=== PATIENT | male | born 1935 | race Caucasian/White ===

== ENCOUNTER 2016-11-07 06:57 | Day surgery (SDC) | payer MEDICARE, OTHER ==
--- NOTE | 2016-11-05 14:06 | HP ---
CC: Joon Lombardo MD; Dr. Villafuerte * ADMITTING HISTORY AND PHYSICAL: DATE OF ADMISSION: 11/07/16 ADMITTING DIAGNOSES: 1. Hematuria. 2. Urinary retention. 3. Bladder calculi. 4. Bladder lesions. PLANNED PROCEDURE: Cystoscopy, fragmentation and removal of bladder calculi and possible bladder biopsies. SURGEON: Dandre Mak MD. 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 For the last 15 years, he has been managing this with intermittent self-catheterization and lately started having increasing difficulty doing catheterization and subsequent hematuria. Cystoscopy done in my office revealed a markedly enlarged prostate. There was a diverticulum noted in the posterior bladder wall with multiple bladder calculi and multiple areas of irregular raised mucosa, which may be secondary to the calculi or to the catheterization. Initially, he had an 18-Arabic Amezcua catheter placed after the cystoscopy, but this subsequently got occluded secondary to hematuria and I eventually replaced it with a 24- Arabic Amezcua catheter. PAST MEDICAL HISTORY: Significant for: 1. Chronic dermatitis. 2. Asthma. 3. History of first degree AV block. 4. High cholesterol. 5. Rheumatoid arthritis. PAST SURGICAL HISTORY: Significant for removal of a nodule from the right knee. MEDICATIONS ON ADMISSION: 1. Salsalate 500 mg daily. 2. Montelukast 10 mg daily. 3. Vitamin C 500 mg daily. 4. Vitamin D3 1000 International Unit daily. 5. Prednisone 10 mg daily. 6. Atorvastatin 20 mg daily. 7. Avodart 0.5 mg daily. ALLERGIES AND INTOLERANCES: 1. NONSTEROIDAL ANTI-INFLAMMATORY MEDICATIONS. 2. NEOMYCIN. 3. TOPICAL GENTAMICIN EYE DROPS. 4. TOBRAMYCIN EYE DROPS. 5. SULFA. 6. LATEX. SMOKING HISTORY: He is a nonsmoker. PHYSICAL EXAMINATION GENERAL: A pleasant elderly gentleman. VITAL SIGNS: Blood pressure is 140/88, pulse 95 per minute, oxygen saturation 98% on room air. LUNGS: Clear bilaterally. CARDIOVASCULAR: Regular rate and rhythm. S1, S2. ABDOMEN: Soft without masses. A Amezcua catheter is in place. IMPRESSION: An 81-year-old gentleman with urinary retention secondary to prostate enlargement and multiple bladder calculi and bladder lesion. PLAN/RECOMMENDATIONS: Planned procedure is cystoscopy, fragmentation and removal of bladder calculi and possible bladder biopsy depending on intraoperative assessment. [id number]/[facility] #: [id number] [facility]
[~2016-11-07 06:57] MED LIST: Buffered Lidocaine 0.9% SYRIN* 5 ML/SYR SYRINGE INTRADERM ONE; Buffered Lidocaine 0.9% SYRIN* 5 ML/SYR SYRINGE ONE; Famotidine IV* 10 MG/ML 2 ML (20 mg) IV ONE; Famotidine IV* 10 MG/ML 2 ML (20 mg) ONE; cefTRIAXone(*) 2 GM ADDV.VIAL IVPB ONE
[2016-11-07] MEDS ORDERED: Midazolam* 1 MG/ML 5 ML VIAL (5 MG) ONE (08:55)
[2016-11-07] MEDS ORDERED: fentaNYL* 50 MCG/ML 2 ML VIAL (100 MCG VIAL) ONE (08:55)
[2016-11-07] MEDS ORDERED: Chloroprocaine 2%* 20 ML VIAL ONE (09:01)
[2016-11-07] MEDS ORDERED: Ondansetron INJ* 2 MG/ML VIAL ONE (09:33)
[2016-11-07] MEDS ORDERED: Furosemide IV* 10 MG/ML 2 ML VIAL (20 MG) ONE (09:46)
[2016-11-07] MEDS ORDERED: Acetaminophen TAB* 325 MG PO PRN (10:01)
[2016-11-07] MEDS ORDERED: HYDROcodone/ACETAMIN 5-325 MG* 1 TAB PO PRN (10:01)
[2016-11-07] MEDS ORDERED: PROCHLORPERAZINE INJ 5 MG/ML 2 ML VIAL IV PRN (10:01)
[2016-11-07] MEDS ORDERED: fentaNYL* 50 MCG/ML 2 ML VIAL (100 MCG VIAL) IV PRN (10:01)
[2016-11-07] MEDS ORDERED: Lidocaine 2% JELLY* 6 ML JELLY TOPICAL ONE (10:37)
[2016-11-07 11:48] VITALS: BP 131/69
--- NOTE | 2016-11-07 23:18 | OP ---
CC: Joon Lombardo MD; Dr. Villafuerte * DATE OF OPERATION: 11/07/16 - [facility] DATE OF : 35 - AGE/SEX: 81 years/male. SURGEON: Dandre Mak MD ANESTHESIOLOGIST: Aniyah Carlson MD ANESTHESIA: Spinal. PRE-OP DIAGNOSES: 1. Prostate enlargement. 2. Urinary retention. 3. Multiple bladder calculi. POST-OP DIAGNOSES: 1. Prostate enlargement. 2. Urinary retention. 3. Multiple bladder calculi. OPERATIVE PROCEDURE: Cystoscopy, fragmentation and removal of multiple bladder calculi. COMPLICATIONS: None. BLOOD LOSS: Minimal. POSTOPERATIVE CONDITION: Stable. OPERATIVE FINDINGS: 1. Markedly enlarged prostate. 2. Trabeculated bladder with multiple small diverticula and multiple bladder calculi. 3. Multiple areas of thickened hyperemic mucosa, probably reactive changes secondary to multiple bladder calculi and catheter. 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 He has been managed with intermittent self catheterization and recently had difficulty catheterizing resulting in cystoscopy, which revealed multiple bladder calculi. DESCRIPTION OF PROCEDURE: After induction of spinal anesthesia, the patient was placed in dorsal lithotomy position, sequential compression devices were in place and functioning. Initial cystoscopy revealed a normal-appearing urethra and markedly enlarged vascular prostate with multiple calcifications noted at the area of the bladder neck posteriorly. The bladder was extremely difficult to visualize because of multiple bladder calculi and because of oozing from the veins and the posterior bladder neck. After some irrigation, visualization was somewhat better. Attention was directed to the bladder calculi. Some of these were fairly large and using a stone crushing forceps, these were fragmented into multiple smaller fragments, which were irrigated out. After the bulk of the calculi had been fragmented and removed, I could then visualize the bladder much more easily and most of the changes in the bladder lining appeared consistent with inflammatory response. Once all the stones and fragments had been successfully removed, a 24-Upper Sorbian silicone Amezcua catheter was introduced without difficulty and connected to a drainage bag. The patient tolerated the procedure satisfactorily and was transferred back to the recovery area in stable condition. [id number]/[facility] #: [id number] [facility]
== END 2016-11-07 12:03 | disposition home or self-care (01) ==
LOC: OR 06:57
PROVIDERS: ATTEND Urology
DX: N20.1 Calculus of ureter (principal); N32.9 Bladder disorder, unspecified; N40.1 Benign prostatic hyperplasia with lower urinary tract symptoms; R33.8 Other retention of urine
CPT/HCPCS: 82365; 88300; J0696; J1940; J2250; J2400; J2405; J3010

== ENCOUNTER 2016-12-31 09:34 | Observation (INO) | payer MEDICARE, OTHER ==
--- NOTE | 2016-12-24 08:55 | HP ---
CC: Dr. Lombardo; Dr. Villafuerte * ADMITTING HISTORY AND PHYSICAL: DATE OF ADMISSION: 12/31/16 ADMITTING DIAGNOSES: 1. Urinary retention. 2. Prostate enlargement. 3. Bladder calculi. PLANNED PROCEDURE: Transurethral resection of prostate and fragmentation and removal of bladder calculi. SURGEON: Dr. 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 He had managed this for about 15 years with intermittent self-catheterization and recently had problems doing catheterization and had undergone surgery in October 2016 for multiple bladder calculi. His plan was to come back in the fall for a transurethral resection of the prostate, but he's had problems keeping a Amezcua catheter in due to rupture of the balloon, and a follow-up cystoscopy in my office recently revealed multiple new bladder calculi, and he's now being brought in for transurethral resection of prostate and removal of the new bladder calculi. PAST MEDICAL HISTORY: Significant for 1. Long-standing urinary retention. 2. Asthma. 3. History of first-degree AV block. 4. Chronic dermatitis. 5. Rheumatoid arthritis. 6. High cholesterol. MEDICATIONS: 1. Montelukast 10 mg daily. 2. Salicylate 500 mg daily. 3. Vitamin C 500 mg daily. 4. Prednisone 10 mg daily. 5. Atorvastatin 20 mg daily. 6. Avodart 0.5 mg daily. 7. Vitamin D3 1000 international units daily. ALLERGIES/INTOLERANCES: 1. NEOMYCIN. 2. TOPICAL GENTAMYCIN. EYE DROPS. 3. TOBRAMYCIN EYE DROPS. 4. SULFA. 5. LATEX. 6. NON-STEROIDAL ANTI-INFLAMMATORY MEDICATIONS. SOCIAL HISTORY: Smoking history - he is a nonsmoker. REVIEW OF SYSTEMS: He denies any chest pain or shortness of breath. He's fairly active, and still works as an emergency room physician. PHYSICAL EXAMINATION GENERAL: Reveals a pleasant, elderly gentleman. VITAL SIGNS: Blood pressure is 154/90, pulse 100 per minute, oxygen saturation 98% on room air. LUNGS: Clear bilaterally. CARDIOVASCULAR: Regular rate and rhythm. S1, S2. ABDOMEN: Soft. Amezcua catheter is in place. IMPRESSION: An 81-year-old gentleman with prostate enlargement, long-standing urinary retention, and recurrent bladder calculi. PLAN: Planned procedure is transurethral resection of prostate, and fragmentation and removal of bladder calculi. [id number]/[facility] #: [id number] [facility]
[~2016-12-31 09:34] MED LIST changes: -Buffered Lidocaine 0.9% SYRIN* 5 ML/SYR SYRINGE ONE; -Famotidine IV* 10 MG/ML 2 ML (20 mg) ONE; -cefTRIAXone(*) 2 GM ADDV.VIAL IVPB ONE
[2016-12-31] MEDS ORDERED: Levalbuterol 1.25MG/0.5ML NEB ONE (09:41)
[2016-12-31] MEDS ORDERED: Buffered Lidocaine 0.9% SYRIN* 5 ML/SYR SYRINGE ONE (09:42)
[2016-12-31] MEDS ORDERED: fentaNYL* 50 MCG/ML 2 ML VIAL (100 MCG VIAL) ONE (10:08)
[2016-12-31] MEDS ORDERED: Midazolam* 1 MG/ML 5 ML VIAL (5 MG) ONE (10:09)
[2016-12-31] MEDS ORDERED: cefTRIAXone(*) 2 GM ADDV.VIAL IVPB ONE (10:20)
[2016-12-31 10:26] LABS: Hematocrit 38 % (42-52); Hemoglobin 12.6 g/dl (14.0-18.0); Mean Corpuscular HGB Conc 34 g/dl (31-36); Mean Corpuscular Hemoglobin 28 pg (27-31); Mean Corpuscular Volume 84 fL (80-94); Mean Platelet Volume 6 um3 (7.4-10.4); Red Blood Count 4.46 10^6/ul (4.0-5.4); Red Cell Distribution Width 15 % (10.5-15)
[2016-12-31] MEDS ORDERED: Famotidine IV* 10 MG/ML 2 ML (20 mg) ONE (10:28)
[2016-12-31 10:39] LABS: BUN/Creatinine Ratio 35.9 (8-20); Calcium 9.1 mg/dL (8.6-10.3); EGFR African American 154.4 (>60); Potassium 3.9 mmol/L (3.5-5.0)
[2016-12-31] MEDS ORDERED: Levalbuterol 0.63MG/3ML NEB INH ONE (11:00)
[2016-12-31] MEDS ORDERED: Propofol* 10 MG/ML 20 ML BTL IV PUSH ONE (11:58)
[2016-12-31] MEDS ORDERED: Ondansetron INJ* 2 MG/ML VIAL ONE (11:58)
[2016-12-31] MEDS ORDERED: Dexamethasone IV* 4 MG/ML 1 ML (4 MG) ONE (11:58)
[2016-12-31] MEDS ORDERED: Levalbuterol 0.63MG/3ML NEB INH PRN (11:59)
[2016-12-31] MEDS ORDERED: HYDROmorphone* 1 MG/ML 1 ML SYR IV PRN (11:59)
[2016-12-31] MEDS ORDERED: Acetaminophen TAB* 325 MG PO PRN ×2 (11:59→14:54)
[2016-12-31] MEDS ORDERED: oxyCODONE TAB* 5 MG TAB PO PRN (11:59)
[2016-12-31] MEDS ORDERED: Phenylephrine IV* 40 MCG/ML 10 ML SYRINGE ONE (11:59)
[2016-12-31] MEDS ORDERED: DiMENhydriNATE IV* 50 MG/ML VIAL IV PUSH PRN (11:59)
[2016-12-31] MEDS ORDERED: EPHEDrine (Pressors)* 50 MG/ML VIAL ONE (12:18)
[2016-12-31] MEDS ORDERED: Furosemide IV* 10 MG/ML 2 ML VIAL (20 MG) ONE (12:37)
[2016-12-31] MEDS ORDERED: Levalbuterol HFA INHALER* 1 PUFF MDI INH PRN (14:53)
[2016-12-31] MEDS: DISALCID PO SCH ×2 (16:27→23:09)
[2016-12-31] MEDS ORDERED: Furosemide IV* 10 MG/ML 2 ML VIAL (20 MG) IV ONE (18:00)
[2016-12-31] MEDS: Lidocaine 2% JELLY* 6 ML JELLY TOPICAL SCH (20:53)
[2016-12-31] MEDS: Docusate CAP* 100 MG PO SCH (20:55)
[2016-12-31] MEDS ORDERED: Cholecalciferol TAB* 1000 UNITS PO SCH (21:00)
[2016-12-31] MEDS ORDERED: Ascorbic Acid TAB* 500 MG PO SCH (21:00)
[2016-12-31] MEDS ORDERED: Atorvastatin* 20 MG TAB PO SCH (21:00)
[2016-12-31] MEDS ORDERED: Montelukast Sodium TAB* 10 MG PO SCH (21:00)
[2016-12-31] MEDS ORDERED: Cyanocobalamin TAB* 500 MCG PO SCH (21:00)
--- NOTE | 2016-12-31 22:22 | OP ---
CC: Dr. Lombardo; Dr. Villafuerte * DATE OF OPERATION: 12/31/16 - ROOM #340 DATE OF : 35 SURGEON: Dandre Mak MD ANESTHESIOLOGIST: Mar Tyson MD ANESTHESIA: Spinal. PRE-OP DIAGNOSES: 1. Benign prostatic hypertrophy. 2. Urinary retention. 3. Recurrent bladder calculi. POST-OP DIAGNOSES: 1. Benign prostatic hypertrophy. 2. Urinary retention. 3. Recurrent bladder calculi. OPERATIVE PROCEDURE: 1. Transurethral resection of prostate. 2. Fragmentation and removal of bladder calculi. INDICATIONS: Jose Guillen is an 81-year-old gentleman, who has had long-standing urinary retention for about 15 years. This has been managed variously over the years with intermittent catheterization and also an indwelling catheter. He also has a history of stones and had undergone a procedure to remove bladder stones about a month ago. He was recently seen in the office and noted to have what appeared to be new stones at the bladder neck and some in the bladder and is now being brought in for management of those as well as transurethral resection of prostate. Because of the very large size of the prostate, I have explained to him that he may require a second-stage procedure. COMPLICATIONS: None. ESTIMATED BLOOD LOSS: Approximately 100 to 150 cc. SPECIMEN: Prostate chips and bladder calculi. CATHETER: A 24-Stateless 30 cc balloon Amezcua. OPERATIVE FINDINGS: 1. Normal-appearing urethra. 2. Markedly enlarged vascular prostate. 3. Multiple calculi, some in the bladder and some adherent to the bladder neck posteriorly. POSTOPERATIVE CONDITION: Stable. DESCRIPTION OF PROCEDURE: After induction of spinal anesthesia, the patient was placed in dorsal lithotomy position. Sequential compression devices were in place and functioning. Initial cystoscopy revealed a normal-appearing urethra, a markedly enlarged prostate in the posterior bladder neck. There were several calcifications that were dug into the bladder neck and could not be easily removed. There were some bladder calculi floating within the bladder lumen also. Using a stone crushing forceps, the calculi that were floating within the bladder lumen were fragmented and removed. Next, a resectoscope was introduced. The calculi that were dug into the posterior bladder neck had to be loosened by using the resectoscope at the posterior bladder neck. Once this was done, most of the calculi were dislodged and were then fragmented and removed. Transurethral resection of the prostate was carried out. The prostate as expected was very large and vascular and transurethral resection was carried out from the bladder neck down towards the veru. Because of the large size and vascularity, I did not attempt to completely resect the prostate, but resected enough of the floor of the prostate and the lateral lobes, hopefully to be able to facilitate voiding. It is possible that he may require a second-stage procedure after a few months and once adequate hemostasis had been secured and the resected tissue had been removed from the bladder, a 24-Stateless Amezcua catheter was introduced without difficulty. 45 cc of water was placed in balloon and was placed on gentle traction. The patient tolerated the procedure satisfactorily and was transferred back to the recovery area in stable condition. [id number]/[facility] #: [id number] [facility]
[2017-01-01] MEDS: DISALCID PO SCH ×2 (03:37→10:15)
[2017-01-01 06:03] LABS: BUN/Creatinine Ratio 30.5 (8-20); Calcium 8.5 mg/dL (8.6-10.3); EGFR African American 169.6 (>60); EGFR Non-African American 131.8 (>60); Potassium 4.1 mmol/L (3.5-5.0)
[2017-01-01] MEDS: Docusate CAP* 100 MG PO SCH (08:56)
[2017-01-01] MEDS: Lidocaine 2% JELLY* 6 ML JELLY TOPICAL SCH (08:59)
[2017-01-01] MEDS ORDERED: Cetirizine* 10 MG TAB PO SCH (09:00)
[2017-01-01] MEDS ORDERED: Furosemide IV* 10 MG/ML 2 ML VIAL (20 MG) IV ONE (09:00)
[2017-01-01] MEDS ORDERED: predniSONE TAB* 5 MG PO SCH (09:00)
[2017-01-01] MEDS ORDERED: Finasteride TAB* 5 MG PO SCH (09:00)
[2017-01-01 11:23] VITALS: BP 148/70
--- NOTE | 2017-01-03 04:59 | DS ---
DISCHARGE SUMMARY: DATE OF ADMISSION: 12/31/16 DATE OF DISCHARGE: 01/01/17 ADMITTING DIAGNOSES: 1. Urinary retention. 2. Prostate enlargement. 3. Bladder calculi. SURGICAL PROCEDURES: On this admission on 12/31/16, transurethral resection of prostate and fragmentation and removal of bladder calculi. 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 For details, please see history and physical dictated prior to admission. 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 Surgery was smooth and uneventful. He was monitored overnight and the Amezcua catheter continued to drain well with reasonably clear urine. He was evaluated on the morning on 01/01/17 and was discharged home with a Amezcua catheter for followup as per outpatient protocol. [id number]/[facility] #: [id number] [facility]
== END 2017-01-01 12:00 | disposition home or self-care (01) ==
LOC: OR 09:34 → SSU 14:40
PROVIDERS: ADMIT Urology; ATTEND Urology
DX: N40.1 Benign prostatic hyperplasia with lower urinary tract symptoms (principal); R33.8 Other retention of urine; N21.0 Calculus in bladder; J45.909 Unspecified asthma, uncomplicated; I44.0 Atrioventricular block, first degree; M06.9 Rheumatoid arthritis, unspecified; E78.00 Pure hypercholesterolemia, unspecified; L30.9 Dermatitis, unspecified; Z79.899 Other long term (current) drug therapy; I10 Essential (primary) hypertension
CPT/HCPCS: 36415; 80048; 85027; 85610; 88305; 96365; 96375; A9270-GY; G0378; J0696; J1100; J1580; J1940; J2250; J2405; J2704; J3010; J7512

== ENCOUNTER 2017-04-20 06:02 | Observation (INO) | payer MEDICARE, OTHER ==
--- NOTE | 2017-04-15 18:23 | HP ---
CC: Dr. Villafuerte; Dr. Lombardo * ADMITTING HISTORY AND PHYSICAL: DATE OF ADMISSION: 04/20/17 ADMITTING DIAGNOSES: 1. Prostate enlargement. 2. Urinary retention. 3. Bladder calculi. PLANNED PROCEDURE: Cystoscopy, fragmentation, and removal of bladder calculi, and transurethral resection of prostate (second stage procedure). SURGEON: Dr. Mak. 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 He had undergone transurethral resection in December 2016, and at that time was noted to have a very large, very vascular prostate with multiple large bladder calculi. He still is requiring intermittent self-catheterization and is now being brought in for a second stage transurethral resection and removal of any remaining calculi. PAST MEDICAL HISTORY: Significant for: 1. Urinary retention and bladder calculi (this has been a problem for 15 to 20 years and he did not seek attention for it up until recently). 2. History of first-degree AV block. 3. Asthma. 4. Rheumatoid arthritis. 5. High cholesterol. MEDICATIONS: On admission: 1. Salicylate 500 mg daily. 2. Montelukast 10 mg daily. 3. Prednisone 10 mg daily. 4. Atorvastatin 20 mg daily. 5. Avodart 0.5 mg daily. ALLERGIES AND INTOLERANCES: NEOMYCIN, TOPICAL GENTAMICIN EYE DROPS and TOBRAMYCIN EYE DROPS, LATEX, SULFA, and NON-STEROIDAL ANTI-INFLAMMATORY MEDICATIONS. REVIEW OF SYSTEMS: He denies any chest pain or shortness of breath. PHYSICAL EXAMINATION GENERAL: Reveals a pleasant, elderly gentleman. VITAL SIGNS: Blood pressure is 160/90, pulse 100 per minute, oxygen saturation 97% on room air. LUNGS: Clear bilaterally. CARDIOVASCULAR EXAM: Regular rate and rhythm. S1, S2. ABDOMEN: Soft with a Amezcua catheter in place. 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 PLAN: Planned procedure is cystoscopy, fragmentation, and removal of bladder calculi and transurethral resection of prostate (second stage procedure). [id number]/[facility] #: [id number] [facility]
[~2017-04-20 06:02] MED LIST changes: -Famotidine IV* 10 MG/ML 2 ML (20 mg) IV ONE
[2017-04-20] MEDS ORDERED: Buffered Lidocaine 0.9% SYRIN* 5 ML/SYR SYRINGE ONE (06:14)
[2017-04-20] MEDS ORDERED: cefTRIAXone(*) 2 GM ADDV.VIAL IVPB ONE (06:14)
[2017-04-20] MEDS ORDERED: Gentamicin ADULT (*) 160 MG in NS 0.9% 100 ML* 100 ML IVPB ONE ×2 (07:00→21:00)
[2017-04-20] MEDS ORDERED: fentaNYL* 50 MCG/ML 2 ML VIAL (100 MCG VIAL) ONE ×2 (08:01→09:55)
[2017-04-20] MEDS ORDERED: Midazolam* 1 MG/ML 2 ML VIAL (2 MG) ONE (08:06)
[2017-04-20] MEDS ORDERED: Fluorescein 10% INJ* 100 MG/ML AMP ONE (08:28)
[2017-04-20] MEDS ORDERED: Furosemide IV* 10 MG/ML 2 ML VIAL (20 MG) ONE (09:03)
[2017-04-20] MEDS ORDERED: fentaNYL* 50 MCG/ML 2 ML VIAL (100 MCG VIAL) IV PRN (10:19)
[2017-04-20] MEDS ORDERED: oxyCODONE/Acetamin 5/325 MG* TAB PO PRN ×2 (10:19→12:09)
[2017-04-20] MEDS ORDERED: DiMENhydriNATE IV* 50 MG/ML VIAL IV PUSH PRN (10:19)
[2017-04-20] MEDS ORDERED: Acetaminophen TAB* 325 MG PO PRN ×2 (12:10→12:31)
[2017-04-20] MEDS ORDERED: Levalbuterol HFA INHALER* 1 PUFF MDI INH PRN (12:30)
[2017-04-20] MEDS: Docusate CAP* 100 MG PO SCH ×2 (14:31→21:16)
[2017-04-20] MEDS: Salsalate TAB* 500 MG PO SCH (17:29)
[2017-04-20] MEDS ORDERED: Atorvastatin* 20 MG TAB PO SCH (18:00)
[2017-04-20] MEDS ORDERED: Montelukast Sodium TAB* 10 MG PO SCH (18:00)
[2017-04-20] MEDS ORDERED: Cholecalciferol TAB* 1000 UNITS PO SCH (18:00)
[2017-04-20] MEDS ORDERED: Cyanocobalamin TAB* 500 MCG PO SCH (18:00)
[2017-04-20] MEDS ORDERED: Ascorbic Acid TAB* 500 MG PO SCH (18:00)
[2017-04-21] MEDS: Salsalate TAB* 500 MG PO SCH ×3 (00:05→12:15)
[2017-04-21] MEDS ORDERED: Magnesium Hydroxide LIQ* 30 ML UDC PO PRN (03:20)
[2017-04-21] MEDS ORDERED: Ondansetron INJ* 2 MG/ML VIAL IV PRN (03:20)
--- NOTE | 2017-04-21 04:09 | OP ---
CC: Joon Lombardo MD * DATE OF OPERATION: 04/20/17 - ROOM #348 DATE OF : 35 SURGEON: Dr. Mak. ANESTHESIA: Spinal. ANESTHESIOLOGIST: Dr. Hardin. PRE-OP DIAGNOSES: 1. Benign prostatic hypertrophy. 2. Urinary retention. 3. Bladder calculi. POST-OP DIAGNOSES: 1. Benign prostatic hypertrophy. 2. Urinary retention. 3. Bladder calculi. OPERATIVE PROCEDURE: 1. Transurethral resection of prostate. 2. Cystoscopy and fragmentation and removal of bladder calculi. COMPLICATIONS: None. BLOOD LOSS: Approximately 100 to 150 cc. FLUID REPLACEMENT: Crystalloid. CATHETER: 24-Hungarian 30 cc Amezcua. POSTOPERATIVE CONDITION: Stable. 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 DESCRIPTION OF PROCEDURE: After induction of spinal anesthesia, the patient was placed in dorsal lithotomy position. Sequential compression devices were in place and functioning. Initial cystoscopy revealed mild strictures in the penile urethra, which were carefully dilated. The prostate was enlarged, vascular, and distorted from prior resection. The bladder was examined. There were multiple bladder calculi including several calculi in a diverticulum, which was just inside and below the posterior bladder neck. Using a stone crushing forceps, all of the calculi were fragmented into smaller pieces, which were then irrigated out. Next, a resectoscope was introduced. Transurethral resection of the prostate was carried out. The prostate was very large and vascular as expected and the lateral lobe tissue was resected followed by the anterior tissue and the floor of the prostate. I did not make any attempt to completely resect the prostate as that would involve several hours of resection and would increase the risk of TUR syndrome. Once enough tissue had been resected to hopefully facilitate voiding, attention was directed to hemostasis, which was secured using the coagulating current. The resected tissue was removed from the bladder using the Danette evacuator. A 24-Hungarian Amezcua catheter was placed without difficulty and the balloon was inflated with 45 cc of sterile water and placed on gentle traction. The patient tolerated the procedure satisfactorily and was transferred back to the recovery area in stable condition. [id number]/[facility] #: [id number] [facility]
[2017-04-21 06:08] LABS: BUN/Creatinine Ratio 18.9 (8-20); Calcium 7.9 mg/dL (8.6-10.3); EGFR African American 191.9 (>60); EGFR Non-African American 149.2 (>60); Potassium 3.3 mmol/L (3.5-5.0)
[2017-04-21] MEDS ORDERED: Finasteride TAB* 5 MG PO SCH (09:00)
[2017-04-21] MEDS ORDERED: Cetirizine* 10 MG TAB PO PRN (09:00)
[2017-04-21] MEDS ORDERED: Gentamicin ADULT (*) 160 MG in NS 0.9% 100 ML* 100 ML IVPB ONE (09:00)
[2017-04-21] MEDS ORDERED: cefTRIAXone(*) 2 GM in NS 0.9% 100 ML* 100 ML IVPB ONE (09:00)
[2017-04-21] MEDS ORDERED: predniSONE TAB* 5 MG PO SCH (09:00)
[2017-04-21] MEDS: Docusate CAP* 100 MG PO SCH (09:11)
[2017-04-21 11:04] VITALS: BP 130/46
--- NOTE | 2017-04-22 12:42 | DS ---
CC: Dr. Joon Lombardo; Dandre Mak MD * DISCHARGE SUMMARY: DATE OF ADMISSION: 04/20/17 DATE OF DISCHARGE: 04/21/17 ADMITTING DIAGNOSES: 1. Urinary retention. 2. Prostate enlargement. 3. Bladder calculi. SURGICAL PROCEDURES ON THIS ADMISSION: On 04/20/17, transurethral resection of prostate and fragmentation and removal of bladder calculi. 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 For details, please see admitting history and physical. 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 Under spinal anesthesia, surgery was smooth and uneventful. He was monitored overnight and was evaluated on 04/21/17. The Amezcua catheter was draining clear urine and he was discharged home with a leg bag for a followup as per outpatient protocol. [id number]/[facility] #: [id number] [facility]
== END 2017-04-21 12:50 | disposition home or self-care (01) ==
LOC: OR 06:02 → SSU 12:20
PROVIDERS: ADMIT Urology; ATTEND Urology
PROC: 0VB08ZZ Excision of Prostate, Via Natural or Artificial Opening Endoscopic (ICD-10-PCS; principal; 2017-04-20 07:45)
DX: N40.1 Benign prostatic hyperplasia with lower urinary tract symptoms (principal); R33.8 Other retention of urine; N21.0 Calculus in bladder; Z88.2 Allergy status to sulfonamides; Z88.1 Allergy status to other antibiotic agents; Z88.6 Allergy status to analgesic agent; I44.0 Atrioventricular block, first degree; M06.9 Rheumatoid arthritis, unspecified; J45.909 Unspecified asthma, uncomplicated; E78.00 Pure hypercholesterolemia, unspecified; Z79.899 Other long term (current) drug therapy
CPT/HCPCS: 36415; 80048; 82365; 88300; 88305; 96365; 96366; 96367; 96375; A9270-GY; G0378; J0696; J1580; J1940; J2250; J2405; J3010; J7512

== ENCOUNTER 2017-10-10 13:12 | Emergency (ER) | payer MEDICARE, OTHER ==
[2017-10-10 13:25] VITALS: BP 168/83
--- NOTE | 2017-10-10 13:35 | UC ---
Laceration HPI - HPI Summary HPI Summary: PT IS C/O A "SKIN TEAR" TO HIS R LOWER LEG. 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 LAST TETANUS WAS GREATER THAN 10 YEARS AGO. NO CONCERN FOR FB. - History Of Current Complaint Hx Obtained From: Patient Pain Intensity: 2 Aggravating Factors: Nothing <Alma Marr - Last Filed: 10/10/17 14:46> <Zohra Juarez - Last Filed: 10/12/17 09:33> - History Of Current Complaint Chief Complaint: UCLaceration Stated Complaint: RT LEG LAC Time Seen by Provider: 10/10/17 13:24 - Allergies/Home Medications Allergies/Adverse Reactions: Allergies Allergy/AdvReac Type Severity Reaction Status Date / Time chloroquine Allergy Tinnitus Verified 10/10/17 13:59 gentamicin Allergy Eyes Verified 10/10/17 13:59 Itchy/Swollen/Red/Watery latex Allergy Rash And Verified 10/10/17 13:59 Itching leflunomide Allergy See Comment Verified 10/10/17 13:59 neomycin Allergy Eyes Verified 10/10/17 13:59 Itchy/Swollen/Red/Watery NSAIDS (Non-Steroidal Allergy Swelling Verified 10/10/17 13:59 Anti-Inflamma Of Face,Lips,& Throat Sulfa (Sulfonamide Allergy Rash And Verified 10/10/17 13:59 Antibiotics) Itching tobramycin Allergy Eyes Verified 10/10/17 13:59 Itchy/Swollen/Red/Watery Ragweed/Environmental Allergy Congestion Uncoded 10/10/17 13:59 PMH/Surg Hx/FS Hx/Imm Hx - Additional Past Medical History Additional PMH: ALLERGIES, RA Respiratory History: COPD - Surgical History Surgical History: Yes Surgery Procedure, Year, and Place: BILATERAL HAND JOINT REPLACEMENT,. RT KNEE EXPLORATORY SURGERY RHEUMATOID NODULE REMOVED. CATARACT SURGERY 2015 - Family History Known Family History: Positive: Other - non contributing - Social History Occupation: Employed Part-time Lives: With Family Alcohol Use: None Substance Use Type: None Smoking Status (MU): Never Smoked Tobacco - Immunization History Most Recent Influenza Vaccination: 2016 Most Recent Pneumonia Vaccination: pt stated within the last two years <Alma Marr - Last Filed: 10/10/17 14:46> Review of Systems Constitutional: Negative Skin: Rash - laceration RLE Eyes: Negative ENT: Negative Respiratory: Negative Cardiovascular: Negative Gastrointestinal: Negative Genitourinary: Negative Motor: Negative Neurovascular: Negative Musculoskeletal: Arthralgia - hx RA Neurological: Negative Psychological: Negative All Other Systems Reviewed And Are Negative: Yes <Alma Marr - Last Filed: 10/10/17 14:46> Physical Exam Triage Information Reviewed: Yes Appearance: Well-Appearing Vital Signs: Initial Vital Signs Temp 98.0 F 10/10/17 13:22 Pulse 94 10/10/17 13:22 Resp 16 10/10/17 13:22 BP 168/83 10/10/17 13:22 Pulse Ox 97 10/10/17 13:22 Vital Signs Reviewed: Yes Eyes: Positive: Conjunctiva Clear ENT: Positive: Pharynx normal. Negative: Nasal congestion Neck: Positive: Supple, Nontender, No Lymphadenopathy Respiratory: Positive: Lungs clear, Normal breath sounds Cardiovascular: Positive: RRR, No Murmur Abdomen Description: Positive: Nontender, No Organomegaly, Soft Bowel Sounds: Positive: Present Musculoskeletal: Positive: Other: - Deformity c/w RA. Neurological: Positive: Alert Psychological: Positive: Age Appropriate Behavior Skin Exam: Normal Skin: Positive: Other - 4cm laceration R lateral lower leg. no bony tenderness. skin is dry scaley and some pigment changes to lower leg, both chronic and unchanges. gross s/v/m is intact. <Alma Marr - Last Filed: 10/10/17 14:46> Vital Signs: Initial Vital Signs Temp 98.0 F 10/10/17 13:22 Pulse 94 10/10/17 13:22 Resp 16 10/10/17 13:22 BP 168/83 10/10/17 13:22 Pulse Ox 97 10/10/17 13:22 <Zohra Juarez - Last Filed: 10/12/17 09:33> Laceration Course/Dx - Course/Dx Course Of Treatment: Procedure: 4cm flap irrigated with sterile NaCl by nursing. local anesthesia declined by pt. using sterile technique: wound explored and no FB. irrigated sterile water. pt refused betadine so skin clensed with Hibiclens and rinsed. flap is thin but site was closed with 5-0 nylon and 9 simple stitches. edges reinforced with Mastosol 3 steri strips. pt tolerated well. wound check/close f/u advised. pt also advised that flap is thin is may scab. - Differential Dx - Laceration/Wound Provider Diagnoses: 4cm laceration RLE <Alma Marr - Last Filed: 10/10/17 14:46> Discharge - Sign-Out/Discharge Documenting (check all that apply): Discharge/Admit/Transfer - Billing Disposition and Condition Condition: STABLE Disposition: HOME <Alma Marr - Last Filed: 10/10/17 14:46> - Billing Disposition and Condition Condition: STABLE Disposition: HOME <Zohra Juarez - Last Filed: 10/12/17 09:33> - Discharge Plan Condition: Stable Disposition: HOME Patient Education Materials: Care For Your Stitches (DC), Steristrips (ED) Referrals: Huang Rowe [Medical Doctor] - If Needed Joon Lombardo MD [Primary Care Provider] - 5 Days Additional Instructions: WOUND CHECK WITH YOUR DOCTOR. FOLLOW UP SURGERY NEEDED FOR ANY COMPLICATIONS Attestation Statement User Type: Provider - I was available for consult. This patient was seen by the LEON. The patient was not presented to, seen by, or examined by me. -Temitope <Zohra Juarez - Last Filed: 10/12/17 09:33>
[2017-10-10] MEDS ORDERED: Lidocaine 1% MPF* 2 ML VIAL ONE (13:42)
[2017-10-10] MEDS ORDERED: Tetan/Diph/Pertus SYR(Tdap)* 0.5 ML SYR(BOOSTRIX) use SYR IM ONE (13:42)
[2017-10-10] MEDS ORDERED: Lidocaine 1% MPF* 2 ML VIAL INJ ONE (13:43)
== END 2017-10-10 14:46 | disposition home or self-care (01) ==
LOC: UCCORT 13:12
DX: S81.811A Laceration without foreign body, right lower leg, initial encounter (principal); W45.8XXA Other foreign body or object entering through skin, initial encounter; W22.8XXA Striking against or struck by other objects, initial encounter; Y93.89 Activity, other specified; Y92.9 Unspecified place or not applicable; Z88.8 Allergy status to other drugs, medicaments and biological substances; Z88.1 Allergy status to other antibiotic agents; Z91.040 Latex allergy status; Z88.6 Allergy status to analgesic agent; Z88.2 Allergy status to sulfonamides
CPT/HCPCS: 12002; 90471; 90715; 99201; G0463

== ENCOUNTER 2017-12-14 06:04 | Observation (INO) | payer MEDICARE, OTHER ==
--- NOTE | 2017-12-11 12:25 | HP ---
ADMITTING HISTORY AND PHYSICAL: DATE OF ADMISSION: 12/14/17 ADMITTING DIAGNOSES: 1. Bladder calculi. 2. Prostate enlargement. PLANNED PROCEDURE: Transurethral resection of prostate and fragmentation and removal of bladder calculi. SURGEON: Dr. Mak. 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 He had undergone transurethral resection in the past, but still has urinary retention requiring intermittent self catheterization. PAST MEDICAL HISTORY: Significant for: 1. Asthma. 2. Rheumatoid arthritis. 3. High cholesterol. MEDICATIONS ON ADMISSION: 1. Montelukast 10 mg daily. 2. Salicylates 500 mg daily. 3. Atorvastatin 20 mg daily. 4. Avodart 0.5 mg. 5. Prednisone. ALLERGIES: TOPICAL GENTAMICIN EYE DROPS, TOBRAMYCIN EYE DROPS, LATEX, NONSTEROIDAL ANTI-INFLAMMATORY MEDICATIONS, SULFA, and NEOMYCIN. REVIEW OF SYSTEMS: He is otherwise in excellent health. He denies any chest pain or shortness of breath. There is no history of diabetes mellitus or any other major systemic illness. PHYSICAL EXAMINATION GENERAL: Reveals a pleasant elderly gentleman, who is alert and oriented. Blood pressure is 160/80, pulse 90 per minute, oxygen saturation 96% on room air. LUNGS: Clear bilaterally. CARDIOVASCULAR: Regular rate and rhythm. S1, S2. ABDOMEN: Soft without masses. IMPRESSION: An 81-year-old gentleman with very large multiple bladder calculi and enlarged prostate. Planned procedure is transurethral resection of prostate and removal and fragmentation of bladder calculi. [id number] #: [id number] MTDD
[2017-12-14] MEDS ORDERED: Levofloxacin 500 MG IVPREMIX(* 500 MG/100 ML BAG IVPB ONE (06:26)
[2017-12-14] MEDS ORDERED: Propofol* 10 MG/ML 20 ML BTL IV PUSH ONE (06:45)
[2017-12-14] MEDS ORDERED: Lidocaine 2% PF * 5 ML VIAL ONE ×2 (06:45→06:52)
[2017-12-14] MEDS ORDERED: EPINEPHrine SYR 0.1 MG/ML* (1:10,000) SYRINGE ONE (06:46)
[2017-12-14] MEDS ORDERED: Sterile Water for Inj* 10 ML ONE (06:47)
[2017-12-14] MEDS ORDERED: Bupivacaine-MPF SPINAL* 7.5 MG/ML - 2ML AMP ONE (06:52)
[2017-12-14] MEDS ORDERED: Gentamicin ADULT (*) 160 MG in NS 0.9% 100 ML* 100 ML IVPB ONE ×4 (07:00)
[2017-12-14] MEDS ORDERED: Midazolam* 1 MG/ML 2 ML VIAL (2 MG) ONE (07:07)
[2017-12-14] MEDS ORDERED: Furosemide IV* 10 MG/ML 2 ML VIAL (20 MG) ONE (08:14)
[2017-12-14] MEDS ORDERED: Naloxone* 0.4 MG/ML 1 ML VIAL IV PRN (08:18)
[2017-12-14] MEDS ORDERED: fentaNYL* 50 MCG/ML 2 ML VIAL (100 MCG VIAL) IV PRN (08:18)
[2017-12-14] MEDS ORDERED: Acetaminophen TAB* 325 MG PO PRN ×2 (08:18→11:37)
[2017-12-14] MEDS ORDERED: Ondansetron INJ* 2 MG/ML VIAL IV PRN (08:18)
[2017-12-14] MEDS ORDERED: Levalbuterol HFA INHALER* 1 PUFF MDI INH PRN (11:22)
[2017-12-14] MEDS: Salsalate TAB* 500 MG PO SCH ×2 (12:23→17:16)
[2017-12-14] MEDS: Lidocaine 2% JELLY* 6 ML JELLY TOPICAL SCH ×2 (14:40→20:21)
[2017-12-14] MEDS: Docusate CAP* 100 MG PO SCH ×2 (14:40→20:21)
[2017-12-14 19:55] LABS: ABS Basophils 0 10^3/ul (0-0.2); ABS Eosinophils 0.1 10^3/ul (0-0.6); ABS Lymphocytes 1.2 10^3/ul (1.0-4.8); ABS Monocytes 0.8 10^3/ul (0-0.8); ABS Neutrophils 3.1 10^3/ul (1.5-7.7); ABS Nucleated RBC 0 10^3/ul; Hematocrit 35 % (42-52); Hemoglobin 11.8 g/dl (14.0-18.0); Mean Corpuscular HGB Conc 34 g/dl (31-36); Mean Corpuscular Hemoglobin 28 pg (27-31); Mean Corpuscular Volume 83 fL (80-94); Nucleated Red Blood Cells % 0; Platelet Count 221 10^3/ul (150-450); Red Blood Count 4.23 10^6/ul (4.00-5.40); Red Cell Distribution Width 15 % (10.5-15); White Blood Count 5.2 10^3/ul (3.5-10.8)
[2017-12-14 20:17] LABS: EGFR Non-African American 92.5 (>60)
[2017-12-14] MEDS ORDERED: Magnesium Sulfate IV* 2 GM in NS 0.9% 100 ML* 100 ML IVPB ONE (20:18)
--- NOTE | 2017-12-14 22:37 | CONS ---
CC: RUI Mckinley; Dr. Joshi from [place] * CONSULTATION REPORT: DATE OF CONSULT: 12/14/17 PRIMARY CARE PROVIDER: RUI Mckinley MY ATTENDING PHYSICIAN WHILE IN THE HOSPITAL: Dr. Pete Bennett (report dictated by Jericho Molina NP) PRIMARY REFRIGERATION TECHNICIAN: Dr. Joshi from [place]. REASON FOR MEDICAL CONSULTATION: 1. Evaluation and medical management of comorbid medical problems. 2. Evaluation of first-degree AV block. HISTORY OF PRESENTING ILLNESS: Mr. Guillen is an 82-year-old male patient who carries a history of BPH, bladder calculi, rheumatoid arthritis, hyperlipidemia , asthma, he does have a known history of first-degree AV block and recent humerus fracture. Mr. Guillen was presenting to Dr. Mak's service today for TURP and fragmentation and removal of bladder calculi. It was noted in the PACU that he was having issues with his AZ becoming more prolonged. The patient actually was awake during the procedure and watching this and he had noticed this. He did note that he may have had a pause of this as I could not see this on the recordings that I have available to me. The patient was concerned and because of this, evaluation of this AZ block, we were asked to evaluate. The patient denied having any chest pain. He says he typically walks half a mile a day. He does well with this. He denies getting any chest pain and denies getting any shortness of breath. He denied having any again recent chest pain. He denies having any syncopal episodes. He denied having any recent vomiting and diarrhea. He does admit that recently stopping Plaquenil and then going back on it 3 days ago, this is the only med change. He states that otherwise he has been feeling well. He says normally his AZ is about 0.24 and it has gone here as high as 0.3 according to the patient. Because of these new findings, we were asked to evaluate in consult. PAST MEDICAL HISTORY: Significant for: 1. BPH. 2. Bladder calculi. 3. Rheumatoid arthritis. 4. Hyperlipidemia. 5. Asthma. 6. History of first-degree AV block. 7. Humerus fracture. PAST SURGICAL HISTORY: The patient has had knee surgery, he has had bladder calculi resection x4, and he has had TURP 4 times. He has also had joint replacement to his fingers. HOME MEDICATIONS: Include, 1. Prednisone 5 mg daily. 2. Tylenol 1000 mg p.o. every 6 hours. 3. Disalcid 500 mg every 6 hours. 4. Singulair 10 mg daily. 5. Xopenex 1 puff inhaled daily as needed. 6. Plaquenil 200 mg daily. 7. Avodart 0.5 mg daily. 8. Vitamin D 5000 units daily. 9. Ascorbic acid 500 mg p.o. daily. ALLERGIES TO MEDICATIONS: NEOMYCIN, NSAIDS, SULFA, CHLOROQUINE, LEFLUNOMIDE, LATEX, GENTAMICIN EYE DROPS, TOBRAMYCIN EYE DROPS. FAMILY HISTORY: Both his parents were healthy. There is no report of rheumatoid arthritis, asthma, COPD, or heart disease. Essentially this is noncontributory. SOCIAL HISTORY: He does not smoke. He does not drink. He is a practicing emergency room physician. Surrogate decision maker is his . REVIEW OF SYSTEMS: There is no documented fever. He denies having any significant weight change. There is no double vision. He denies having any ear discharge. There is no rhinorrhea, no sore throat, no thyroid enlargement. Denies having any chest pain. There is no orthopnea. There is no nocturnal dyspnea. Denies having any abdominal pain. There is no nausea, no vomiting. No dysuria, no frequency. Denies having any seizure, no loss of consciousness. No pruritus and no skin ulcerations. Review of 14 systems completed, all others negative. PHYSICAL EXAM: Vital Signs: Blood pressure 153/55, pulse 83, respirations 18, O2 sat 98%, temperature 98.1. General: At this time, Mr. Guillen is an 82-year- old male patient, he is sitting in the hospital bed. He appears to be well nourished, well developed. He does not appear to be in any acute distress. HEENT: Head is atraumatic and normocephalic. Eyes: EOMs are intact. Sclerae are anicteric. Neck: Supple. Throat: Oral mucosa appears to be moist. No oropharyngeal erythema. Heart: Sounds S1, S2. He had regular rate and rhythm. He had no murmurs, rubs, or gallops. His lungs were clear to auscultation bilaterally. There were no wheezes, rales, or rhonchi. His abdomen was soft, flat, nontender. Bowel sounds were present. Extremities: Pulses were 2+ throughout. He does have deformity noted to the bilateral ankles and he has deformity noted to his hands. He has limited range of motion due to his left shoulder since this is the fractured shoulder. Pulses were 2+ throughout. Neurologically, the patient is awake, alert, and oriented x3. He had no gross focal deficits. Skin: Intact with an exception he has significant amount of dry skin to the lower extremities and to his upper extremities. DIAGNOSTIC STUDIES/LAB DATA: He had a preoperative WBC of 4.2, RBC of 2.65, hemoglobin 13.0, hematocrit 39, and his platelet count was 227. Sodium was 139 , potassium of 4.2, chloride of 107, bicarb 23, BUN 14, creatinine of 0.57, and his glucose was 109. He had an EKG obtained today, I do not have a previous one for comparison, but this EKG today is showing a normal sinus rhythm with a first-degree AV block. He had no ST elevation or T-wave inversions noted at this point. Old medical records were reviewed. ASSESSMENT AND PLAN: Mr. Guillen is an 82-year-old male patient coming into Dr. Mak's service for an elective transurethral resection of the prostate and bladder calculi with fragmentation and resection. We were asked to evaluate in consult for first-degree atrioventricular block. Our recommendations at this point are: 1. History of first-degree atrioventricular block. At this point, his AZ is longer and the patient says he normally is about 0.24, he is now 0.26 to upwards of 0.3. I am going to go ahead and check his CBC now and a BMP along with a troponin. He is not having any active cardiac symptoms and although it is ischemic in nature. Generally, this is benign. The patient will also get a magnesium and TSH checked. He has a followup appointment scheduled with his stiff leg operator in 6 days, which he can keep. He will be placed on telemetry to make sure he is not going to a higher degree block and we will continue to follow. 2. Benign prostatic hypertrophy and bladder calculi. I defer the management to Dr. Mak. 3. History of rheumatoid arthritis. Continue medications as prescribed. 4. History of hyperlipidemia. Continue with his current medical regimen. 5. History of asthma. Continue Xopenex p.r.n. 6. History of humerus fracture. Continue with his PT/OT effort. 7. DVT prophylaxis. We will defer to the primary team. 8. Code status. He is a full code. 9. Fluids, electrolytes, and nutrition. He can have a regular diet. TIME SPENT: On the consult was 60 minutes; greater than half the time spent face- to-face with the patient obtaining my history and physical, the other half time was spent going over the plan of care with the patient and implementing plan of care. I did discuss the plan of care with my attending, Dr. Bennett; he is in agreement. JERICHO MOLINA NP [id number]/CPS #: [id number] AMANDA
[2017-12-15] MEDS: Salsalate TAB* 500 MG PO SCH ×2 (00:02→05:53)
--- NOTE | 2017-12-15 03:52 | OP ---
CC: Dr. Joon Lombardo; Dr. Mercy Joshi in [place] * DATE OF OPERATION: 12/14/17 - ROOM #334 DATE OF : 35 SURGEON: Dandre Mak MD ANESTHESIOLOGIST: Dr. Sanchez. ANESTHESIA: Spinal. PRE-OP DIAGNOSES: 1. Bladder calculi. 2. BPH. 3. Urinary retention. POST-OP DIAGNOSES: 1. Bladder calculi. 2. BPH. 3. Urinary retention. OPERATIVE PROCEDURE: 1. Transurethral resection of prostate. 2. Fragmentation and removal of bladder calculi. COMPLICATIONS: None. BLOOD LOSS: Approximately 100 cc. CATHETER: 24-Chinese Amezcua. 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 POSTOPERATIVE CONDITION: Stable. DESCRIPTION OF PROCEDURE: fter induction of spinal anesthesia, the patient was placed in dorsal lithotomy position. Sequential compression devices were in place and functioning. Initial cystoscopy revealed a normal-appearing urethra. There was asymmetric residual prostatic tissue with a large median lobe component protruding into the bladder on the left side. There were multiple bladder calculi noted. Using the stone crushing forceps, all of the sizable calculi were fragmented and irrigated out. Next a resectoscope was introduced, transurethral resection of the prostate was carried out with the floor of the prostate being resected first followed by the lateral tissue and then the anterior lobe tissue. Hemostasis was secured using the coagulating current. The resected tissue was removed from the bladder using the Ellik evacuator. At the end of the procedure, hemostasis appeared satisfactory, and a 24-Chinese 30 cc Amezcua was introduced without difficulty and connected to a drainage bag. The patient tolerated the procedure satisfactorily and was transferred back to the recovery area in stable condition. [id number]/CPS #: [id number] [facility]
[2017-12-15] MEDS ORDERED: Ascorbic Acid TAB* 500 MG PO SCH (09:00)
[2017-12-15] MEDS ORDERED: predniSONE TAB* 5 MG PO SCH (09:00)
[2017-12-15] MEDS ORDERED: Hydroxychloroquine TAB* 200 MG PO SCH (09:00)
[2017-12-15] MEDS ORDERED: Levofloxacin TAB* 500 MG PO ONE (09:00)
[2017-12-15] MEDS ORDERED: Cholecalciferol TAB* 1000 UNITS PO SCH (09:00)
[2017-12-15] MEDS ORDERED: Montelukast Sodium TAB* 10 MG PO SCH (09:00)
[2017-12-15] MEDS: Docusate CAP* 100 MG PO SCH ×2 (09:29→09:32)
--- NOTE | 2017-12-15 09:46 | PN ---
Subjective Date of Service: 12/15/17 Interval History: Pt is being discharged by Dr. Mak. Has Amezcua in place. No new complaints. Denies CP/SOB. Telem shows 1 degree AV block with occasional PVC's Objective Active Medications: Acetaminophen (Tylenol Tab*) 650 mg PO Q6H PRN PRN Reason: PAIN Ascorbic Acid (Vitamin C Tab*) 500 mg PO QAM [facility] Cholecalciferol (Vitamin D Tab*) 5,000 units PO QAM [facility] Docusate Sodium (Colace Cap*) 100 mg PO TID [facility] Last Admin: 12/14/17 20:21 Dose: Not Given Hydroxychloroquine Sulfate (Plaquenil Tab*) 200 mg PO DAILY [facility] Levalbuterol HCl (Xopenex Hfa Inhaler*) 1 puff INH DAILY PRN PRN Reason: SOB/WHEEZING Lidocaine HCl (Lidocaine 2% Jelly*) 1 applic TOPICAL TID [facility] Last Admin: 12/14/17 20:21 Dose: Not Given Montelukast Sodium (Singulair Tab*) 10 mg PO DAILY [facility] Prednisone (Deltasone Tab*) 5 mg PO QAM [facility] Salsalate (Disalcid*) 500 mg PO Q6H [facility] Last Admin: 12/15/17 05:53 Dose: Not Given Vital Signs - 8 hr 12/15/17 12/15/17 12/15/17 03:41 07:17 07:25 Temperature 98.7 F 98.0 F Pulse Rate 95 88 Respiratory 16 17 16 Rate Blood Pressure 167/74 143/68 (mmHg) O2 Sat by Pulse 99 98 Oximetry Oxygen Devices in Use Now: None Appearance: 82 yo M in in NAD, aAOx3 Eyes: No Scleral Icterus, PERRLA Ears/Nose/Mouth/Throat: NL Teeth, Lips, Gums, Mucous Membranes Moist Neck: NL Appearance and Movements; NL JVP, Trachea Midline Respiratory: Symmetrical Chest Expansion and Respiratory Effort, Clear to Auscultation Cardiovascular: NL Sounds; No Murmurs; No JVD, RRR Abdominal: NL Sounds; No Tenderness; No Distention Lymphatic: No Cervical Adenopathy Extremities: No Edema, No Clubbing, Cyanosis Skin: No Nodules or Sclerosis, - - venous stasis changes in b/l distal LE's Neurological: Alert and Oriented x 3, NL Muscle Strength and Tone Result Diagrams: 12/14/17 19:47 12/15/17 05:56 Assess/Plan/Problems-Billing Assessment: 82 yo M with h/o RA s/p TURP when 1 st degree AV block was noted - Patient Problems (1) Prolonged MO interval Comment: pt is asymptomatic. Mg repleted. MO today at 259 milisec. OK to d/c home and f/u with pt's unix architect as outpatient Status and Disposition: thank you for consult
[2017-12-15] MEDS: Lidocaine 2% JELLY* 6 ML JELLY TOPICAL SCH (10:00)
[2017-12-15 11:54] VITALS: BP 148/69
--- NOTE | 2017-12-16 09:43 | DS ---
CC: Dr. Lombardo; RUI Mckinley; Dr. Mercy Joshi in [facility]; Dr. Mak. * DISCHARGE SUMMARY: DATE OF ADMISSION: 12/14/17 DATE OF DISCHARGE: 12/15/17 ADMITTING DIAGNOSES: 1. Benign prostatic hypertrophy. 2. Urinary retention. 3. Bladder calculi. DISCHARGE DIAGNOSES: 1. Benign prostatic hypertrophy. 2. Urinary retention. 3. Bladder calculi. SURGICAL PROCEDURES ON THIS ADMISSION: On 12/14/17, transurethral resection of prostate and fragmentation and removal of bladder calculi. SURGEON: Dr. Mak. 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 For details, please see admitting history and physical dictated prior to this admission. 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 Surgery was smooth and uneventful. He was noted intra and postoperatively to have some prolonged DC intervals and had an EKG done and was then subsequently placed on telemetry. He was seen by the hospitalists in consult both on 12/14/17 and also in the morning on 12/15/17 and was felt to be stable for discharge and was recommended that he follow up with his flatbed driver, Dr. Joshi to further discuss the abnormalities noted on the EKG. [id number] #: [id number] MTDD
== END 2017-12-15 11:40 | disposition home or self-care (01) ==
LOC: OR 06:04 → SSU 11:08
PROVIDERS: ADMIT Urology; ATTEND Urology
DX: N40.0 Benign prostatic hyperplasia without lower urinary tract symptoms (principal); N21.0 Calculus in bladder; R33.9 Retention of urine, unspecified; J45.909 Unspecified asthma, uncomplicated; M06.9 Rheumatoid arthritis, unspecified; E78.00 Pure hypercholesterolemia, unspecified; E78.5 Hyperlipidemia, unspecified
CPT/HCPCS: 36415; 80048; 83735; 84443; 84484; 85025; 88305; 93005; 96372; A9270-GY; G0378; J0171; J1580; J1940; J1956; J2250; J2704; J3475; J7512

== ENCOUNTER 2018-01-05 10:38 | Inpatient (IN) | payer MEDICARE, OTHER ==
--- NOTE | 2018-01-05 10:46 | ED ---
Sepsis HPI - HPI Summary HPI Summary: This is scribe Ed Kassandra documenting for attending Joon Lynn MD. 82 y/o male presents to ED c/o fever onset one week ago, s/p TURP on 12/14/[address] Mak. Last night pt's temp was 102. Pt states he had trouble sleeping last night. Associated sx: weakness, dry cough, burning with urination and cloudy urine. Pt has trouble getting out of bed due to weakness. Spoke with Dr. Mak who recommended pt come to ED. Pt on Cefdinir and Cipro (3 doses taken so far). Denies ABD pain, CP. I, Dr. Lynn, personally performed the services described in this documentation as scribed in my presence and it is both accurate and complete. - History of Current Complaint Time Seen by Provider: 01/05/18 10:45 Stated Complaint: FEVER,WEAKNESS Hx Obtained From: Patient Onset/Duration: Started Days Ago Timing: Constant Alleviating Factor(s): Nothing Associated Signs & Symptoms: Cough, Other - burning with urine, cloudy urine, weakness - Additional Pertinent History Primary Care Physician: JOLLY - Allergy/Home Medications Allergies/Adverse Reactions: Allergies Allergy/AdvReac Type Severity Reaction Status Date / Time neomycin Allergy Severe Eyes Verified 01/05/18 11:44 Itchy/Swollen/Red/Watery NSAIDS (Non-Steroidal Allergy Severe Swelling Verified 01/05/18 11:44 Anti-Inflamma Of Face,Lips,& Throat Sulfa (Sulfonamide Allergy Severe Rash And Verified 01/05/18 11:44 Antibiotics) Itching chloroquine Allergy Intermediate Tinnitus Verified 01/05/18 11:44 leflunomide Allergy Intermediate See Comment Verified 01/05/18 11:44 latex Allergy Mild Rash And Verified 01/05/18 11:44 Itching Ragweed/Environmental Allergy Intermediate Congestion Uncoded 01/05/18 11:44 gentamicin eye drops Allergy Eyes Uncoded 01/05/18 11:44 Itchy/Swollen/Red/Watery tobramycin eye drops Allergy Eyes Uncoded 01/05/18 11:44 Itchy/Swollen/Red/Watery Home Medications: Home Medications Acetaminophen [Tylenol Extra Strength] 1,000 mg PO Q6HR 01/05/18 [History Confirmed 01/05/18] Calcium Carbonate [Calcium] 1,000 mg PO DAILY 01/05/18 [History Confirmed ] Ciprofloxacin TAB* [Cipro 500 MG TAB*] 500 mg PO BID 01/05/18 [History Confirmed 01/05/18] Hydroxychloroquine TAB* [Plaquenil TAB*] 300 mg PO QAM 01/05/18 [History Confirmed 01/05/18] Levalbuterol HFA INHALER* [Xopenex Hfa Inhaler*] 1 puff INH DAILY PRN 01/05/18 [ History Confirmed 01/05/18] Magnesium Oxide TAB* [MagOx 400 TAB*] 400 mg PO DAILY 01/05/18 [History Confirmed 01/05/18] Montelukast Sodium TAB* [Singulair TAB*] 10 mg PO QAM 01/05/18 [History Confirmed 01/05/18] Salsalate TAB* [Disalcid*] 500 mg PO Q6HR 01/05/18 [History Confirmed 01/05/18] ceFUROXime TAB(*) [Ceftin TAB 250 MG(*)] 500 mg PO BID 01/05/18 [History Confirmed 01/05/18] predniSONE TAB* [Deltasone TAB*] 5 mg PO DAILY 01/05/18 [History Confirmed 01/05] PMH/Surg Hx/FS Hx/Imm Hx Previously Healthy: No Endocrine/Hematology History: Denies: Hx Diabetes Cardiovascular History: Reports: Hx Hypertension - borderline, pt used to take medication, stopped 2-3 yrs ago,, Other Cardiovascular Problems/Disorders - first degree AV block, stable Respiratory History: Reports: Hx Asthma GI History: Reports: Other GI Disorders - C-DIFF- 1.5 YRS AGO History: Reports: Other Problems/Disorders - BPH, bladder stones Musculoskeletal History: Reports: Hx Arthritis - RA - bilat joint replacement in hands, Hx Rheumatoid Arthritis Sensory History: Reports: Hx Cataracts - cataract surgery 2014, Hx Contacts or Glasses - glasses Denies: Hx Hearing Aid Opthamlomology History: Reports: Hx Cataracts - cataract surgery 2014, Hx Contacts or Glasses - glasses Neurological History: Reports: Hx Migraine - 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 RT KNEE EXPLORATORY SURGERY RHEUMATOID NODULE REMOVED. CATARACT SURGERY 2015 Hx Anesthesia Reactions: No - Immunization History Date of Tetanus Vaccine: utd Date of Influenza Vaccine: utd Infectious Disease History: Reports: Hx Clostridium Difficile - Pt stated a year and a half ago - Family History Known Family History: Positive: Other - non contributing - Social History Alcohol Use: None Substance Use Type: Reports: None Smoking Status (MU): Never Smoked Tobacco Review of Systems Positive: Fever Eyes: Negative ENT: Negative Cardiovascular: Negative Positive: Cough Gastrointestinal: Negative Positive: burning, other - cloudy urine Musculoskeletal: Negative Skin: Negative Positive: Weakness Psychological: Normal All Other Systems Reviewed And Are Negative: Yes Physical Exam - Summary Physical Exam Summary: VITAL SIGNS: Reviewed. GENERAL: Patient is an elderly, fragile male who is lying comfortable in the stretcher. Patient is not in any acute respiratory distress. HEAD AND FACE: No signs of trauma. No ecchymosis, hematomas or skull depressions. No sinus tenderness. EYES: PERRLA, EOMI x 2, No injected conjunctiva, no nystagmus. EARS: Hearing grossly intact. Ear canals and tympanic membranes are within normal limits. MOUTH: Dry oral mucosa. NECK: Supple, trachea is midline, no adenopathy, no JVD, no carotid bruit, no c- spine tenderness, neck with full ROM. CHEST: Symmetric, no tenderness at palpation LUNGS: Clear to auscultation bilaterally. No wheezing or crackles. CVS: Regular rate and rhythm, S1 and S2 present. There is an ejection systolic murmur. ABDOMEN: Soft, non-tender. No signs of distention. No rebound no guarding, and no masses palpated. Bowel sounds are normal. EXTREMITIES: FROM in all major joints, no edema, no cyanosis or clubbing. Spencer discoloration in lower extremities secondary to chronic peripheral vascular disease. NEURO: Alert and oriented x 3. No acute neurological deficits. Speech is normal and follows commands. SKIN: Dry skin. Triage Information Reviewed: Yes Vital Signs Reviewed: Yes Diagnostics - Laboratory Result Diagrams: 01/05/18 10:57 01/05/18 10:56 Lab Statement: Any lab studies that have been ordered have been reviewed, and results considered in the medical decision making process. - Radiology CXR Radiology Interpretation Completed By: Radiologist - Hyperinflation. No active cardiopulmonary disease. - Additional Comments Diagnostic Additional Comments: EKG - 10:49 - SR @ 98 BPM. Prolonged DE interval. No ST elevations. Course/Dx - Course Course Of Treatment: Accepted by Dr. Beebe for admission at 12:59. Assessment/Plan: Slight anemia, monocytes 1.2, fibrinogen 584, sodium 133, glucose 168, lactic acid 2.8. crp 101, UA UTI. CXR shows hyperinflation, NAD. Urine shows no UTI, however the pt already started abx before coming to ED, therefore we are unable to determine if he has a UTI. But b/c of sx of urinary retention and dark urine, these might be the source of the fever. Dr. Mak recommends the pt receive Cipro and Gentimicin, for now until we get urine culture. He also recommends admission to hospital. I discussed my PE and findings with Dr. Beebe who accepted the pt for admission. The patient is hemodynamically stable, A&Ox3. - Differential Dx/Clinical Impression Provider Diagnosis: Fever, UTI (urinary tract infection) - Provider Notifications Discussed Care Of Patient With: Dandre Mak Time Discussed With Above Provider: 12:18 Instructed by Provider To: MD Will See In ED Discharge - Sign-Out/Discharge Documenting (check all that apply): Patient Departure - Discharge Plan Condition: Stable Disposition: ADMITTED TO [facility] Referrals: Joon Lombardo MD [Primary Care Provider] -
[2018-01-05] MEDS ORDERED: Ciprofloxacin 400MG IVPREMIX(* 400 MG/200 ML BAG IVPB ONE (10:47)
[2018-01-05] MEDS: NS 0.9% 1000 ML*IV.FLUID IV ONE ×2 (11:08→13:23)
[2018-01-05 11:13] LABS: ABS Basophils 0 10^3/ul (0-0.2); ABS Eosinophils 0 10^3/ul (0-0.6); ABS Lymphocytes 0.4 10^3/ul (1.0-4.8); ABS Monocytes 1.2 10^3/ul (0-0.8); ABS Neutrophils 8.5 10^3/ul (1.5-7.7); ABS Nucleated RBC 0 10^3/ul; Eosinophil % 0 % (0-6); Hematocrit 36 % (42-52); Lymphocyte % 3.9 % (25-47); Mean Corpuscular HGB Conc 34 g/dl (31-36); Mean Corpuscular Hemoglobin 28 pg (27-31); Mean Corpuscular Volume 83 fL (80-94); Nucleated Red Blood Cells % 0; Platelet Count 305 10^3/ul (150-450); Red Blood Count 4.33 10^6/ul (4.00-5.40); Red Cell Distribution Width 14 % (10.5-15); White Blood Count 10.1 10^3/ul (3.5-10.8)
[2018-01-05 11:29] LABS: INR 1.08 (0.77-1.02)
[2018-01-05 11:32] LABS: EGFR Non-African American 82.9 (>60)
--- OUTSIDE RECORDS SUMMARY | 2018-01-05 11:38 | XMS REPORT ---
:1935 External Reference #:[id number] Author Organization [facility] Address [address] [place] [address] Phone [phone] Care Team Providers Name Role Phone Joon Lombardo III, MD Care Team Information Case Mgr Unavailable Joon Lombardo III, MD Primary Care Physician Unavailable Payers Type Date Identification Numbers Payment Provider Subscriber Medicare Primary Policy Number: [id number] Medicare Jose Guillen PayID: [id number] [address] [place] [address] [facility] Policy Number: [id number] A Ins Agency Jose Guillen PayID: [id number] [address] [place] [address] Problems Date Description Provider Status Onset: 05/21/2013 Dyspnea Sharita A Grella, ANP Active Onset: 05/21/2013 Syncope and collapse Sharita A Johnnylla, ANP Active Onset: 05/21/2013 Benign essential hypertension Sharita A Grella, ANP Active Onset: 03/10/2014 Mixed hyperlipidemia Sharita A Grella, ANP Active Onset: 03/10/2014 Heart block Sharita A Grella, ANP Active Onset: 06/17/2016 Palpitations Holly Nayak, KANDICE, Active [employer] Onset: 12/18/2016 Essential hypertension Patricio Villafuerte M.D., [facility] Active Family History Date Family Member(s) Problem(s) Comments Mother Hypertension Social History Type Date Description Comments Lives With Diet Patient is on a low sodium diet Occupation Physician ADL's/IADL's Independent with all ADL's Cigarette Use Never Smoked Cigarettes ETOH Use Denies alcohol use Allergies, Adverse Reactions, Alerts Date Description Reaction Status Severity Comments 04/01/2013 NSAIDs active 04/01/2013 Neomycin active 04/01/2013 Gentamicin active 04/01/2013 Tobramycin active 04/01/2013 Sulfa Drugs active Medications Medication Date Status Form Strength Qnty SIG Indications Ordering Provider Vitamin D / Active Capsules 5000Unit 2 time Unknown 0000 a week Singulair 00/ Active Tablets 10mg 90tab 1 by Unknown 0000 s mouth every day Tylenol 00/ Active Tablets 1000mg as Unknown 0000 needed Salsalate / Active Tablets 500mg 1 every Unknown 0000 6 hours as needed Vitamin B-12 / Active Tablets 1000mcg 1 by Unknown 0000 Sub mouth every day Vitamin C / Active Capsules 500mg 30cap 1 by Unknown 0000 s mouth every day Allergy Shots / Active every 2 Unknown 0000 weeks Ventolin HFA / Active Aerosol 108(90Bas 1-2 Unknown 0000 e) puffs mcg/Act every 4-6 hours as needed Dulera 00/ Active Aerosol 200-5mcg/ take 1 Unknown 0000 Act puff twice daily. rinse mouth after use. Prednisone / Active Tablets 5mg 1 by Unknown 0000 mouth every day Hydroxychloroquine / Active Tablets 300mg Once Unknown Sulfate 0000 Daily Calcium / Active Chewtabs 500mg 2 tab Unknown 0000 by mouth every day Clonidine HCL / Hx Tablets 0.1mg 30tab 1 po Unknown 0000 s bid Amlodipine Besylate / Hx Tablets 5mg 30tab 1 po qd Unknown 0000 s Lisinopril / Hx Tablets 10mg 90tab 1 po qd Unknown 0000 s Lipitor / Hx Tablets 20mg 90tab tab po Unknown 0000 - s qd 2017 Vitamin B Complex /00/ Hx Tablets 1 po qd Unknown 0000 Leflunomide / Hx Tablets 10mg po qd Unknown 0000 Alsip / Hx Capsules 150mg 2 caps Unknown 0000 po qd Qvar / Hx Aerosol 80mcg/Act 2 puff Unknown 0000 twice a day prn Krill Oil / Hx Capsules 1000mg 4 tabs Unknown 0000 daily Breo Ellipta / Hx Aerosol 100-25mcg take 1 Unknown 0000 /Inh puff once daily. rinse mouth with water after use. Cefdinir / Hx Capsules 300mg 1 tab Unknown 0000 by mouth twice a day Flagyl / Hx Tablets 500mg one by Unknown 0000 - mouth 11/04/ twice a 2018 day x 7 days Vital Signs Date Vital Result Comment 12/17/2017 BP Systolic Sitting Right Arm 114 mmHg BP Diastolic Sitting Right Arm 73 mmHg Body Temperature 97.6 F Heart Rate 100 /min Height 70.5 inches 5'10.50" Weight 176.00 lb BMI (Body Mass Index) 24.9 kg/m2 BSA (Body Surface Area) 1.99 m2 [place] body weight in kilograms 77 O2 % BldC Oximetry 96 % 11/19/2017 BP Systolic 124 mmHg BP Diastolic 78 mmHg Body Temperature 96.9 F Heart Rate 103 /min Height 70.5 inches 5'10.50" Weight 172.00 lb BMI (Body Mass Index) 24.3 kg/m2 BSA (Body Surface Area) 1.97 m2 [place] body weight in kilograms 77 O2 % BldC Oximetry 96 % room air Pain Level 0 11/06/2017 BP Systolic Sitting Left Arm 136 mmHg BP Diastolic Sitting Left Arm 79 mmHg Body Temperature 97.6 F Heart Rate 86 /min Height 71 inches 5'11" verbal Weight 174.00 lb BMI (Body Mass Index) 24.3 kg/m2 BSA (Body Surface Area) 1.99 m2 [place] body weight in kilograms 78 O2 % BldC Oximetry 98 % 11/04/2017 BP Systolic 139 mmHg BP Diastolic 77 mmHg Heart Rate 95 /min Respiratory Rate 16 /min Height 71 inches 5'11" verbal Weight 174.00 lb BMI (Body Mass Index) 24.3 kg/m2 BSA (Body Surface Area) 1.99 m2 [place] body weight in kilograms 78 O2 % BldC Oximetry 97 % 10/30/2017 BP Systolic Sitting Right Arm 134 mmHg BP Diastolic Sitting Right Arm 72 mmHg Body Temperature 96.1 F Heart Rate 98 /min Respiratory Rate 19 /min Height 71 inches 5'11" verbal Weight 167.00 lb BMI (Body Mass Index) 23.3 kg/m2 BSA (Body Surface Area) 1.95 m2 [place] body weight in kilograms 78 O2 % BldC Oximetry 96 % 10/23/2017 BP Systolic 128 mmHg BP Diastolic 74 mmHg Body Temperature 97.3 F Heart Rate 102 /min Respiratory Rate 15 /min Height 71 inches 5'11" Weight 177.00 lb BMI (Body Mass Index) 24.7 kg/m2 BSA (Body Surface Area) 2.00 m2 [place] body weight in kilograms 78 O2 % BldC Oximetry 100 % room air Pain Level 2 10/22/2017 BP Systolic 127 mmHg BP Diastolic 70 mmHg Body Temperature 96.5 F Heart Rate 101 /min Respiratory Rate 17 /min Height 71 inches 5'11" Weight 177.00 lb BMI (Body Mass Index) 24.7 kg/m2 BSA (Body Surface Area) 2.00 m2 [place] body weight in kilograms 78 O2 % BldC Oximetry 97 % 10/15/2017 BP Systolic 148 mmHg BP Diastolic 84 mmHg Height 71 inches 5'11" Weight 176.00 lb BMI (Body Mass Index) 24.5 kg/m2 BSA (Body Surface Area) 2.00 m2 [place] body weight in kilograms 78 12/18/2016 BP Systolic Sitting Right Arm 142 mmHg BP Diastolic Sitting Right Arm 76 mmHg Heart Rate 89 /min Respiratory Rate 16 /min Height 71 inches 5'11" Weight 203.00 lb BMI (Body Mass Index) 28.3 kg/m2 BSA (Body Surface Area) 2.12 m2 [place] body weight in kilograms 78 06/17/2016 BP Systolic Sitting Left Arm 136 mmHg BP Diastolic Sitting Left Arm 74 mmHg Heart Rate 76 /min Respiratory Rate 16 /min Height 71 inches 5'11" Weight 197.00 lb BMI (Body Mass Index) 27.5 kg/m2 BSA (Body Surface Area) 2.10 m2 07/31/2015 BP Systolic Sitting Left Arm 122 mmHg BP Diastolic Sitting Left Arm 72 mmHg Heart Rate 88 /min Respiratory Rate 16 /min Height 71 inches 5'11" Weight 195.00 lb BMI (Body Mass Index) 27.2 kg/m2 BSA (Body Surface Area) 2.09 m2 07/28/2014 Heart Rate 84 /min Respiratory Rate 16 /min Height 71 inches 5'11" Weight 203.00 lb BMI (Body Mass Index) 28.3 kg/m2 BSA (Body Surface Area) 2.12 m2 03/10/2014 BP Systolic Sitting Left Arm 142 mmHg BP Diastolic Sitting Left Arm 78 mmHg Heart Rate 80 /min Respiratory Rate 16 /min Height 71 inches 5'11" Weight 203.00 lb BMI (Body Mass Index) 28.3 kg/m2 BSA (Body Surface Area) 2.12 m2 08/15/2013 BP Systolic Sitting Right Arm 142 mmHg BP Diastolic Sitting Right Arm 82 mmHg Heart Rate 58 /min Height 71 inches 5'11" Weight 198.00 lb BMI (Body Mass Index) 27.6 kg/m2 BSA (Body Surface Area) 2.10 m2 05/13/2013 BP Systolic Sitting Right Arm 142 mmHg BP Diastolic Sitting Right Arm 78 mmHg Heart Rate 72 /min Respiratory Rate 20 /min Height 71 inches 5'11" Weight 195.00 lb BMI (Body Mass Index) 27.2 kg/m2 BSA (Body Surface Area) 2.09 m2 04/01/2013 BP Systolic Sitting Right Arm 148 mmHg BP Diastolic Sitting Right Arm 82 mmHg Heart Rate 89 /min Respiratory Rate 18 /min Height 71 inches 5'11" Weight 194.00 lb BMI (Body Mass Index) 27.1 kg/m2 BSA (Body Surface Area) 2.08 m2 Results Test Date Test Result H/L Range Note Laboratory test 06/05/2015 Clostridium difficile Organism: C. Diff finding Toxin A&B (M) Toxin A/B Detected Cryptosporidium Antigen Negative For Cryptosporidium Specific Antigen Giardia Antigen (Blade) Negative For Giardia Specific Antigen. Laboratory test finding 06/05/2015 Basophils # (Auto) 0.02 Low 0.1-0.2 Basophils (%) (Auto) 0.2 0.1-1.0 Eosinophils # (Auto) 0.03 0.0-0.5 Eosinophils (%) (Auto) 0.4 0.0-5.0 Lymphocytes # (Auto) 2.81 1.8-7.0 Lymphocytes (%) (Auto) 34.5 17.0-56.0 Mean Corpuscular Hemoglobin Concent 35.2 31.7-36.0 Monocytes # (Auto) 1.42 High 0.0-0.8 Monocytes (%) (Auto) 17.4 High 0.0-10.0 Neutrophils # (Auto) 3.86 1.8-7.0 Neutrophils (%) (Auto) 47.5 33.0-73.0 RDW Coefficient of Variation 14.9 11.6-15.8 Sodium Level 138 136-145 Laboratory test finding 05/22/2015 Basophils # (Auto) 0.02 Low 0.1-0.2 Basophils (%) (Auto) 0.4 0.1-1.0 Eosinophils # (Auto) 0.12 0.0-0.5 Eosinophils (%) (Auto) 2.2 0.0-5.0 Lymphocytes # (Auto) 2.40 1.8-7.0 Lymphocytes (%) (Auto) 44.3 17.0-56.0 Mean Corpuscular Hemoglobin Concent 34.4 31.7-36.0 Monocytes # (Auto) 0.64 0.0-0.8 Monocytes (%) (Auto) 11.8 High 0.0-10.0 Neutrophils # (Auto) 2.24 1.8-7.0 Neutrophils (%) (Auto) 41.3 33.0-73.0 RDW Coefficient of Variation 14.8 11.6-15.8 Sodium Level 141 136-145 Lipid Profile (Trig/Chol/HDL) 09/21/2014 Triglycerides 336 mg/dL 1 Cholesterol 152 mg/dL 2 HDL Cholesterol 24.5 mg/dL 3 LDL Cholesterol 60 mg/dL 4 CBC Auto Diff 06/27/2014 White Blood Count 4.5 10^3/uL Low 4.8-10.8 Red Blood Count 5.08 10^6/uL 4.0-5.4 Hemoglobin 14.8 g/dL 14.0-18.0 Hematocrit 43 % 42-52 Mean Corpuscular Volume 85 fL 80-94 Mean Corpuscular Hemoglobin 29 pg 27-31 Mean Corpuscular HGB Conc 34 g/dL 31-36 Red Cell Distribution Width 14 % 10.5-15 Platelet Count 175 10^3/uL 150-450 Mean Platelet Volume 7 um3 Low 7.4-10.4 Abs Neutrophils 1.4 10^3/uL Low 1.5-7.7 Abs Lymphocytes 2.2 10^3/uL 1.0-4.8 Abs Monocytes 0.8 10^3/uL 0-0.8 Abs Eosinophils 0.1 10^3/uL 0-0.6 Abs Basophils 0 10^3/uL 0-0.2 Abs Nucleated RBC 0 10^3/uL Granulocyte % 30.8 % Low 38-83 Lymphocyte % 48.7 % High 25-47 Monocyte % 17.0 % High 1-9 Eosinophil % 2.8 % 0-6 Basophil % 0.7 % 0-2 Nucleated Red Blood Cells % 0.1 Laboratory test finding 06/27/2014 LDH 166 U/L 140-271 Vitamin B12 573 pg/mL 180-914 5 Immunoglobulin G 1260 mg/dL 767 - 1590 6 Immunoglobulin M 100 mg/dL 37 - 286 7 Immunoglobulin A 355 mg/dL 61 - 356 8 Protein Electrophoresis 06/27/2014 Total Protein(Pep) 7.7 g/dL 6.3 - 7.9 Albumin 3.8 g/dL 3.4-4.7 Alpha-1 Globulin 0.3 g/dL 0.1-0.3 Alpha-2 Globulin 1.0 g/dL 0.6-1.0 Beta Globulin 1.0 g/dL 0.7-1.2 Gamma Globulin 1.5 g/dL 0.6-1.6 Albumin/Globulin Ratio 0.97 Impression See Comment 9 Glycohemoglobin A1c 03/10/2014 Glycohemoglobin (A1c) 6.3 % 4.2-6.3 10 eAG 134 mg/dL Laboratory test finding 03/10/2014 Magnesium 1.9 mg/dL 1.8-2.4 Thyroid Stim Hormone 1.43 uIU/mL 0.36-3.74 Liver Function Tests 03/10/2014 Total Protein 7.6 g/dL 6.4-8.2 Albumin 3.8 g/dL 3.4-5.0 Globulin 3.8 g/dL 1.9-4.3 Alb/Glob 1.0 ratio Bilirubin,Total 0.4 mg/dL 0.2-1.0 Bilirubin,Direct 0.1 mg/dL 0.0-0.2 Bilirubin,Indirect 0.3 mg/dL 0.0-0.9 Sgot/Ast 28 U/L 15-37 SGPT/Alt 44 U/L 12-78 Alkaline Phosphatase 103 U/L 45-117 LDL Cholesterol Profile 03/10/2014 Cholesterol 180 mg/dL 11 Triglycerides 124 mg/dL 12 HDL Cholesterol 39 mg/dL 13 LDL-Cholesterol 116 mg/dL 14 Comprehensive Metabolic Panel 03/10/2014 Glucose 113 mg/dL High 74-106 BUN 18 mg/dL 7-18 Creatinine 0.9 mg/dL 0.6-1.3 Glom Filtration Rate, Estimate >60 mL/min >60 If >60 mL/min >60 15 BUN/Creat 20.0 ratio Sodium 141 mmol/L 136-145 Potassium 4.2 mmol/L 3.5-5.1 Chloride 111 mmol/L High 98-107 Carbon Dioxide 24 mmol/L 21-32 Anion Gap 10 mEq/L 8-16 Calcium 8.6 mg/dL 8.5-10.1 Total Protein 7.6 g/dL 6.4-8.2 Albumin 3.8 g/dL 3.4-5.0 Globulin 3.8 g/dL 1.9-4.3 Alb/Glob 1.0 ratio Bilirubin,Total 0.4 mg/dL 0.2-1.0 Sgot/Ast 28 U/L 15-37 SGPT/Alt 44 U/L 12-78 Alkaline Phosphatase 103 U/L 45-117 1 Desirable <150 Borderline high 150-199 High 200-499 Very High >500 2 Desirable <200 Borderline high 200-239 High >239 3 Low <40 Desirable: 40-60 High: >60 4 Desirable: <100 mg/dL Near Optimal: 100-129 mg/dL Borderline High: 130-159 mg/dL High: 160-189 mg/dL Very High: >189 mg/dL 5 Normal Range 180 to 914 Indeterminate Range 145 to 180 Deficient Range <145 6 Test Performed by: [place] [address] Heavy Duty Diesel Mechanic: Nam Mayen M.D. 7 Test Performed by: [place] [address] Heavy Duty Diesel Mechanic: Nam Mayen M.D. 8 Test Performed by: [place] [address] Heavy Duty Diesel Mechanic: Nam Mayen M.D. 9 RESULT: No apparent monoclonal protein on serum electrophoresis. Test Performed by: [place] [address] Heavy Duty Diesel Mechanic: Nam Mayen M.D. 10 Elevated levels of HbA1c suggest the need for more aggressive treatment of glycemia. The [place] Diabetes Association recommends that a primary goal of therapy should be a HbA1c of <7% and that physicians should re-evaluate the treatment regimen in patients with HbA1c values consistently >8%. 11 Reference Guidelines*: Desirable: ........... < 200 mg/dL Borderline High: ..... 200-239 mg/dL High: ................ >=240 mg/dL * The National Cholesterol Education Program (NCEP) 12 Reference Guidelines*: Normal: ............. < 150 mg/dL Borderline High: .... 150-199 mg/dL High: ............... 200-499 mg/dL Very High: .......... > 500 mg/dL * Source: National Cholesterol Education Program (NCEP) 13 Reference Guidelines*: Low HDL: ..... < 40 mg/dL Normal: ..... 40-60 mg/dL Desirable: ... > 60 mg/dL *The National Cholesterol Education Program(NCEP) 14 Reference Guidelines*: Optimal:........... <100 mg/dL Near Optimal....... 100-129 mg/dL Borderline High.... 130-159 mg/dL High............... 160-189 mg/dL Very High.......... >=190 mg/dL * Source: National Cholesterol Education Program (NCEP) 15 Note: Persistent reduction for 3 months or more in an eGFR <60 mL/min/1.73 m2 defines CKD. Patients with eGFR values >/=60 mL/min/1.73 m2 may also have CKD if evidence of persistent proteinuria is present. The original MDRD equation for estimated GFR is not valid for patients less than 18 years of age. Additional information may be found at www.kdoqi.org. Procedures Date CPT Code Description Status 12/17/2017 91555 Radiology,Humerus, Min. Two Views Completed 11/19/2017 76810 Radiology,Humerus, Min. Two Views Completed 11/06/2017 10674 Radiology,Humerus, Min. Two Views Completed 10/30/2017 43728 Radiology,Humerus, Min. Two Views Completed 10/23/2017 83747 Humerus Fracture closed w/o manipulation Completed 12/18/2016 69251 EKG-Tracing And Report Completed 07/31/2015 84725 EKG-Tracing And Report Completed 07/28/2014 87103 EKG-Tracing And Report Completed 03/10/2014 80277 EKG-Tracing And Report Completed 04/13/2013 04906 Echocardiogram Complete Completed 04/13/2013 25850 Holter Monitor 24HR Inter/Report Completed 04/13/2013 07923 Stress Test Interpre And Report Only Completed 04/13/2013 89431 Stress Test Physician Super Only Completed 04/13/2013 80550 Stress Test Physician Super Only Completed 04/01/2013 29036 EKG-Tracing And Report Completed Encounters Type Date Location Provider CPT E/M Dx Office Visit 11/04/2017 Surgical Office Julio Cesar YoungbloodJesus 79648 S81.811S 9:15a Candi Rowe Office Visit 12/18/2016 Cardiology Office Patricio Villafuerte, 31465 I10 8:40a Candi, [facility] I45.5 E78.2 R06.02 R00.2 Office Visit 06/17/2016 9:20a Cardiology Office Patricio Villafuerte, 59699 R00.2 Candi, [facility] R55 Office Visit 07/31/2015 9:00a [place] [address] R55 R00.2 Office Visit 07/28/2014 1:00p [place] [address] 780.2 401.1 426.6 272.2 Office Visit 03/10/2014 10:30a Cardiology Office FAWN Alcocer 26699 780.2 786.05 401.1 272.2 426.6 Office Visit 08/15/2013 2:10p [place] [address] 780.2 786.05 401.1 Office Visit 05/13/2013 3:10p Cardiology Office FAWN Alcocer 78465 786.05 780.2 401.1 Office Visit 04/01/2013 1:30p [place]iology [place] [address] 780.2 401.1 786.05 Plan of Care Future Appointment(s):01/20/2018 2:20 pm - MICHELLE Pierce at Cardiology [id number]/18/2018 10:00 am - [facility] [id number] - Odessa FraustoJesus Jensen, [id number] Unsp fracture of upper end of left humerus, init for clos fxAllComments:His range of motion is still quite limited. I think he can still make improvements and he is going to continue with physical therapy. As far as driving, I think he and his should go to a parkinglot and practice turning and if he is capable of making all the movements he needs to drive safely he may proceed. I am going to see him back in two months, sooner with any problems or concerns.
--- OUTSIDE RECORDS SUMMARY | 2018-01-05 11:38 | XMS REPORT ---
:1935 External Reference #:[id number] Author Organization [facility] Address [address], [address] [place] [address] Phone [phone] Care Team Providers Name Role Phone Joon Lombardo III, MD Care Team Information Safety And Skill Based Pay Manager Unavailable Joon Lombardo III, MD Primary Care Physician Unavailable Payers Type Date Identification Numbers Payment Provider Subscriber Medicare Primary Policy Number: [id number] Medicare Jose Guillen PayID: [id number] [address] [place] [address] [facility] Policy Number: [id number] A Ins Agency Jose Guillen PayID: [id number] [address] [place] [address] Problems Date Description Provider Status Onset: 05/21/2013 Dyspnea Sharita A Grella, ANP Active Onset: 05/21/2013 Syncope and collapse Sharita A Johnnylla, ANP Active Onset: 05/21/2013 Benign essential hypertension Sharita A Grella, ANP Active Onset: 03/10/2014 Mixed hyperlipidemia Sharita A Grella, ANP Active Onset: 03/10/2014 Heart block Sharita A Grella, ANP Active Onset: 06/17/2016 Palpitations Holly Nayak, KANDICE, Active [employer] Onset: 12/18/2016 Essential hypertension Patricio Villafuerte M.D., [facility] Active Family History Date Family [...] Hx Tablets 10mg po qd Unknown 0000 [place] / Hx Capsules 150mg 2 caps Unknown [...] kg/m2 BSA (Body Surface Area) 1.99 m2 [place] body weight in kilograms 77 O2 % BldC Oximetry 96 % 11/19/2017 BP Systolic 124 mmHg BP Diastolic 78 mmHg Body Temperature 96.9 F Heart Rate 103 /min Height 70.5 inches 5'10.50" Weight 172.00 lb BMI (Body Mass Index) 24.3 kg/m2 BSA (Body Surface Area) 1.97 m2 [place] body weight in kilograms 77 O2 % BldC Oximetry 96 % room air Pain Level 0 11/06/2017 BP Systolic Sitting Left Arm 136 mmHg BP Diastolic Sitting Left Arm 79 mmHg Body Temperature 97.6 F Heart Rate 86 /min Height 71 inches 5'11" verbal Weight 174.00 lb BMI (Body Mass Index) 24.3 kg/m2 BSA (Body Surface Area) 1.99 m2 [place] body weight in kilograms 78 O2 % BldC Oximetry 98 % 11/04/2017 BP Systolic 139 mmHg BP Diastolic 77 mmHg Heart Rate 95 /min Respiratory Rate 16 /min Height 71 inches 5'11" verbal Weight 174.00 lb BMI (Body Mass Index) 24.3 kg/m2 BSA (Body Surface Area) 1.99 m2 [place] body weight in kilograms 78 O2 % BldC Oximetry 97 % 10/30/2017 BP Systolic Sitting Right Arm 134 mmHg BP Diastolic Sitting Right Arm 72 mmHg Body Temperature 96.1 F Heart Rate 98 /min Respiratory Rate 19 /min Height 71 inches 5'11" verbal Weight 167.00 lb BMI (Body Mass Index) 23.3 kg/m2 BSA (Body Surface Area) 1.95 m2 [place] body weight in kilograms 78 O2 % BldC Oximetry 96 % 10/23/2017 BP Systolic 128 mmHg BP Diastolic 74 mmHg Body Temperature 97.3 F Heart Rate 102 /min Respiratory Rate 15 /min Height 71 inches 5'11" Weight 177.00 lb BMI (Body Mass Index) 24.7 kg/m2 BSA (Body Surface Area) 2.00 m2 [place] body weight in kilograms 78 O2 % BldC Oximetry 100 % room air Pain Level 2 10/22/2017 BP Systolic 127 mmHg BP Diastolic 70 mmHg Body Temperature 96.5 F Heart Rate 101 /min Respiratory Rate 17 /min Height 71 inches 5'11" Weight 177.00 lb BMI (Body Mass Index) 24.7 kg/m2 BSA (Body Surface Area) 2.00 m2 [place] body weight in kilograms 78 O2 % BldC Oximetry 97 % 10/15/2017 BP Systolic 148 mmHg BP Diastolic 84 mmHg Height 71 inches 5'11" Weight 176.00 lb BMI (Body Mass Index) 24.5 kg/m2 BSA (Body Surface Area) 2.00 m2 [place] body weight in kilograms 78 12/18/2016 BP Systolic Sitting Right Arm 142 mmHg BP Diastolic Sitting Right Arm 76 mmHg Heart Rate 89 /min Respiratory Rate 16 /min Height 71 inches 5'11" Weight 203.00 lb BMI (Body Mass Index) 28.3 kg/m2 BSA (Body Surface Area) 2.12 m2 [place] body weight in kilograms 78 06/17/2016 BP [...] Deficient Range <145 6 Test Performed by: [place] [address] Supervisor Border Department: Nam Mayen M.D. 7 Test Performed by: [place] [address] Supervisor Border Department: Nam Mayen M.D. 8 Test Performed by: [place] [address] Supervisor Border Department: Nam Mayen M.D. 9 RESULT: No apparent monoclonal protein on serum electrophoresis. Test Performed by: [place] [address] Supervisor Border Department: Nam Mayen M.D. 10 Elevated levels of HbA1c suggest the need for more aggressive treatment of glycemia. The [place] Diabetes [employer] recommends that a primary goal [...] Procedures Date CPT Code Description Status 12/17/2017 98225 Radiology,Humerus, Min. Two Views Completed 11/19/2017 17128 Radiology,Humerus, Min. Two Views Completed 11/06/2017 53053 Radiology,Humerus, Min. Two Views Completed 10/30/2017 28878 Radiology,Humerus, Min. Two Views Completed 10/23/2017 00343 Humerus Fracture closed w/o manipulation Completed 12/18/2016 59445 EKG-Tracing And Report Completed 07/31/2015 88357 EKG-Tracing And Report Completed 07/28/2014 19966 EKG-Tracing And Report Completed 03/10/2014 10278 EKG-Tracing And Report Completed 04/13/2013 58772 Echocardiogram Complete Completed 04/13/2013 98294 Holter Monitor 24HR Inter/Report Completed 04/13/2013 10339 Stress Test Interpre And Report Only Completed 04/13/2013 72678 Stress Test Physician Super Only Completed 04/13/2013 82320 Stress Test Physician Super Only Completed 04/01/2013 49836 EKG-Tracing And Report Completed Encounters Type Date Location Provider CPT E/M Dx Office Visit 11/04/2017 Surgical Office Julio Cesar YoungbloodJesus 01315 S81.811S 9:15a Candi Rowe Office Visit 12/18/2016 Cardiology Office Patricio Villafuerte, 05728 I10 8:40a Candi, [facility] I45.5 E78.2 R06.02 R00.2 Office Visit 06/17/2016 9:20a Cardiology Office Patricio Villafuerte, 01763 R00.2 Candi, [facility] R55 Office Visit 07/31/2015 9:00a [place] [address] R55 R00.2 Office Visit 07/28/2014 1:00p [place] [address] 780.2 401.1 426.6 272.2 Office Visit 03/10/2014 10:30a Cardiology Office FAWN Alcocer 58840 780.2 786.05 401.1 272.2 426.6 Office Visit 08/15/2013 2:10p [place] [address] 780.2 786.05 401.1 Office Visit 05/13/2013 3:10p Cardiology Office FAWN Alcocer 47217 786.05 780.2 401.1 Office Visit 04/01/2013 1:30p [place] [address] 780.2 401.1 786.05 Plan of Care Future Appointment(s):01/20/2018 2:20 pm - MICHELLE Pierce at Cardiology [id number]/18/2018 10:00 am [facility] [id number] - Odessa FraustoJesus Jensen, [id number].A Unsp fracture [...]
--- OUTSIDE RECORDS SUMMARY | 2018-01-05 11:38 | XMS REPORT ---
:1935 External Reference #:[id number] Author Organization [facility] Address [address] [place] [address] Phone [phone] Care Team Providers Name Role Phone Melecio Kinney M.D. Care Team Information Screening Tech Unavailable Joon Lombardo M.D. Primary Care Physician Unavailable Payers Type Date Identification Numbers Payment Provider Subscriber Medicare Primary Effective: Policy Number: Medicare-National Jose Guillen 2000 [id number] [employer] PayID: [id number] [address] [place] [address] Medigap Part B Effective: Policy Number: AMA Insurance Jose Guillen 2000 [id number] [email or web address]. Group Number: [id number] [address] Group Name: [facility] [place] [address] Problems Date Description Provider Status Onset: 05/21/2017 Allergic rhinitis Garth Carroll M.D. Active Onset: 08/07/2016 Uncomplicated moderate persistent Donell Middleton M.D. Active asthma Onset: 08/07/2016 Body mass index 25-29 - overweight Donell Middleton M.D. Active Onset: 04/12/2015 Uncomplicated moderate persistent Donell Middleton M.D. Active asthma Onset: 04/12/2015 Body mass index 25-29 - overweight Donell Middleton M.D. Active Onset: 01/04/2015 Body Mass Index 27.0-27.9 Adult Donell Middleton M.D. Active Onset: 11/17/2013 Acute atopic conjunctivitis Donell Middleton M.D. Active Onset: 11/17/2013 Allergic rhinitis due to pollen Donell Middleton M.D. Active Onset: 11/17/2013 Extrinsic asthma without status Donell Middleton M.D. 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 Environment Uses a dehumidifier Home Environment Has central air Home Environment Stairs are present Home Environment The basement is dry Home Environment Finished Basement Home Environment Cotton Comforter Home Environment Mattress is 1 year old Home Environment Mattress is not encased in an allergy proof case Home Environment Regular Mattress Home Environment Pillows are polyester Home Environment Pillows are encased in an allergy proof case Home Environment There are draperies in the home Home Environment The home is rebecca Home Environment The floors are wood Home Environment The floors are carpeted Home Environment Uses natural gas heating Home Environment Uses forced air heating Home [place] Home Environment Water Source: [facility] Smoke-Free Home is smoke-free Smoke-Free Work is smoke-free 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 Use Denies alcohol use Smoking Patient has never smoked Recreational Drug Use Denies Drug Use Allergies, Adverse Reactions, Alerts Date Description Reaction Status Severity Comments 06/01/2014 Hydroxychloroquine active tinitus 06/01/2014 Sulfa active rash 06/01/2014 Gentamicin active rash 06/01/2014 Neomycin active rash 06/01/2014 NSAIDs active swelling 06/01/2014 Tobramycin active rash 04/24/2016 Leflunomide active Medications Medication Date Status Form Strength Qnty SIG Indications Ordering Provider Qvar 12/24/ Active Aerosol 80mcg/Act 10.600 2 puff every J45.40 Donell Redihaler 2018 gm 12 hour Candi Middleton Spiriva 08/07/ Active Aerosol 1.25mcg/Ac 4gm 2 inhalation J45.40 Donell Respimat 2016 t once a day Candi Middleton Xopenex HFA 10/10/ Active Aerosol 45mcg/Act 1units 2 inhalations J45.40 Donell 2016 every 4 hours Kane, as needed Candi Montelukast 11/19/ Active Tablets 10mg 90tabs Take One J45.40 Audrey Sodium 2015 Tablet By Dussing, Mouth Every TAVERN OPERATOR-C Day Salsalate / Active Tablets 500mg 2 tablets Unknown 0000 daily Vitamin D / Active Tablets 1000Unit 60tabs 2 tablets by Unknown 0000 mouth once daily x8 weeks for vitamin d deficiency Tylenol / Active Tablets 325mg 3 tablets as Unknown 0000 needed Vitamin C / Active Capsules 500mg 1 by mouth Unknown 0000 twice a day Jess / Active Tablets 180mg 1 by mouth Unknown Allergy 0000 every day Medications Administered in Office Medication Date Status Form Strength Qnty SIG Indications Ordering Provider Injection 12/25/19 Administered Injection Allergy 18 Injection Injection 12/11/19 Administered Injection Allergy 18 Injection Injection 11/20/19 Administered Injection Allergy 18 Injection Injection 10/30/19 Administered Injection Allergy 18 Injection Immunizations CPT Code Status Date Vaccine Lot # [id number] Given Unknown Pneumococcal Vaccine 26112 Given Unknown Influenza Vaccine 34740 Given Unknown Influenza Vaccine Vital Signs Date Vital Result Comment 12/24/2017 Height 71.5 inches 5'11.50" Weight 178.00 lb Weight in kg's 80.741 Respiratory Rate 18 /min Heart Rate 95 /min O2 % BldC Oximetry 98 % BP Systolic 135 mmHg BP Diastolic 80 mmHg [facility] Test 22 BMI (Body Mass Index) 24.5 kg/m2 05/21/2017 Height 71.5 inches 5'11.50" Weight 178.00 lb Weight in kg's 80.741 Respiratory Rate 24 /min Heart Rate 103 /min O2 % BldC Oximetry 97 % BP Systolic 153 mmHg Patient stated he will retake bp at home BP Diastolic 87 mmHg Patient stated he will retake bp at home Asthma Control Test 21 BMI (Body Mass Index) 24.5 kg/m2 11/20/2016 Height 71.5 inches 5'11.50" Weight 195.00 lb patient stated Weight in kg's 88.452 Respiratory Rate 24 /min Heart Rate 80 /min O2 % BldC Oximetry 97 % BP Systolic 149 mmHg BP Diastolic 70 mmHg [facility] Control Test 23 BMI (Body Mass Index) 26.8 kg/m2 08/07/2016 Height 71.5 inches 5'11.50" Weight 192.00 lb Weight in kg's 87.091 Respiratory Rate 20 /min Heart Rate 87 /min O2 % BldC Oximetry 97 % BP Systolic 156 mmHg BP Diastolic 87 mmHg [facility] Control Test 14 BMI (Body Mass Index) 26.4 kg/m2 04/24/2016 Height 71.5 inches 5'11.50" Weight 198.00 lb Weight in kg's 89.813 Respiratory Rate 22 /min Heart Rate 55 /min O2 % BldC Oximetry 97 % BP Systolic 156 mmHg BP Diastolic 70 mmHg [facility] Control Test 22 BMI (Body Mass Index) 27.2 kg/m2 10/11/2015 Height 71.5 inches 5'11.50" Weight 200.00 lb Weight in kg's 90.720 Respiratory Rate 17 /min Heart Rate 90 /min O2 % BldC Oximetry 96 % BP Systolic 145 mmHg BP Diastolic 91 mmHg [facility] Control Test 24 BMI (Body Mass Index) 27.5 kg/m2 04/12/2015 Height 71.5 inches 5'11.50" Weight 203.00 lb Weight in kg's 92.081 Respiratory Rate 22 /min Heart Rate 91 /min O2 % BldC Oximetry 96 % BP Systolic 139 mmHg BP Diastolic 75 mmHg [facility] Control Test 24 BMI (Body Mass Index) 27.9 kg/m2 01/04/2015 Height 71.5 inches 5'11.50" Weight 201.00 lb Weight in kg's 91.174 Respiratory Rate 24 /min Heart Rate 64 /min O2 % BldC Oximetry 98 % BP Systolic 143 mmHg BP Diastolic 69 mmHg [facility] Control Test 24 BMI (Body Mass Index) 27.6 kg/m2 06/01/2014 Height 69 inches 5'9" Weight 204.00 lb Weight in kg's 92.534 Respiratory Rate 16 /min Heart Rate 74 /min O2 % BldC Oximetry 97 % BP Systolic 140 mmHg BP Diastolic 84 mmHg [facility] Test 23 BMI (Body Mass Index) 30.1 kg/m2 11/17/2013 Height 71 inches 5'11" Weight 185.00 lb Weight in kg's 83.916 Respiratory Rate 20 /min Heart Rate 73 /min O2 % BldC Oximetry 98 % BP Systolic 140 mmHg BP Diastolic 88 mmHg BMI (Body Mass Index) 25.8 kg/m2 Results Description No Information Procedures Date CPT Code Description Status 12/24/2017 41337 Injection Completed 12/24/2017 86949 Pre PFT Completed 12/10/2017 60018 Injection Completed 11/19/2017 96105 Injection Completed 10/29/2017 36669 Injection Completed 06/12/2017 30541 Extract 1-10 Completed 05/21/2017 69668 Pre PFT Completed 11/20/2016 68707 Pre PFT Completed 11/05/2016 75301 Extract 1-10 Completed 08/07/2016 79620 Pre PFT Completed 04/24/2016 56144 Pre PFT Completed 03/03/2016 00258 Extract 1-10 Completed 10/11/2015 40300 Pulmonary Function Test Completed 09/18/2015 65053 Extract 1-10 Completed 04/12/2015 97890 Pulmonary Function Test Completed 01/24/2015 61164 Extract 1-10 Completed 01/04/2015 89212 Pre PFT Completed 06/22/2014 58029 Extract 1-10 Completed 06/01/2014 75278 Pre PFT Completed 11/16/2013 01965 Extract 1-10 Completed 03/08/2013 90722 Extract 1-10 Completed 06/11/2012 57410 Extract 1-10 Completed 12/18/2011 58212 Oxygen Level - Pulse Oximiter Completed 12/18/2011 36386 Pre PFT Completed 12/09/2011 78569 Extract 1-10 Completed 06/10/2011 76493 Extract 1-10 Completed 01/16/2011 79725 Extract 1-10 Completed 07/04/2010 38584 Extract 1-10 Completed 12/11/2009 17573 Extract 1-10 Completed 05/24/2009 52615 Extract 1-10 Completed 05/08/2009 85946 Skin Test Scratch # Of Units ____ Completed 05/08/2009 66487 Pulmonary Function Test Completed 11/23/2008 15368 Extract 1-10 Completed 12/09/2007 81158 Extract 1-10 Completed 01/21/2007 17761 Extract 1-10 Completed 04/28/2006 96612 Extract 1-10 Completed 11/27/2005 58977 Extract 1-10 Completed 07/01/2005 72359 Extract 1-10 Completed 01/02/2005 93875 Extract 1-10 Completed 08/13/2004 28673 Extract 1-10 Completed 02/27/2004 38048 Extract 1-10 Completed 11/09/2003 86228 Extract 1-10 Completed 09/19/2003 47341 Extract 1-10 Completed Encounters Type Date Location Provider CPT E/M Dx Office Visit 12/24/2017 11:20a [facility] Donell Middleton M.D. 30641 J30.1 J45.40 Office Visit 05/21/2017 8:40a [facility] Garth Carroll M.D. 79346 J30.89 J45.40 Office Visit 11/20/2016 8:40a [facility] Donell Middleton M.D. 01086 J30.1 J45.40 Z68.26 Office Visit 08/07/2016 8:40a [facility] Donell Middleton M.D. 10909 J45.40 J30.1 Z68.27 Office Visit 04/24/2016 8:40a [facility] Donell Middleton M.D. 11618 Z68.27 J30.1 J45.40 Office Visit 10/11/2015 11:20a [facility] Donell Middleton M.D. 91688 J30.1 J45.40 Z68.27 Office Visit 04/12/2015 11:20a [facility] Donell Middleton M.D. 97680 Z68.27 J30.1 J45.40 Office Visit 01/04/2015 11:20a [facility] Donell Middleton M.D. 52079 V85.23 477.0 493.00 Office Visit 06/01/2014 11:40a [facility] Donell Middleton M.D. 99723 493.00 493.00 Office Visit 11/17/2013 3:20p [facility] Donell Middleotn M.D. 88567 493.00 477.0 372.05 Office Visit 12/18/2011 3:20p [facility] Alma Martinez M.D. 21870 477.8 477.0 493.90 Office Visit 05/24/2009 10:15a [facility] Julio Cesar Joshi M.D. 62410 477.8 477.0 493.90 Office Visit 05/08/2009 10:15a [facility] Khadar Miller M.D. 56115 477.8 477.0 493.90 Plan of Care Future Appointment(s):07/01/2018 8:40 am - Donell Middleton M.D. at [facility]012/24/2017 - Donell Middleton M.D.J30.1 Allergic rhinitis due to pollenRecommendations:continue with the Jess 1 tab po once a day continue with the Immunotherapy (he feels that it has been helpful)J45.40 Moderate persistent asthma, uncomplicatedNew Medication:Qvar Redihaler 80 mcg/ActFollow up:6 months for the follow up pre PFTRecommendations:PFT looks worse than the last time talked to him about the need to use the inhaled steroid on a regular basis he struggles with the Hoarseness and thrush He is willing to try the inhaled steroid but not the combination therapy will try to Qvar 80 2 puff every 12 hour (ideally he needs to be on the combination therapy but since he is reluctant to use it at least use of the inhaled steroid can be a good compromise) continue with Montelukast 10 mg 1 tab po once a day Xopenex as needed we also talked about the option of Immunomodulator but does not want to consider that at this point
--- OUTSIDE RECORDS SUMMARY | 2018-01-05 11:40 | XMS REPORT ---
:1935 External Reference #:[id number] Author Organization [employer] Address [address] [place] [address] Phone [phone] Care Team Providers Name Role Phone Joon Lombardo III, MD Primary Care Physician Unavailable Payers Type Date Identification Numbers Payment Provider Subscriber Medicare Primary Effective: Policy Number: Medicare Queenie Guillen 2000 [id number] PayID: [id number] [address] [place] [address] Medigap Part B Effective: Policy Number: AMA Insurance Queenie Guillen 2000 [id number] Agency PayID: [id number] [address] [place] [address] Problems Date Description Provider Status Onset: 08/05/2012 Benign essential hypertension Joon Lombardo M.D. Active Onset: 08/05/2012 Pure hypercholesterolemia Joon Lombardo M.D. Active Onset: 08/05/2012 Benign localized hyperplasia of Joon Lombardo M.D. Active prostate Onset: 08/05/2012 Rheumatoid arthritis Joon Lombardo M.D. Active Onset: 08/05/2012 Allergic rhinitis Joon Lombardo M.D. Active Onset: 11/23/2013 Blood chemistry abnormal Walter Ham M.D. Active Onset: 11/23/2013 Taking medication Walter Ham M.D. Active Onset: 11/23/2013 Anemia Walter Ham M.D. Active Onset: 07/10/2014 Leukopenia Walter Ham M.D. Active Onset: 10/04/2015 Benign prostatic hypertrophy without Joon Lombardo M.D. Active outflow obstruction Onset: 10/07/2016 Mixed hyperlipidemia Joon Lombardo M.D. Active Onset: 10/07/2016 Impaired fasting glycaemia Joon Lombardo M.D. Active Social History Type Date Description Comments Occupation Physician ETOH Use Denies alcohol use Smoking Patient has never smoked Exercise Type/Frequency Exercises sporadically Allergies, Adverse Reactions, Alerts Date Description Reaction Status Severity Comments 08/05/2012 NSAIDs angiodema active 08/05/2012 Neomycin rash active 08/05/2012 Gentamicin rash active 08/05/2012 Tobramycin rash active 08/05/2012 Sulfur rash active 03/08/2015 Leflunomide elevated liver enzymes active Medications Medication Date Status Form Strength Qnty SIG Indications Ordering Provider Alexander 10/08/ Active Tablets 500mg 3tabs 1 tab by Joon Conner mouth at [place], 1:00 at M.D. night & 7:00 at night the day before surgery and at 7:00 in the morning the day of surgery Hydroxychloroquine 09/07/ Active Tablets 200mg 180ta take one M05.79 Zsofia Sulfate 2018 bs tablet by Frank, mouth ETL PROGRAMMER daily for 1 week then increase to 2 tabs/day Vitamin D 09/07/ Active Tablets 1000Unit 90tab by mouth E55.9 Zsofia 2018 s everyday Frank, ETL PROGRAMMER Montelukast Sodium / Active Tablets 10mg 30tab 1 by Unknown 0000 s mouth every day Salsalate / Active Tablets 500mg 540ta take 1 Z79.899 Zsofia 0000 bs every 6 - Frank, 8 hour ETL PROGRAMMER M05.79 Probiotic Active Capsules 14caps 1 by mouth Unknown every day Vitamin C Active Tablets 500m 1 by mouth Unknown g every day Allergy Active every other Unknown Injections week Vitamin D3 Active Caps 4000 1 tab by Unknown Iu mouth daily Tylenol Active Tablets 500m 1000 mg q 6 Unknown g - 8 hr Levalbuterol HCL Active Nebulizer 0.63 every 4h as Unknown mg/3 needed ML Vit B 12 Active 1000 po qd Unknown mcg Prednisone Active Tablets 5mg 1tabxday or Unknown as directed Multi For Him Active Tablets Unknown Avodart Active Capsules 0.5m 1 by mouth Unknown g every day Vitamin D3 Ultra 04/30/2017 - Hx Capsules 5000 90caps 1 by mouth E55. Zsofia Strength 09/07/2017 Unit every day 9 LORI MarieP M81.0 Xeljanz XR 04/23/2017 - Hx Tablets ER 11mg 30tabs 1 by mouth M05.79 Zsofia 06/01/2017 24HR every day RUI Marie Augmentin 02/20/2017 - Hx Tablets 875-125 20tabs take 1 tab Zsofia 04/23/2017 mg by mouth Frank, twice a ETL PROGRAMMER day for 10 days Ciprofloxacin 02/19/2017 - Hx Tablets 500mg 14tabs take 1 tab Zsofia HCL 02/20/2017 by mouth Frank, twice a ETL PROGRAMMER day for 7 days Vancomycin HCL 06/06/2015 - Hx Capsules 125mg 56caps 1 tab by Zsofia 08/30/2015 mouth Frank, 4x/day for ETL PROGRAMMER 14 days Vitamin C 08/05/2012 - Hx Capsules 1000mg 1 po qd Joon Payne 02/02/2014 Courtney Lombardo/Vitamin E M.DJesus Collbran Oil 08/05/2012 - Hx Capsules 4 daily Joon Payne 01/11/2017 unsure of bharati Lombardo M.D. Clonidine HCL - Hx Tablets 0.1mg 180tabs 1 poqd Unknown 09/01/2013 Amlodipine - Hx Tablets 5mg 30tabs 1 po qd Unknown Besylate 09/01/2013 Lisinopril - Hx Tablets 10mg 90tabs 1 po qd Unknown 09/01/2013 Lipitor - Hx Tablets 40mg 90tabs one tab by Joon Payne 11/23/2013 mouth [place], every M.D. night at bedtime Vitamin B - Hx Tablets 1000mcg 1 po qd Unknown Complex 10/08/2017 Ferrous Sulfate - Hx Tablets 325(65F 30tabs 1 by mouth Unknown 11/23/2013 e) mg every day Leflunomide - Hx Tablets 10mg 30tabs 1 by mouth Unknown 02/02/2014 every day [place] - Hx Capsules 150mg No longer Unknown 03/09/2014 taking as of 12/02/13. 2 by mouth every day Qvar - Hx Aerosol 2 puffs Unknown 03/08/2015 twice a day Augmentin - Hx Tablets 875-125 20tabs one by L03.116 Zsofia 08/30/2015 mg mouth Frank, every 12 ETL PROGRAMMER hours for ten days Norvasc - Hx Tablets 5mg 1 by mouth Unknown 03/12/2016 twice every day Lisinopril - Hx Tablets 5mg 1 by mouth Unknown 10/02/2016 twice daily Atorvastatin - Hx Tablets 20mg 90tabs Take One Joon E. Calcium 10/08/2017 Tablet By Carina Lombardo AT M.D. Bedtime Medications Administered in Office Medication Date Status Form Strength Qnty SIG Indications Ordering Provider Influenza Administered Injection Unknown Virus Vaccine 015 Influenza Administered Injection Unknown Virus Vaccine 014 Immunizations CPT Code Status Date Vaccine Lot # [id number] Given 03/08/2017 Influenza Virus Vaccine, Quadrivalent, Split, Preservative Free 32520 Given 03/08/2017 Pneumococcal Conjugate Vaccine 13 Valent For Intramuscular Use 82440 Given 02/23/2016 Influenza Virus Vaccine, Quadrivalent, Split Virus, [place] Use 26236 Given 02/02/2014 Pneumococcal Conjugate Vaccine 13 Valent For [id number] Intramuscular Use 08738 Given 2012 Pneumonia Vaccine 60138 Given 05/25/2009 Tdap - Tetanus/Diptheria/Acellular Pertussis Vital Signs Date Vital Result Comment 12/10/2017 Height 71.5 inches 5'11.50" Weight 178.00 lb Heart Rate 84 /min BP Systolic Sitting 154 mmHg BP Diastolic Sitting 80 mmHg Pain Level 2 O2 % BldC Oximetry 98 % BMI (Body Mass Index) 24.5 kg/m2 10/08/2017 Height 71.5 inches 5'11.50" Weight 176.00 lb Heart Rate 84 /min BP Systolic Sitting 151 mmHg BP Diastolic Sitting 78 mmHg O2 % BldC Oximetry 96 % BMI (Body Mass Index) 24.2 kg/m2 09/07/2017 Weight 178.25 lb Heart Rate 92 /min BP Systolic Sitting 142 mmHg BP Diastolic Sitting 78 mmHg Pain Level 2 O2 % BldC Oximetry 96 % 06/01/2017 Weight 185.38 lb Heart Rate 88 /min BP Systolic Sitting 144 mmHg BP Diastolic Sitting 72 mmHg Respiratory Rate 14 /min Pain Level 2 04/23/2017 Height 71.50 inches 5'11.50" Weight 181.25 lb Heart Rate 88 /min BP Systolic Sitting 150 mmHg BP Diastolic Sitting 82 mmHg Respiratory Rate 15 /min BMI (Body Mass Index) 24.9 kg/m2 02/17/2017 Height 71.50 inches 5'11.50" Weight 192.00 lb w/ shoes Heart Rate 86 /min reg BP Systolic 160 mmHg Rue, reg cuff BP Diastolic 84 mmHg Rue, reg cuff BP Systolic Sitting 156 mmHg Lue, reg cuff BP Diastolic Sitting 82 mmHg Lue, reg cuff Respiratory Rate 16 /min Body Temperature 98.4 F tympanic Pain Level 3 hips, knees, hands, shoulders BMI (Body Mass Index) 26.4 kg/m2 01/12/2017 Height 71.50 inches 5'11.50" Weight 196.00 lb Heart Rate 90 /min BP Systolic Sitting 138 mmHg BP Diastolic Sitting 80 mmHg O2 % BldC Oximetry 95 % BMI (Body Mass Index) 27.0 kg/m2 10/07/2016 Height 71.50 inches 5'11.50" Weight 200.12 lb with shoes Heart Rate 86 /min BP Systolic 136 mmHg BP Diastolic 70 mmHg Body Temperature 97.4 F O2 % BldC Oximetry 98 % BMI (Body Mass Index) 27.5 kg/m2 10/02/2016 Weight 196.00 lb Heart Rate 94 /min BP Systolic Sitting 138 mmHg BP Diastolic Sitting 84 mmHg Respiratory Rate 14 /min O2 % BldC Oximetry 98 % 06/19/2016 Weight 196.00 lb Heart Rate 76 /min BP Systolic Sitting 140 mmHg BP Diastolic Sitting 84 mmHg Respiratory Rate 15 /min Pain Level 2 O2 % BldC Oximetry 98 % 03/13/2016 Weight 199.00 lb Heart Rate 83 /min BP Systolic Sitting 140 mmHg BP Diastolic Sitting 80 mmHg Pain Level 2 O2 % BldC Oximetry 98 % 12/06/2015 Weight 200.00 lb Heart Rate 59 /min BP Systolic Sitting 116 mmHg BP Diastolic Sitting 64 mmHg Body Temperature 96.4 F Pain Level 2 10/04/2015 Height 71 inches 5'11" Weight 196.00 lb Heart Rate 92 /min BP Systolic Sitting 134 mmHg BP Diastolic Sitting 88 mmHg Body Temperature 97.6 F O2 % BldC Oximetry 97 % BMI (Body Mass Index) 27.3 kg/m2 08/30/2015 Height 71 inches 5'11" Weight 199.00 lb Heart Rate 66 /min BP Systolic 124 mmHg BP Diastolic 70 mmHg O2 % BldC Oximetry 97 % BMI (Body Mass Index) 27.8 kg/m2 05/30/2015 Height 71 inches 5'11" Weight 211.00 lb Heart Rate 70 /min BP Systolic Sitting 130 mmHg BP Diastolic Sitting 70 mmHg Body Temperature 97.2 F Pain Level 2 BMI (Body Mass Index) 29.4 kg/m2 03/08/2015 Height 71 inches 5'11" Weight 206.00 lb Heart Rate 68 /min BP Systolic Sitting 130 mmHg BP Diastolic Sitting 60 mmHg Pain Level 2 BMI (Body Mass Index) 28.7 kg/m2 12/04/2014 Height 71 inches 5'11" Weight 202.00 lb Heart Rate 70 /min BP Systolic Sitting 128 mmHg BP Diastolic Sitting 70 mmHg Pain Level 3 BMI (Body Mass Index) 28.2 kg/m2 09/27/2014 Height 71 inches 5'11" Weight 200.75 lb Heart Rate 76 /min BP Systolic Sitting 140 mmHg BP Diastolic Sitting 78 mmHg Body Temperature 97.0 F O2 % BldC Oximetry 96 % BMI (Body Mass Index) 28.0 kg/m2 07/10/2014 Height 71 inches 5'11" Weight 206.25 lb Heart Rate 82 /min BP Systolic Sitting 150 mmHg BP Diastolic Sitting 62 mmHg O2 % BldC Oximetry 3 % BMI (Body Mass Index) 28.8 kg/m2 05/09/2014 Height 71 inches 5'11" Weight 204.50 lb Heart Rate 66 /min BP Systolic Sitting 130 mmHg BP Diastolic Sitting 68 mmHg Pain Level 4 BMI (Body Mass Index) 28.5 kg/m2 02/03/2014 Height 71 inches 5'11" Weight 198.75 lb Heart Rate 66 /min BP Systolic Sitting 110 mmHg BP Diastolic Sitting 60 mmHg Pain Level 2 BMI (Body Mass Index) 27.7 kg/m2 02/02/2014 Height 71 inches 5'11" Weight 198.50 lb Heart Rate 88 /min BP Systolic Sitting 144 mmHg BP Diastolic Sitting 78 mmHg Body Temperature 98.6 F BMI (Body Mass Index) 27.7 kg/m2 11/23/2013 Height 71 inches 5'11" Weight 197.00 lb Heart Rate 83 /min BP Systolic Sitting 130 mmHg BP Diastolic Sitting 78 mmHg Pain Level 3 BMI (Body Mass Index) 27.5 kg/m2 09/01/2013 Height 71 inches 5'11" Weight 193.00 lb Heart Rate 98 /min BP Systolic Sitting 128 mmHg BP Diastolic Sitting 80 mmHg BMI (Body Mass Index) 26.9 kg/m2 08/05/2012 Height 71 inches 5'11" Weight 185.25 lb Heart Rate 84 /min BP Systolic Sitting 132 mmHg BP Diastolic Sitting 74 mmHg BMI (Body Mass Index) 25.8 kg/m2 Results Test Date Test Result H/L Range Note Comp Metabolic Panel 12/09/2017 Sodium 139 mmol/L 135-145 Potassium 4.2 mmol/L 3.5-5.0 Chloride 107 mmol/L 101-111 Co2 Carbon Dioxide 23 mmol/L 22-32 Anion Gap 9 mmol/L 2-11 Glucose 109 mg/dL High 70-100 Blood Urea Nitrogen 14 mg/dL 6-24 Creatinine 0.57 mg/dL Low 0.67-1.17 BUN/Creatinine Ratio 24.6 High 8-20 Calcium 9.1 mg/dL 8.6-10.3 Total Protein 6.6 g/dL 6.4-8.9 Albumin 3.7 g/dL 3.2-5.2 Globulin 2.9 g/dL 2-4 Albumin/Globulin Ratio 1.3 1-3 Total Bilirubin 0.30 mg/dL 0.2-1.0 Alkaline Phosphatase 83 U/L 34-104 Alt 14 U/L 7-52 Ast 20 U/L 13-39 Egfr Non- 136.9 >60 Egfr 165.6 >60 1 Laboratory test finding 12/09/2017 C Reactive Protein 1.25 mg/L <8.01 Erythrocyte Sed Rate 14 mm/Hr 0-40 CBC Auto Diff 12/09/2017 White Blood Count 4.2 10^3/uL 3.5-10.8 Red Blood Count 4.65 10^6/uL 4.00-5.40 Hemoglobin 13.0 g/dL Low 14.0-18.0 Hematocrit 39 % Low 42-52 Mean Corpuscular Volume 84 fL 80-94 Mean Corpuscular Hemoglobin 28 pg 27-31 Mean Corpuscular HGB Conc 33 g/dL 31-36 Red Cell Distribution Width 16 % High 10.5-15 Platelet Count 227 10^3/uL 150-450 Mean Platelet Volume 6.8 um3 Low 7.4-10.4 Abs Neutrophils 2.6 10^3/uL 1.5-7.7 Abs Lymphocytes 0.9 10^3/uL Low 1.0-4.8 Abs Monocytes 0.6 10^3/uL 0-0.8 Abs Eosinophils 0 10^3/uL 0-0.6 Abs Basophils 0 10^3/uL 0-0.2 Abs Nucleated RBC 0 10^3/uL Granulocyte % 62.2 % 38-83 Lymphocyte % 20.7 % Low 25-47 Monocyte % 15.1 % High 0-7 Eosinophil % 1.1 % 0-6 Basophil % 0.9 % 0-2 Nucleated Red Blood Cells % 0.1 CBC W/Auto Diff 09/04/2017 White Blood Count 6.5 10^3/uL 3.5-10.8 Red Blood Count 4.97 10^6/uL 4.0-5.4 Hemoglobin 13.6 g/dL Low 14.0-18.0 Hematocrit 40 % Low 42-52 Mean Corpuscular Volume 81 fL 80-94 Mean Corpuscular Hemoglobin 27 pg 27-31 Mean Corpuscular HGB Conc 34 g/dL 31-36 Red Cell Distribution Width 15 % 10.5-15 Platelet Count 280 10^3/uL 150-450 Mean Platelet Volume 6.5 um3 Low 7.4-10.4 Abs Neutrophils 4.1 10^3/uL 1.5-7.7 Abs Lymphocytes 1.5 10^3/uL 1.0-4.8 Abs Monocytes 0.9 10^3/uL High 0-0.8 Abs Eosinophils 0 10^3/uL 0-0.6 Abs Basophils 0 10^3/uL 0-0.2 Abs Nucleated RBC 0 10^3/uL Granulocyte % 62.7 % 38-83 Lymphocyte % 23.0 % Low 25-47 Monocyte % 13.4 % High 0-7 Eosinophil % 0.5 % 0-6 Basophil % 0.4 % 0-2 Nucleated Red Blood Cells % 0 CMP Panel 09/04/2017 Sodium 138 mmol/L Low 139-145 Potassium 4.2 mmol/L 3.5-5.0 Chloride 107 mmol/L 101-111 Co2 Carbon Dioxide 21 mmol/L Low 22-32 Anion Gap 10 mmol/L 2-11 Glucose 112 mg/dL High 70-100 Blood Urea Nitrogen 24 mg/dL 6-24 Creatinine 0.65 mg/dL Low 0.67-1.17 BUN/Creatinine Ratio 36.9 High 8-20 Calcium 8.6 mg/dL 8.6-10.3 Total Protein 6.3 g/dL Low 6.4-8.9 Albumin 3.6 g/dL 3.2-5.2 Globulin 2.7 g/dL 2-4 Albumin/Globulin Ratio 1.3 1-3 Total Bilirubin 0.40 mg/dL 0.2-1.0 Alkaline Phosphatase 54 U/L 34-104 Alt 22 U/L 7-52 Ast 26 U/L 13-39 Egfr Non- 117.6 >60 Egfr 151.3 >60 2 Laboratory test finding 09/04/2017 C Reactive Protein 4.28 mg/L < 5.00 3 Erythrocyte Sed Rate 22 mm/Hr 0-40 Laboratory test finding 07/23/2017 Vitamin D Total 25(Oh) 38.0 ng/mL 20- 50 Comp Metabolic Panel 07/23/2017 Sodium 138 mmol/L 133-145 Potassium 4.0 mmol/L 3.5-5.0 Chloride 106 mmol/L 101-111 Co2 Carbon Dioxide 23 mmol/L 22-32 Anion Gap 9 mmol/L 2-11 Glucose 141 mg/dL High 70-100 Blood Urea Nitrogen 18 mg/dL 6-24 Creatinine 0.52 mg/dL Low 0.67-1.17 BUN/Creatinine Ratio 34.6 High 8-20 Calcium 9.1 mg/dL 8.6-10.3 Total Protein 6.4 g/dL 6.4-8.9 Albumin 3.7 g/dL 3.2-5.2 Globulin 2.7 g/dL 2-4 Albumin/Globulin Ratio 1.4 1-3 Total Bilirubin 0.40 mg/dL 0.2-1.0 Alkaline Phosphatase 56 U/L 34-104 Alt 20 U/L 7-52 Ast 20 U/L 13-39 Egfr Non- 152.5 >60 Egfr 196.2 >60 4 Laboratory test finding 07/23/2017 C Reactive Protein 4.33 mg/L < 5.00 5 CBC Auto Diff 07/23/2017 White Blood Count 6.7 10^3/uL 3.5-10.8 Red Blood Count 4.90 10^6/uL 4.0-5.4 Hemoglobin 13.2 g/dL Low 14.0-18.0 Hematocrit 40 % Low 42-52 Mean Corpuscular Volume 81 fL 80-94 Mean Corpuscular Hemoglobin 27 pg 27-31 Mean Corpuscular HGB Conc 33 g/dL 31-36 Red Cell Distribution Width 16 % High 10.5-15 Platelet Count 256 10^3/uL 150-450 Mean Platelet Volume 7 um3 Low 7.4-10.4 Abs Neutrophils 5.0 10^3/uL 1.5-7.7 Abs Lymphocytes 0.8 10^3/uL Low 1.0-4.8 Abs Monocytes 0.7 10^3/uL 0-0.8 Abs Eosinophils 0.1 10^3/uL 0-0.6 Abs Basophils 0 10^3/uL 0-0.2 Abs Nucleated RBC 0 10^3/uL Granulocyte % 75.6 % 38-83 Lymphocyte % 11.9 % Low 25-47 Monocyte % 10.3 % High 0-7 Eosinophil % 1.8 % 0-6 Basophil % 0.4 % 0-2 Nucleated Red Blood Cells % 0 Laboratory test 07/23/2017 Erythrocyte Sed Rate 18 mm/Hr 0-40 finding Laboratory test 07/23/2017 TSH (Thyroid Stim 0.78 mcIU/mL 0.34-5.60 6, 7 finding Horm) Free T4 (Free Thyroxine) 0.74 ng/dL 0.61-1.12 6, 8 Laboratory test finding 05/28/2017 Vitamin D Total 25(Oh) 25.0 ng/mL 20- 50 Lipid Profile (Trig/Chol/HDL) 05/28/2017 Triglycerides 243 mg/dL 9 Cholesterol 216 mg/dL 10 HDL Cholesterol 36.4 mg/dL 11 LDL Cholesterol 131 mg/dL 12 Laboratory test finding 05/28/2017 Erythrocyte Sed Rate 16 mm/Hr 0-40 C Reactive Protein 1.05 mg/L < 5.00 13 CBC Auto Diff 05/28/2017 White Blood Count 5.6 10^3/uL 3.5-10.8 Red Blood Count 4.95 10^6/uL 4.0-5.4 Hemoglobin 13.2 g/dL Low 14.0-18.0 Hematocrit 41 % Low 42-52 Mean Corpuscular Volume 82 fL 80-94 Mean Corpuscular Hemoglobin 27 pg 27-31 Mean Corpuscular HGB Conc 33 g/dL 31-36 Red Cell Distribution Width 18 % High 10.5-15 Platelet Count 259 10^3/uL 150-450 Mean Platelet Volume 6 um3 Low 7.4-10.4 Abs Neutrophils 3.4 10^3/uL 1.5-7.7 Abs Lymphocytes 1.3 10^3/uL 1.0-4.8 Abs Monocytes 0.9 10^3/uL High 0-0.8 Abs Eosinophils 0.1 10^3/uL 0-0.6 Abs Basophils 0 10^3/uL 0-0.2 Abs Nucleated RBC 0 10^3/uL Granulocyte % 60.6 % 38-83 Lymphocyte % 22.4 % Low 25-47 Monocyte % 15.3 % High 1-9 Eosinophil % 1.1 % 0-6 Basophil % 0.6 % 0-2 Nucleated Red Blood Cells % 0.2 Comp Metabolic Panel 05/28/2017 Sodium 137 mmol/L 133-145 Potassium 4.0 mmol/L 3.5-5.0 Chloride 107 mmol/L 101-111 Co2 Carbon Dioxide 22 mmol/L 22-32 Anion Gap 8 mmol/L 2-11 Glucose 125 mg/dL High 70-100 Blood Urea Nitrogen 27 mg/dL High 6-24 Creatinine 0.65 mg/dL Low 0.67-1.17 BUN/Creatinine Ratio 41.5 High 8-20 Calcium 9.2 mg/dL 8.6-10.3 Total Protein 6.1 g/dL Low 6.4-8.9 Albumin 3.6 g/dL 3.2-5.2 Globulin 2.5 g/dL 2-4 Albumin/Globulin Ratio 1.4 1-3 Total Bilirubin 0.40 mg/dL 0.2-1.0 Alkaline Phosphatase 52 U/L 34-104 Alt 19 U/L 7-52 Ast 22 U/L 13-39 Egfr Non- 117.9 >60 Egfr 151.6 >60 14 Laboratory test finding 04/28/2017 Vitamin D Total 25(Oh) 16.3 ng/mL Low 20-50 Hepatitis B Surface Ag Nonreactive Nonreactive Hepatitis B Core AB Igm Nonreactive Nonreactive Hepatitis A AB Igm Nonreactive Nonreactive Hepatitis C Antibody Nonreactive Nonreactive Quantiferon Gold TB 04/28/2017 M tuberculosis by Quantiferon Negative Negative 15 TB Ag minus Nil Result 0 IU/mL TB Mitogen minus Nil Result 1.01 IU/mL TB Nil Result 0.03 IU/mL 16 CBC Auto Diff 04/09/2017 White Blood Count 5.1 10^3/uL 3.5-10.8 Red Blood Count 4.61 10^6/uL 4.0-5.4 Hemoglobin 12.4 g/dL Low 14.0-18.0 Hematocrit 37 % Low 42-52 Mean Corpuscular Volume 80 fL 80-94 Mean Corpuscular Hemoglobin 27 pg 27-31 Mean Corpuscular HGB Conc 34 g/dL 31-36 Red Cell Distribution Width 16 % High 10.5-15 Platelet Count 255 10^3/uL 150-450 Mean Platelet Volume 7 um3 Low 7.4-10.4 Abs Neutrophils 2.6 10^3/uL 1.5-7.7 Abs Lymphocytes 1.6 10^3/uL 1.0-4.8 Abs Monocytes 0.8 10^3/uL 0-0.8 Abs Eosinophils 0 10^3/uL 0-0.6 Abs Basophils 0 10^3/uL 0-0.2 Abs Nucleated RBC 0 10^3/uL Granulocyte % 51.3 % 38-83 Lymphocyte % 30.7 % 25-47 Monocyte % 16.5 % High 1-9 Eosinophil % 0.7 % 0-6 Basophil % 0.8 % 0-2 Nucleated Red Blood Cells % 0.1 Comp Metabolic Panel 04/09/2017 Sodium 137 mmol/L 133-145 Potassium 3.8 mmol/L 3.5-5.0 Chloride 107 mmol/L 101-111 Co2 Carbon Dioxide 23 mmol/L 22-32 Anion Gap 7 mmol/L 2-11 Glucose 141 mg/dL High 70-100 Blood Urea Nitrogen 19 mg/dL 6-24 Creatinine 0.54 mg/dL Low 0.67-1.17 BUN/Creatinine Ratio 35.2 High 8-20 Calcium 8.9 mg/dL 8.6-10.3 Total Protein 6.2 g/dL Low 6.4-8.9 Albumin 3.6 g/dL 3.2-5.2 Globulin 2.6 g/dL 2-4 Albumin/Globulin Ratio 1.4 1-3 Total Bilirubin 0.40 mg/dL 0.2-1.0 Alkaline Phosphatase 54 U/L 34-104 Alt 13 U/L 7-52 Ast 17 U/L 13-39 Egfr Non- 146.0 >60 Egfr 187.8 >60 17 Laboratory test finding 04/09/2017 Erythrocyte Sed Rate 25 mm/Hr 0-40 C Reactive Protein 8.09 mg/L High < 5.00 18 CBC No Diff 04/09/2017 White Blood Count 5.0 10^3/uL 3.5-10.8 Red Blood Count 4.63 10^6/uL 4.0-5.4 Hemoglobin 12.6 g/dL Low 14.0-18.0 Hematocrit 37 % Low 42-52 Mean Corpuscular Volume 81 fL 80-94 Mean Corpuscular Hemoglobin 27 pg 27-31 Mean Corpuscular HGB Conc 34 g/dL 31-36 Red Cell Distribution Width 16 % High 10.5-15 Platelet Count 256 10^3/uL 150-450 Mean Platelet Volume 7 um3 Low 7.4-10.4 Urine Culture And Sensitivities 02/27/2017 Urine Culture SEE RESULT BELOW 19 Urinalysis Profile 02/27/2017 Urine Color Yellow Urine Appearance Cloudy Urine Specific [place] 1.017 1.010-1.030 Urine pH 6.0 5-9 Urine Urobilinogen Negative Negative Urine Ketones Negative Negative Urine Protein 1+(30 mg/dL) Negative Urine Leukocytes 3+ Negative Urine Blood 1+ Negative Urine Nitrite Positive Negative Urine Bilirubin Negative Negative Urine Glucose Negative Negative Urine White Blood Cell 3+(>20/hpf) Absent Urine Red Blood Cell 3+(>10/hpf) Absent Urine Bacteria 1+ Absent Urine Calcium Oxalate Cryst Present Absent Urine Amorphous Crystals Present Absent Urinalysis Profile 02/18/2017 Urine Color Yellow Urine Appearance Turbid Urine Specific [place] 1.018 1.010-1.030 Urine pH 6.0 5-9 Urine Urobilinogen Negative Negative Urine Ketones Negative Negative Urine Protein 2+(100 mg/dL) Negative Urine Leukocytes 3+ Negative Urine Blood 2+ Negative Urine Nitrite Positive Negative Urine Bilirubin Negative Negative Urine Glucose Negative Negative Urine White Blood Cell 3+(>20/hpf) Absent Urine Red Blood Cell 2+(6-10/hpf) Absent Urine Bacteria Absent Absent Laboratory test finding 02/18/2017 Blood Culture SEE RESULT BELOW 20 Urine Culture And 02/18/2017 Urine Culture SEE RESULT BELOW 21 Sensitivities Laboratory test finding 02/16/2017 Lyme Disease Negative Negative 22 Serology Manual Differential 02/16/2017 Neutrophil % 49 % 38-83 Lymphocytes % 21 % Low 25-47 Monocytes % 16 % High 0-13 Reactive Lymph % 14 % High 0-6 RBC Morphology Normal Normal Comp Metabolic Panel 02/16/2017 Sodium 134 mmol/L 133-145 Potassium 4.8 mmol/L 3.5-5.0 Chloride 101 mmol/L 101-111 Co2 Carbon Dioxide 23 mmol/L 22-32 Anion Gap 10 mmol/L 2-11 Glucose 103 mg/dL High 70-100 Blood Urea Nitrogen 24 mg/dL 6-24 Creatinine 0.68 mg/dL 0.67-1.17 BUN/Creatinine Ratio 35.3 High 8-20 Calcium 8.7 mg/dL 8.6-10.3 Total Protein 6.6 g/dL 6.4-8.9 Albumin 3.3 g/dL 3.2-5.2 Globulin 3.3 g/dL 2-4 Albumin/Globulin Ratio 1.0 1-3 Total Bilirubin 0.40 mg/dL 0.2-1.0 Alkaline Phosphatase 55 U/L 34-104 Alt 16 U/L 7-52 Ast 18 U/L 13-39 Egfr Non- 111.9 >60 Egfr 143.9 >60 23 Laboratory test finding 02/16/2017 C Reactive Protein 65.83 mg/L High < 5.00 24 CBC Auto Diff 02/16/2017 White Blood Count 8.8 10^3/uL 3.5-10.8 Red Blood Count 4.59 10^6/uL 4.0-5.4 Hemoglobin 12.3 g/dL Low 14.0-18.0 Hematocrit 37 % Low 42-52 Mean Corpuscular Volume 80 fL 80-94 Mean Corpuscular Hemoglobin 27 pg 27-31 Mean Corpuscular HGB Conc 33 g/dL 31-36 Red Cell Distribution Width 14 % 10.5-15 Platelet Count 311 10^3/uL 150-450 Mean Platelet Volume 6 um3 Low 7.4-10.4 Abs Neutrophils 5.0 10^3/uL 1.5-7.7 Abs Lymphocytes 2.1 10^3/uL 1.0-4.8 Abs Monocytes 1.6 10^3/uL High 0-0.8 Abs Eosinophils 0 10^3/uL 0-0.6 Abs Basophils 0.1 10^3/uL 0-0.2 Abs Nucleated RBC 0.01 10^3/uL Granulocyte % 57.4 % 38-83 Lymphocyte % 23.4 % Low 25-47 Monocyte % 18.4 % High 1-9 Eosinophil % 0 % 0-6 Basophil % 0.8 % 0-2 Nucleated Red Blood Cells % 0.1 PSA Free And Total 01/05/2017 PSA Total 0.15 ng/mL <=7.2 PSA Free <0.1 ng/mL PSA Free/Total See Comment ratio 25 CBC W/Auto Diff 01/05/2017 White Blood Count 5.6 10^3/uL 3.5-10.8 Red Blood Count 4.89 10^6/uL 4.0-5.4 Hemoglobin 13.5 g/dL Low 14.0-18.0 Hematocrit 41 % Low 42-52 Mean Corpuscular Volume 84 fL 80-94 Mean Corpuscular Hemoglobin 28 pg 27-31 Mean Corpuscular HGB Conc 33 g/dL 31-36 Red Cell Distribution Width 15 % 10.5-15 Platelet Count 267 10^3/uL 150-450 Mean Platelet Volume 7 um3 Low 7.4-10.4 Abs Neutrophils 3.3 10^3/uL 1.5-7.7 Abs Lymphocytes 1.3 10^3/uL 1.0-4.8 Abs Monocytes 0.9 10^3/uL High 0-0.8 Abs Eosinophils 0 10^3/uL 0-0.6 Abs Basophils 0 10^3/uL 0-0.2 Abs Nucleated RBC 0 10^3/uL Granulocyte % 59.3 % 38-83 Lymphocyte % 23.4 % Low 25-47 Monocyte % 15.8 % High 1-9 Eosinophil % 0.8 % 0-6 Basophil % 0.7 % 0-2 Nucleated Red Blood Cells % 0.1 CMP Panel 01/05/2017 Sodium 138 mmol/L 133-145 Potassium 4.2 mmol/L 3.5-5.0 Chloride 107 mmol/L 101-111 Co2 Carbon Dioxide 23 mmol/L 22-32 Anion Gap 8 mmol/L 2-11 Glucose 146 mg/dL High 70-100 Blood Urea Nitrogen 20 mg/dL 6-24 Creatinine 0.67 mg/dL 0.67-1.17 BUN/Creatinine Ratio 29.9 High 8-20 Calcium 8.9 mg/dL 8.6-10.3 Total Protein 6.6 g/dL 6.4-8.9 Albumin 3.8 g/dL 3.2-5.2 Globulin 2.8 g/dL 2-4 Albumin/Globulin Ratio 1.4 1-3 Total Bilirubin 0.40 mg/dL 0.2-1.0 Alkaline Phosphatase 59 U/L 34-104 Alt 31 U/L 7-52 Ast 27 U/L 13-39 Egfr Non- 113.8 >60 Egfr 146.4 >60 26 Laboratory test finding 01/05/2017 Erythrocyte Sed Rate 21 mm/Hr 0-40 C Reactive Protein 3.06 mg/L < 5.00 27 CBC No Diff 12/31/2016 White Blood Count 5.0 10^3/uL 3.5-10.8 Red Blood Count 4.46 10^6/uL 4.0-5.4 Hemoglobin 12.6 g/dL Low 14.0-18.0 Hematocrit 38 % Low 42-52 Mean Corpuscular Volume 84 fL 80-94 Mean Corpuscular Hemoglobin 28 pg 27-31 Mean Corpuscular HGB Conc 34 g/dL 31-36 Red Cell Distribution Width 15 % 10.5-15 Platelet Count 209 10^3/uL 150-450 Mean Platelet Volume 6 um3 Low 7.4-10.4 Inr/Protime 12/31/2016 Inr 0.90 0.89-1.11 Basic Metabolic Panel 12/31/2016 Sodium 138 mmol/L 133-145 Potassium 3.9 mmol/L 3.5-5.0 Chloride 108 mmol/L 101-111 Co2 Carbon Dioxide 22 mmol/L 22-32 Anion Gap 8 mmol/L 2-11 Glucose 145 mg/dL High 70-100 Blood Urea Nitrogen 23 mg/dL 6-24 Creatinine 0.64 mg/dL Low 0.67-1.17 BUN/Creatinine Ratio 35.9 High 8-20 Calcium 9.1 mg/dL 8.6-10.3 Egfr Non- 120.0 >60 Egfr 154.4 >60 28 Lipid Profile (Trig/Chol/HDL) 11/06/2016 Triglycerides 219 mg/dL 29 Cholesterol 167 mg/dL 30 HDL Cholesterol 32.2 mg/dL 31 LDL Cholesterol 91 mg/dL 32 Laboratory test finding 10/07/2016 Hemoglobin A1c 6.3 5-7 Laboratory test finding 09/30/2016 C Reactive Protein 1.13 mg/L < 5.00 33 Erythrocyte Sed Rate 17 mm/Hr 0-40 34 TSH (Thyroid Stim Horm) 0.66 mcIU/mL 0.34-5.60 35 Vitamin D Total 25(Oh) 24.4 ng/mL Low 30-50 36 Comp Metabolic Panel 09/30/2016 Sodium 135 mmol/L 133-145 Potassium 4.5 mmol/L 3.5-5.0 Chloride 105 mmol/L 101-111 Co2 Carbon Dioxide 22 mmol/L 22-32 Anion Gap 8 mmol/L 2-11 Glucose 161 mg/dL High 70-100 Blood Urea Nitrogen 32 mg/dL High 6-24 Creatinine 0.90 mg/dL 0.67-1.17 BUN/Creatinine Ratio 35.6 High 8-20 Calcium 9.1 mg/dL 8.6-10.3 Total Protein 6.8 g/dL 6.4-8.9 Albumin 4.1 g/dL 3.2-5.2 Globulin 2.7 g/dL 2-4 Albumin/Globulin Ratio 1.5 1-3 Total Bilirubin 0.50 mg/dL 0.2-1.0 Alkaline Phosphatase 56 U/L 34-104 Alt 20 U/L 7-52 Ast 20 U/L 13-39 Egfr Non- 81.0 >60 Egfr 104.2 >60 37 CBC Auto Diff 09/30/2016 White Blood Count 6.8 10^3/uL 3.5-10.8 Red Blood Count 5.07 10^6/uL 4.0-5.4 Hemoglobin 14.5 g/dL 14.0-18.0 Hematocrit 43 % 42-52 Mean Corpuscular Volume 84 fL 80-94 Mean Corpuscular Hemoglobin 29 pg 27-31 Mean Corpuscular HGB Conc 34 g/dL 31-36 Red Cell Distribution Width 15 % 10.5-15 Platelet Count 218 10^3/uL 150-450 Mean Platelet Volume 7 um3 Low 7.4-10.4 Abs Neutrophils 4.3 10^3/uL 1.5-7.7 Abs Lymphocytes 1.6 10^3/uL 1.0-4.8 Abs Monocytes 0.8 10^3/uL 0-0.8 Abs Eosinophils 0.1 10^3/uL 0-0.6 Abs Basophils 0 10^3/uL 0-0.2 Abs Nucleated RBC 0.01 10^3/uL Granulocyte % 63.4 % 38-83 Lymphocyte % 23.6 % Low 25-47 Monocyte % 11.7 % High 1-9 Eosinophil % 0.7 % 0-6 Basophil % 0.6 % 0-2 Nucleated Red Blood Cells % 0.1 Laboratory test finding 06/16/2016 Ferritin 237.3 ng/mL 24-336 Vitamin B12 503 pg/mL 180-914 38 Iron & Iron Binding Capacity 06/16/2016 Iron 70 g/dL 50-212 Unsaturated Iron Binding 273 g/dL Total Iron Binding Capacity 343 g/dL 250-450 % Iron Saturation 20 % 15-55 Laboratory test finding 06/16/2016 C Reactive Protein < 1.00 mg/L < 5.00 39, 40 Erythrocyte Sed Rate 20 mm/Hr 0-40 39, 41 Comp Metabolic Panel 06/16/2016 Sodium 137 mmol/L 133-145 39 Potassium 4.3 mmol/L 3.5-5.0 39 Chloride 107 mmol/L 101-111 39 Co2 Carbon Dioxide 21 mmol/L Low 22-32 39 Anion Gap 9 mmol/L 2-11 39 Glucose 153 mg/dL High 70-100 39 Blood Urea Nitrogen 25 mg/dL High 6-24 39 Creatinine 0.76 mg/dL 0.67-1.17 39 BUN/Creatinine Ratio 32.9 High 8-20 39 Calcium 9.3 mg/dL 8.6-10.3 39 Total Protein 6.7 g/dL 6.4-8.9 39 Albumin 4.0 g/dL 3.2-5.2 39 Globulin 2.7 g/dL 2-4 39 Albumin/Globulin Ratio 1.5 1-3 39 Total Bilirubin 0.50 mg/dL 0.2-1.0 39 Alkaline Phosphatase 67 U/L 34-104 39 Alt 24 U/L 7-52 39 Ast 19 U/L 13-39 39 Egfr Non- 98.7 >60 39 Egfr 126.9 >60 39, 42 CBC Auto Diff 06/16/2016 White Blood Count 7.0 10^3/uL 3.5-10.8 39 Red Blood Count 4.83 10^6/uL 4.0-5.4 39 Hemoglobin 13.5 g/dL Low 14.0-18.0 39 Hematocrit 40 % Low 42-52 39 Mean Corpuscular Volume 82 fL 80-94 39 Mean Corpuscular Hemoglobin 28 pg 27-31 39 Mean Corpuscular HGB Conc 34 g/dL 31-36 39 Red Cell Distribution Width 15 % 10.5-15 39 Platelet Count 205 10^3/uL 150-450 39 Mean Platelet Volume 7 um3 Low 7.4-10.4 39 Abs Neutrophils 4.4 10^3/uL 1.5-7.7 39 Abs Lymphocytes 1.7 10^3/uL 1.0-4.8 39 Abs Monocytes 0.7 10^3/uL 0-0.8 39 Abs Eosinophils 0 10^3/uL 0-0.6 39 Abs Basophils 0.2 10^3/uL 0-0.2 39 Abs Nucleated RBC 0 10^3/uL 39 Granulocyte % 63.1 % 38-83 39 Lymphocyte % 24.3 % Low 25-47 39 Monocyte % 9.4 % High 1-9 39 Eosinophil % 0.6 % 0-6 39 Basophil % 2.6 % High 0-2 39 Nucleated Red Blood Cells % 0 39 Laboratory test finding 01/07/2016 C Reactive Protein 2.26 mg/L < 5.00 43 Erythrocyte Sed Rate 18 mm/Hr 0-40 CBC W/Auto Diff 01/07/2016 White Blood Count 4.9 10^3/uL 3.5-10.8 Red Blood Count 4.61 10^6/uL 4.0-5.4 Hemoglobin 12.8 g/dL Low 14.0-18.0 Hematocrit 38 % Low 42-52 Mean Corpuscular Volume 83 fL 80-94 Mean Corpuscular Hemoglobin 28 pg 27-31 Mean Corpuscular HGB Conc 34 g/dL 31-36 Red Cell Distribution Width 15 % 10.5-15 Platelet Count 209 10^3/uL 150-450 Mean Platelet Volume 7 um3 Low 7.4-10.4 Abs Neutrophils 1.6 10^3/uL 1.5-7.7 Abs Lymphocytes 2.5 10^3/uL 1.0-4.8 Abs Monocytes 0.8 10^3/uL 0-0.8 Abs Eosinophils 0 10^3/uL 0-0.6 Abs Basophils 0 10^3/uL 0-0.2 Abs Nucleated RBC 0.04 10^3/uL Granulocyte % 32.5 % Low 38-83 Lymphocyte % 50.4 % High 25-47 Monocyte % 15.5 % High 1-9 Eosinophil % 0.9 % 0-6 Basophil % 0.7 % 0-2 Nucleated Red Blood Cells % 0.9 Comp Metabolic Panel 01/07/2016 Sodium 140 mmol/L 133-145 Potassium 4.3 mmol/L 3.5-5.0 Chloride 108 mmol/L 101-111 Co2 Carbon Dioxide 24 mmol/L 22-32 Anion Gap 8 mmol/L 2-11 Glucose 115 mg/dL High 70-100 Blood Urea Nitrogen 20 mg/dL 6-24 Creatinine 0.82 mg/dL 0.67-1.17 BUN/Creatinine Ratio 24.4 High 8-20 Calcium 9.0 mg/dL 8.6-10.3 Total Protein 6.6 g/dL 6.4-8.9 Albumin 3.8 g/dL 3.2-5.2 Globulin 2.8 g/dL 2-4 Albumin/Globulin Ratio 1.4 1-3 Total Bilirubin 0.40 mg/dL 0.2-1.0 Alkaline Phosphatase 69 U/L 34-104 Alt 21 U/L 7-52 Ast 23 U/L 13-39 Egfr Non- 90.4 >60 Egfr 116.3 >60 44 Laboratory test finding 12/04/2015 Erythrocyte Sed Rate 15 mm/Hr 0-40 45 , 46 CBC Auto Diff 12/04/2015 White Blood Count 3.9 10^3/uL 3.5-10.8 45 Red Blood Count 4.76 10^6/uL 4.0-5.4 45 Hemoglobin 13.2 g/dL Low 14.0-18.0 45 Hematocrit 39 % Low 42-52 45 Mean Corpuscular Volume 81 fL 80-94 45 Mean Corpuscular Hemoglobin 28 pg 27-31 45 Mean Corpuscular HGB Conc 34 g/dL 31-36 45 Red Cell Distribution Width 15 % 10.5-15 45 Platelet Count 176 10^3/uL 150-450 45 Mean Platelet Volume 7 um3 Low 7.4-10.4 45 Abs Neutrophils 1.0 10^3/uL Low 1.5-7.7 45 Abs Lymphocytes 2.1 10^3/uL 1.0-4.8 45 Abs Monocytes 0.7 10^3/uL 0-0.8 45 Abs Eosinophils 0.1 10^3/uL 0-0.6 45 Abs Basophils 0 10^3/uL 0-0.2 45 Abs Nucleated RBC 0 10^3/uL 45 Granulocyte % 25.5 % Low 38-83 45 Lymphocyte % 55.0 % High 25-47 45 Monocyte % 17.3 % High 1-9 45 Eosinophil % 1.6 % 0-6 45 Basophil % 0.6 % 0-2 45 Nucleated Red Blood Cells % 0.1 45 Laboratory test finding 12/04/2015 C Reactive Protein < 1.00 mg/L < 5.00 45, 47 Comp Metabolic Panel 12/04/2015 Sodium 138 mmol/L 133-145 45 Potassium 4.1 mmol/L 3.5-5.0 45 Chloride 107 mmol/L 101-111 45 Co2 Carbon Dioxide 24 mmol/L 22-32 45 Anion Gap 7 mmol/L 2-11 45 Glucose 114 mg/dL High 70-100 45 Blood Urea Nitrogen 21 mg/dL 6-24 45 Creatinine 0.75 mg/dL 0.67-1.17 45 BUN/Creatinine Ratio 28.0 High 8-20 45 Calcium 9.1 mg/dL 8.6-10.3 45 Total Protein 6.9 g/dL 6.4-8.9 45 Albumin 3.9 g/dL 3.2-5.2 45 Globulin 3.0 g/dL 2-4 45 Albumin/Globulin Ratio 1.3 1-3 45 Total Bilirubin 0.40 mg/dL 0.2-1.0 45 Alkaline Phosphatase 68 U/L 34-104 45 Alt 23 U/L 7-52 45 Ast 22 U/L 13-39 45 Egfr Non- 100.2 >60 45 Egfr 128.9 >60 45, 48 Laboratory test finding 10/08/2015 Hemoglobin A1c (Glyco 6.3 % High Less than 6.0 49 HGB) PSA Diagnostic 2.685 ng/mL 0-4.000 50 Lipid Profile (Trig/Chol/HDL) 10/08/2015 Triglycerides 230 mg/dL 51 Cholesterol 239 mg/dL 52 HDL Cholesterol 30.7 mg/dL 53 LDL Cholesterol 162 mg/dL 54 Comp Metabolic Panel 08/23/2015 Sodium 139 mmol/L 133-145 Potassium 3.7 mmol/L 3.5-5.0 Chloride 107 mmol/L 101-111 Co2 Carbon Dioxide 24 mmol/L 22-32 Anion Gap 8 mmol/L 2-11 Glucose 113 mg/dL High 70-100 Blood Urea Nitrogen 21 mg/dL 6-24 Creatinine 0.76 mg/dL 0.67-1.17 BUN/Creatinine Ratio 27.6 High 8-20 Calcium 8.9 mg/dL 8.6-10.3 Total Protein 6.3 g/dL Low 6.4-8.9 Albumin 3.8 g/dL 3.2-5.2 Globulin 2.5 g/dL 2-4 Albumin/Globulin Ratio 1.5 1-3 Total Bilirubin 0.50 mg/dL 0.2-1.0 Alkaline Phosphatase 67 U/L 34-104 Alt 26 U/L 7-52 Ast 23 U/L 13-39 Egfr Non- 98.7 >60 Egfr 126.9 >60 55 CBC Auto Diff 08/23/2015 White Blood Count 5.0 10^3/uL 3.5-10.8 Red Blood Count 5.08 10^6/uL 4.0-5.4 Hemoglobin 14.1 g/dL 14.0-18.0 Hematocrit 43 % 42-52 Mean Corpuscular Volume 84 fL 80-94 Mean Corpuscular Hemoglobin 28 pg 27-31 Mean Corpuscular HGB Conc 33 g/dL 31-36 Red Cell Distribution Width 15 % 10.5-15 Platelet Count 204 10^3/uL 150-450 Mean Platelet Volume 7 um3 Low 7.4-10.4 Abs Neutrophils 1.6 10^3/uL 1.5-7.7 Abs Lymphocytes 2.4 10^3/uL 1.0-4.8 Abs Monocytes 0.8 10^3/uL 0-0.8 Abs Eosinophils 0.2 10^3/uL 0-0.6 Abs Basophils 0 10^3/uL 0-0.2 Abs Nucleated RBC 0 10^3/uL Granulocyte % 32.0 % Low 38-83 Lymphocyte % 48.6 % High 25-47 Monocyte % 15.3 % High 1-9 Eosinophil % 3.5 % 0-6 Basophil % 0.6 % 0-2 Nucleated Red Blood Cells % 0.1 Laboratory test finding 08/23/2015 C Reactive Protein 3.15 mg/L < 5.00 56 Erythrocyte Sed Rate 17 mm/Hr 0-40 Laboratory test finding 03/09/2015 C Reactive Protein 1.01 mg/L < 5.00 57 Erythrocyte Sed Rate 14 mm/Hr 0-40 Cyclic Citrullinated Pep Igg >250.0 U 58 Rheumatoid Factor 36 IU/mL <15 59 Comp Metabolic Panel 03/09/2015 Sodium 139 mmol/L 133-145 Potassium 4.1 mmol/L 3.5-5.0 Chloride 107 mmol/L 101-111 Co2 Carbon Dioxide 24 mmol/L 22-32 Anion Gap 8 mmol/L 2-11 Glucose 120 mg/dL High 70-100 Blood Urea Nitrogen 20 mg/dL 6-24 Creatinine 0.76 mg/dL 0.67-1.17 BUN/Creatinine Ratio 26.3 High 8-20 Calcium 9.3 mg/dL 8.6-10.3 Total Protein 7.2 g/dL 6.4-8.9 Albumin 4.1 g/dL 3.2-5.2 Globulin 3.1 g/dL 2-4 Albumin/Globulin Ratio 1.3 1-3 Total Bilirubin 0.50 mg/dL 0.2-1.0 Alkaline Phosphatase 72 U/L 34-104 Alt 25 U/L 7-52 Ast 25 U/L 13-39 Egfr Non- 98.9 >60 Egfr 127.2 >60 60 CBC Auto Diff 03/09/2015 White Blood Count 5.2 10^3/uL 4.8-10.8 Red Blood Count 5.00 10^6/uL 4.0-5.4 Hemoglobin 14.2 g/dL 14.0-18.0 Hematocrit 43 % 42-52 Mean Corpuscular Volume 85 fL 80-94 Mean Corpuscular Hemoglobin 28 pg 27-31 Mean Corpuscular HGB Conc 33 g/dL 31-36 Red Cell Distribution Width 14 % 10.5-15 Platelet Count 169 10^3/uL 150-450 Mean Platelet Volume 8 um3 7.4-10.4 Abs Neutrophils 1.3 10^3/uL Low 1.5-7.7 Abs Lymphocytes 3.0 10^3/uL 1.0-4.8 Abs Monocytes 0.8 10^3/uL 0-0.8 Abs Eosinophils 0.1 10^3/uL 0-0.6 Abs Basophils 0 10^3/uL 0-0.2 Abs Nucleated RBC 0.01 10^3/uL Granulocyte % 24.5 % Low 38-83 Lymphocyte % 58.2 % High 25-47 Monocyte % 14.9 % High 1-9 Eosinophil % 1.8 % 0-6 Basophil % 0.6 % 0-2 Nucleated Red Blood Cells % 0.3 Laboratory test finding 10/02/2014 C Reactive Protein < 1.00 mg/L < 5.00 61 Erythrocyte Sed Rate 16 mm/Hr 0-40 CMP Panel 10/02/2014 Sodium 138 mmol/L 133-145 Potassium 4.0 mmol/L 3.5-5.0 Chloride 107 mmol/L 101-111 Co2 Carbon Dioxide 25 mmol/L 22-32 Anion Gap 6 mmol/L 2-11 Glucose 107 mg/dL High 70-100 Blood Urea Nitrogen 15 mg/dL 6-24 Creatinine 0.67 mg/dL 0.67-1.17 BUN/Creatinine Ratio 22.4 High 8-20 Calcium 9.2 mg/dL 8.6-10.3 Total Protein 6.7 g/dL 6.4-8.9 Albumin 4.1 g/dL 3.2-5.2 Globulin 2.6 g/dL 2-4 Albumin/Globulin Ratio 1.6 1-3 Total Bilirubin 0.50 mg/dL 0.2-1.0 Alkaline Phosphatase 70 U/L 34-104 Alt 23 U/L 7-52 Ast 22 U/L 13-39 Egfr Non- 114.4 >60 Egfr 147.2 >60 62 CBC W/Auto Diff 10/02/2014 White Blood Count 4.4 10^3/uL Low 4.8-10.8 Red Blood Count 4.60 10^6/uL 4.0-5.4 Hemoglobin 13.5 g/dL Low 14.0-18.0 Hematocrit 39 % Low 42-52 Mean Corpuscular Volume 85 fL 80-94 Mean Corpuscular Hemoglobin 29 pg 27-31 Mean Corpuscular HGB Conc 35 g/dL 31-36 Red Cell Distribution Width 15 % 10.5-15 Platelet Count 156 10^3/uL 150-450 Mean Platelet Volume 8 um3 7.4-10.4 Abs Neutrophils 1.2 10^3/uL Low 1.5-7.7 Abs Lymphocytes 2.3 10^3/uL 1.0-4.8 Abs Monocytes 0.7 10^3/uL 0-0.8 Abs Eosinophils 0.1 10^3/uL 0-0.6 Abs Basophils 0 10^3/uL 0-0.2 Abs Nucleated RBC 0 10^3/uL Granulocyte % 28.3 % Low 38-83 Lymphocyte % 53.4 % High 25-47 Monocyte % 15.5 % High 1-9 Eosinophil % 2.2 % 0-6 Basophil % 0.6 % 0-2 Nucleated Red Blood Cells % 0.1 Lipid Profile (Trig/Chol/HDL) 09/21/2014 Triglycerides 336 mg/dL 63 Cholesterol 152 mg/dL 64 HDL Cholesterol 24.5 mg/dL 65 LDL Cholesterol 60 mg/dL 66 Leukemia/Lymphoma Phenot 07/03/2014 Path Interpretation 2-8 Marker TNP Path Interpret 9-15 Marker (SEE NOTE) 67 Path Interpret > 16 Marker TNP Laboratory test finding 07/03/2014 Chromosome Hold See Comment 68 CBC Auto Diff 06/27/2014 White Blood Count [...] U/L 140-271 Vitamin B12 573 pg/mL 180-914 69 Immunoglobulin G 1260 mg/dL 767 - 1590 70 Immunoglobulin M 100 mg/dL 37 - 286 71 Immunoglobulin A 355 mg/dL 61 - 356 72 Protein Electrophoresis 06/27/2014 Total Protein(Pep) 7.7 g/dL 6.3 - 7.9 Albumin 3.8 g/dL 3.4-4.7 Alpha-1 Globulin 0.3 g/dL 0.1-0.3 Alpha-2 Globulin 1.0 g/dL 0.6-1.0 Beta Globulin 1.0 g/dL 0.7-1.2 Gamma Globulin 1.5 g/dL 0.6-1.6 Albumin/Globulin Ratio 0.97 Impression See Comment 73 CBC Auto Diff 05/09/2014 White Blood Count 5.3 10^3/uL 4.8-10.8 Red Blood Count 4.74 10^6/uL 4.0-5.4 Hemoglobin 13.6 g/dL Low 14.0-18.0 Hematocrit 40 % Low 42-52 Mean Corpuscular Volume 84 fL 80-94 Mean Corpuscular Hemoglobin 29 pg 27-31 Mean Corpuscular HGB Conc 34 g/dL 31-36 Red Cell Distribution Width 15 % 10.5-15 Platelet Count 161 10^3/uL 150-450 Mean Platelet Volume 7 um3 Low 7.4-10.4 Abs Neutrophils 1.2 10^3/uL Low 1.5-7.7 Abs Lymphocytes 3.2 10^3/uL 1.0-4.8 Abs Monocytes 0.8 10^3/uL 0-0.8 Abs Eosinophils 0.1 10^3/uL 0-0.6 Abs Basophils 0 10^3/uL 0-0.2 Abs Nucleated RBC 0.01 10^3/uL Granulocyte % 22.4 % Low 38-83 Lymphocyte % 60.3 % High 25-47 Monocyte % 15.4 % High 1-9 Eosinophil % 1.3 % 0-6 Basophil % 0.6 % 0-2 Nucleated Red Blood Cells % 0.2 Comp Metabolic Panel 05/09/2014 Sodium 138 mmol/L 133-145 Potassium 4.1 mmol/L 3.5-5.0 Chloride 108 mmol/L 101-111 Co2 Carbon Dioxide 24 mmol/L 22-32 Anion Gap 6 mmol/L 2-11 Glucose 110 mg/dL High 70-100 Blood Urea Nitrogen 24 mg/dL 6-24 Creatinine 0.68 mg/dL 0.67-1.17 BUN/Creatinine Ratio 35.3 High 8-20 Calcium 8.9 mg/dL 8.6-10.3 Total Protein 6.7 g/dL 6.4-8.9 Albumin 3.8 g/dL 3.2-5.2 Globulin 2.9 g/dL 2-4 Albumin/Globulin Ratio 1.3 1-3 Total Bilirubin 0.40 mg/dL 0.2-1.0 Alkaline Phosphatase 73 U/L 34-104 Alt 27 U/L 7-52 Ast 28 U/L 13-39 Egfr Non- 112.8 >60 Egfr 145.0 >60 74 Laboratory test finding 05/09/2014 Hepatitis B Surface Nonreactive Nonreactive Antigen Hepatitis C Antibody Nonreactive Nonreactive Laboratory test finding 12/07/2013 CRP C-Reactive Protein <pending> Manual Differential 09/01/2013 Neutrophil % 44 % 38-83 75 Lymphocytes % 43 % 25-47 75 Monocytes % 12 % 0-13 75 Eosinophils % 1 % 0-6 75 RBC Morphology Normal Normal 75 Iron & Iron Binding Capacity 09/01/2013 Iron 124 g/dL 50-212 75 Unsaturated Iron Binding 222 g/dL 75 Total Iron Binding Capacity 346 g/dL 250-450 75 % Iron Saturation 36 % 15-55 75 Laboratory test finding 09/01/2013 Ferritin 396.3 ng/mL High 24-336 75, 76 CBC Auto Diff 09/01/2013 White Blood Count 5.2 10^3/uL 4.8-10.8 75 Red Blood Count 5.03 10^6/uL 4.0-5.4 75 Hemoglobin 14.5 g/dL 14.0-18.0 75 Hematocrit 42 % 42-52 75 Mean Corpuscular Volume 84 fL 80-94 75 Mean Corpuscular Hemoglobin 29 pg 27-31 75 Mean Corpuscular HGB Conc 34 g/dL 31-36 75 Red Cell Distribution Width 15 % 10.5-15 75 Platelet Count 182 10^3/uL 150-450 75 Mean Platelet Volume 7 um3 Low 7.4-10.4 75 Abs Neutrophils 1.6 10^3/uL 1.5-7.7 75 Abs Lymphocytes 2.6 10^3/uL 1.0-4.8 75 Abs Monocytes 0.8 10^3/uL 0-0.8 75 Abs Eosinophils 0.1 10^3/uL 0-0.6 75 Abs Basophils 0 10^3/uL 0-0.2 75 Abs Nucleated RBC 0 10^3/uL 75 Lipid Profile (Trig/Chol/HDL) 09/01/2013 Triglycerides 237 mg/dL 75, 77 Cholesterol 164 mg/dL 75, 78 HDL Cholesterol 31.4 mg/dL 75, 79 LDL Cholesterol 85 mg/dL 75, 80 Comp Metabolic Panel 09/01/2013 Sodium 139 mmol/L 133-145 75 Potassium 3.9 mmol/L 3.7-5.6 75 Chloride 106 mmol/L 101-111 75 Co2 Carbon Dioxide 27 mmol/L 22-32 75 Anion Gap 6 mmol/L 2-11 75 Glucose 110 mg/dL High 70-100 75 Blood Urea Nitrogen 13 mg/dL 6-24 75 Creatinine 0.76 mg/dL 0.67-1.17 75 BUN/Creatinine Ratio 17.1 8-20 75 Calcium 9.1 mg/dL 8.6-10.3 75 Total Protein 7.1 g/dL 6.4-8.9 75 Albumin 4.3 g/dL 3.2-5.2 75 Globulin 2.8 g/dL 2-4 75 Albumin/Globulin Ratio 1.5 1-3 75 Total Bilirubin 0.50 mg/dL 0.2-1.0 75 Alkaline Phosphatase 88 U/L 34-104 75 Alt 34 U/L 7-52 75 Ast 31 U/L 13-39 75 Egfr Non- 99.2 >60 75 Egfr 127.6 >60 75, 81 Laboratory test finding 09/01/2013 PSA Diagnostic 5.624 ng/mL High 0- 4.000 75, 82 Lipid Profile 08/09/2012 Triglycerides 108 mg/dL 40-200 (Trig/Chol/HDL) Cholesterol 175 mg/dL Less than 200 HDL Cholesterol 34 mg/dL Low 40-60 83 Cholesterol/HDL Ratio 5.2 Average High 1-4.44 LDL Cholesterol 119.4 mg/dL High Less Than 100 84 Laboratory test finding 08/09/2012 TSH (Thyroid Stimulating 1.40 miu/mL 0.34-5.60 85 Horm) Erythrocyte Sed Rate 29 mm/Hr 0-40 86 C Reactive Protein 0.5 mg/dL Less than 0.5 87 PSA Diagnostic 15.1 ng/mL High 0-4.0 88 Manual Differential 08/09/2012 Neutrophil % 49 % 38-83 Band % 1 % 0-8 Lymphocytes % 37 % 25-47 Monocytes % 9 % 0-13 Eosinophils % 3 % 0-6 Reactive Lymph % 1 % 0-6 RBC Morphology Normal Normal Laboratory test finding 08/09/2012 Hemoglobin A1c 6.4 % High Less than 6.0 89 Comp Metabolic Panel 08/09/2012 Sodium 137 mmol/L 133-145 Potassium 4.4 mmol/L 3.5-5.0 Chloride 108 mmol/L 101-111 Co2 Carbon Dioxide 24.0 mmol/L 22-32 Anion Gap 5.0 mmol/L 2-11 Glucose 115 mg/dL High 70-100 Blood Urea Nitrogen 18 mg/dL 6-24 Creatinine 0.80 mg/dL 0.50-1.40 BUN/Creatinine Ratio 22.5 High 8-20 Calcium 9.2 mg/dL 8.1-9.9 Total Protein 6.4 g/dL 6.2-8.1 Albumin 3.4 g/dL 3.2-5.2 Globulin 3.0 g/dL 2-4 Albumin/Globulin Ratio 1.1 1-3 Total Bilirubin 0.6 mg/dL 0.4-1.5 Alkaline Phosphatase 83 U/L 30-110 Alt 23 U/L 14-54 Ast 20 U/L 12-42 Egfr Non- 93.7 >60 Egfr 120.6 >60 90 CBC Auto Diff 08/09/2012 White Blood Count 6.1 10^3/uL 4.8-10.8 Red Blood Count 4.79 10^6/uL 4.0-5.4 Hemoglobin 13.4 g/dL Low 14.0-18.0 Hematocrit 41 % Low 42-52 Mean Corpuscular Volume 86 fL 80-94 Mean Corpuscular Hemoglobin 28 pg 27-31 Mean Corpuscular HGB Conc 33 g/dL 31-36 Red Cell Distribution Width 14 % 10.5-15 Platelet Count 222 10^3/uL 150-450 Mean Platelet Volume 7 um3 Low 7.4-10.4 Abs Neutrophils 3.4 10^3/uL 1.5-7.7 Abs Lymphocytes 1.7 10^3/uL 1.0-4.8 Abs Monocytes 0.7 10^3/uL 0-0.8 Abs Eosinophils 0.1 10^3/uL 0-0.6 Abs Basophils 0.2 10^3/uL 0-0.2 Abs Nucleated RBC 0.01 10^3/uL 1 Because ethnic data is not always readily available, this report includes an eGFR for both -Americans and non- Americans. The National Kidney Disease Education Program (NKDEP) does not endorse the use of the MDRD equation for patients that are not between the ages of 18 and 70, are , have extremes of body size, muscle mass, or nutritional status, or are non- or non-. According to the National Kid[employer] Foundation, irrespective of diagnosis, the stage of the disease is based on the level of kidney function: Stage Description GFR(mL/min/1.73 m(2)) 1 Kidney damage with normal or decreased GFR 90 2 Kidney damage with mild decrease in GFR 60-89 3 Moderate decrease in GFR 30-59 4 Severe decrease in GFR 15-29 5 Kidney failure <15 (or dialysis) 2 Because ethnic data is not always readily available, this report includes an eGFR for both -Americans and non- Americans. The National Kidney Disease Education Program (NKDEP) does not endorse the use of the MDRD equation for patients that are not between the ages of 18 and 70, are , have extremes of body size, muscle mass, or nutritional status, or are non- or non-. According to the National Kidney Foundation, irrespective of diagnosis, the stage of the disease is based on the level of kidney function: Stage Description GFR(mL/min/1.73 m(2)) 1 Kidney damage with normal or decreased GFR 90 2 Kidney damage with mild decrease in GFR 60-89 3 Moderate decrease in GFR 30-59 4 Severe decrease in GFR 15-29 5 Kidney failure <15 (or dialysis) 3 Acute inflammation: >10.00 4 Because ethnic data is not always readily available, this report includes an eGFR for both -Americans and non- Americans. The National Kidney Disease Education Program (NKDEP) does not endorse the use of the MDRD equation for patients that are not between the ages of 18 and 70, are , have extremes of body size, muscle mass, or nutritional status, or are non- or non-. According to the National Kidney Foundation, irrespective of diagnosis, the stage of the disease is based on the level of kidney function: Stage Description GFR(mL/min/1.73 m(2)) 1 Kidney damage with normal or decreased GFR 90 2 Kidney damage with mild decrease in GFR 60-89 3 Moderate decrease in GFR 30-59 4 Severe decrease in GFR 15-29 5 Kidney failure <15 (or dialysis) 5 Acute inflammation: >10.00 6 [facility] conv care 7 [facility] conv care 8 [facility] conv [facility] 9 Desirable: <150 Borderline High: 150-199 High: 200-499 Very High: >500 10 Desirable: <200 Borderline High: 200-239 High: >239 11 Low: <40 Desirable: 40-60 High: >60 12 Desirable: <100 Near Optimal: 100-129 Borderline High: 130-159 High: 160-189 Very High: >189 13 Acute inflammation: >10.00 14 Because ethnic data is not always readily available, this report includes an eGFR for both -Americans and non- Americans. The National Kidney Disease Education Program (NKDEP) does not endorse the use of the MDRD equation for patients that are not between the ages of 18 and 70, are , have extremes of body size, muscle mass, or nutritional status, or are non- or non-. According to the National Kidney Foundation, irrespective of diagnosis, the stage of the disease is based on the level of kidney function: Stage Description GFR(mL/min/1.73 m(2)) 1 Kidney damage with normal or decreased GFR 90 2 Kidney damage with mild decrease in GFR 60-89 3 Moderate decrease in GFR 30-59 4 Severe decrease in GFR 15-29 5 Kidney failure <15 (or dialysis) 15 No interferon-gamma response to M. tuberculosis antigens was detected. Infection with M. tuberculosis is unlikely. A negative result alone does not exclude infection with M. tuberculosis. For detailed information regarding test interpretation see: [email or web address].BearTail/test-catalog/ Clinical+and+Interpretive/59748 16 Test Performed by: [facility] [address] [place] [id number] 17 Because ethnic data is not always readily available, this report includes an eGFR for both -Americans and non- Americans. The National Kidney Disease Education Program (NKDEP) does not endorse the use of the MDRD equation for patients that are not between the ages of 18 and 70, are , have extremes of body size, muscle mass, or nutritional status, or are non- or non-. According to the National Kidney Foundation, irrespective of diagnosis, the stage of the disease is based on the level of kidney function: Stage Description GFR(mL/min/1.73 m(2)) 1 Kidney damage with normal or decreased GFR 90 2 Kidney damage with mild decrease in GFR 60-89 3 Moderate decrease in GFR 30-59 4 Severe decrease in GFR 15-29 5 Kidney failure <15 (or dialysis) 18 Acute inflammation: >10.00 19 SEE RESULT BELOW Name: QUEENIE GUILLEN : [address]: Peewee Marie NP Acct: [id number] Unit: [id number] AGE: 81 Location: [facility] Re02/27/17 SEX: M Status: REG REF SPEC: [id number] CARLOS: 02/27/[address]: Peewee Marie NP REQ: [id number] RECD: 02/27/17 STATUS: COMP _ SOURCE: URINE SPDESC: ORDERED: Urine Culture Procedure Result Reported Site Urine Culture Final 03/02/17- 45 ML Organism [address] Count >100,000 (Many) CFU/ML 1. PSEUDOMONAS AERUGINOSA [facility] RX --------- ------ Ampicillin >=32 R Cefazolin >=64 R Cefepime 8 S Ceftriaxone >=64 R Ciprofloxacin >=4 R Gentamicin <=1 S Levofloxacin >=8 R Meropenem 1 S Nitrofurantoin >=512 R Tetracycline >=16 R Pipercillin/Tazobactam 32 S Trimethoprim/Sulfamethoxazole >=320 R Amoxicillin/Clavulanic Acid >=32 R Contact the Microbiology Department for any additional antibiotic reporting. * ML - MAIN LAB ([facility]) . END OF REPORT * ML=Testing performed at Main Lab DEPARTMENT OF PATHOLOGY, [address] [place] [address] Ferny Guzman M.D. Director [facility] # [id number] 20 SEE RESULT BELOW Name: QUEENIE GUILLEN : [address]: Peewee Marie NP Acct: [id number] Unit: [id number] AGE: 81 Location: [facility] Re02/18/17 SEX: M Status: REG REF SPEC: [id number] CARLOS: 02/18/[address]: Peewee Marie NP REQ: [id number] RECD: 02/18/17 STATUS: COMP _ SOURCE: BLOOD,VENO SPDESC: ORDERED: Blood Cult Procedure Result Reported Site Aerobic Culture Bottle Final 02/23/17- 1208 ML No Growth Day 5 Anaerobic Culture Bottle Final 02/23/17- 1208 ML No Growth Day 5 * ML - [facility] ([facility]) . END OF REPORT * ML=Testing performed at Main Lab DEPARTMENT OF PATHOLOGY, [address] [place] [address] Ferny Guzman M.D. Director [facility] # [id number] 21 SEE RESULT BELOW Name: QUEENIE GUILLEN : [address]: Peewee Marie NP Acct: [id number] Unit: [id number] AGE: 81 Location: [facility] Re02/18/17 SEX: M Status: REG REF SPEC: [id number] CARLOS: 02/18/[address]: Peewee Marie NP REQ: [id number] RECD: 02/18/17 STATUS: COMP _ SOURCE: URINE [facility]: ORDERED: Urine Culture Procedure Result Reported Site Urine Culture Final 02/20/17- 0816 ML Organism [address] Count >100,000 (Many) CFU/ML 1. ESCHERICHIA COLI M.I.C. RX --------- ------ Ampicillin 8 S Cefazolin <=4 S Cefepime <=1 S Ceftriaxone <=1 S Ciprofloxacin >=4 R Gentamicin <=1 S Levofloxacin >=8 R Meropenem <=0.25 S Nitrofurantoin <=16 S Tetracycline >=16 R Pipercillin/Tazobactam <=4 S Trimethoprim/Sulfamethoxazole >=320 R Amoxicillin/Clavulanic Acid <=2 S Aztreonam <=1 S Contact the Microbiology Department for any additional antibiotic reporting. * ML - MAIN LAB ([facility]) . END OF REPORT * ML=Testing performed at Main Lab DEPARTMENT OF PATHOLOGY, [address] [place] [id number] Ferny Guzman M.D. Director [facility] # [id number] 22 Serologic response to B. burgdorferi infection is not detected, but cannot rule out early infection during which low or undetectable antibody levels to B. burgdorferi may be present. If clinically indicated, a new serum specimen should be submitted in 7-14 days. Test Performed by: [address] [address] 23 Because ethnic data is not always readily available, this report includes an eGFR for both -Americans and non- Americans. The National Kidney Disease Education Program (NKDEP) does not endorse the use of the MDRD equation for patients that are not between the ages of 18 and 70, are , have extremes of body size, muscle mass, or nutritional status, or are non- or non-. According to the National Kidney Foundation, irrespective of diagnosis, the stage of the disease is based on the level of kidney function: Stage Description GFR(mL/min/1.73 m(2)) 1 Kidney damage with normal or decreased GFR 90 2 Kidney damage with mild decrease in GFR 60-89 3 Moderate decrease in GFR 30-59 4 Severe decrease in GFR 15-29 5 Kidney failure <15 (or dialysis) 24 Acute inflammation: >10.00 25 Ratio was not calculated because free PSA is less than 0.1 ng/mL Ratio not calculated because clinical usefulness is not defined except in range of total PSA 4.0-10.0 ng/mL. ADDITIONAL INFORMATION The testing method is an electrochemiluminescence assay manufactured by [employer] and performed on the Modular or Erlinda system. Values obtained with different assay methods or kits may be different and cannot be used interchangeably. Test results cannot be interpreted as absolute evidence for the presence or absence of malignant disease. Test Performed by: [address] [address] 26 Because ethnic data is not always readily available, this report includes an eGFR for both -Americans and non- Americans. The National Kidney Disease Education Program (NKDEP) does not endorse the use of the MDRD equation for patients that are not between the ages of 18 and 70, are , have extremes of body size, muscle mass, or nutritional status, or are non- or non-. According to the National Kidney Foundation, irrespective of diagnosis, the stage of the disease is based on the level of kidney function: Stage Description GFR(mL/min/1.73 m(2)) 1 Kidney damage with normal or decreased GFR 90 2 Kidney damage with mild decrease in GFR 60-89 3 Moderate decrease in GFR 30-59 4 Severe decrease in GFR 15-29 5 Kidney failure <15 (or dialysis) 27 Acute inflammation: >10.00 28 Because ethnic data is not always readily available, this report includes an eGFR for both -Americans and non- Americans. The National Kidney Disease Education Program (NKDEP) does not endorse the use of the MDRD equation for patients that are not between the ages of 18 and 70, are , have extremes of body size, muscle mass, or nutritional status, or are non- or non-. According to the National Kidney Foundation, irrespective of diagnosis, the stage of the disease is based on the level of kidney function: Stage Description GFR(mL/min/1.73 m(2)) 1 Kidney damage with normal or decreased GFR 90 2 Kidney damage with mild decrease in GFR 60-89 3 Moderate decrease in GFR 30-59 4 Severe decrease in GFR 15-29 5 Kidney failure <15 (or dialysis) 29 Desirable <150 Borderline high 150-199 High 200-499 Very High >500 30 Desirable <200 Borderline high 200-239 High >239 31 Low <40 Desirable: 40-60 High: >60 32 Desirable: <100 mg/dL Near Optimal: 100-129 mg/dL Borderline High: 130-159 mg/dL High: 160-189 mg/dL Very High: >189 mg/dL 33 Acute inflammation: >10.00 34 standing order 35 standing order 36 standing order 37 Because ethnic data is not always readily available, this report includes an eGFR for both -Americans and non- Americans. The National Kidney Disease Education Program (NKDEP) does not endorse the use of the MDRD equation for patients that are not between the ages of 18 and 70, are , have extremes of body size, muscle mass, or nutritional status, or are non- or non-. According to the National Kidney Foundation, irrespective of diagnosis, the stage of the disease is based on the level of kidney function: Stage Description GFR(mL/min/1.73 m(2)) 1 Kidney damage with normal or decreased GFR 90 2 Kidney damage with mild decrease in GFR 60-89 3 Moderate decrease in GFR 30-59 4 Severe decrease in GFR 15-29 5 Kidney failure <15 (or dialysis) 38 Normal Range 180 to 914 Indeterminate Range 145 to 180 Deficient Range <145 39 PRN EXP 07/09/2016 40 Acute inflammation: >10.00 41 PRN EXP 07/09/2016 42 Because ethnic data is not always readily available, this report includes an eGFR for both -Americans and non- Americans. The National Kidney Disease Education Program (NKDEP) does not endorse the use of the MDRD equation for patients that are not between the ages of 18 and 70, are , have extremes of body size, muscle mass, or nutritional status, or are non- or non-. According to the National Kidney Foundation, irrespective of diagnosis, the stage of the disease is based on the level of kidney function: Stage Description GFR(mL/min/1.73 m(2)) 1 Kidney damage with normal or decreased GFR 90 2 Kidney damage with mild decrease in GFR 60-89 3 Moderate decrease in GFR 30-59 4 Severe decrease in GFR 15-29 5 Kidney failure <15 (or dialysis) 43 Acute inflammation: >10.00 44 Because ethnic data is not always readily available, this report includes an eGFR for both -Americans and non- Americans. The National Kidney Disease Education Program (NKDEP) does not endorse the use of the MDRD equation for patients that are not between the ages of 18 and 70, are , have extremes of body size, muscle mass, or nutritional status, or are non- or non-. According to the National Kidney Foundation, irrespective of diagnosis, the stage of the disease is based on the level of kidney function: Stage Description GFR(mL/min/1.73 m(2)) 1 Kidney damage with normal or decreased GFR 90 2 Kidney damage with mild decrease in GFR 60-89 3 Moderate decrease in GFR 30-59 4 Severe decrease in GFR 15-29 5 Kidney failure <15 (or dialysis) 45 chronic neutropenia. Repeat in 4 week for monitoring 46 REC 05/30/2015 EXP 11/28/2015 47 Acute inflammation: >10.00 48 Because ethnic data is not always readily available, this report includes an eGFR for both -Americans and non- Americans. The National Kidney Disease Education Program (NKDEP) does not endorse the use of the MDRD equation for patients that are not between the ages of 18 and 70, are , have extremes of body size, muscle mass, or nutritional status, or are non- or non-. According to the National Kidney Foundation, irrespective of diagnosis, the stage of the disease is based on the level of kidney function: Stage Description GFR(mL/min/1.73 m(2)) 1 Kidney damage with normal or decreased GFR 90 2 Kidney damage with mild decrease in GFR 60-89 3 Moderate decrease in GFR 30-59 4 Severe decrease in GFR 15-29 5 Kidney failure <15 (or dialysis) 49 Therapeutic target for the treatment of diabetes Mellitus patients is <7% HBA1C, and in selective patients <6.0%.Please refer to [place] [employer] Diabetic care guidelines for further information. 50 Serum levels of PSA measured using the [employer] DXI Hybritech immunoassay should not be interpreted as absolute evidence of the presence or absence of disease. The PSA value should be used in conjunction with other pertinent clinical diagnostic procedures. The values obtained with different assay methods or kits cannot be used interchangeably. 51 Desirable <150 Borderline high 150-199 High 200-499 Very High >500 52 Desirable <200 Borderline high 200-239 High >239 53 Low <40 Desirable: 40-60 High: >60 54 Desirable: <100 mg/dL Near Optimal: 100-129 mg/dL Borderline High: 130-159 mg/dL High: 160-189 mg/dL Very High: >189 mg/dL 55 Because ethnic data is not always readily available, this report includes an eGFR for both -Americans and non- Americans. The National Kidney Disease Education Program (NKDEP) does not endorse the use of the MDRD equation for patients that are not between the ages of 18 and 70, are , have extremes of body size, muscle mass, or nutritional status, or are non- or non-. According to the National Kidney Foundation, irrespective of diagnosis, the stage of the disease is based on the level of kidney function: Stage Description GFR(mL/min/1.73 m(2)) 1 Kidney damage with normal or decreased GFR 90 2 Kidney damage with mild decrease in GFR 60-89 3 Moderate decrease in GFR 30-59 4 Severe decrease in GFR 15-29 5 Kidney failure <15 (or dialysis) 56 Acute inflammation: >10.00 57 Acute inflammation: >10.00 58 Interpretation: Strong Positive (>=60.0) REFERENCE VALUE <20.0 (Negative) Test Performed by: [place] [address] Forest Management Professor: Jayson Cormier II, M.D., Ph.D. 59 Test Performed by: [place] [address] Forest [employer] Professor: Jayson Cormier II, M.D., Ph.D. 60 Because ethnic data is not always readily available, this report includes an eGFR for both -Americans and non- Americans. The National Kidney Disease Education Program (NKDEP) does not endorse the use of the MDRD equation for patients that are not between the ages of 18 and 70, are , have extremes of body size, muscle mass, or nutritional status, or are non- or non-. According to the National Kidney Foundation, irrespective of diagnosis, the stage of the disease is based on the level of kidney function: Stage Description GFR(mL/min/1.73 m(2)) 1 Kidney damage with normal or decreased GFR 90 2 Kidney damage with mild decrease in GFR 60-89 3 Moderate decrease in GFR 30-59 4 Severe decrease in GFR 15-29 5 Kidney failure <15 (or dialysis) 61 Acute inflammation: >10.00 62 Because ethnic data is not always readily available, this report includes an eGFR for both -Americans and non- Americans. The National Kidney Disease Education Program (NKDEP) does not endorse the use of the MDRD equation for patients that are not between the ages of 18 and 70, are , have extremes of body size, muscle mass, or nutritional status, or are non- or non-. According to the National Kidney Foundation, irrespective of diagnosis, the stage of the disease is based on the level of kidney function: Stage Description GFR(mL/min/1.73 m(2)) 1 Kidney damage with normal or decreased GFR 90 2 Kidney damage with mild decrease in GFR 60-89 3 Moderate decrease in GFR 30-59 4 Severe decrease in GFR 15-29 5 Kidney failure <15 (or dialysis) 63 Desirable <150 Borderline high 150-199 High 200-499 Very High >500 64 Desirable <200 Borderline high 200-239 High >239 65 Low <40 Desirable: 40-60 High: >60 66 Desirable: <100 mg/dL Near Optimal: 100-129 mg/dL Borderline High: 130-159 mg/dL High: 160-189 mg/dL Very High: >189 mg/dL 67 FINAL DIAGNOSIS: Specimen Source: Bone marrow Flow cytometry immunophenotypic analysis: No evidence of an immunophenotypically abnormal cell population. Interpretative data: Blasts: 1% of gated events Lymphocytes: 25% of gated events B-cells: 10% of lymphocytes; no aberrant population T-cells/NK cells: No aberrant population Markers tested: Triage panel: CD3, CD10, CD16, CD19, CD34, CD45 and kappa and lambda surface light chains. Viability panel: 7-AAD Quality Assessment: Acceptable Viability: Acceptable Viable lymphocytes (7-AAD): 99% Specimen received within validated guidelines. A Martinez-Giemsa stained slide prepared from the flow cytometry specimen was examined for quality purposes. Electronically signed by: Becca Cavanaugh MD Technical component performed by: [address] [address] Forest Management Professor: Chucho Davalos III, M.D. 68 This test was canceled by the client laboratory. Cell culture was performed so a processing fee will be charged. 69 Normal Range 180 to 914 Indeterminate Range 145 to 180 Deficient Range <145 70 Test Performed by: [facility] [address] [place] [address] Forest Management Professor: Nam Mayen M.D. 71 Test Performed by: [facility] [address] [place] [address] Forest Management Professor: Nam Mayen M.D. 72 Test Performed by: [place] [address] Forest Management Professor: Nam Mayen M.D. 73 RESULT: No apparent monoclonal protein on serum electrophoresis. Test Performed by: [place] [address] Forest [employer] Professor: Nam Mayen M.D. 74 Because ethnic data is not always readily available, this report includes an eGFR for both -Americans and non- Americans. The National Kidney Disease Education Program (NKDEP) does not endorse the use of the MDRD equation for patients that are not between the ages of 18 and 70, are , have extremes of body size, muscle mass, or nutritional status, or are non- or non-. According to the National Kidney Foundation, irrespective of diagnosis, the stage of the disease is based on the level of kidney function: Stage Description GFR(mL/min/1.73 m(2)) 1 Kidney damage with normal or decreased GFR 90 2 Kidney damage with mild decrease in GFR 60-89 3 Moderate decrease in GFR 30-59 4 Severe decrease in GFR 15-29 5 Kidney failure <15 (or dialysis) 75 FASTING 76 FASTING 77 Desirable <150 Borderline high 150-199 High 200-499 Very High >500 78 Desirable <200 Borderline high 200-239 High >239 79 Low <40 Desirable: 40-60 High: >60 80 Desirable <100 Near Optimal 100-129 Borderline high 130-159 High 160-189 Very High >189 81 Because ethnic data is not always readily available, this report includes an eGFR for both -Americans and non- Americans. The National Kidney Disease Education Program (NKDEP) does not endorse the use of the MDRD equation for patients that are not between the ages of 18 and 70, are , have extremes of body size, muscle mass, or nutritional status, or are non- or non-. According to the National Kidney Foundation, irrespective of diagnosis, the stage of the disease is based on the level of kidney function: Stage Description GFR(mL/min/1.73 m(2)) 1 Kidney damage with normal or decreased GFR 90 2 Kidney damage with mild decrease in GFR 60-89 3 Moderate decrease in GFR 30-59 4 Severe decrease in GFR 15-29 5 Kidney failure <15 (or dialysis) 82 Serum levels of PSA measured using the [employer] DXI Hybritech immunoassay should not be interpreted as absolute evidence of the presence or absence of disease. The PSA value should be used in conjunction with other pertinent clinical diagnostic procedures. The values obtained with different assay methods or kits cannot be used interchangeably. 83 HDL Interpretation: Undesirable: High Risk: Less than 40 MG/DL Desirable: Low Risk: Greater than 60 MG/DL 84 LDL Interpretation: Low Risk Optimal Level: LDL Less than 100 MG/DL Near or Above Optimal: LDL 100-129 MG/DL Borderline High Risk: LDL 130-159 MG/DL High Risk: LDL 160-189 MG/DL Very High Risk: LDL Greater than 189 MG/DL 85 FASTING AOT-HA1C FASTING 86 FASTING 87 FASTING AOT-HA1C FASTING 88 Serum levels of PSA measured using the [employer] DXI Hybritech immunoassay should not be interpreted as absolute evidence of the presence or absence of disease. The PSA value should be used in conjunction with other pertinent clinical diagnostic procedures. The values obtained with different assay methods or kits cannot be used interchangeably. 89 Therapeutic target for the treatment of diabetes Mellitus patients is <7% HBA1C, and in selective patients <6.0%.Please refer to [place] [employer] Diabetic care guidelines for further information. 90 Because ethnic data is not always readily available, this report includes an eGFR for both -Americans and non- Americans. The National Kidney Disease Education Program (NKDEP) does not endorse the use of the MDRD equation for patients that are not between the ages of 18 and 70, are , have extremes of body size, muscle mass, or nutritional status, or are non- or non-. According to the National Kidney Foundation, irrespective of diagnosis, the stage of the disease is based on the level of kidney function: Stage Description GFR(mL/min/1.73 m(2)) 1 Kidney damage with normal or decreased GFR 90 2 Kidney damage with mild decrease in GFR 60-89 3 Moderate decrease in GFR 30-59 4 Severe decrease in GFR 15-29 5 Kidney failure <15 (or dialysis) Procedures Date CPT Code Description Status 07/21/2016 Bone Mineral Density Test Completed Encounters Type Date Location Provider CPT E/M Dx Office Visit 09/07/2017 [facility] Peewee Marie ETL PROGRAMMER [address] M05.79 10:30a Of [facility] [employer] [facility] M25.559 N40.1 E55.9 M81.0 Z79.52 Z79.899 Office Visit 06/01/2017 11:30a [facility] [place] Marie, [address]161 M05.79 [employer] [employer] N40.1 N21.9 E55.9 M81.0 Office Visit 04/23/2017 10:00a [facility] [place] Marie [address] M05.79 [employer] E[employer] PRO[employer] R79.82 N40.1 Z79.52 M81.0 Z79.899 Office Visit 02/17/2017 3:00p [facility] Peewee Marie [address] M01.x59 Of [facility] ETL PROGRAMMER N40.1 R31.9 R79.82 M05.79 M25.551 Office Visit 01/12/2017 9:30a [facility], [address]392 M05.79 [employer] [employer] N40.1 N21.0 M25.569 Z79.52 Office Visit 10/02/2016 11:00a [facility], [address]2205 M05.79 [employer] [employer] PRO[employer] M81.0 Z79.52 Z79.899 R31.9 N42.30 Office Visit 06/19/2016 11:00a [facility] [address] M05.79 [employer] [employer] PRO[employer] L23.81 Z79.899 Z79.52 R53.83 Office Visit 03/13/2016 9:00a [facility] [address] M05.79 [employer] [employer] D64.9 Z79.899 R60.9 L23.81 Office Visit 12/06/2015 9:30a [facility], [address] M05.79 [facility] D72.819 L03.116 Z79.899 Office Visit 08/30/2015 10:00a [facility] [facility], [address] M05.89 [facility] L03.116 R21 D72.819 Z79.899 Office Visit 05/30/2015 2:00p [facility] Peewee MarieRUI [address] M05.89 Of [facility] D72.819 L03.116 Z79.899 Office Visit 03/08/2015 3:00p [facility] Walter Ham [address] M05.89 Of [facility] Candi D72.819 Z79.899 Office Visit 12/04/2014 1:40p [facility] [place] Ham M.D. 90583 714.0 Of [facility] 288.50 V58.69 Office Visit 07/10/2014 11:20a [facility] [place] M.D. 98430 714.0 Of [facility] V58.69 288.50 Office Visit 05/09/2014 11:20a [facility] Services Josiah Palomares M.D. 21128 714.0 Of [facility] Office Visit 02/03/2014 1:20p [facility] [place] M.D. 98970 714.0 Of [facility] V58.69 790.6 Office Visit 02/02/2014 2:20p [facility] Internal Medicine Joon Lombardo, [address] V72.81 - Alexis Christopher 366.10 714.0 272.0 V03.82 V03.1 Office Visit 11/23/2013 11:00a [facility] [place] M.D. 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 w/o org/sys involvNew Therapy:Physical TherapyComments:We discussed that you may increase he dose slowly back on Hydroxychloroquine doseWill monitor for tinnitus/vertigo Try tapering the prednisoneFollow up:3 month labs yygblR74.9 Vitamin D deficiency, unspecifiedComments:You may go back on 1000 IU after a few weeks as you may develop hypervitaminosis.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
--- NOTE | 2018-01-05 11:42 | RAD ---
HISTORY: fever COMPARISONS: April 26, 2016 VIEWS: 2: frontal portable view of the chest at 11:25 AM FINDINGS: LINES AND TUBES: None. CARDIOMEDIASTINAL SILHOUETTE: The cardiomediastinal silhouette is normal for portable technique. PLEURA: The costophrenic angles are sharp. No pleural abnormalities are noted. LUNG PARENCHYMA: There is hyperinflation. ABDOMEN: The upper abdomen is clear. There is no subphrenic gas. BONES AND SOFT TISSUES: No bone or soft tissue abnormalities are noted. IMPRESSION: HYPERINFLATION. NO ACTIVE CARDIOPULMONARY DISEASE.
[2018-01-05] MEDS ORDERED: Gentamicin ADULT (*) 160 MG in NS 0.9% 100 ML* 100 ML IVPB ONE (12:32)
[2018-01-05] MEDS ORDERED: NS 0.9% 100 ML* 100 ML ONE (13:05)
[2018-01-05 13:38] LABS: Urine Appearance Cloudy; Urine Blood Negative (Negative); Urine Color Yellow; Urine Ketones Negative (Negative); Urine Protein Negative (Negative); Urine Specific Gravity 1.017 (1.010-1.030); Urine Urobilinogen Negative (Negative)
[2018-01-05] MEDS ORDERED: Gentamicin ADULT per pharmacy 1 NOTE MISC FOLLOW UP PRN (15:25)
--- NOTE | 2018-01-05 16:53 | HP ---
CC: Dr. Beebe; Dr. Mak; Dr. Lombardo* ADMISSION HISTORY AND PHYSICAL: DATE OF ADMISSION: 01/05/18 PRIMARY CARE PROVIDER: Dr. Joon Lombardo. PRIMARY UROLOGIST: Dr. Mak. ATTENDING FOR THIS ADMISSION: Dr. Rai Beebe* (dictated by Aisha Mckinley NP). CHIEF COMPLAINT: Fever, weakness, and malaise. HISTORY OF PRESENT ILLNESS: This is a very pleasant 82-year-old male patient, who had had longstanding history of BPH, who presented to Dr. Mak last week for a TURP. The patient was recovering from his surgery and then began having fevers about 48 hours ago. The patient called and spoke with Dr. Cabezas, who placed the patient on Ceftin and Cipro. The patient, however, continued to feel worse. His T- max at home was 101.7. At that time, he started also feeling more weak and concerned. He called back to the urologist's office, who referred him to the emergency department for evaluation. Also of note, the patient was also taking cefdinir as well as the Cipro. He has taken 3 doses thus far prior to coming to the emergency department. Upon examination in the ED, the patient was acutely retaining urine. He had greater than 500 mL in his bladder. A Amezcua catheter was placed by Dr. Mak, who requested the patient be admitted for rule out sepsis. Of significant note, the patient did have an elevated lactic acid; however, he has no hypotension. He had some mild tachycardia overnight with the fever, but here he is not showing any signs of toxicity. He does appear dry, but currently afebrile with no further tachycardia. Per the request of Urology, we will admit the patient for postprocedural fever for IV antibiotics and prevention of sepsis. The patient in the emergency department received 1 dose of Cipro, 1 dose of gentamicin and 2400 mL of normal saline and his Amezcua catheter insertion. PAST MEDICAL HISTORY: Significant for hypertension for which he does not take medication at this time, mild intermittent asthma, and rheumatoid arthritis. PAST SURGICAL HISTORY: Significant for cataract removal in 2014, right knee arthroscopy, and bilateral hand surgeries. MEDICATIONS AT HOME: Include: 1. Tylenol 1000 q.6 hours as needed. 2. Calcium 1000 mg daily. 3. Cipro 500 daily. 4. Plaquenil 300 mg daily. 5. Xopenex inhaler 1 puff daily as needed. 6. Mag-Ox 400 mg daily. 7. Singulair 10 mg daily. 8. Salsalate 500 mg q.6 hours. 9. Ceftin 500 mg 2 times a day. 10. Prednisone 5 mg daily. ALLERGIES: He has allergies to NSAIDS, SULFA, CHLOROQUINE, LATEX, TOBRAMYCIN EYE DROPS. FAMILY HISTORY: Noncontributory. SOCIAL HISTORY: The patient does not smoke, does not drink alcohol, and denies any illicit drug use. REVIEW OF SYSTEMS: The patient stating some fatigue and weakness currently. No fever or chills. No shortness of breath. Mild cough, unproductive. No chest pain, no wheezing. No abdominal pain, no nausea, no vomiting. He does have bilateral joint pain of the knees, this is his baseline, and no further constitutional complaints. PHYSICAL EXAMINATION GENERAL: The patient is alert, well appearing, in no acute distress. VITAL SIGNS: Currently, blood pressure 134/52, heart rate 81, respiratory rate 18, temperature upon arrival was 100.1, O2 saturation 97% on room air. HEENT: The patient is atraumatic, normocephalic. PERRLA. Nonicteric sclerae. He does wear glasses. Oral mucosa is extremely dry. Tongue is midline. NECK: Supple, nontender. No JVD noted. LUNGS: Clear bilaterally to auscultation at the apices. He does have some fine crackles at the left lower base. No rhonchi appreciated. CARDIOVASCULAR: S1, S2 present. Rate and rhythm are regular. He has a very slight grade 1 murmur noted. No gallops or rubs noted. ABDOMEN: Soft, nontender, and nondistended. Positive bowel sounds in all 4 quadrants. No organomegaly noted. : He has a Amezcua catheter draining clear yellow urine. MUSCULOSKELETAL: There is no clubbing and no cyanosis. He does have bilateral lower extremity discoloration and some tenderness over the anteromedial portion of the left knee. He does have +2 distal pulses palpable. His mottling and discoloration of his lower extremities is at baseline with no acute changes, does not appear cellulitic or infected. He does have arthritic changes bilaterally of the hands and upper extremities. NEUROLOGIC: He is grossly intact with no focal deficits noted. PSYCHIATRIC: He is cooperative and appropriate. DIAGNOSTIC STUDIES/LAB DATA: WBCs 10.1, RBCs 4.33, hemoglobin 12.0, hematocrit 36, platelets 305. Sodium 133, potassium 4.1, chloride 102, CO2 20, BUN 21, creatinine 0.88, GFR is 82.9, glucose 168. Lactic acid 2.8 at admission , 0.9 presently. Calcium 8.7. Bilirubin 0.40, AST 16, ALT 14, alk phos 63. Creatine kinase 161. CRP is 101.34. BNP is 179. Troponin is negative at 0.03. Protein 6.9, albumin 3.3, globulin 3.6. Procalcitonin is 0.1 and albumin/ globulin ratio was 0.9. Urinalysis shows yellow cloudy urine. No nitrites, proteins, or ketones noted. Chest x-ray shows mild hyperinflation with no active cardiopulmonary disease. EKG with no acute ST segment changes. IMPRESSION: This is an 82-year-old male with history of benign prostatic hyperplasia that is status post TURP and is having a postprocedural fever, more likely related to his urinary retention rather than active infection. PLAN: 1. BPH, status post TURP with postprocedural fever. Dr. Mak is requesting Cipro and gentamicin. The patient has received 2400 mL of IV fluids thus far. His lactic acid is within normal limits. He does not appear toxic or septic. He is not currently tachycardic or hypotensive. He does not meet SIRS or sepsis criteria. However, he does have some crackles in the left lower base. I would off on the fluids and just push p.o. fluids for now. For his BPH and acute urinary retention, Dr. Mak has inserted Amezcua catheter that will remain in place until Urology says we can do a trial to void. 2. For his rheumatoid arthritis, we will keep him on his Plaquenil and prednisone. I suspect some of his postprocedural fever may be due to his immunocompromised status. He can have Tylenol for his fever every 6 hours as needed. He is not in any acute pain, so I do not feel he needs any pain medication and again, we will continue antibiotics per recommendations of Urology. 3. For DVT prophylaxis, we will place him on heparin 5000 q.8. He is at moderate risk. 4. He is a full code. His is his healthcare proxy. She is not currently at the bedside. TIME SPENT: I have spent approximately 1 hour admitting the patient, evaluating the patient, interfacing with the ER staff and examination of the patient and the chart, deciding the plan of care. I have discussed this with Dr. Beebe, who is my attending for today. He is in agreement. The rest of the patient's course will be determined by further diagnostics, laboratories, and any other input from other providers as warranted during this admission. We will continue to monitor the patient closely. AISHA MCKINLEY NP [id number]/[facility] #: [id number] AMANDA
[2018-01-05] MEDS: Acetaminophen TAB* 325 MG PO PRN (18:01)
[2018-01-05] MEDS: Heparin VIAL(*) 5000 UNITS/ML VIAL (FIVE THOUSAND) SUBCUT SCH (21:09)
[2018-01-06] MEDS: Acetaminophen TAB* 325 MG PO PRN ×4 (03:42→19:41)
[2018-01-06] MEDS: Gentamicin ADULT (*) 140 MG in NS 0.9% 100 ML* 100 ML IVPB SCH ×2 (06:05→17:25)
[2018-01-06] MEDS: Heparin VIAL(*) 5000 UNITS/ML VIAL (FIVE THOUSAND) SUBCUT SCH ×3 (06:06→22:02)
[2018-01-06] MEDS: Ciprofloxacin 400MG IVPREMIX(* 400 MG/200 ML BAG IVPB SCH (09:14)
[2018-01-06] MEDS: Hydroxychloroquine TAB* 200 MG PO SCH (09:15)
[2018-01-06] MEDS: Montelukast Sodium TAB* 10 MG PO SCH (09:15)
[2018-01-06] MEDS: Magnesium Oxide TAB* 400 MG PO SCH (09:15)
[2018-01-06] MEDS: predniSONE TAB* 5 MG PO SCH (09:15)
[2018-01-06] MEDS ORDERED: Fluconazole 100 MG TAB* TAB PO ONE (10:42)
[2018-01-06] MEDS: Nystatin SUSPENSION* 100000 UNITS/ML 5 ML UDC PO SCH ×3 (12:20→19:49)
[2018-01-06] MEDS ORDERED: NS 0.9% 1000 ML* 1,000 ML IV ONE (14:15)
--- NOTE | 2018-01-06 17:19 | PN ---
Subjective Date of Service: 01/06/18 Interval History: Mr. Guillen reports feeling a little better today. He still spiked fever overnight , relived with Tylenol. He feels weak, but denies chest pain, palpitations. abdominal pain or SOB. Spoke with Dr. Mak who will see patient later today. No imaging was indicated at this time. Family History: Unchanged from Admission Social History: Unchanged from Admission Past Medical History: Unchanged from Admission Objective Active Medications: Acetaminophen (Tylenol Tab*) 975 mg PO Q6H PRN PRN Reason: FEVER Last Admin: 01/06/18 12:34 Dose: 975 mg Heparin Sodium (Porcine) (Heparin Vial(*)) 5,000 units SUBCUT Q8HR [facility] Last Admin: 01/06/18 14:27 Dose: 5,000 units Hydroxychloroquine Sulfate (Plaquenil Tab*) 300 mg PO QAM [facility] Last Admin: 01/06/18 09:15 Dose: 300 mg Ciprofloxacin/Dextrose (Cipro 400 Mg Ivpremix(*)) 400 mg in 200 mls @ 200 mls/ hr IVPB Q24H [facility] Last Admin: 01/06/18 09:14 Dose: 200 mls/hr Gentamicin Sulfate 140 mg/ (Sodium Chloride) 103.5 mls @ 207 mls/hr IVPB Q12H [facility] Last Admin: 01/06/18 06:05 Dose: 207 mls/hr Sodium Chloride (Ns 0.9% 1000 Ml*) 1,000 mls @ 100 mls/hr IV ONCE ONE Stop: 01/07/18 00:14 Last Admin: 01/06/18 14:27 Dose: 100 mls/hr Levalbuterol HCl (Xopenex Hfa Inhaler*) 1 puff INH DAILY PRN PRN Reason: SHORTNESS OF BREATH Magnesium Oxide (Magox 400 Tab*) 400 mg PO DAILY [facility] Last Admin: 01/06/18 09:15 Dose: 400 mg Montelukast Sodium (Singulair Tab*) 10 mg PO QAM [facility] Last Admin: 01/06/18 09:15 Dose: 10 mg Nystatin (Nystatin Suspension*) 500,000 units PO QID [facility] Stop: 01/13/18 10:44 Last Admin: 01/06/18 12:20 Dose: Not Given Pharmacy Consult (Gentamicin Adult Per Pharmacy) 1 note FOLLOW UP .GENT PER PHARMACY PRN PRN Reason: PER PROTOCOL Stop: 01/19/18 15:25 Pharmacy Profile Note (Gentamicin Trough Level) 1 note FOLLOW UP 0600 ONE Stop: 01/07/18 06:01 Pharmacy Profile Note (Gentamicin Peak Level*) 1 note FOLLOW UP 0700 ONE Stop: 01/07/18 07:01 Prednisone (Deltasone Tab*) 5 mg PO DAILY [facility] Last Admin: 01/06/18 09:15 Dose: 5 mg Vital Signs - 8 hr 01/06/18 01/06/18 01/06/18 11:01 11:47 12:15 Temperature 98.4 F 101.0 F Pulse Rate 101 Respiratory 18 17 26 Rate Blood Pressure 177/77 (mmHg) O2 Sat by Pulse 97 99 Oximetry 01/06/18 01/06/18 01/06/18 12:21 14:41 15:26 Temperature 102.9 F 99.5 F 99.9 F Pulse Rate 93 Respiratory 17 Rate Blood Pressure 158/73 (mmHg) O2 Sat by Pulse 97 Oximetry Oxygen Devices in Use Now: None Appearance: Appears tired, but in NAD. Eyes: No Scleral Icterus, PERRLA Ears/Nose/Mouth/Throat: Clear Oropharnyx, Mucous Membranes Moist Neck: NL Appearance and Movements; NL JVP, Trachea Midline Respiratory: Symmetrical Chest Expansion and Respiratory Effort, Clear to Auscultation Cardiovascular: NL Sounds; No Murmurs; No JVD, RRR Abdominal: NL Sounds; No Tenderness; No Distention Extremities: No Edema Skin: No Rash or Ulcers Neurological: Alert and Oriented x 3 Nutrition: Taking PO's Result Diagrams: 01/05/18 10:57 01/05/18 10:56 Additional Lab and Data: . Microbiology and Other Data: Microbiology 01/05/18 11:22 Aerobic Blood Culture - Preliminary Blood Venous No Growth Day 1 Anaerobic Blood Culture - Preliminary No Growth Day 1 01/05/18 10:56 Aerobic Blood Culture - Preliminary Blood Venous No Growth Day 1 Anaerobic Blood Culture - Preliminary No Growth Day 1 Diagnostic Imaging: . EKG Data: . Assess/Plan/Problems-Billing Assessment: An 82 y/o male with hx BPH, s/p TURB 3 weeks ago, who presented with fever, weakness and malaise likely secondary to urinary retention. - Patient Problems (1) BPH (benign prostatic hyperplasia) Current Visit: Yes Status: Acute Comment: - s/p TRUB 3 weeks ago with fever, tachycardia today, but no leukocytosis. - Discussed in depth with Dr. Mak, no evidence of active infection, likely symptoms secondary to retension. - Amezcua placed, will continue to monitor I/Os - Broad coverage with Cipro/Gentamycin per urology recommendations. - No indication for imaging studies yet (2) Urinary retention Current Visit: Yes Status: Acute Comment: - Continue Amezcua cath (3) Rheumatoid arthritis Current Visit: Yes Status: Acute Comment: - Continue Prednisone at 5mg home dose - Continue Plaquinel (4) DVT prophylaxis Current Visit: Yes Status: Acute Comment: - SQ heparin (5) Full code status Current Visit: Yes Status: Acute SNOMED Code(s): 406560383 Status and Disposition: Inpatient for IV antibiotics. Anticipate discharge once medically stable.
[2018-01-07] MEDS ORDERED: Furosemide IV* 10 MG/ML 2 ML VIAL (20 MG) IV ONE ×2 (00:52→09:03)
[2018-01-07] MEDS: Levalbuterol HFA INHALER* 1 PUFF MDI INH PRN (01:34)
[2018-01-07] MEDS: Levalbuterol 1.25MG/0.5ML NEB INH PRN ×2 (03:18→09:03)
[2018-01-07] MEDS ORDERED: Gentamicin Trough Level 1 NOTE MISC FOLLOW UP ONE (06:00)
[2018-01-07 06:43] LABS: ABS Basophils 0 10^3/ul (0-0.2); ABS Eosinophils 0 10^3/ul (0-0.6); ABS Lymphocytes 1.1 10^3/ul (1.0-4.8); ABS Monocytes 1.2 10^3/ul (0-0.8); ABS Neutrophils 5.6 10^3/ul (1.5-7.7); ABS Nucleated RBC 0 10^3/ul; Eosinophil % 0.2 % (0-6); Hematocrit 30 % (42-52); Hemoglobin 10.1 g/dl (14.0-18.0); Lymphocyte % 13.8 % (25-47); Mean Corpuscular HGB Conc 34 g/dl (31-36); Mean Corpuscular Hemoglobin 28 pg (27-31); Mean Corpuscular Volume 81 fL (80-94); Mean Platelet Volume 6.2 um3 (7.4-10.4); Nucleated Red Blood Cells % 0; Platelet Count 255 10^3/ul (150-450); Red Blood Count 3.67 10^6/ul (4.00-5.40); Red Cell Distribution Width 14 % (10.5-15); White Blood Count 7.9 10^3/ul (3.5-10.8)
[2018-01-07] MEDS: Heparin VIAL(*) 5000 UNITS/ML VIAL (FIVE THOUSAND) SUBCUT SCH ×3 (07:00→20:34)
[2018-01-07 07:02] LABS: EGFR Non-African American 145.7 (>60)
--- NOTE | 2018-01-07 08:33 | RAD ---
Indication: Follow-up CHF. Single frontal view of the chest performed at 0114 hours was reviewed. Comparison is made with previous exam dated January 05, 2018. Cardiomegaly is noted. Interstitial edema is noted which may be slightly increased since previous exam. IMPRESSION: WORSENING INTERSTITIAL EDEMA. R1
[2018-01-07] MEDS: Gentamicin PEAK LEVEL* 1 NOTE MISC FOLLOW UP ONE ×2 (08:35→09:34)
[2018-01-07] MEDS: Gentamicin ADULT (*) 140 MG in NS 0.9% 100 ML* 100 ML IVPB SCH (08:51)
[2018-01-07] MEDS: Hydroxychloroquine TAB* 200 MG PO SCH (08:52)
[2018-01-07] MEDS: Nystatin SUSPENSION* 100000 UNITS/ML 5 ML UDC PO SCH ×4 (08:52→20:34)
[2018-01-07] MEDS: Magnesium Oxide TAB* 400 MG PO SCH (08:53)
[2018-01-07] MEDS: predniSONE TAB* 5 MG PO SCH (08:53)
[2018-01-07] MEDS: Montelukast Sodium TAB* 10 MG PO SCH (08:53)
[2018-01-07] MEDS: Ciprofloxacin 400MG IVPREMIX(* 400 MG/200 ML BAG IVPB SCH (09:34)
[2018-01-07] MEDS: Acetaminophen TAB* 325 MG PO PRN ×2 (09:51→20:33)
--- NOTE | 2018-01-07 13:42 | PN ---
Subjective Date of Service: 01/07/18 Interval History: Patient was seen and examined earlier today. Reports felling a little better overall. Still weak, but trying to ambulate. Low grade fever last night, relieved with Tylenol. Seen by Dr. Mak who recommended to continue Cipro and Gentamicin as prescribed. Appetite is better. Events noted from last night, SOB secondary to pumonary edema, better after a dose of lasix. IVF has been d/c'ed. Patient notes intermittent RUQ dull ache, but no nausea or vomiting. No hx gallstones of cholecystitis in the past. Family History: Unchanged from Admission Social History: Unchanged from Admission Past Medical History: Unchanged from Admission Objective Active Medications: Acetaminophen (Tylenol Tab*) 975 mg PO Q6H PRN PRN Reason: FEVER Last Admin: 01/07/18 09:51 Dose: 975 mg Heparin Sodium (Porcine) (Heparin Vial(*)) 5,000 units SUBCUT Q8HR [facility] Last Admin: 01/07/18 13:15 Dose: 5,000 units Hydroxychloroquine Sulfate (Plaquenil Tab*) 300 mg PO QAM [facility] Last Admin: 01/07/18 08:52 Dose: 300 mg Ciprofloxacin/Dextrose (Cipro 400 Mg Ivpremix(*)) 400 mg in 200 mls @ 200 mls/ hr IVPB Q24H [facility] Last Admin: 01/07/18 09:34 Dose: 200 mls/hr Gentamicin Sulfate 120 mg/ (Sodium Chloride) 103 mls @ 206 mls/hr IVPB 0800, 2000 [facility] Levalbuterol HCl (Xopenex Hfa Inhaler*) 1 puff INH DAILY PRN PRN Reason: SHORTNESS OF BREATH Last Admin: 01/07/18 01:34 Dose: 1 puff Levalbuterol HCl (Xopenex 1.25 Mg/0.5 Ml Neb.Larissa*) 1.25 mg INH Q4H PRN PRN Reason: sob Last Admin: 01/07/18 09:03 Dose: 1.25 mg Magnesium Oxide (Magox 400 Tab*) 400 mg PO DAILY [facility] Last Admin: 01/07/18 08:53 Dose: 400 mg Montelukast Sodium (Singulair Tab*) 10 mg PO QAM [facility] Last Admin: 01/07/18 08:53 Dose: 10 mg Nystatin (Nystatin Suspension*) 500,000 units PO QID [facility] Stop: 01/13/18 10:44 Last Admin: 01/07/18 12:03 Dose: Not Given Pharmacy Consult (Gentamicin Adult Per Pharmacy) 1 note FOLLOW UP .GENT PER PHARMACY PRN PRN Reason: PER PROTOCOL Stop: 01/19/18 15:25 Pharmacy Profile Note (Gentamicin Trough Level) 1 note FOLLOW UP 0730 [facility] Pharmacy Profile Note (Gentamicin Peak Level*) 1 note FOLLOW UP 0900 [facility] Prednisone (Deltasone Tab*) 5 mg PO DAILY [facility] Last Admin: 01/07/18 08:53 Dose: 5 mg Vital Signs - 8 hr 01/07/18 01/07/18 01/07/18 07:51 08:00 09:07 Temperature 101.0 F Pulse Rate 97 88 Respiratory 28 26 16 Rate Blood Pressure 159/78 (mmHg) O2 Sat by Pulse 98 98 98 Oximetry 01/07/18 11:07 Temperature 101.6 F Pulse Rate 94 Respiratory 25 Rate Blood Pressure 125/54 (mmHg) O2 Sat by Pulse 98 Oximetry Oxygen Devices in Use Now: Nasal Cannula Appearance: Appears tired, but comfortable in bed and in NAD. Eyes: No Scleral Icterus, PERRLA Ears/Nose/Mouth/Throat: Clear Oropharnyx, Mucous Membranes Moist Neck: NL Appearance and Movements; NL JVP, Trachea Midline Respiratory: Symmetrical Chest Expansion and Respiratory Effort, Clear to Auscultation Cardiovascular: NL Sounds; No Murmurs; No JVD, RRR Abdominal: - - Abdomen soft and non-distended. Mild RUQ tenderness with deep palpation. No guarding or rigidity. No rebound tenderness. Negative Solares's sign. Extremities: No Edema Neurological: Alert and Oriented x 3 Nutrition: Taking PO's Result Diagrams: 01/07/18 06:09 01/07/18 06:09 Additional Lab and Data: . Microbiology and Other Data: Microbiology 01/05/18 11:22 Aerobic Blood Culture - Preliminary Blood Venous No Growth Day 1 Anaerobic Blood Culture - Preliminary No Growth Day 1 01/05/18 10:56 Aerobic Blood Culture - Preliminary Blood Venous No Growth Day 1 Anaerobic Blood Culture - Preliminary No Growth Day 1 Diagnostic Imaging: . EKG Data: . Assess/Plan/Problems-Billing Assessment: An 82 y/o male with hx BPH, s/p TURB 3 weeks ago, who presented with fever, weakness and malaise likely secondary to urinary retention. - Patient Problems (1) BPH (benign prostatic hyperplasia) Current Visit: Yes Status: Acute Comment: - s/p TRUB 3 weeks ago with fever, tachycardia today, but no leukocytosis. - Discussed in depth with Dr. Mak, no evidence of active infection, likely symptoms secondary to retension. - Amezcua placed, will continue to monitor I/Os - Broad coverage with Cipro/Gentamycin per urology recommendations. - No indication for imaging studies yet - Intermittent fever persists desoite clinical improvement, discussed with Dr. Mak today, will see patient for F/U this evening. (2) Urinary retention Current Visit: Yes Status: Acute Comment: - Continue Amezcua cath (3) Rheumatoid arthritis Current Visit: Yes Status: Acute Comment: - Continue Prednisone at 5mg home dose - Continue Plaquinel (4) DVT prophylaxis Current Visit: Yes Status: Acute Comment: - SQ heparin (5) Full code status Current Visit: Yes Status: Acute SNOMED Code(s): 919571629 Status and Disposition: Inpatient for IV antibiotics. Anticipate discharge once medically stable.
[2018-01-07] MEDS ORDERED: Fluconazole 100 MG TAB* TAB PO ONE (17:08)
--- NOTE | 2018-01-07 17:11 | RAD ---
INDICATION: Right upper quadrant pain COMPARISON: CT October 06, 2016 TECHNIQUE: Longitudinal and transverse scans of the right upper quadrant were obtained. Doppler interrogation of the hepatic and portal venous system was performed. FINDINGS: Liver: The liver is enlarged. There is hepatic steatosis. There are no focal masses. The liver measures 21 cm in cephalocaudal dimension. Vessels: There is normal hepatic and portal venous flow. Bile ducts: There is no evidence of intrahepatic or extrahepatic ductal dilatation. The common duct measures 0.3 cm. Gallbladder: The sonographic appearance of the gallbladder is normal. There is no evidence of cholelithiasis, thickening of the gallbladder wall, or pericholecystic fluid. Pancreas: The visualized pancreas appears normal Right kidney: The right kidney is normal in size and echogenicity. There are no renal calculi. There is a mildly complex upper pole right renal cyst measuring 1.8 x 1.3 x 1.7 cm. Suggest sonographic follow-up in 6 months. There is no evidence of hydronephrosis. The right kidney measures 11.4 x 4.4 x 5.9 cm. IVC and aorta: The aorta and superior vena cava appear normal. Fluid: There is no ascites. Other: None. IMPRESSION: NORMAL GALLBLADDER. HEPATOMEGALY WITH HEPATIC STEATOSIS. MILDLY COMPLEX 1.8 CM RIGHT RENAL CYST. SUGGEST FOLLOW-UP.
[2018-01-07] MEDS: Piperacillin/Tazobac ADVAN(*) 3.375 GM in NS 0.9% 100 ML* 100 ML IVPB SCH (18:18)
--- NOTE | 2018-01-07 18:56 | RAD ---
INDICATION: Left flank pain COMPARISON: Abdominal sonogram January 07, 2018 TECHNIQUE: Longitudinal and transverse scans of the kidneys were obtained. FINDINGS: Kidneys: The left kidney is normal in size and echogenicity. There is a 2.1 x 2.0 x 2.4 cm mid pole left renal cyst No other renal masses, calculi, or hydronephrosis is seen. The left kidney measures 12.1 x 6.1 x 5.1 cm. . Other: None IMPRESSION: MIDPOLE LEFT RENAL CYST, OTHERWISE UNREMARKABLE.
[2018-01-07] MEDS ORDERED: Gentamicin ADULT (*) 120 MG in NS 0.9% 100 ML* 100 ML IVPB SCH (20:00)
[2018-01-08] MEDS: Piperacillin/Tazobac ADVAN(*) 3.375 GM in NS 0.9% 100 ML* 100 ML IVPB SCH ×3 (02:09→21:15)
[2018-01-08] MEDS: Heparin VIAL(*) 5000 UNITS/ML VIAL (FIVE THOUSAND) SUBCUT SCH ×3 (05:53→21:15)
[2018-01-08 06:40] LABS: ABS Basophils 0 10^3/ul (0-0.2); ABS Eosinophils 0 10^3/ul (0-0.6); ABS Lymphocytes 0.9 10^3/ul (1.0-4.8); ABS Neutrophils 4.4 10^3/ul (1.5-7.7); ABS Nucleated RBC 0 10^3/ul; Eosinophil % 0.4 % (0-6); Hematocrit 30 % (42-52); Hemoglobin 10.5 g/dl (14.0-18.0); Lymphocyte % 13.7 % (25-47); Mean Corpuscular HGB Conc 35 g/dl (31-36); Mean Corpuscular Hemoglobin 28 pg (27-31); Mean Corpuscular Volume 81 fL (80-94); Mean Platelet Volume 6.2 um3 (7.4-10.4); Nucleated Red Blood Cells % 0; Platelet Count 278 10^3/ul (150-450); Red Blood Count 3.72 10^6/ul (4.00-5.40); Red Cell Distribution Width 14 % (10.5-15); White Blood Count 6.4 10^3/ul (3.5-10.8)
[2018-01-08 06:58] LABS: EGFR Non-African American 136.9 (>60)
[2018-01-08] MEDS ORDERED: Furosemide IV* 10 MG/ML 2 ML VIAL (20 MG) IV SLOW PU ONE (09:56)
[2018-01-08] MEDS: Acetaminophen TAB* 325 MG PO PRN ×2 (10:01→22:49)
[2018-01-08] MEDS: Magnesium Oxide TAB* 400 MG PO SCH (11:05)
[2018-01-08] MEDS: predniSONE TAB* 5 MG PO SCH (11:05)
[2018-01-08] MEDS: Hydroxychloroquine TAB* 200 MG PO SCH (11:05)
[2018-01-08] MEDS: Nystatin SUSPENSION* 100000 UNITS/ML 5 ML UDC PO SCH ×4 (11:06→21:15)
[2018-01-08] MEDS: Montelukast Sodium TAB* 10 MG PO SCH (14:17)
--- NOTE | 2018-01-08 14:22 | PN ---
Subjective Date of Service: 01/08/18 Interval History: Patient was seen and examined earlier today. Reports feeling about the same. Still weak in general, but trying to ambulate daily. Fever on and off last night , relieved with Tylenol. Blood cultures with no growth on 3 days. Denies abdominal pain, headaches, chest pain or palpitations. Occasional SOB, better after a dose of Lasix. Renal sonogram with no evidence of hydronephrosis or pyelonephritis. RUQ sono negative for cholecystitis. His appetite is better, has no other complaints. Family History: Unchanged from Admission Social History: Unchanged from Admission Past Medical History: Unchanged from Admission Objective Active Medications: Acetaminophen (Tylenol Tab*) 975 mg PO Q6H PRN PRN Reason: FEVER Last Admin: 01/08/18 10:01 Dose: 975 mg Heparin Sodium (Porcine) (Heparin Vial(*)) 5,000 units SUBCUT Q8HR [facility] Last Admin: 01/08/18 05:53 Dose: 5,000 units Hydroxychloroquine Sulfate (Plaquenil Tab*) 300 mg PO QAM [facility] Last Admin: 01/08/18 11:05 Dose: 300 mg Piperacillin Sod/Tazobactam (Sod 3.375 gm/ Sodium Chloride) 100 mls @ 25 mls/ hr IVPB Q8H [facility] Last Admin: 01/08/18 11:06 Dose: 25 mls/hr Levalbuterol HCl (Xopenex Hfa Inhaler*) 1 puff INH DAILY PRN PRN Reason: SHORTNESS OF BREATH Last Admin: 01/07/18 01:34 Dose: 1 puff Levalbuterol HCl (Xopenex 1.25 Mg/0.5 Ml Neb.Larissa*) 1.25 mg INH Q4H PRN PRN Reason: sob Last Admin: 01/07/18 09:03 Dose: 1.25 mg Magnesium Oxide (Magox 400 Tab*) 400 mg PO DAILY [facility] Last Admin: 01/08/18 11:05 Dose: 400 mg Montelukast Sodium (Singulair Tab*) 10 mg PO QAM [facility] Last Admin: 01/07/18 08:53 Dose: 10 mg Nystatin (Nystatin Suspension*) 500,000 units PO QID [facility] Stop: 01/13/18 10:44 Last Admin: 01/08/18 11:06 Dose: 500,000 units Prednisone (Deltasone Tab*) 5 mg PO DAILY [facility] Last Admin: 01/08/18 11:05 Dose: 5 mg Vital Signs - 8 hr 01/08/18 07:15 Temperature 100.3 F Pulse Rate 90 Respiratory 26 Rate Blood Pressure 165/81 (mmHg) O2 Sat by Pulse 98 Oximetry Oxygen Devices in Use Now: None Appearance: Appears comfortable and in NAD. Eyes: No Scleral Icterus, PERRLA Ears/Nose/Mouth/Throat: Clear Oropharnyx, Mucous Membranes Moist Neck: NL Appearance and Movements; NL JVP, Trachea Midline Respiratory: Symmetrical Chest Expansion and Respiratory Effort, Clear to Auscultation Cardiovascular: NL Sounds; No Murmurs; No JVD, RRR Abdominal: NL Sounds; No Tenderness; No Distention Extremities: No Edema Neurological: Alert and Oriented x 3 Nutrition: Taking PO's Result Diagrams: 01/08/18 06:28 01/08/18 06:28 Additional Lab and Data: . Microbiology and Other Data: Microbiology 01/05/18 11:22 Aerobic Blood Culture - Preliminary Blood Venous No Growth Day 1 Anaerobic Blood Culture - Preliminary No Growth Day 1 01/05/18 10:56 Aerobic Blood Culture - Preliminary Blood Venous No Growth Day 1 Anaerobic Blood Culture - Preliminary No Growth Day 1 Diagnostic Imaging: . EKG Data: . Assess/Plan/Problems-Billing Assessment: An 82 y/o male with hx BPH, s/p TURB 3 weeks ago, who presented with fever, weakness and malaise likely secondary to urinary retention. - Patient Problems (1) Fever Current Visit: Yes Status: Acute Comment: - Persumed secondary to urinary retention - Abx swithched from Cipro/Gent to Zosyn TID - Will obtain an ID consult once Dr. Flowers is back on Thursday - Lyme disease titer added - Will obtain TTE - So far, negative blood and urine cultures (2) BPH (benign prostatic hyperplasia) Current Visit: Yes Status: Acute Comment: - s/p TRUB 3 weeks ago with fever, tachycardia today, but no leukocytosis. - Discussed in depth with Dr. Mak, no evidence of active infection, likely symptoms secondary to retension. - Amezcua placed, will continue to monitor I/Os - Intermittent fever persists despite clinical improvement, discussed with attending, Dr. Garibay, echo ordered, lyme disease titer - ID consult once provider available (3) Urinary retention Current Visit: Yes Status: Acute Comment: - Continue Amezcua cath (4) Rheumatoid arthritis Current Visit: Yes Status: Acute Comment: - Continue Prednisone at 5mg home dose - Continue Plaquinel (5) DVT prophylaxis Current Visit: Yes Status: Acute Comment: - SQ heparin (6) DNR (do not resuscitate) Current Visit: Yes Status: Acute Comment: - Pt wishes to be DNR. MOLST form will be filled and updated Status and Disposition: Inpatient for IV antibiotics and further workup of fever. Anticipate discharge once medically stable.
--- NOTE | 2018-01-08 14:36 | ECHO ---
Patient: QUEENIE HERNANDEZ [facility] Rec#: [id number] : 1935 Date: 01/08/2018 Age: 82y Height: 180.34 cm / 71.0 in Weight: 78.02 kg / 172.0 lbs Sex: M BSA: 1.98 Room#: 407 Admit Date#: 01/05/2018 Type: Inpatient Referring: Maurice Alcaraz Reading: Papo Yan DO Mc Kay Stitcher: Marleen Page RDCS CC: Joon Lombardo MD Transthoracic Echocardiogram Indication: Shortness of breath BP: 165/81 HR: 88 Rhythm: NSR Findings History: HTN, RA, s/p TURP, murmur. Technical Comments: The study quality is fair. Completed at 1430. Left Ventricle: The left ventricular chamber size is normal. Mild concentric left ventricular hypertrophy is observed. Global left ventricular wall motion and contractility are within normal limits. There is normal left ventricular systolic function. The estimated ejection fraction is greater than 65%. There is no consistent Doppler evidence of clinically significant diastolic dysfunction. Left Atrium: The left atrium is mildly dilated. Right Ventricle: The right ventricular chamber size and systolic function are within normal limits. Right Atrium: The right atrial cavity size is normal. Aortic Valve: The aortic valve is trileaflet. The aortic valve leaflets are mildly thickened. There is aortic annular calcification.that is mild There is a trace of aortic regurgitation. There is no evidence of aortic stenosis. Mitral Valve: Mild mitral annular calcification present. The mitral valve leaflets are mildly thickened. There is mild mitral regurgitation. There is no evidence of mitral stenosis. Tricuspid Valve: The tricuspid valve leaflets are normal. There is mild tricuspid regurgitation. The right ventricular systolic pressure is estimated at 54 mmHg. There is evidence of moderate pulmonary hypertension. There is no tricuspid stenosis. Pulmonic Valve: The pulmonic valve appears normal. There is a trace pulmonic regurgitation. There is no pulmonic stenosis. Pericardium: There is no significant pericardial effusion. Aorta: There is mild dilatation of the ascending aorta. There is no dilatation of the aortic arch. There is mild dilatation of the aortic root. Pulmonary Artery: The main pulmonary artery is not well visualized. Venous: The inferior vena cava is dilated. There is a greater than 50% respiratory change in the inferior vena cava dimension. Conclusions The left ventricular chamber size is normal. Mild concentric left ventricular hypertrophy is observed. Global left ventricular wall motion and contractility are within normal limits. There is normal left ventricular systolic function. The estimated ejection fraction is 65-70% The left atrium is mildly dilated. The right ventricular chamber size and systolic function are within normal limits. No more than mild valvular regurgitation noted There is evidence of moderate pulmonary hypertension. There is mild dilatation of the aortic root and ascending aorta. None prior for comparison at time of interpretation Measurements Name Value Normal Range RVIDd (AP) 2D 4.3 cm (0.9 - 2.6) RVDdMajor (2D) 4.5 cm (2.2 - 4.4) IVSd (2D) 1.3 cm (0.6 - 1) LVPWd (2D) 1.2 cm (0.6 - 1) LVIDd (2D) 4.7 cm (3.6 - 5.4) LVIDs (2D) 3.3 cm - LV FS (2D) 28 % (25 - 45) Aortic Annulus 2.1 cm (1.4 - 2.6) Ao root diameter (2D) 4.1 cm (2.1 - 3.5) Ascending Ao 4.1 cm (2.1 - 3.4) Aortic arch 2.4 cm (1.8 - 3.4) LA dimension (AP) 2D 3.9 cm (2.3 - 3.8) LAd ISD 4CH 5.3 cm (2.9 - 5.3) LA ISD 4CH W 4 cm (2.5 - 4.5) Name Value Normal Range LA ESV SP 4CH (A/L) 61 ml - LA ESV SP 2CH (A/L) 112 ml - LA ESV BP (A/L) 89 ml - LA ESV BP (A/L) index 45 ml/m2 - LA ESV SP 4CH (MOD) 52 ml - LA ESV SP 2CH (MOD) 104 ml - Name Value Normal Range MV E-wave Vmax 0.97 m/sec - MV deceleration time 257.71 msec - MV A-wave Vmax 0.85 m/sec - MV E:A ratio 1.14 ratio - LV septal e' Vmax 0.09 m/sec - LV lateral e' Vmax 0.11 m/sec - LV E:e' septal ratio 10.78 ratio - LV E:e' lateral ratio 8.82 ratio - Name Value Normal Range AV Vmax 1.7 m/sec - AV VTI 31.4 cm - AV peak gradient 11.14 mmHg - AV mean gradient 6.24 mmHg - LVOT Vmax 1.24 m/sec - LVOT VTI 23.41 cm - LVOT peak gradient 6.23 mmHg - LVOT mean gradient 3.31 mmHg - JOSÉ Vmax 1 m/sec - Name Value Normal Range TR Vmax 3.4 m/sec - TR peak gradient 46 mmHg - RAP 8 mmHg - RVSP 54 mmHg - IVC diameter 2.4 cm - Name Value Normal Range PV Vmax 0.89 m/sec - PV peak gradient 3.21 mmHg -
[2018-01-08] MEDS ORDERED: Vancomycin(*) 1,250 MG in NS 0.9% 250 ML* 250 ML IVPB ONE (17:00)
[2018-01-08] MEDS ORDERED: Gentamicin ADULT (*) 140 MG in NS 0.9% 100 ML* 100 ML IVPB ONE (17:00)
[2018-01-08] MEDS ORDERED: Vancomycin(*) 1,250 MG in NS 0.9% 250 ML* 250 ML IVPB SCH (17:00)
[2018-01-08] MEDS ORDERED: Vancomycin per Pharmacy* NOTE FOLLOW UP SCH (17:00)
[2018-01-09] MEDS: Piperacillin/Tazobac ADVAN(*) 3.375 GM in NS 0.9% 100 ML* 100 ML IVPB SCH ×2 (01:50→11:00)
[2018-01-09] MEDS: Acetaminophen TAB* 325 MG PO PRN ×3 (05:27→22:23)
[2018-01-09] MEDS: Heparin VIAL(*) 5000 UNITS/ML VIAL (FIVE THOUSAND) SUBCUT SCH ×3 (05:28→22:22)
[2018-01-09] MEDS: Vancomycin(*) 1,250 MG IV IVPB SCH ×4 (06:15→18:05)
[2018-01-09] MEDS ORDERED: Gentamicin Trough Level 1 NOTE MISC FOLLOW UP SCH (07:30)
[2018-01-09 07:48] LABS: ABS Basophils 0 10^3/ul (0-0.2); ABS Eosinophils 0 10^3/ul (0-0.6); ABS Lymphocytes 0.8 10^3/ul (1.0-4.8); ABS Neutrophils 3.2 10^3/ul (1.5-7.7); ABS Nucleated RBC 0 10^3/ul; Eosinophil % 0.8 % (0-6); Hematocrit 29 % (42-52); Hemoglobin 9.8 g/dl (14.0-18.0); Lymphocyte % 16.3 % (25-47); Mean Corpuscular HGB Conc 34 g/dl (31-36); Mean Corpuscular Hemoglobin 28 pg (27-31); Mean Corpuscular Volume 81 fL (80-94); Mean Platelet Volume 6.2 um3 (7.4-10.4); Nucleated Red Blood Cells % 0; Platelet Count 260 10^3/ul (150-450); Red Blood Count 3.54 10^6/ul (4.00-5.40); Red Cell Distribution Width 14 % (10.5-15); White Blood Count 5.1 10^3/ul (3.5-10.8)
[2018-01-09 08:06] LABS: EGFR Non-African American 101.3 (>60)
[2018-01-09] MEDS ORDERED: Gentamicin PEAK LEVEL* 1 NOTE MISC FOLLOW UP SCH (09:00)
--- NOTE | 2018-01-09 09:51 | PN ---
Subjective Date of Service: 01/09/18 Interval History: Patient was seen and examined at bedside. Reports feeling better today. Had 2 consecutive afebrile readings this AM. Denies chest pain, abdominal or flank pain. Appetite is better, ambulatory. Dr. Mak resumed Gentamicin yesterday. Discussed TTE and ultrasound findings with patient. He has no new complaints today. Family History: Unchanged from Admission Social History: Unchanged from Admission Past Medical History: Unchanged from Admission Objective Active Medications: Acetaminophen (Tylenol Tab*) 975 mg PO Q6H PRN PRN Reason: FEVER Last Admin: 01/09/18 05:27 Dose: 975 mg Heparin Sodium (Porcine) (Heparin Vial(*)) 5,000 units SUBCUT Q8HR [facility] Last Admin: 01/09/18 05:28 Dose: 5,000 units Hydroxychloroquine Sulfate (Plaquenil Tab*) 300 mg PO QAM [facility] Last Admin: 01/08/18 11:05 Dose: 300 mg Piperacillin Sod/Tazobactam (Sod 3.375 gm/ Sodium Chloride) 100 mls @ 25 mls/ hr IVPB Q8H [facility] Last Admin: 01/09/18 01:50 Dose: 25 mls/hr Vancomycin HCl 1,250 mg/ (Sodium Chloride) 250 mls @ 166.667 mls/hr IVPB Q12H [facility] Last Admin: 01/09/18 06:15 Dose: 166.667 mls/hr Gentamicin Sulfate 120 mg/ (Sodium Chloride) 103 mls @ 206 mls/hr IVPB Q12H [facility] Levalbuterol HCl (Xopenex Hfa Inhaler*) 1 puff INH DAILY PRN PRN Reason: SHORTNESS OF BREATH Last Admin: 01/07/18 01:34 Dose: 1 puff Levalbuterol HCl (Xopenex 1.25 Mg/0.5 Ml Neb.Larissa*) 1.25 mg INH Q4H PRN PRN Reason: sob Last Admin: 01/07/18 09:03 Dose: 1.25 mg Magnesium Oxide (Magox 400 Tab*) 400 mg PO DAILY [facility] Last Admin: 01/08/18 11:05 Dose: 400 mg Montelukast Sodium (Singulair Tab*) 10 mg PO QAM [facility] Last Admin: 01/08/18 14:17 Dose: 10 mg Nystatin (Nystatin Suspension*) 500,000 units PO QID [facility] Stop: 01/13/18 10:44 Last Admin: 01/08/18 21:15 Dose: 500,000 units Pharmacy Consult (Vancomycin Per Pharmacy*) 1 note FOLLOW UP .VANC PER PHARMACY [facility] Pharmacy Profile Note (Vancomycin Trough Check) 1 note FOLLOW UP ONCE ONE Stop: 01/10/18 05:01 Pharmacy Profile Note (Gentamicin Trough Level) 1 note FOLLOW UP ONCE ONE Stop: 01/10/18 07:31 Pharmacy Profile Note (Gentamicin Peak Level*) 1 note FOLLOW UP ONCE ONE Stop: 01/10/18 09:01 Prednisone (Deltasone Tab*) 5 mg PO DAILY [facility] Last Admin: 01/08/18 11:05 Dose: 5 mg Vital Signs - 8 hr 01/09/18 01/09/18 03:17 07:39 Temperature 98.2 F 98.8 F Pulse Rate 70 73 Respiratory 20 16 Rate Blood Pressure 138/54 131/56 (mmHg) O2 Sat by Pulse 99 99 Oximetry Oxygen Devices in Use Now: None Appearance: Appears comfortable and in NAD Eyes: No Scleral Icterus, PERRLA Ears/Nose/Mouth/Throat: Clear Oropharnyx, Mucous Membranes Moist Neck: NL Appearance and Movements; NL JVP, Trachea Midline Respiratory: Symmetrical Chest Expansion and Respiratory Effort, Clear to Auscultation Cardiovascular: NL Sounds; No Murmurs; No JVD, RRR Abdominal: NL Sounds; No Tenderness; No Distention Extremities: No Edema Skin: No Rash or Ulcers Neurological: Alert and Oriented x 3 Nutrition: Taking PO's Result Diagrams: 01/09/18 07:36 01/09/18 07:36 Additional Lab and Data: . Microbiology and Other Data: Diagnostic Imaging: TTE with the following conclusions: The left ventricular chamber size is normal. Mild concentric left ventricular hypertrophy is observed. Global left ventricular wall motion and contractility are within normal limits. There is normal left ventricular systolic function. The estimated ejection fraction is 65-70% The left atrium is mildly dilated. The right ventricular chamber size and systolic function are within normal limits. EKG Data: . Assess/Plan/Problems-Billing Assessment: An 82 y/o male with hx BPH, s/p TURB 3 weeks ago, who presented with fever, weakness and malaise likely secondary to urinary retention. - Patient Problems (1) Fever Current Visit: Yes Status: Acute Comment: - Persumed secondary to urinary retention - Abx swithched from Cipro/Gent to Zosyn TID, then Gentamicin added by Dr. Mak yesterday. - Will obtain an ID consult once Dr. Flowers is back on Thursday - Lyme disease titer added - TTE with no significant abnormal findings - So far, negative blood and urine cultures - Fever improving this AM, hopefully continue to be afebrile (2) BPH (benign prostatic hyperplasia) Current Visit: Yes Status: Acute Comment: - s/p TRUB 3 weeks ago with fever, tachycardia today, but no leukocytosis. - Discussed in depth with Dr. Mak, no evidence of active infection, likely symptoms secondary to retension. - Amezcua placed, will continue to monitor I/Os - Intermittent fever improving - ID consult once provider available (3) Urinary retention Current Visit: Yes Status: Acute Comment: - Continue Amezcua cath (4) Rheumatoid arthritis Current Visit: Yes Status: Acute Comment: - Continue Prednisone at 5mg home dose - Continue Plaquinel (5) DVT prophylaxis Current Visit: Yes Status: Acute Comment: - SQ heparin (6) DNR (do not resuscitate) Current Visit: Yes Status: Acute Comment: - Pt wishes to be DNR. MOLST form will be filled and updated Status and Disposition: Inpatient for IV antibiotics and further workup of fever. Anticipate discharge once medically stable.
[2018-01-09] MEDS: Gentamicin ADULT (*) 120 MG in NS 0.9% 100 ML* 100 ML IVPB SCH ×2 (09:52→20:10)
[2018-01-09] MEDS: Magnesium Oxide TAB* 400 MG PO SCH (09:53)
[2018-01-09] MEDS: Montelukast Sodium TAB* 10 MG PO SCH (09:53)
[2018-01-09] MEDS: Nystatin SUSPENSION* 100000 UNITS/ML 5 ML UDC PO SCH ×4 (09:53→20:10)
[2018-01-09] MEDS: predniSONE TAB* 5 MG PO SCH (09:53)
[2018-01-09] MEDS: Hydroxychloroquine TAB* 200 MG PO SCH (11:00)
[2018-01-09] MEDS ORDERED: Furosemide IV* 10 MG/ML 2 ML VIAL (20 MG) IV ONE (14:12)
--- NOTE | 2018-01-09 15:31 | RAD ---
HISTORY: Bilateral hip pain, hx arthritis COMPARISONS: February 16, 2017 VIEWS: 2, frontal view of the pelvis FINDINGS: BONE DENSITY: Normal. BONES: There is no displaced fracture. 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 ALIGNMENT: There is no dislocation. SOFT TISSUES: Unremarkable. OTHER FINDINGS: There is a nonspecific bowel gas pattern. There is large amount of stool within the colon. IMPRESSION: NO ACUTE OSSEOUS INJURY. IF SYMPTOMS PERSIST, RECOMMEND REPEAT IMAGING.
[2018-01-09] MEDS: Salsalate TAB* 500 MG PO SCH ×2 (18:05→22:22)
[2018-01-10] MEDS ORDERED: Vancomycin Trough Check NOTE FOLLOW UP ONE (05:00)
[2018-01-10] MEDS: Salsalate TAB* 500 MG PO SCH ×4 (06:19→22:54)
[2018-01-10] MEDS: Heparin VIAL(*) 5000 UNITS/ML VIAL (FIVE THOUSAND) SUBCUT SCH ×3 (06:19→22:54)
[2018-01-10 06:56] LABS: ABS Basophils 0 10^3/ul (0-0.2); ABS Eosinophils 0 10^3/ul (0-0.6); ABS Lymphocytes 0.9 10^3/ul (1.0-4.8); ABS Monocytes 1.3 10^3/ul (0-0.8); ABS Neutrophils 4.2 10^3/ul (1.5-7.7); ABS Nucleated RBC 0 10^3/ul; Eosinophil % 0.3 % (0-6); Hematocrit 30 % (42-52); Hemoglobin 10.3 g/dl (14.0-18.0); Lymphocyte % 13.4 % (25-47); Mean Corpuscular HGB Conc 34 g/dl (31-36); Mean Corpuscular Hemoglobin 28 pg (27-31); Mean Corpuscular Volume 81 fL (80-94); Mean Platelet Volume 6.1 um3 (7.4-10.4); Nucleated Red Blood Cells % 0; Platelet Count 305 10^3/ul (150-450); Red Blood Count 3.74 10^6/ul (4.00-5.40); Red Cell Distribution Width 14 % (10.5-15); White Blood Count 6.4 10^3/ul (3.5-10.8)
[2018-01-10 07:08] LABS: EGFR Non-African American 126.6 (>60)
[2018-01-10] MEDS ORDERED: Gentamicin Trough Level 1 NOTE MISC FOLLOW UP ONE (07:30)
--- NOTE | 2018-01-10 08:21 | RAD ---
HISTORY: L knee pain/swelling COMPARISONS: None VIEWS: 2, Frontal and lateral views of the left knee FINDINGS: BONE DENSITY: Normal. BONES: There is no displaced fracture. There is minimal fragmentation at the anterior tibial tubercle stable from the previous examination suggestive of the sequela of [place]Schlatter disease. JOINTS: There is mild tricompartmental osteoarthritis. There is a large suprapatellar joint effusion without lipohemarthrosis. ALIGNMENT: There is no dislocation. SOFT TISSUES: There is peripheral arterial calcification. OTHER FINDINGS: None. IMPRESSION: 1. MILD OSTEOARTHRITIS. 2. LARGE EFFUSION. 3. PERIPHERAL ARTERIAL DISEASE. 4. NO ACUTE OSSEOUS INJURY. IF SYMPTOMS PERSIST, RECOMMEND REPEAT IMAGING
[2018-01-10] MEDS: Magnesium Oxide TAB* 400 MG PO SCH (08:52)
[2018-01-10] MEDS: Vancomycin(*) 1,250 MG IV IVPB SCH ×2 (08:52)
[2018-01-10] MEDS: Nystatin SUSPENSION* 100000 UNITS/ML 5 ML UDC PO SCH ×4 (08:53→22:53)
[2018-01-10] MEDS: Montelukast Sodium TAB* 10 MG PO SCH (08:53)
[2018-01-10] MEDS: Hydroxychloroquine TAB* 200 MG PO SCH (08:54)
[2018-01-10] MEDS ORDERED: Gentamicin PEAK LEVEL* 1 NOTE MISC FOLLOW UP ONE (09:00)
[2018-01-10] MEDS: Gentamicin ADULT (*) 120 MG in NS 0.9% 100 ML* 100 ML IVPB SCH ×3 (10:37→19:59)
[2018-01-10] MEDS: Acetaminophen TAB* 325 MG PO PRN ×3 (11:13→22:54)
[2018-01-10] MEDS: predniSONE TAB* 5 MG PO SCH (11:20)
--- NOTE | 2018-01-10 13:01 | PN ---
Subjective Date of Service: 01/10/18 Interval History: Patient was seen and examined earlier today. Reports feeling better after Salsalate started yesterday. Hips and L knee pain have improved. Low grade fever last night, resolved this AM. Appetite better, denies nausea or vomiting. He informed me he has a chronic L knee effusion, not any worse that it has been. No new complaints today. Family History: Unchanged from Admission Social History: Unchanged from Admission Past Medical History: Unchanged from Admission Objective Active Medications: Acetaminophen (Tylenol Tab*) 650 mg PO Q6H PRN PRN Reason: FEVER Last Admin: 01/10/18 11:13 Dose: 650 mg Heparin Sodium (Porcine) (Heparin Vial(*)) 5,000 units SUBCUT Q8HR [facility] Last Admin: 01/10/18 06:19 Dose: 5,000 units Hydroxychloroquine Sulfate (Plaquenil Tab*) 300 mg PO QAM [facility] Last Admin: 01/10/18 08:54 Dose: 300 mg Vancomycin HCl 1,250 mg/ (Sodium Chloride) 250 mls @ 166.667 mls/hr IVPB Q12H [facility] Last Admin: 01/10/18 08:52 Dose: 166.667 mls/hr Gentamicin Sulfate 120 mg/ (Sodium Chloride) 103 mls @ 206 mls/hr IVPB Q12H [facility] Last Admin: 01/10/18 11:15 Dose: 206 mls/hr Levalbuterol HCl (Xopenex Hfa Inhaler*) 1 puff INH DAILY PRN PRN Reason: SHORTNESS OF BREATH Last Admin: 01/07/18 01:34 Dose: 1 puff Levalbuterol HCl (Xopenex 1.25 Mg/0.5 Ml Neb.Larissa*) 1.25 mg INH Q4H PRN PRN Reason: sob Last Admin: 01/07/18 09:03 Dose: 1.25 mg Magnesium Oxide (Magox 400 Tab*) 400 mg PO DAILY [facility] Last Admin: 01/10/18 08:52 Dose: 400 mg Montelukast Sodium (Singulair Tab*) 10 mg PO QAM [facility] Last Admin: 01/10/18 08:53 Dose: 10 mg Nystatin (Nystatin Suspension*) 500,000 units PO QID [facility] Stop: 01/13/18 10:44 Last Admin: 01/10/18 08:53 Dose: 500,000 units Pharmacy Consult (Vancomycin Per Pharmacy*) 1 note FOLLOW UP .VANC PER PHARMACY [facility] Prednisone (Deltasone Tab*) 5 mg PO DAILY [facility] Last Admin: 01/10/18 11:20 Dose: 5 mg Salsalate (Disalcid*) 500 mg PO Q6H [facility] Last Admin: 01/10/18 11:14 Dose: 500 mg Oxygen Devices in Use Now: None Appearance: Appears comfortable and in NAD Eyes: No Scleral Icterus, PERRLA Ears/Nose/Mouth/Throat: Clear Oropharnyx, Mucous Membranes Moist Neck: NL Appearance and Movements; NL JVP, Trachea Midline Respiratory: Symmetrical Chest Expansion and Respiratory Effort, Clear to Auscultation Cardiovascular: NL Sounds; No Murmurs; No JVD, RRR Abdominal: NL Sounds; No Tenderness; No Distention Extremities: No Edema, - - Left knee with no joint tenderness noted. Mild swelling, no erythema or warmth to touch. ROM decreased due to pain. Neurological: Alert and Oriented x 3 Nutrition: Taking PO's Result Diagrams: 01/10/18 06:43 01/10/18 06:43 Additional Lab and Data: . Microbiology and Other Data: Diagnostic Imaging: Patient Name: QUEENIE HERNANDEZ Medical Record#: [id number] Ordering Physician: Maurice MARTINEZ Acct.#: [id number] : 1935 Age: 82 Sex: M Location: [address] [place] [address] - MEDICAL Exam Date: 01/10/18 0800 ADM Status: ADM IN Order Information: KNEE LEFT 1-2 VWS Accession Number: [id number] CPT: 67522 HISTORY: L knee pain/swelling COMPARISONS: None VIEWS: 2, Frontal and lateral views of the left knee IMPRESSION: 1. MILD OSTEOARTHRITIS. 2. LARGE EFFUSION. 3. PERIPHERAL ARTERIAL DISEASE. 4. NO ACUTE OSSEOUS INJURY. IF SYMPTOMS PERSIST, RECOMMEND REPEAT IMAGING <Electronically signed by Gerry Spivey MD in [place]> 01/10/18 0818 EKG Data: . Assess/Plan/Problems-Billing Assessment: An 82 y/o male with hx BPH, s/p TURB 3 weeks ago, who presented with fever, weakness and malaise likely secondary to urinary retention. - Patient Problems (1) Fever Current Visit: Yes Status: Acute Comment: - Persumed secondary to urinary retention - Abx swithched from Cipro/Gent to Zosyn TID, then Gentamicin added by Dr. Mak yesterday. - Will obtain an ID consult once Dr. Flowers is back on Thursday - Lyme disease titer added - TTE with no significant abnormal findings - So far, negative blood and urine cultures - Salsalate added per patient request. He told me yesterday he feels his symptoms could be related to flare-up of his RA. No evidence of active infection to explain his isolated fever. - ESR elevated today, could be secondary to autoimmune process - Fever improving this AM, hopefully continue to be afebrile (2) BPH (benign prostatic hyperplasia) Current Visit: Yes Status: Acute Comment: - s/p TRUB 3 weeks ago with fever, tachycardia today, but no leukocytosis. - Discussed in depth with Dr. Mak, no evidence of active infection, likely symptoms secondary to retension. - Amezcua placed, will continue to monitor I/Os - Intermittent fever improving - ID consult once provider available (3) Urinary retention Current Visit: Yes Status: Acute Comment: - Continue Amezcua cath (4) Rheumatoid arthritis Current Visit: Yes Status: Acute Comment: - Continue Prednisone at 5mg home dose - Continue Plaquinel (5) DVT prophylaxis Current Visit: Yes Status: Acute Comment: - SQ heparin (6) DNR (do not resuscitate) Current Visit: Yes Status: Acute Comment: - Pt wishes to be DNR. MOLST form will be filled and updated Status and Disposition: Inpatient for IV antibiotics and further workup of fever. Anticipate discharge once medically stable. So far, no evidence of acute infection, may consider d/c Abx in next day or two. Await ID input.
[2018-01-10] MEDS ORDERED: Gentamicin ADULT per pharmacy 1 NOTE MISC FOLLOW UP PRN (13:26)
[2018-01-10] MEDS: Fluconazole 100 MG TAB* TAB PO SCH (17:01)
[2018-01-10] MEDS: Vancomycin(*) 1,000 MG in NS 0.9% 250 ML* 250 ML IVPB SCH ×2 (17:01→23:50)
[2018-01-11] MEDS: Acetaminophen TAB* 325 MG PO PRN ×2 (06:26→12:08)
[2018-01-11] MEDS: Salsalate TAB* 500 MG PO SCH ×4 (06:28→22:45)
[2018-01-11] MEDS: Heparin VIAL(*) 5000 UNITS/ML VIAL (FIVE THOUSAND) SUBCUT SCH ×3 (06:29→20:53)
[2018-01-11] MEDS: Gentamicin ADULT (*) 120 MG in NS 0.9% 100 ML* 100 ML IVPB SCH (07:28)
[2018-01-11] MEDS: Vancomycin(*) 1,000 MG in NS 0.9% 250 ML* 250 ML IVPB SCH ×2 (08:22→16:45)
[2018-01-11] MEDS: Montelukast Sodium TAB* 10 MG PO SCH (09:29)
[2018-01-11] MEDS: Hydroxychloroquine TAB* 200 MG PO SCH (09:29)
[2018-01-11] MEDS: Magnesium Oxide TAB* 400 MG PO SCH (09:29)
[2018-01-11] MEDS: Fluconazole 100 MG TAB* TAB PO SCH (09:29)
[2018-01-11] MEDS: predniSONE TAB* 5 MG PO SCH (09:29)
[2018-01-11] MEDS: Nystatin SUSPENSION* 100000 UNITS/ML 5 ML UDC PO SCH ×4 (09:30→20:53)
[2018-01-11] MEDS ORDERED: Vancomycin Trough Check NOTE FOLLOW UP ONE (15:30)
--- NOTE | 2018-01-11 16:20 | PN ---
Subjective Date of Service: 01/11/18 Interval History: Patient seen and examined at bedside. Denies chest discomfort, shortness of breath, N/V/D. Pt states that he continues to have intermittent fever and chills. He also reports bilateral knee pain (6/10), he has known joint effusions. He states that his pain is about what it has been for several months , but he feels like the right knee pain is increasing. He also feels like the swelling in the right knee is increasing. 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 We discussed getting an ortho consult for possible joint aspiration and holding the ABX until he is seen by ID and he agrees with this plan of care. Family History: Unchanged from Admission Social History: Unchanged from Admission Past Medical History: Unchanged from Admission Objective Active Medications: Acetaminophen (Tylenol Tab*) 650 mg PO Q6H PRN Reason: FEVER Fluconazole (Diflucan 100 Mg Tab*) 100 mg PO DAILY [facility] Heparin Sodium (Porcine) (Heparin Vial(*)) 5,000 units SUBCUT Q8HR [facility] Hydroxychloroquine Sulfate (Plaquenil Tab*) 300 mg PO QAM [facility] Gentamicin Sulfate 120 mg/ (Sodium Chloride) 103 mls @ 206 mls/hr IVPB Q12H [facility] Vancomycin HCl 1,000 mg/ (Sodium Chloride) 250 mls @ 166.667 mls/hr IVPB Q8H [facility] Levalbuterol HCl (Xopenex Hfa Inhaler*) 1 puff INH DAILY PRN Reason: SHORTNESS OF BREATH Levalbuterol HCl (Xopenex 1.25 Mg/0.5 Ml Neb.Larissa*) 1.25 mg INH Q4H PRN Reason: sob Magnesium Oxide (Magox 400 Tab*) 400 mg PO DAILY [facility] Montelukast Sodium (Singulair Tab*) 10 mg PO QAM [facility] Nystatin (Nystatin Suspension*) 500,000 units PO QID [facility] Stop: 01/13/18 10:44 Pharmacy Consult (Vancomycin Per Pharmacy*) 1 note FOLLOW UP .VANC PER PHARMACY [facility] Pharmacy Consult (Gentamicin Adult Per Pharmacy) 1 note FOLLOW UP . PRN Reason : PER PROTOCOL Prednisone (Deltasone Tab*) 5 mg PO DAILY [facility] Salsalate (Disalcid*) 500 mg PO Q6H [facility] Vital Signs - 8 hr 08/01/11/18 01/11/18 11:32 12:15 13:37 Temperature 101.0 F 101.9 F 103 F Pulse Rate 90 Respiratory 24 Rate Blood Pressure 171/70 (mmHg) O2 Sat by Pulse 100 Oximetry 01/11/18 15:18 Temperature 102.3 F Pulse Rate 85 Respiratory 22 Rate Blood Pressure 150/67 (mmHg) O2 Sat by Pulse 98 Oximetry Oxygen Devices in Use Now: None Appearance: NAD, laying in bed Ears/Nose/Mouth/Throat: Mucous Membranes Moist Respiratory: Symmetrical Chest Expansion and Respiratory Effort, Clear to Auscultation Cardiovascular: NL Sounds; No Murmurs; No JVD, RRR Abdominal: NL Sounds; No Tenderness; No Distention Extremities: - - Bilateral knees large, right greater than the left. Able to bend both knees Skin: No Rash or Ulcers Neurological: Alert and Oriented x 3, NL Muscle Strength and Tone Lines/Tubes/Other Access: Clean, Dry and Intact Peripheral IV - site benign Nutrition: Taking PO's Result Diagrams: 01/10/18 06:43 01/10/18 06:43 Additional Lab and Data: . Diagnostic Imagin01/10/18 0800 KNEE LEFT 1-2 VWS IMPRESSION: 1. MILD OSTEOARTHRITIS. 2. LARGE EFFUSION. 3. PERIPHERAL ARTERIAL DISEASE. 4. NO ACUTE OSSEOUS INJURY. IF SYMPTOMS PERSIST, RECOMMEND REPEAT IMAGING EKG Data: . 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 - Patient Problems (1) Fever Code(s): R50.9 - FEVER, UNSPECIFIED SNOMED Code(s): 529128637 Comment: - Up to 103 today, and continues to have intermittent fevers - Elevated CRP and ESR, procalcitonin 0.1 - UA negative, urine culture pending - Blood cultures negative, day 5. Repeat cultures pending - Lyme titer negative - TTE with no significant abnormal findings - Unclear etiology, initially suspected to be secondary to urinary retention, Dif dx includes: septic arthritis, GOUT, psudo gout, RA, medications, Lyme - Ortho consult, pending for possible joint tap - Discussed case with ID (he will see in the AM). Will discontinue ABX until he is seen by ID in the AM (2) Urinary retention Code(s): R33.9 - RETENTION OF URINE, UNSPECIFIED SNOMED Code(s): 196971581 Comment: - Continue urinary catheter (3) BPH (benign prostatic hyperplasia) Code(s): N40.0 - BENIGN PROSTATIC HYPERPLASIA WITHOUT LOWER URINRY TRACT SYMP SNOMED Code(s): 019847852 Comment: - s/p TURP 3 weeks ago, presented with fever and tachycardia, but no leukocytosis - Has been discussed w/ Dr. Mak, no evidence of active infection, ? symptoms secondary to retension vs other cause (see above) - Continue Amezcua (4) Hyponatremia Code(s): E87.1 - HYPO-OSMOLALITY AND HYPONATREMIA SNOMED Code(s): 95188846 Comment: - NA+ stable - Will check serum osm, urine osm and urine NA (5) Rheumatoid arthritis Code(s): M06.9 - RHEUMATOID ARTHRITIS, UNSPECIFIED SNOMED Code(s): 78239470 Comment: - Continue Prednisone at 5mg home dose - Will hold Plaquinel for now (6) DVT prophylaxis Code(s): IUU4305 - SNOMED Code(s): 410078201 Comment: - SQ heparin (7) Full code status Code(s): Z78.9 - OTHER SPECIFIED HEALTH STATUS SNOMED Code(s): 263587672 Status and Disposition: Inpatient for IV antibiotics and further workup of fever. Anticipate discharge once medically stable. So far, no evidence of acute infection, awaiting ID consult.
--- NOTE | 2018-01-11 18:26 | CONSULT ---
Consult Consult: Orthopedic Surgery Consultation Date: 01/11/18 Requesting Service: Medicine Chief Complaint: Bilateral knee pain. History: 82M ER physician, admitted with fevers and UTI. He has remained persistently afebrile despite treatment for the UTI. He reports bilateral knee pain and swelling. The left has been painful and swollen for months. The right has become painful and swollen more recently over the last couple of weeks. Pain is worse with weightbearing and range of motion. No bruising. Review of Systems: Negative for recent visual changes, difficulty swallowing, chest pain, shortness of breath, abdominal pain, hematuria, easy bruising, diffuse weakness or lack of coordination, and diffuse rash. Positive for fever. Positive for UTI. PMH: Hypertension, asthma, rheumatoid arthritis PSH:, cataracts, right knee surgery, bilateral hand surgery Medications:, Tylenol, calcium, ciprofloxacin, Plaquenil, inhaler, Ceftin, prednisone Allergies:, NSAIDs, sulfa, chloroquine, latex, tobramycin eyedrops SH: ER physician, no smoking, no alcohol FH: noncontributory Physical Examination: Constitutional: Temp Pulse Resp BP Pulse Ox 101.6 F 85 22 150/67 98 01/11/18 18:17 01/11/18 15:18 01/11/18 15:18 01/11/18 15:18 01/11/18 15:18 General appearance is healthy and non-septic in no acute distress. Cardiovascular: Pulse examination demonstrates positive pedal pulses with brisk capillary refill. There are varicosities. Abdomen: Soft and nontender Lymphatic: No lymphadenopathy appreciated. Skin: Bilateral upper and lower extremity examination demonstrates no ulcerative lesions. Psychiatric / Neurological: Appropriate affect. Alert and oriented to person, place and time. There is no significant abnormality in coordination appreciated. Normoreflexive deep tendon reflex of the affected extremity. Musculoskeletal: Bilateral upper extremities and contralateral lower extremity show full range of motion with no evidence of instability and no tenderness with palpation and 5 /5 strength. There is no gross deformity. Bilaterally he has small knee effusions. He is able to straight leg raise. The skin is intact. He has diffuse tenderness about the knees, nonfocal. No warmth. No erythema. Range of motion 0110 bilaterally. Flexes and extends ankle and toes without pain. Imaging: X-rays of the left knee were obtained, and independently interpreted and show mild arthritic changes Labs: WBC 6.4 ESR 104 CRP 101 on 01/05/18 Impression and Plan: right greater than left knee pain and swelling. I think this is most likely from underlying arthritis. I think septic arthritis is unlikely. However, given his persistent fevers I did discuss a knee aspiration with him. 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 He expressed his desire to have the right knee aspirated to check for infection. We discussed the risks. I then aspirated the right knee in the fluid was sent to the lab for cell count with differential, crystals, Gram stain, culture. Robby Portillo MD Injection Procedure Note Indication/Preprocedure Diagnosis: right knee pain and effusion Verbal consent for this procedure was obtained and included a discussion of the risks. The possibility of infection was discussed. A timeout was performed. Skin sterilization was performed using an alcohol- based solution. Under aseptic conditions an 18 gauge needle was attached to the syringe. The needle was inserted into the right knee joint. Once the capsule had been entered 25cc of straw colored fluid with some turbidity was aspirated. The needle was withdrawn and the aspiration site was bandaged with a small adhesive strip. The patient tolerated the procedure well. There were no complications. Fluid was sent for cell count with differential, crystals, Gram stain, culture. I attest that I personally performed the procedure. Robby Portillo MD
[2018-01-11] MEDS ORDERED: Furosemide IV* 10 MG/ML 2 ML VIAL (20 MG) IV ONE (21:29)
[2018-01-11] MEDS: Docusate CAP* 100 MG PO SCH (22:02)
[2018-01-12] MEDS: Heparin VIAL(*) 5000 UNITS/ML VIAL (FIVE THOUSAND) SUBCUT SCH ×3 (05:45→22:57)
[2018-01-12] MEDS: Salsalate TAB* 500 MG PO SCH ×4 (05:45→22:57)
[2018-01-12 06:39] LABS: ABS Basophils 0 10^3/ul (0-0.2); ABS Eosinophils 0 10^3/ul (0-0.6); ABS Lymphocytes 1.3 10^3/ul (1.0-4.8); ABS Monocytes 1.5 10^3/ul (0-0.8); ABS Neutrophils 4.6 10^3/ul (1.5-7.7); ABS Nucleated RBC 0 10^3/ul; Eosinophil % 0.3 % (0-6); Hematocrit 29 % (42-52); Hemoglobin 10.2 g/dl (14.0-18.0); Lymphocyte % 17.8 % (25-47); Mean Corpuscular HGB Conc 35 g/dl (31-36); Mean Corpuscular Hemoglobin 27 pg (27-31); Mean Corpuscular Volume 79 fL (80-94); Mean Platelet Volume 6.1 um3 (7.4-10.4); Nucleated Red Blood Cells % 0; Platelet Count 369 10^3/ul (150-450); Red Blood Count 3.71 10^6/ul (4.00-5.40); Red Cell Distribution Width 14 % (10.5-15); White Blood Count 7.6 10^3/ul (3.5-10.8)
[2018-01-12 06:56] LABS: EGFR Non-African American 104.5 (>60)
[2018-01-12] MEDS: predniSONE TAB* 5 MG PO SCH (10:00)
[2018-01-12] MEDS: Nystatin SUSPENSION* 100000 UNITS/ML 5 ML UDC PO SCH ×4 (10:26→21:02)
[2018-01-12] MEDS: Magnesium Oxide TAB* 400 MG PO SCH ×2 (10:26→11:54)
[2018-01-12] MEDS: Fluconazole 100 MG TAB* TAB PO SCH ×2 (10:26→11:57)
[2018-01-12] MEDS: Montelukast Sodium TAB* 10 MG PO SCH ×2 (10:26→11:56)
[2018-01-12] MEDS: Docusate CAP* 100 MG PO SCH ×3 (10:26→21:02)
[2018-01-12] MEDS: Acetaminophen TAB* 325 MG PO PRN ×2 (11:51→21:02)
--- NOTE | 2018-01-12 12:07 | PN ---
Subjective Date of Service: 01/12/18 Interval History: Patient seen and examined at bedside. Denies chest discomfort, shortness of breath, N/V. Pt states that he had an episode of loose BM this AM, he continues to have fevers and chills. He reports an episode of shortness of breath and tachypnea overnight, that he feels improved with IV lasix. He continues to have bilateral knee pain and swelling, he is able to move bilateral knees. He continues to have generalized weakness, but was able to work with PT today. Family History: Unchanged from Admission Social History: Unchanged from Admission Past Medical History: Unchanged from Admission Objective Active Medications: Acetaminophen (Tylenol Tab*) 975 mg PO Q6H PRN Reason: FEVER/PAIN Docusate Sodium (Colace Cap*) 100 mg PO BID [facility] Fluconazole (Diflucan 100 Mg Tab*) 100 mg PO DAILY [facility] Heparin Sodium (Porcine) (Heparin Vial(*)) 5,000 units SUBCUT Q8HR [facility] Levalbuterol HCl (Xopenex Hfa Inhaler*) 1 puff INH DAILY PRN Reason: SHORTNESS OF BREATH Levalbuterol HCl (Xopenex 1.25 Mg/0.5 Ml Neb.Larissa*) 1.25 mg INH Q4H PRN Reason: sob Magnesium Oxide (Magox 400 Tab*) 400 mg PO DAILY [facility] Montelukast Sodium (Singulair Tab*) 10 mg PO QAM [facility] Nystatin (Nystatin Suspension*) 500,000 units PO QID [facility] Stop: 01/13/18 10:44 Prednisone (Deltasone Tab*) 5 mg PO DAILY [facility] Salsalate (Disalcid*) 500 mg PO Q6H [facility] Vital Signs - 8 hr 01/12/18 01/12/18 07:24 08:00 Temperature 98.5 F Pulse Rate 82 Respiratory 20 24 Rate Blood Pressure 152/65 (mmHg) O2 Sat by Pulse 100 100 Oximetry Oxygen Devices in Use Now: None Appearance: NAD, laying in bed Ears/Nose/Mouth/Throat: Mucous Membranes Moist Respiratory: Symmetrical Chest Expansion and Respiratory Effort, Clear to Auscultation - , exp wheeze on left lower lung Cardiovascular: NL Sounds; No Murmurs; No JVD, RRR Abdominal: NL Sounds; No Tenderness; No Distention Skin: - - Bilateral knees with swelling, no erythema or warmth Neurological: Alert and Oriented x 3, NL Muscle Strength and Tone Lines/Tubes/Other Access: Clean, Dry and Intact Peripheral IV - site benign Nutrition: Taking PO's Result Diagrams: 01/12/18 06:17 01/12/18 06:17 Additional Lab and Data: . Diagnostic Imagin01/10/18 0800 KNEE LEFT 1-2 VWS IMPRESSION: 1. MILD OSTEOARTHRITIS. 2. LARGE EFFUSION. 3. PERIPHERAL ARTERIAL DISEASE. 4. NO ACUTE OSSEOUS INJURY. IF SYMPTOMS PERSIST, RECOMMEND REPEAT IMAGING EKG Data: . 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 - Patient Problems (1) Fever Code(s): R50.9 - FEVER, UNSPECIFIED SNOMED Code(s): 594219755 Comment: - Continues to have intermittent fevers - Elevated CRP and ESR, procalcitonin 0.1 - UA negative, urine culture no growth - Blood cultures negative, day 6. Repeat cultures negative, day 1 - Lyme titer negative - Right knee aspiration, culture pending - TTE with no significant abnormal findings - Unclear etiology, initially suspected to be secondary to urinary retention, Dif dx includes: septic arthritis, GOUT, psudo gout, RA, medications, Lyme - Ortho consult, input appreciated - Discussed case with ID (he will see today). Continue to hold ABX until he is seen by ID today (2) Urinary retention Code(s): R33.9 - RETENTION OF URINE, UNSPECIFIED SNOMED Code(s): 776464020 Comment: - Continue urinary catheter - Urology consult, input appreciated (3) Generalized weakness Code(s): R53.1 - WEAKNESS SNOMED Code(s): 74527584 Comment: - Suspect secondary to deconditioning - Continue PT (4) Hyponatremia Code(s): E87.1 - HYPO-OSMOLALITY AND HYPONATREMIA SNOMED Code(s): 35519942 Comment: - Asymptomatic, Pt appears to be euvolemic - NA+ stable - Sodium 128, Serum osm 271, urine osm 355 and urine NA 100 - Will start fluid restriction (5) BPH (benign prostatic hyperplasia) Code(s): N40.0 - BENIGN PROSTATIC HYPERPLASIA WITHOUT LOWER URINRY TRACT SYMP SNOMED Code(s): 612348784 Comment: - s/p TURP 3 weeks ago, presented with fever and tachycardia, but no leukocytosis - Has been discussed w/ Dr. Mak, no evidence of active infection, ? symptoms secondary to retension vs other cause (see above) - Continue Amezcua (6) Rheumatoid arthritis Code(s): M06.9 - RHEUMATOID ARTHRITIS, UNSPECIFIED SNOMED Code(s): 24085031 Comment: - Continue Prednisone at 5mg home dose - Hold Plaquinel for now (7) DVT prophylaxis Code(s): ONN6900 - SNOMED Code(s): 793206080 Comment: - SQ heparin (8) Full code status Code(s): Z78.9 - OTHER SPECIFIED HEALTH STATUS SNOMED Code(s): 097951220 Status and Disposition: Inpatient for IV antibiotics and further workup of fever. Anticipate discharge once medically stable. So far, no evidence of acute infection, awaiting ID consult.
--- NOTE | 2018-01-12 14:29 | PN ---
Progress Note - Progress Note Date of Service: 01/12/18 SOAP: Subjective: [] Patient seen and examined at bedside. He has had no change in knee pain overnight. Denies any new or worsening joint pain. Objective: [] General: Well appearing, NAD MSK: Intact skin without warmth or erythema about the knees. Bilateral mild knee effusions. He has no focal tenderness to palpation of his knees and he is no longer globally tender to palpation. PROM right 0-90 degrees endpoint limited by pain. PROM left 0-110 endpoint limited by pain. Assessment: [] Bilateral knee pain, mild effusions. Likely an arthritic rather than infectious process. Plan: []WBAT Cell counts are not suspicious for a septic joint. Will monitor culture results , no growth to date Please contact orthopedics with any further concerns
--- NOTE | 2018-01-12 15:12 | CONS ---
CONSULTATION REPORT: DATE OF CONSULT: 01/12/18 REQUESTING PROVIDER: Fauzia Mckinley NP CONSULTING SERVICE: Infectious Disease. REASON FOR CONSULT: Fever. IMPRESSION: 1. Ten days of fever and rigors, preceded by a transurethral resection of the prostate. When he developed those symptoms, an outpatient urine culture was obtained that grew greater than 100,000 colonies of Pseudomonas aeruginosa and Enterococcus faecalis; Pseudomonas resistant to Cipro, sensitive to cefepime and Zosyn. He has been on Zosyn and gentamicin here. Blood cultures here on and are negative. Urine cultures taken on are negative. His urinalysis on was unremarkable. His other focal symptoms include right knee decreased range of motion and effusion in the setting of chronic right knee pain and effusion in the setting of rheumatoid arthritis. He had that joint aspirated that showed 100 white cells, 80% neutrophils. There were no crystals detected. I think pseudogout is still a slight consideration, though the white cell count is also reassuring. Given recent prostate surgery and what seems to be eradication of the urine pathogen at least in the urine, could there be a deeper collection in the pelvis that would not be easily penetrated by antibiotics. 2. Rheumatoid arthritis, on Plaquenil. RECOMMENDATIONS: We will continue to hold his antibiotics in the event that he is experiencing drug fever. Should he spike again, we will plan to start cefepime 1 g twice a day. We will obtain a CT of the abdomen and pelvis without contrast to evaluate for fluid collection anywhere in the abdomen or pelvis. HISTORY OF PRESENT ILLNESS: An 82-year-old man who had a transurethral resection of the prostate end of November and then on 12/31/17 developed fever and rigors. He contacted Dr. Cabezas, who obtained a urine culture with results as above, started him on Cipro and oral cephalosporin, which he started, but because of persistence of symptoms, he came to the hospital on . The Pseudomonas being resistant to Cipro. Here, he had a chest x-ray that showed interstitial edema. He had a transthoracic echocardiogram, ejection fraction 65 % to 70%. A renal ultrasound showed mid pole left renal cyst. He has had a couple of weeks of worsening right knee pain in the setting of chronic right knee pain with more recent in decrease in range of motion. Dr. Portillo saw him yesterday and aspirated the knee joints with fluid findings as above. His fever scenario here has been initial temperature 38.3 on the night of admission, which has been recurrent each afternoon; couple of fevers in the morning, more prominently afternoon and evening; last night, his most recent fever was 39.3. He has shaking chills when it happens. He has been eating okay. Energy is alright. He has no back pain, no prosthetic material present. No recent travel or trips out of the country. PAST MEDICAL HISTORY: 1. Benign prostatic hypertrophy, status post transurethral resection of the prostate. This was I think his third such procedure. 2. Hypertension. 3. Asthma. 4. Rheumatoid arthritis. ALLERGIES: NSAIDS, NEOMYCIN, SULFA. MEDICATIONS: 1. Tylenol. 2. Docusate. 3. Albuterol. 4. Heparin subcutaneous injection. 5. Singulair. 6. Prednisone 5 mg a day. 7. Salsalate. SOCIAL HISTORY: He is an emergency room physician, currently working in nursing homes. No out of country travel in the last few months. No travel out of the area in the last few weeks. Lives in [place] with his . They have a pet dog. No sick contacts. No injection drugs. FAMILY HISTORY: No recurrent infections. No tuberculosis. REVIEW OF SYSTEMS: All negative except as noted above in the history of present illness. PHYSICAL EXAM: Vital Signs: Temperature of 37, heart rate 80, respiratory rate 20, blood pressure 150/60, oxygen saturation 100% on room air. In general , he is awake, not in distress. Neurologic: He is oriented x3. Follows all commands. HEENT: There is no conjunctival hemorrhage. Oropharynx without thrush. Neck is supple without mass. Heart is regular rate and rhythm without a 2/6 systolic murmur. Lungs are clear to auscultation bilaterally. Abdomen: Soft, nontender, nondistended. There are bowel sounds present. There is no flank tenderness or suprapubic tenderness to palpation. Lymph Nodes: There is no cervical, supraclavicular, inguinal, axillary, or epitrochlear lymphadenopathy. Musculoskeletal: There is no spine tenderness to palpation. There is right knee effusion with decreased flexion. There is no other active joint synovitis. There are ulnar deformities of the fingers on both hands as well as subcutaneous nodules on both hands. LABORATORY DATA: White blood cell count 7, hemoglobin 10, platelets 369. Creatinine is 0.7. C-reactive protein was 100 on admission. Lyme serology was negative. Please see impressions and recommendations as outlined above. Thanks for asking me to see Jesus Wilmer in consultation. [id number]/[facility] #: [id number] AMANDA
--- NOTE | 2018-01-12 15:21 | RAD ---
INDICATION: Fever, recent TURP. COMPARISON: Comparison is made with a prior CT of the abdomen and pelvis from October 06, 2016. TECHNIQUE: A CT scan of the abdomen and pelvis was performed without intravenous and without oral contrast. Contiguous axial sections were obtained from the lung bases through the symphysis pubis. Images were reconstructed in the coronal and sagittal planes. FINDINGS: LUNGS: There is mild dependent bilateral lower lobe subsegmental atelectasis. There are small bilateral pleural effusions. LIVER: The liver is normal in size. No focal abnormality is seen on this noncontrast study. GALLBLADDER: The gallbladder is contracted. No calcified gallstones are seen. BILE DUCTS: No intra or extrahepatic ductal distention is seen. PANCREAS: The pancreas is normal in size. No ductal distention or calcifications are seen. ADRENAL GLANDS: The adrenal glands are normal in size. KIDNEYS: The kidneys are normal in size. No renal calculi or hydronephrosis is seen. There appear to be small bilateral renal cysts present. AORTA: The aorta is normal in caliber with moderate calcific plaque present. LYMPH NODES: No significantly enlarged lymph nodes are seen. BOWEL: There is limited evaluation of the bowel on this noncontrast study. The stomach, small and large bowel appear nondistended. There is a large duodenal diverticulum located posterior to the head and uncinate process of the pancreas which appears unchanged. The appendix is not well visualized. There is no evidence for inflammatory change in the right lower quadrant. There is mild descending and sigmoid diverticulosis without evidence for diverticulitis. PELVIC ORGANS: There is a Amezcua catheter within the urinary bladder. The urinary bladder wall is thickened likely due to incomplete distention. The prostate gland is enlarged. There is increased density extending off the superior portion of the gland on the left side possibly representing postsurgical change less likely a hematoma or mass. PERITONEUM: No free intraperitoneal air or fluid is seen. BONES: No significant focal osseous abnormality is seen. IMPRESSION: 1. SMALL BILATERAL PLEURAL EFFUSIONS. 2. THE PATIENT IS STATUS POST TURP. THE PROSTATE GLAND IS ENLARGED. THERE IS INCREASED DENSITY EXTENDING OFF THE SUPERIOR PORTION OF THE PROSTATE GLAND ON THE LEFT SIDE LIKELY REPRESENTING POSTSURGICAL CHANGE LESS LIKELY A HEMATOMA OR MASS.
--- NOTE | 2018-01-12 15:57 | RAD ---
HISTORY: sob COMPARISONS: January 07, 2018 VIEWS: 1: frontal portable view of the chest at 9:42 PM. Images are submitted for review on January 12, 2018. FINDINGS: LINES AND TUBES: None. CARDIOMEDIASTINAL SILHOUETTE: The cardiomediastinal silhouette is normal for portable technique. PLEURA: The costophrenic angles are sharp. No pleural abnormalities are noted. LUNG PARENCHYMA: There is prominence of the central pulmonary vasculature. ABDOMEN: The upper abdomen is clear. There is no subphrenic gas. BONES AND SOFT TISSUES: No bone or soft tissue abnormalities are noted. IMPRESSION: PULMONARY VASCULAR CONGESTION.
[2018-01-12] MEDS ORDERED: Furosemide IV* 10 MG/ML 2 ML VIAL (20 MG) IV ONE (23:14)
[2018-01-13] MEDS: Salsalate TAB* 500 MG PO SCH ×4 (05:25→23:00)
[2018-01-13] MEDS: Heparin VIAL(*) 5000 UNITS/ML VIAL (FIVE THOUSAND) SUBCUT SCH ×3 (05:26→23:00)
[2018-01-13] MEDS: Acetaminophen TAB* 325 MG PO PRN ×3 (05:29→19:54)
[2018-01-13 06:57] LABS: EGFR Non-African American 93.9 (>60)
[2018-01-13] MEDS: Magnesium Oxide TAB* 400 MG PO SCH (10:02)
[2018-01-13] MEDS: Docusate CAP* 100 MG PO SCH ×2 (10:05→19:55)
[2018-01-13] MEDS: Nystatin SUSPENSION* 100000 UNITS/ML 5 ML UDC PO SCH (10:05)
[2018-01-13] MEDS: Montelukast Sodium TAB* 10 MG PO SCH (10:05)
[2018-01-13] MEDS: predniSONE TAB* 5 MG PO SCH (10:05)
--- NOTE | 2018-01-13 10:58 | PN ---
Subjective Date of Service: 01/13/18 Interval History: Pt c/o SOB every night x 3 nighs. feels very weak. PT evaluated pt today and pt is to walk with assist walker and gait belt R knee tapped by ortho yesterday Family History: Unchanged from Admission Social History: Unchanged from Admission Past Medical History: Unchanged from Admission Objective Active Medications: Acetaminophen (Tylenol Tab*) 975 mg PO Q6H PRN PRN Reason: FEVER/PAIN Last Admin: 01/13/18 10:23 Dose: 975 mg Docusate Sodium (Colace Cap*) 100 mg PO BID [facility] Last Admin: 01/13/18 10:05 Dose: 100 mg Heparin Sodium (Porcine) (Heparin Vial(*)) 5,000 units SUBCUT Q8HR [facility] Last Admin: 01/13/18 05:26 Dose: 5,000 units Levalbuterol HCl (Xopenex Hfa Inhaler*) 1 puff INH DAILY PRN PRN Reason: SHORTNESS OF BREATH Last Admin: 01/07/18 01:34 Dose: 1 puff Levalbuterol HCl (Xopenex 1.25 Mg/0.5 Ml Neb.Larissa*) 1.25 mg INH Q4H PRN PRN Reason: sob Last Admin: 01/07/18 09:03 Dose: 1.25 mg Magnesium Oxide (Magox 400 Tab*) 400 mg PO DAILY [facility] Last Admin: 01/13/18 10:02 Dose: 400 mg Montelukast Sodium (Singulair Tab*) 10 mg PO QAM [facility] Last Admin: 01/13/18 10:05 Dose: 10 mg Prednisone (Deltasone Tab*) 5 mg PO DAILY [facility] Last Admin: 01/13/18 10:05 Dose: 5 mg Salsalate (Disalcid*) 500 mg PO Q6H [facility] Last Admin: 01/13/18 05:25 Dose: 500 mg Vital Signs - 8 hr 01/13/18 01/13/18 01/13/18 03:21 03:22 07:29 Temperature 97.6 F 98.0 F Pulse Rate 81 77 Respiratory 30 20 18 Rate Blood Pressure 147/58 135/54 (mmHg) O2 Sat by Pulse 98 98 Oximetry 01/13/18 10:38 Temperature Pulse Rate Respiratory 22 Rate Blood Pressure (mmHg) O2 Sat by Pulse 98 Oximetry Oxygen Devices in Use Now: None Appearance: 82 yo M in nAD, aAOx3 Eyes: No Scleral Icterus, PERRLA Ears/Nose/Mouth/Throat: NL Teeth, Lips, Gums, Mucous Membranes Moist Neck: NL Appearance and Movements; NL JVP, Trachea Midline Respiratory: Symmetrical Chest Expansion and Respiratory Effort, - - decreased breath sound at bases with scant bibasiliar crackles Cardiovascular: NL Sounds; No Murmurs; No JVD, RRR Abdominal: NL Sounds; No Tenderness; No Distention Lymphatic: No Cervical Adenopathy Extremities: No Clubbing, Cyanosis, - - R knee edema and mild increased warmth, no erythema Skin: No Rash or Ulcers, No Nodules or Sclerosis Neurological: Alert and Oriented x 3, NL Muscle Strength and Tone Result Diagrams: 01/12/18 06:17 01/13/18 06:17 Additional Lab and Data: . Microbiology and Other Data: Diagnostic Imagin01/10/18 0800 KNEE LEFT 1-2 VWS IMPRESSION: 1. MILD OSTEOARTHRITIS. 2. LARGE EFFUSION. 3. PERIPHERAL ARTERIAL DISEASE. 4. NO ACUTE OSSEOUS INJURY. IF SYMPTOMS PERSIST, RECOMMEND REPEAT IMAGING EKG Data: . 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 - Patient Problems (1) Fever Comment: - Continues to have intermittent fevers-last nigth at >101, antibiotics stopped. cont to monitor off antibiotics - Elevated CRP and ESR, procalcitonin 0.1 - pelvis CT shows density adjacent to prostate-likely post op change - UA negative, urine culture no growth - Blood cultures negative, day 6. Repeat cultures negative - Lyme titer negative - Right knee aspiration on 01/12/18, culture pending, WBC-100-?pseudogout - TTE with no significant abnormal findings - Ortho consult, input appreciated - Discussed case with ID (2) BPH (benign prostatic hyperplasia) Comment: - s/p TURP 3 weeks ago, presented with fever and tachycardia, but no leukocytosis - Has been discussed w/ Dr. Mak, no evidence of active infection - Continue Amezcua (3) Generalized weakness Comment: - Suspect secondary to deconditioning - Continue PT, will ask PMRU for consult (4) Hyponatremia Comment: - Asymptomatic, Pt appears to be hypervolemic - improving, will tx with another does of Lasix tonight, since pt had been c/o SOB last night (5) Rheumatoid arthritis Comment: - Continue Prednisone at 5mg home dose ans Salsalate LUCI - Hold Plaquenil for now-d/w pt , due to possibility to cause immunosupression ( pt had been on it approx 6 months) (6) Urinary retention Comment: - Continue urinary catheter - Urology consult, input appreciated (7) DVT prophylaxis Comment: - SQ heparin Status and Disposition: Inpatient .
[2018-01-13] MEDS ORDERED: Furosemide IV* 10 MG/ML 2 ML VIAL (20 MG) IV ONE (17:00)
[2018-01-14] MEDS: Salsalate TAB* 500 MG PO SCH ×4 (05:00→18:07)
[2018-01-14] MEDS: Heparin VIAL(*) 5000 UNITS/ML VIAL (FIVE THOUSAND) SUBCUT SCH ×3 (06:55→21:26)
[2018-01-14 07:15] LABS: EGFR Non-African American 117.6 (>60)
[2018-01-14] MEDS: Docusate CAP* 100 MG PO SCH ×2 (09:39→21:16)
[2018-01-14] MEDS: Montelukast Sodium TAB* 10 MG PO SCH (09:39)
[2018-01-14] MEDS: Magnesium Oxide TAB* 400 MG PO SCH (09:39)
[2018-01-14] MEDS: predniSONE TAB* 5 MG PO SCH (09:39)
--- NOTE | 2018-01-14 09:42 | PN ---
Progress Note - Progress Note Date of Service: 01/14/18 SOAP: Subjective: CC: fever HPI: 82 yo man with fever and UTI after TURP; fevers continue, he had rigors yesterday AM. His appetite is good energy fair, no pelvic pain. No rash or diarrhea. Objective: Vital Signs Temp 37.0 C 01/14/18 08:00 Pulse 85 01/14/18 08:00 Resp 23 01/14/18 08:00 BP 155/64 01/14/18 08:00 Pulse Ox 97 01/14/18 08:00 Intake & Output 01/13/18 01/14/18 01/14/18 18:59 06:59 18:59 Intake Total 540 0 Output Total 400 1450 Balance 140 -1450 Intake: Oral 540 0 Output: Urine 0 Myers 400 1450 Other: # Bowel Movements 0 Gen:awake, no distress HEENT: no thrush Heart:RRR no murmur Lungs:CTA BL Abd:+BS NTND soft Skin: no rash MSK: no spine tenderness : myers catheter Laboratory Results - last 24 hr 01/11/18 01/14/18 17:00 06:25 Sodium 135 Potassium 4.1 Chloride 104 Carbon Dioxide 24 Anion Gap 7 BUN 26 H Creatinine 0.65 L Est GFR ( Amer) 142.3 Est GFR (Non-Af Amer) 117.6 BUN/Creatinine Ratio 40.0 H Glucose 126 H Calcium 8.5 L C-Reactive Protein 123.35 H Fluid Cell Count Rvw By Assessment: 1. Fever with rigors, drug fever less likely; periprostatic abnormality on CT could be small abscess which would cause fever despite a week of iv aappropriate abx 2. Pseudomonas cystitis/prostatitis 3. BPH s/p TURP Plan: 1. cefepime 1 gm IV Q12hrs, will plan on 4 week course and monitor his CRP and fever curve. He wonders about MRI to further define the imaging findings, I defer to Dr Aubree alan that would be helpful Discussed with Dr Garibay
[2018-01-14] MEDS: Cefepime 1 GM in Dextrose(*) 1 GM/50 ML BAG IV SCH ×2 (09:43→21:17)
[2018-01-14] MEDS ORDERED: Furosemide IV* 10 MG/ML 2 ML VIAL (20 MG) IV ONE (11:45)
--- NOTE | 2018-01-14 13:19 | PN ---
Subjective Date of Service: 01/14/18 Interval History: Pt had rigors last night and temp >101 again. Got a dose of Lasix 10 mg IV yesterday afternoon , today appears to be with mild tachypnea, but feels "fine" . concerned about being discharged home when he is too weak c/o b/l knee edema and b/l hip pain Family History: Unchanged from Admission Social History: Unchanged from Admission Past Medical History: Unchanged from Admission Objective Active Medications: Acetaminophen (Tylenol Tab*) 975 mg PO Q6H PRN PRN Reason: FEVER/PAIN Last Admin: 01/13/18 19:54 Dose: 975 mg Docusate Sodium (Colace Cap*) 100 mg PO BID [facility] Last Admin: 01/14/18 09:39 Dose: 100 mg Heparin Sodium (Porcine) (Heparin Vial(*)) 5,000 units SUBCUT Q8HR [facility] Last Admin: 01/14/18 06:55 Dose: 5,000 units Cefepime HCl (Maxipime 1 Gm In Dextrose Duplex (*)) 1 gm in 50 mls @ 100 mls/ hr IV Q12H [facility] Last Admin: 01/14/18 09:43 Dose: 100 mls/hr Levalbuterol HCl (Xopenex Hfa Inhaler*) 1 puff INH DAILY PRN PRN Reason: SHORTNESS OF BREATH Last Admin: 01/07/18 01:34 Dose: 1 puff Levalbuterol HCl (Xopenex 1.25 Mg/0.5 Ml Neb.Larissa*) 1.25 mg INH Q4H PRN PRN Reason: sob Last Admin: 01/07/18 09:03 Dose: 1.25 mg Magnesium Oxide (Magox 400 Tab*) 400 mg PO DAILY [facility] Last Admin: 01/14/18 09:39 Dose: 400 mg Montelukast Sodium (Singulair Tab*) 10 mg PO QAM [facility] Last Admin: 01/14/18 09:39 Dose: 10 mg Prednisone (Deltasone Tab*) 5 mg PO DAILY [facility] Last Admin: 01/14/18 09:39 Dose: 5 mg Salsalate (Disalcid*) 500 mg PO Q6H [facility] Last Admin: 01/14/18 05:00 Dose: 500 mg Vital Signs - 8 hr 01/14/18 08:00 Temperature 98.6 F Pulse Rate 85 Respiratory 23 Rate Blood Pressure 155/64 (mmHg) O2 Sat by Pulse 97 Oximetry Oxygen Devices in Use Now: None Appearance: 82 yo M in NAd, aAOx3 Eyes: No Scleral Icterus, PERRLA Ears/Nose/Mouth/Throat: NL Teeth, Lips, Gums, Mucous Membranes Moist Neck: NL Appearance and Movements; NL JVP, Trachea Midline Respiratory: Symmetrical Chest Expansion and Respiratory Effort, - - faint bibasiliar crackles Cardiovascular: NL Sounds; No Murmurs; No JVD, RRR Abdominal: NL Sounds; No Tenderness; No Distention, No Hepatosplenomegaly Lymphatic: No Cervical Adenopathy Extremities: No Clubbing, Cyanosis, - - b/l knee edema R>L. R knee increased warmth. Severe RA changes in fingers b/l Skin: No Rash or Ulcers Neurological: Alert and Oriented x 3, NL Muscle Strength and Tone Result Diagrams: 01/12/18 06:17 01/14/18 06:25 Additional Lab and Data: . Microbiology and Other Data: EKG Data: . 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 - Patient Problems (1) Fever Comment: - Continues to have intermittent fevers when antibiotics stopped for 2 days. Will start Cefepime as per ID recommendation. - Elevated CRP and ESR, procalcitonin 0.1 - pelvis CT shows density adjacent to prostate-likely post op change as d/w Dr. Mak, but per conversation between radiologist and ID it could be early organizing abscess. also asked Dr. Del Castillo to evaluate pt due to b/l knee edema and fever to r/o rhematologic etiology - UA negative, urine culture no growth - Blood cultures negative, day 6. Repeat cultures negative - Lyme titer negative - Right knee aspiration on 01/12/18, culture pending, WBC-100-?pseudogout - TTE with no significant abnormal findings - Ortho consult, input appreciated - Discussed case with ID (2) BPH (benign prostatic hyperplasia) Comment: - s/p TURP 12/14/17, presented with fever and tachycardia, but no leukocytosis - Continue Amezcua for U. retention after TURP (3) Generalized weakness Comment: - Suspect secondary to deconditioning - Continue PT, will ask PMRU for consult (4) Hyponatremia Comment: - resolved - Pt appears to be hypervolemic - improving, will tx with another dose of Lasix today (5) Rheumatoid arthritis Comment: - Continue Prednisone at 5mg home dose and Salsalate LUCI - Hold Plaquenil for now-d/w pt , due to possibility to cause immunosupression ( pt had been on it approx 6 months) -Asked Dr. Del Castillo to see pt in consult (6) Urinary retention Comment: - Continue urinary catheter - Urology consult, input appreciated (7) DVT prophylaxis Comment: - SQ heparin Status and Disposition: Inpatient .
[2018-01-14] MEDS: Acetaminophen TAB* 325 MG PO PRN ×2 (13:34→21:17)
--- NOTE | 2018-01-14 19:09 | CONSULT ---
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 I suspect that he is having an RA flare. Would increase Prednisone to 20mg daily. Will follow
[2018-01-14] MEDS ORDERED: predniSONE TAB* 20 MG PO ONE (19:13)
--- NOTE | 2018-01-15 01:10 | CONS ---
CONSULTATION REPORT: DATE OF CONSULT: 01/14/18 CONSULTING PHYSICIAN: Dr. Melani Garibay. REASON FOR CONSULT: Rheumatoid arthritis flare. CHIEF COMPLAINT: Fever, weakness, and malaise. 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 He has been treated now with immunosuppressive therapy, except for low-dose prednisone. He has also been on hydroxychloroquine. He has been treated for many years by Rheumatology and initially in [place], he was treated with doses of chloroquine as well as salmon oil. More recently, he has been on intermittent doses of hydroxychloroquine. He also has a long-standing history of benign prostatic hypertrophy with a very enlarged prostate and has been followed by Urology. He had been recovering from recent surgery, but then developed fevers about 48 hours prior to admission. Of note, he also has been on Plaquenil. It is questionable whether he may have had some side effects from Plaquenil as he also experienced an episode of vertigo several weeks ago and also had a fall and had a fracture in the upper extremity. There has also been some question of myopathy related to Plaquenil, which has been on hold. He has more recently had the fevers as noted above and he was placed on Ceftin and Cipro by Dr. Cabezas, however continued to feel worse. He continued to have a fever up to 101.7. He also began to feel more weak and began to have malaise. He called Urology who advised him to go to the emergency room. He was also taking cefdinir and as noted above, he also has extensive environmental allergies and was advised at one point to consider therapy to boost his neutrophil count. He has not been on Xolair, however. In any case, he did go to the emergency room and he was found to have acute urinary retention in the ER. He had greater than 500 cc in his bladder and a Amezcua catheter was placed and he was admitted to rule out sepsis. He also has an elevated lactic acid and mild tachycardia, but no other septic signs, no hypertension. Since he has been in the hospital, he has continued to have fevers and he was also found on imaging studies to have pleural effusions as well as markedly elevated inflammatory markers with a very high CRP. So far despite extensive antibiotic therapy, he has not had a significant improvement in terms of his fevers, which have persisted. He denies any rash or any quotidian nature of his fevers, but he does have further joint pain, malaise, and difficulty with mobilization. Of note, he does have, however, chronic thumb restriction and deformities from his underlying rheumatoid arthritis and he has significant eversion, deformities of his plantar region of his right foot, although he has been also able to walk without assistance. Right now, he is currently very weak, however. He has been treated with IV antibiotics and being followed by Infectious Disease as well too. He has continued gentamicin as well as normal saline for fluid resuscitation and diuretics as needed. In terms of his rheumatoid arthritis history, he most recently was seen by our nurse practitioner, Peewee Marie, on 12/10/17. In terms of his rheumatoid history, he had rheumatoid arthritis beginning around 1969, which presented with pain in his knees and elbows. By 1977, his symptoms were more persistent and he was diagnosed by Dr. Amaya in [place], treated with prednisone and then chloroquine. He did develop dyspnea on exertion with chloroquine, so I discontinued it and he started taking salmon oil as noted above. During later years, he also tried doxycycline, which was ineffective and hydroxychloroquine, which may have caused tinnitus and was rechallenged, but may have caused vertigo and myopathy. He did try leflunomide long time ago and had abnormal liver function test, which normalized off the medication. Given his remote history of asthma with lung disease, he has declined methotrexate. He has a history of chronic neutropenia and his bone marrow and cytometry had been negative. He has been seeing Dr. Sutherland from Hematology. He has never been treated with biologics. Of note, however, his has a rheumatoid arthritis like condition and was treated with Enbrel and she herself has had several infections. He has also had rheumatoid nodules removed. In terms of his bone health, he has had a DEXA in June 2016 with a score of -2.3 and -2.6 at the hips and possibly secondary to his rheumatoid arthritis and prednisone. He has been on vitamin D3. He has also been on multivitamin and going to have a bisphosphonate therapy per notes. In terms of his BPH, he has had urinary retention issues secondary to a catheter outflow obstruction. He has had a cystoscopy with fragmentation and removal of stones. He has had emergency admission on 12/09/[address] in a Amezcua and also a cardiology workup with Dr. Villafuerte with no acute problems, but he does have stated hypertension and hyperlipidemia, which has been well controlled. He also has had a TURP and removal of reoccupying bladder stones and consideration for further surgery. However, he has had a normal PSA. He has had recurrent urinary tract infections. He had seen urologist; recommended repeat fragmentation and removal of stones. PAST MEDICAL HISTORY: Also notable for hypertension, diet-controlled and lifestyle controlled; intermittent asthma; and rheumatoid arthritis. PAST SURGICAL HISTORY: Includes cataract removal in 2015, right knee arthroscopy, and bilateral hand surgeries. He has a history of chronic dermatitis with some occasional pruritic outbreaks in his legs, diagnosed with hypersensitivity reaction of cat dandruff and treated with prednisone. He has had a good effect on joint symptoms and he has been stable doses, but no cellulitis. He has been on chronic prednisone 10 mg daily. He has seen Allergy, Dr. Middleton, who recommended a workup to identify the cause of his lower extremity swelling and more recently, he had been on prednisone doses between 5 and 10 mg daily. He has also been on Plaquenil and the dose had been increased to 300 mg daily, but he noticed that this has been on hold recently. In terms of his orthopedic history, he has a history of a distal left humerus fracture after a fall on 10/20/17. He also developed vertigo at that time and losing balance and attributed to side effects of hydroxychloroquine. He had cut back to 200 mg at that time and had no recurrence. He has been doing PT to regain shoulder mobility with no pain at the left shoulder. He has had a disappearance of rheumatoid nodules after just starting on hydroxychloroquine and he has been on Tylenol 1000 mg daily and salsalate. He had adverse reactions to multiple other NSAIDs. He has considered PT to increase the range of motion of his fingers and wrists where he has had extensive deformities. He has also been treated with Xeljanz temporarily in the past, but he had multiple infections. MEDICATIONS: Include: 1. Tylenol 1000 mg daily as an outpatient. 2. Calcium 1000 mg daily, which has been on hold. 3. He has also been on prednisone 5 mg daily. 4. Salsalate. 5. Singulair 10 mg daily. 6. Mag oxide. His other medications have included: 1. Levalbuterol. 2. Vitamin B12. 3. Prednisone. 4. Avodart. ALLERGIES: Otherwise, he has had allergies to NSAIDS, NEOMYCIN, GENTAMICIN, TOBRAMYCIN, SULFA, and LEFLUNOMIDE. FAMILY HISTORY: Negative for acute rheumatic conditions, but his has rheumatoid arthritis, otherwise noncontributory. SOCIAL HISTORY: He does not smoke. He does not drink alcohol. He denies any other drug use. 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 REVIEW OF SYSTEMS: Constitutional: He has had fevers and no significant weight loss, but he has had some sweating as well. Eyes: Denies any acute change in his vision. ENT: Denies ulcerations in the mouth. Cardiovascular: Denies chest wall pain, pressure, or chest tightness or palpitations. Respiratory: Denies any difficulty breathing and shortness of breath, except that he does have chronic dyspnea. GI: Denies any heartburn, cramping, diarrhea, or tarry stool. Musculoskeletal: As noted above. Skin: He has had chronic dermatitis, but no ulcerations. Psychiatric: No recent depression. Other 14-point review of systems were reviewed and were otherwise negative. PHYSICAL EXAM: Vital Signs: He had a T-max of 101 last night, currently on exam he is afebrile; pulse rate of 85; respiratory rate of 23; blood pressure 155/64. He is a pleasant 82-year-old male, in no acute distress, appears chronically ill with subluxation of his left shoulder from a chronic injury as well as chronic RA deformities of his right foot and ankle as well as mild effusion of the right knee. Otherwise, no acute distress. Eyes: No scleral icterus. Pupils equal, round, and reactive to light and accommodate. Mild arcus senilis. He has normal teeth, lips, gums, mucous membranes. Neck: Normal appearance and movements. No JVP elevation. Trachea midline. Lymph: No lymphadenopathy. Respiratory revealed symmetric chest expansion and respiratory effort with faint bibasilar crackles at the bases. Cardiovascular exam revealed a normal rate and rhythm. No murmurs, rubs, or gallops. No JVP elevation. Abdomen: Normoactive bowel sounds. No tenderness. No distention. No hepatosplenomegaly. Extremities: No cyanosis or clubbing. On musculoskeletal exam, he had mild edema around both legs and mild osteoarthritis deformities of the knees with varus deformities and mild warmth of the right knee. He has chronic ulnar deviation of his MCP and PIP joints as well as subluxation of the left shoulder related to a prior fracture. Otherwise , on skin exam, he has mild dermatitis and mild venous stasis changes in the lower extremities. Neurological: Alert and oriented x3. Muscle strength and tone was intact and normal. DIAGNOSTIC STUDIES/LAB DATA: He had a white count of 7.6, hemoglobin of 10.2, hematocrit 29. BUN 26, creatinine 0.65. He did have a markedly elevated C- reactive protein of greater than 100 and a markedly elevated sedimentation rate. He had an imaging studies revealing pleural effusions in his lungs and he has had a joint aspiration revealing some blood and white cells, but culture was negative for infection. ASSESSMENT: 1. Jesus Luciolisa is an 82-year-old male with past medical history of prostatic hypertrophy as well as long-standing rheumatoid arthritis who was admitted with fever as well as malaise and weakness and was found to have markedly elevated inflammatory markers and a persistent fever. At this time, I do think that in part he may have a reactive process secondary to his infection, which may have caused him to have rheumatoid arthritis flare. This possibly has some manifestation of an adrenal insufficiency given that his body is under stress from the recent infection or reaction to one. In any case, he seems to primarily have a flare of his rheumatoid arthritis. I did suggest that we increase the prednisone, ideally I would consider going to 20 mg twice daily. He would prefer not to go that high, but would agree to 20 mg daily to see if this will help to reduce the inflammation. His pelvis CT shows density adjacent to the prostate, likely postoperative changes and has been followed by Urology as well. We would also check a cortisol level and ANCA as well as screen for vasculitis, but his urinalysis was negative and cultures showed no growth. Blood cultures have also been negative and he is being followed by our infectious Disease. His Lyme titer was negative and his aspiration of the knee revealed no infection and a TTE showed no significant abnormal findings. We will therefore continue to follow and increase the prednisone to 20 mg daily. Continue vitamin D as well as proton pump inhibitor for GI protection. 2. Generalized weakness, maybe secondary to deconditioning. We would hold Plaquenil. 3. Hyponatremia. It seems to be resolved. 4. Chronic anemia, may be secondary to rheumatoid arthritis and his inflammation as well as acute inflammatory process that is going on. Consider checking B12 as well as iron studies. 5. Urinary retention. Continue the urinary catheter and Urology consultation. [id number]/[facility] #: [id number] AMANDA
[2018-01-15] MEDS: Heparin VIAL(*) 5000 UNITS/ML VIAL (FIVE THOUSAND) SUBCUT SCH ×3 (05:34→23:26)
[2018-01-15] MEDS: Salsalate TAB* 500 MG PO SCH ×4 (05:34→22:00)
[2018-01-15] MEDS: predniSONE TAB* 20 MG PO SCH (08:04)
[2018-01-15] MEDS: Magnesium Oxide TAB* 400 MG PO SCH (08:04)
[2018-01-15] MEDS: Docusate CAP* 100 MG PO SCH ×2 (08:04→22:00)
[2018-01-15] MEDS: Montelukast Sodium TAB* 10 MG PO SCH (08:04)
[2018-01-15] MEDS: Cefepime 1 GM in Dextrose(*) 1 GM/50 ML BAG IV SCH ×2 (09:26→22:00)
--- NOTE | 2018-01-15 11:19 | PN ---
Subjective Date of Service: 01/15/18 Interval History: Pt feels a little better. D/w pt HTN and his SBP's ranging from 150's to 180's. Pt is not interested in tx of his HTN Family History: Unchanged from Admission Social History: Unchanged from Admission Past Medical History: Unchanged from Admission Objective Active Medications: Acetaminophen (Tylenol Tab*) 975 mg PO Q6H PRN PRN Reason: FEVER/PAIN Last Admin: 01/14/18 21:17 Dose: 975 mg Docusate Sodium (Colace Cap*) 100 mg PO BID [facility] Last Admin: 01/15/18 08:04 Dose: 100 mg Heparin Sodium (Porcine) (Heparin Vial(*)) 5,000 units SUBCUT Q8HR [facility] Last Admin: 01/15/18 05:34 Dose: 5,000 units Cefepime HCl (Maxipime 1 Gm In Dextrose Duplex (*)) 1 gm in 50 mls @ 100 mls/ hr IV Q12H [facility] Last Admin: 01/15/18 09:26 Dose: 100 mls/hr Levalbuterol HCl (Xopenex Hfa Inhaler*) 1 puff INH DAILY PRN PRN Reason: SHORTNESS OF BREATH Last Admin: 01/07/18 01:34 Dose: 1 puff Levalbuterol HCl (Xopenex 1.25 Mg/0.5 Ml Neb.Larissa*) 1.25 mg INH Q4H PRN PRN Reason: sob Last Admin: 01/07/18 09:03 Dose: 1.25 mg Magnesium Oxide (Magox 400 Tab*) 400 mg PO DAILY [facility] Last Admin: 01/15/18 08:04 Dose: 400 mg Montelukast Sodium (Singulair Tab*) 10 mg PO QAM [facility] Last Admin: 01/15/18 08:04 Dose: 10 mg Prednisone (Deltasone Tab*) 20 mg PO DAILY [facility] Last Admin: 01/15/18 08:04 Dose: 20 mg Salsalate (Disalcid*) 500 mg PO Q6H [facility] Last Admin: 01/15/18 10:57 Dose: 500 mg Vital Signs - 8 hr 01/15/18 01/15/18 03:55 07:54 Temperature 97.5 F 97.8 F Pulse Rate 73 79 Respiratory 17 18 Rate Blood Pressure 164/69 146/69 (mmHg) O2 Sat by Pulse 99 98 Oximetry Oxygen Devices in Use Now: None Appearance: 82 yo M in nAD, aAOx3 Eyes: No Scleral Icterus, PERRLA Ears/Nose/Mouth/Throat: NL Teeth, Lips, Gums, Mucous Membranes Moist Neck: NL Appearance and Movements; NL JVP, Trachea Midline Respiratory: Symmetrical Chest Expansion and Respiratory Effort, - - faint bibasiliar crackles Cardiovascular: NL Sounds; No Murmurs; No JVD, RRR Abdominal: NL Sounds; No Tenderness; No Distention, No Hepatosplenomegaly Lymphatic: No Cervical Adenopathy Extremities: No Clubbing, Cyanosis, - - b/l knee edema -improved. Severe RA changes in b/l hands Skin: No Rash or Ulcers, No Nodules or Sclerosis Neurological: Alert and Oriented x 3, NL Muscle Strength and Tone Result Diagrams: 01/12/18 06:17 01/14/18 06:25 Additional Lab and Data: . Microbiology and Other Data: Diagnostic Imagin01/10/18 0800 KNEE LEFT 1-2 VWS IMPRESSION: 1. MILD OSTEOARTHRITIS. 2. LARGE EFFUSION. 3. PERIPHERAL ARTERIAL DISEASE. 4. NO ACUTE OSSEOUS INJURY. IF SYMPTOMS PERSIST, RECOMMEND REPEAT IMAGING EKG Data: . 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 - Patient Problems (1) Fever Comment: - Continues to have intermittent fevers when antibiotics stopped for 2 days. Cefepime as per ID recommendation on 01/14/18 - Elevated CRP and ESR, procalcitonin 0.1 - pelvis CT shows density adjacent to prostate-likely post op change as d/w Dr. Mak, but per conversation between radiologist and ID it could be early organizing abscess. - UA negative, urine culture no growth - Blood cultures negative. Repeat cultures negative - Lyme titer negative - Right knee aspiration on 01/12/18, culture pending, WBC-100-?pseudogout - TTE with no significant abnormal findings - Ortho consult, input appreciated (2) BPH (benign prostatic hyperplasia) Comment: - s/p TURP 12/14/17, presented with fever and tachycardia, but no leukocytosis - Continue Amezcua for U. retention after TURP (3) Generalized weakness Comment: - Suspect secondary to deconditioning - Continue PT, will ask PMRU for consult (4) Hyponatremia Comment: - resolved (5) Rheumatoid arthritis Comment: - Prednisone at 5mg home dose and Salsalate LUCI. Appreciate Dr. Del Castillo's consult. PT is in RA flare. Prednisone was increased to 20 mg. - Hold Plaquenil for nox (6) Urinary retention Comment: - Continue urinary catheter - Urology consult, input appreciated (7) DVT prophylaxis Comment: - SQ heparin Status and Disposition: Inpatient .
--- NOTE | 2018-01-15 14:30 | PN ---
Progress Note - Progress Note Date of Service: 01/15/18 SOAP: Subjective: CC: fever HPI: 82 yo man with fever and UTI after TURP; fevers continue, he had rigors yesterday AM. Dr Del Castillo increased prednisone, his fever is resolved since then. Knees are feeling better. No diarrhea. Objective: Laboratory Results - last 24 hr 01/14/18 19:33 Ferritin 481.5 H Gen:awake, no distress HEENT: no thrush Heart:RRR no murmur Lungs:CTA BL Abd:+BS NTND soft Skin: no rash Laboratory Results - last 24 hr 01/14/18 19:33 Ferritin 481.5 H Assessment: 1. Fever ?UTI vs RA flair, improving 2. Pseudomonas cystitis/prostatitis 3. BPH s/p TURP Plan: 1. cefepime 1 gm IV Q12hrs, given significant improvement with treatment of RA flair I think a long course of IV antibiotics less likely, continue them throught he weekend. Discussed with Dr Garibay
--- NOTE | 2018-01-15 14:57 | PN ---
Subjective - Subjective Date of Service: 01/15/18 - chief complaint: fevers, elevated ESR History: Overall Mr Guillen is feeling somewhat better; he is ambulating to a limited extent. Joint discomfort is improved. He does have chronic dyspnea. No high fevers have occured Active Problems: Active Problems BPH (benign prostatic hyperplasia) (Acute) N40.0 - s/p TURP 12/14/17, presented with fever and tachycardia, but no leukocytosis - Continue Amezcua for U. retention after TURP DNR (do not resuscitate) (Acute) - Pt wishes to be DNR. MOLST form will be filled and updated DVT prophylaxis (Acute) [id number] - SQ heparin Fever (Acute) R50.9 - Continues to have intermittent fevers when antibiotics stopped for 2 days. Cefepime as per ID recommendation on 01/14/18 - Elevated CRP and ESR, procalcitonin 0.1 - pelvis CT shows density adjacent to prostate-likely post op change as d/w Dr. Mak, but per conversation between radiologist and ID it could be early organizing abscess. - UA negative, urine culture no growth - Blood cultures negative. Repeat cultures negative - Lyme titer negative - Right knee aspiration on 01/12/18, culture pending, WBC-100-?pseudogout - TTE with no significant abnormal findings - Ortho consult, input appreciated Full code status (Acute) Z78.9 Generalized weakness (Acute) R53.1 - Suspect secondary to deconditioning - Continue PT, will ask PMRU for consult Hyponatremia (Acute) E87.1 - resolved Rheumatoid arthritis (Acute) M06.9 - Prednisone at 5mg home dose and Salsalate LUCI. Appreciate Dr. Del Castillo's consult. PT is in RA flare. Prednisone was increased to 20 mg. - Hold Plaquenil for nox Urinary retention (Acute) R33.9 - Continue urinary catheter - Urology consult, input appreciated Current Medications: Current Medications Acetaminophen (Tylenol Tab*) 975 mg PO Q6H PRN PRN Reason: FEVER/PAIN Last Admin: 01/14/18 21:17 Dose: 975 mg Docusate Sodium (Colace Cap*) 100 mg PO BID LUCI Last Admin: 01/15/18 08:04 Dose: 100 mg Heparin Sodium (Porcine) (Heparin Vial(*)) 5,000 units SUBCUT Q8HR LUCI Last Admin: 01/15/18 14:17 Dose: 5,000 units Cefepime HCl (Maxipime 1 Gm In Dextrose Duplex (*)) 1 gm in 50 mls @ 100 mls/ hr IV Q12H [facility] Last Admin: 01/15/18 09:26 Dose: 100 mls/hr Levalbuterol HCl (Xopenex Hfa Inhaler*) 1 puff INH DAILY PRN PRN Reason: SHORTNESS OF BREATH Last Admin: 01/07/18 01:34 Dose: 1 puff Levalbuterol HCl (Xopenex 1.25 Mg/0.5 Ml Neb.Larissa*) 1.25 mg INH Q4H PRN PRN Reason: sob Last Admin: 01/07/18 09:03 Dose: 1.25 mg Magnesium Oxide (Magox 400 Tab*) 400 mg PO DAILY [facility] Last Admin: 01/15/18 08:04 Dose: 400 mg Montelukast Sodium (Singulair Tab*) 10 mg PO QAM [facility] Last Admin: 01/15/18 08:04 Dose: 10 mg Prednisone (Deltasone Tab*) 20 mg PO DAILY [facility] Last Admin: 01/15/18 08:04 Dose: 20 mg Salsalate (Disalcid*) 500 mg PO Q6H [facility] Last Admin: 01/15/18 10:57 Dose: 500 mg - Review of Systems Constitutional Symptoms: Yes: Weakness, Fatigue, No: Weight Gain, Fever, Unexplained Falls Dermatology: Normal: Yes, Skin Lumps: Yes - RA nodules unchanged HEENT: Yes Normal Eyes: Positive: Normal Thyroid: Positive: Normal Pulmonary: Positive: Shortness of Breath Cardiology: Positive: Normal Gastroenterology: Positive: Normal Genitourinary - Male: Abnormal: Prostatism Musculoskeletal: Positive: Joint Stiffness, Arthritis, Joint Deformities Endocrinology: Positive: Gonadal Problems Hematologic/Lymphatic: Positive: Anemia Neurology: Positive: Change in Walking Psychiatry: Positive: Normal Allergic/Immunologic: Positive: Immunocompromise Home Medications: Home Medications Medication Instructions Recorded Confirmed Type Ascorbic Acid TAB* [Vitamin C 500 mg PO QPM 04/26/16 01/05/18 History TAB*] Cholecalciferol TAB* [Vitamin D 5,000 unit PO .TWICE A WEEK 12/07/17 01/05/18 History TAB*] Acetaminophen [Tylenol Extra 1,000 mg PO Q6HR 08/14/18 08/14/18 History Strength] Calcium Carbonate [Calcium] 1,000 mg PO DAILY 01/05/18 01/05/18 History Ciprofloxacin TAB* [Cipro 500 MG 500 mg PO BID 01/05/18 01/05/18 History TAB*] Hydroxychloroquine TAB* [Plaquenil 300 mg PO QAM 01/05/18 01/05/18 History TAB*] Levalbuterol HFA INHALER* [Xopenex 1 puff INH DAILY PRN 01/05/18 01/05/18 History Hfa Inhaler*] Magnesium Oxide TAB* [MagOx 400 400 mg PO DAILY 01/05/18 01/05/18 History TAB*] Montelukast Sodium TAB* [Singulair 10 mg PO QAM 01/05/18 01/05/18 History TAB*] Salsalate TAB* [Disalcid*] 500 mg PO Q6HR 01/05/18 01/05/18 History ceFUROXime TAB(*) [Ceftin TAB 250 500 mg PO BID 01/05/18 01/05/18 History MG(*)] predniSONE TAB* [Deltasone TAB*] 5 mg PO DAILY 01/05/18 01/05/18 History Allergies: Allergies Allergy/AdvReac Type Severity Reaction Status Date / Time neomycin Allergy Severe Eyes Verified 01/05/18 11:44 Itchy/Swollen/Red/Watery NSAIDS (Non-Steroidal Allergy Severe Swelling Verified 01/05/18 11:44 Anti-Inflamma Of Face,Lips,& Throat Sulfa (Sulfonamide Allergy Severe Rash And Verified 01/05/18 11:44 Antibiotics) Itching chloroquine Allergy Intermediate Tinnitus Verified 01/05/18 11:44 leflunomide Allergy Intermediate See Comment Verified 01/05/18 11:44 latex Allergy Mild Rash And Verified 01/05/18 11:44 Itching Ragweed/Environmental Allergy Intermediate Congestion Uncoded 01/05/18 11:44 gentamicin eye drops Allergy Eyes Uncoded 01/05/18 11:44 Itchy/Swollen/Red/Watery tobramycin eye drops Allergy Eyes Uncoded 01/05/18 11:44 Itchy/Swollen/Red/Watery Objective - Vital Signs Vital Signs: Vital Signs 01/14/18 01/14/18 01/14/18 15:09 19:44 20:00 Temperature 98.5 F 98.1 F Pulse Rate 92 78 Respiratory 24 17 18 Rate Blood Pressure 158/57 169/69 (mmHg) O2 Sat by Pulse 97 99 98 Oximetry 01/14/18 01/15/18 01/15/18 22:15 03:55 07:54 Temperature 98.6 F 97.5 F 97.8 F Pulse Rate 81 73 79 Respiratory 17 17 18 Rate Blood Pressure 160/61 164/69 146/69 (mmHg) O2 Sat by Pulse 98 99 98 Oximetry 01/15/18 01/15/18 08:00 11:11 Temperature 98.6 F Pulse Rate 95 Respiratory 16 18 Rate Blood Pressure 175/76 (mmHg) O2 Sat by Pulse 97 98 Oximetry - Intake and Output Intake and Output: Intake & Output 01/13/18 01/14/18 01/15/18 01/16/18 06:59 06:59 06:59 06:59 Intake Total 197 313 5979 670 Output Total 2300 1850 2750 450 Balance -1320 -1310 150 220 Intake: Oral 114 629 6262 670 Output: Urine 0 1450 Amezcua 2300 1850 1300 450 Other: # Bowel Movements 0 0 0 Estimated Stool Amount Medium Small ADLs: Meal Record Start: 01/05/18 16: 33 Freq: DAILY@0900,1400,1800 Status: Active Protocol: Created 01/05/18 16:33 System (Rec: 01/05/18 16:33 System MED-C14) Document 01/05/18 18:00 [id number] (Rec: 01/05/18 20:27 [id number] MED-C07) Document 01/06/18 09:00 [id number] (Rec: 01/06/18 09:44 [id number] MED-C09) Document 01/06/18 14:00 NDJ3086 (Rec: 01/06/18 14:49 [id number] MED-C11) Document 01/07/18 09:00 [id number] (Rec: 01/07/18 14:36 [id number] MED-C11) Document 01/07/18 14:00 JTT9290 (Rec: 01/07/18 14:36 [id number] MED-C11) Document 01/07/18 18:00 JWT2738 (Rec: 01/07/18 18:11 [id number] MED-C11) Document 01/08/18 09:00 IUD7909 (Rec: 01/08/18 12:28 WVP8551 MED-C05) Document 01/08/18 14:00 NMY2539 (Rec: 01/08/18 14:36 [id number] MED-C11) Document 01/08/18 18:00 USO1858 (Rec: 01/08/18 18:17 [id number] MED-C05) Document 01/09/18 09:00 WCV2395 (Rec: 01/09/18 09:23 [id number] MED-C09) Document 01/09/18 13:25 GMT3305 (Rec: 01/09/18 13:26 [id number] MED-C09) Document 01/10/18 09:00 GVT7965 (Rec: 01/10/18 09:42 [id number] MED-C09) Document 01/10/18 14:00 TNU4664 (Rec: 01/10/18 14:36 [id number] MED-C13) Document 01/10/18 18:00 EMD4886 (Rec: 01/10/18 20:25 [id number] MED-C09) Document 01/11/18 09:00 KZX8820 (Rec: 01/11/18 10:06 NZK7570 MED-C09) Document 01/11/18 14:00 CRN3996 (Rec: 01/11/18 14:45 [id number] MED-C13) Document 01/11/18 18:30 KFJ3101 (Rec: 01/11/18 18:30 BYS2601 MED-C14) Document 01/12/18 12:00 SSI9518 (Rec: 01/12/18 12:52 ZJK8310 MED-M11) Document 01/12/18 14:00 MQE7583 (Rec: 01/12/18 14:43 SEN6813 MED-M02) Document 01/12/18 18:00 [id number] (Rec: 01/12/18 18:22 [id number] MED-C11) Document 01/13/18 09:00 HLK1230 (Rec: 01/13/18 10:47 MKY2207 MED-C14) Document 01/13/18 13:52 XCW0020 (Rec: 01/13/18 14:22 QMD6478 MED-C09) Document 01/13/18 18:00 UOG6038 (Rec: 01/13/18 18:15 QZL0052 MED-C12) Document 01/14/18 09:00 NHQ6484 (Rec: 01/14/18 09:57 UVX4171 MED-M01) Document 01/14/18 14:00 ZHO8095 (Rec: 01/14/18 17:13 [id number] MED-C11) Document 01/14/18 18:00 EUS4140 (Rec: 01/14/18 20:49 [id number] MEDL-C01) Document 01/15/18 09:00 PCG4739 (Rec: 01/15/18 10:05 NPX1442 MED-C09) Document 01/15/18 14:00 IVQ2492 (Rec: 01/15/18 14:29 HQO6961 MED-C11) Intake and Output Start: 01/05/18 10: 46 Freq: Status: Active Protocol: Created 01/05/18 10:46 System (Rec: 01/05/18 10:46 System ED-C24) Intake and Output Start: 01/05/18 16: 33 Freq: DAILY@0600,1400,2200 Status: Active Protocol: Created 01/05/18 16:33 System (Rec: 01/05/18 16:33 System MED-C14) Document 01/05/18 21:33 JQZ6131 (Rec: 01/05/18 21:34 [id number] MED-C09) Document 01/06/18 14:00 SPE2029 (Rec: 01/06/18 14:49 HRL7968 MED-C11) Document 01/06/18 18:44 BPP0318 (Rec: 01/06/18 18:44 [id number] MED-C09) Document 01/06/18 22:00 DHS5987 (Rec: 01/06/18 22:37 HPC4978 MED-C09) Document 01/07/18 03:15 WIS6428 (Rec: 01/07/18 04:31 JDM4289 MED-M02) Document 01/07/18 06:00 IDM7787 (Rec: 01/07/18 06:34 QHI0726 MED-C09) Document 01/07/18 14:00 WPS4379 (Rec: 01/07/18 14:36 GWU6324 MED-C11) Document 01/07/18 20:52 FNR3957 (Rec: 01/07/18 20:53 [id number] MED-C11) Document 01/08/18 05:05 VVN4880 (Rec: 01/08/18 05:06 WPO8406 MED-C11) Document 01/08/18 12:28 ZRZ6028 (Rec: 01/08/18 12:28 BHJ1390 MED-C05) Document 01/08/18 21:04 DBK7557 (Rec: 01/08/18 21:04 UNG1427 MED-C11) Document 01/09/18 04:58 VJW4358 (Rec: 01/09/18 05:00 KUE2497 MED-C11) Document 01/09/18 13:25 EBE0430 (Rec: 01/09/18 13:26 MPP7239 MED-C09) Document 01/09/18 22:00 HYQ4527 (Rec: 01/09/18 22:31 NQE4929 MED-C04) Document 01/10/18 06:00 YXD6175 (Rec: 01/10/18 06:22 YPT7653 MED-C42) Document 01/10/18 14:00 LBT7651 (Rec: 01/10/18 14:36 NSU9075 MED-C13) Document 01/10/18 22:00 IBU9938 (Rec: 01/10/18 23:06 ZRZ9626 MED-C09) Document 01/11/18 00:54 AIG3516 (Rec: 01/11/18 00:54 SQN8070 MED-C42) Document 01/11/18 04:58 CKC2489 (Rec: 01/11/18 04:58 JRR7026 MED-C42) Document 01/11/18 14:00 PAO1004 (Rec: 01/11/18 14:45 LFT8815 MED-C13) Document 01/11/18 22:00 FOZ4427 (Rec: 01/11/18 22:28 UBO6910 MED-C09) Document 01/12/18 05:57 JTT6311 (Rec: 01/12/18 05:58 LLV4824 MED-C42) Document 01/12/18 14:00 GCM0191 (Rec: 01/12/18 14:43 APX4538 MED-M02) Document 01/12/18 22:00 CCT0091 (Rec: 01/12/18 22:15 RCW8880 MED-C11) Document 01/13/18 05:56 KQS6260 (Rec: 01/13/18 05:57 SEY1352 MED-C42) Document 01/13/18 13:52 YBW6930 (Rec: 01/13/18 14:22 TVF9222 MED-C09) Document 01/13/18 21:19 XVH6492 (Rec: 01/13/18 21:19 [id number] MED-C11) Document 01/14/18 06:00 XBV0314 (Rec: 01/14/18 06:22 QZR4474 MED-C09) Document 01/14/18 14:00 HOJ4029 (Rec: 01/14/18 17:13 AGR1442 MED-C11) Document 01/14/18 21:18 KVS6353 (Rec: 01/14/18 21:18 DUW6086 MED-M03) Document 01/14/18 22:00 XMH1009 (Rec: 01/15/18 00:21 EVK0708 MEDL-C01) Document 01/15/18 06:00 POK1213 (Rec: 01/15/18 06:18 XYP5785 MEDL-C01) Document 01/15/18 14:00 VEK3083 (Rec: 01/15/18 14:29 [id number] MED-C11) - Physical Exam General Physical Exam Comment: NO acute distress. Able to turn and follow commands Eye Exam: bilateral: PERRLA Head: Yes Normocephalic Thyroid Function: Clinically Euthyroid Lungs and Chest: Yes: Chest Expansion Full, Chest Expansion Symetrica, Percussion Note Resonant Heart Rate and Rhythm: Regular JVP: Not Elevated [place] Beat: Non Displaced Additional Cardiovascular: Yes: [place] Beat not Displaced Abdominal Exam: Yes: Soft - Rheumotological System Joints: Joint Deformities, Joint Swelling - Improved synovitis in the lower and upper extremities Additional Musculoskeletal: Kyphosis - Neuro Psychiatric: Normal Speech: Normal Results - Results Lab Results: Laboratory Results - last 24 hr 01/14/18 19:33 Ferritin 481.5 H Assessment - Problem List Assessment: Patient Problems BPH (benign prostatic hyperplasia) (Acute) DNR (do not resuscitate) (Acute) DVT prophylaxis (Acute) Fever (Acute) Full code status (Acute) Generalized weakness (Acute) Hyponatremia (Acute) Rheumatoid arthritis (Acute) Urinary retention (Acute) Prolonged [place] interval (Acute) Plan: Mr. Guillen is an 82 year old admitted with recurrent fevers, weakness, joint inflammation in the setting of prostate enlargement and a UTI. He has chronic joint deformities from RA; his inflammatory markers were elevated. He was felt to have an RA flare and his prednisone was increased today to 20mg daily; he is tolerating this medication well and already noting some reduction in joint pain and discomfort; we will continue to monitor for fevers. Follow up IGG level to screen for an immunodeficiency given his recurrent infections. ANCA pending to screen for vasculitis given his pleural effusions Will follow; he will need a gradual steroid taper. Consider bedside PT to improve mobility and function Coordination of Care: Yes - Discussed with Dr. Guardado and his outpatient nurse Practitioner, P[place] - [facility] [employer] 14 Systems Reviewed as above all others Negative: Yes
[2018-01-15] MEDS: Levalbuterol HFA INHALER* 1 PUFF MDI INH PRN (21:00)
[2018-01-16] MEDS: Levalbuterol HFA INHALER* 1 PUFF MDI INH PRN ×3 (05:37→19:15)
[2018-01-16] MEDS: Heparin VIAL(*) 5000 UNITS/ML VIAL (FIVE THOUSAND) SUBCUT SCH ×3 (05:38→21:58)
[2018-01-16] MEDS: Salsalate TAB* 500 MG PO SCH ×4 (05:38→21:58)
[2018-01-16] MEDS: predniSONE TAB* 20 MG PO SCH (08:10)
[2018-01-16] MEDS: Cefepime 1 GM in Dextrose(*) 1 GM/50 ML BAG IV SCH ×2 (08:10→21:59)
[2018-01-16] MEDS: Montelukast Sodium TAB* 10 MG PO SCH (08:10)
[2018-01-16] MEDS: Magnesium Oxide TAB* 400 MG PO SCH (08:10)
[2018-01-16] MEDS: Docusate CAP* 100 MG PO SCH ×2 (08:10→21:58)
--- NOTE | 2018-01-16 08:54 | PN ---
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 He has noted some improvement in his dyspnea with treatment. Amezcua still in place; he plans to be a little more ambulatory today Active Problems: Active Problems BPH (benign prostatic hyperplasia) (Acute) N40.0 - s/p TURP 12/14/17, presented with fever and tachycardia, but no leukocytosis - Continue Amezcua for U. retention after TURP DNR (do not resuscitate) (Acute) - Pt wishes to be DNR. MOLST form will be filled and updated DVT prophylaxis (Acute) [id number] - SQ heparin Fever (Acute) R50.9 - Continues to have intermittent fevers when antibiotics stopped for 2 days. Cefepime as per ID recommendation on 01/14/18 - Elevated CRP and ESR, procalcitonin 0.1 - pelvis CT shows density adjacent to prostate-likely post op change as d/w Dr. Mak, but per conversation between radiologist and ID it could be early organizing abscess. - UA negative, urine culture no growth - Blood cultures negative. Repeat cultures negative - Lyme titer negative - Right knee aspiration on 01/12/18, culture pending, WBC-100-?pseudogout - TTE with no significant abnormal findings - Ortho consult, input appreciated Full code status (Acute) Z78.9 Generalized weakness (Acute) R53.1 - Suspect secondary to deconditioning - Continue PT, will ask PMRU for consult Hyponatremia (Acute) E87.1 - resolved Rheumatoid arthritis (Acute) M06.9 - Prednisone at 5mg home dose and Salsalate LUCI. Appreciate Dr. Del Castillo's consult. PT is in RA flare. Prednisone was increased to 20 mg. - Hold Plaquenil for nox Urinary retention (Acute) R33.9 - Continue urinary catheter - Urology consult, input appreciated Current Medications: Current Medications Acetaminophen (Tylenol Tab*) 975 mg PO Q6H PRN PRN Reason: FEVER/PAIN Last Admin: 01/14/18 21:17 Dose: 975 mg Docusate Sodium (Colace Cap*) 100 mg PO BID [facility] Last Admin: 01/16/18 08:10 Dose: 100 mg Heparin Sodium (Porcine) (Heparin Vial(*)) 5,000 units SUBCUT Q8HR [facility] Last Admin: 01/16/18 05:38 Dose: 5,000 units Cefepime HCl (Maxipime 1 Gm In Dextrose Duplex (*)) 1 gm in 50 mls @ 100 mls/ hr IV Q12H [facility] Last Admin: 01/16/18 08:10 Dose: 100 mls/hr Levalbuterol HCl (Xopenex Hfa Inhaler*) 1 puff INH DAILY PRN PRN Reason: SHORTNESS OF BREATH Last Admin: 01/16/18 05:37 Dose: 1 puff Levalbuterol HCl (Xopenex 1.25 Mg/0.5 Ml Neb.Larissa*) 1.25 mg INH Q4H PRN PRN Reason: sob Last Admin: 01/07/18 09:03 Dose: 1.25 mg Magnesium Oxide (Magox 400 Tab*) 400 mg PO DAILY [facility] Last Admin: 01/16/18 08:10 Dose: 400 mg Montelukast Sodium (Singulair Tab*) 10 mg PO QAM [facility] Last Admin: 01/16/18 08:10 Dose: 10 mg Prednisone (Deltasone Tab*) 20 mg PO DAILY [facility] Last Admin: 01/16/18 08:10 Dose: 20 mg Salsalate (Disalcid*) 500 mg PO Q6H [facility] Last Admin: 01/16/18 05:38 Dose: 500 mg - Review of Systems Constitutional Symptoms: No: Weight Gain, Fatigue, Fever, Unexplained Falls Dermatology: Normal: Yes HEENT: Yes Normal Thyroid: Positive: Normal Pulmonary: Positive: Shortness of Breath Cardiology: Positive: Normal, Peripheral Vascular Dis Gastroenterology: Positive: Normal Genital - Urinary: Positive: Other - enlarged prostate followed by urology Genitourinary - Male: Abnormal: Prostatism Musculoskeletal: Positive: Joint Stiffness, Arthritis, Joint Deformities Hematologic/Lymphatic: Positive: Anemia Psychiatry: Positive: Normal Allergic/Immunologic: Positive: Immunocompromise Home Medications: Home Medications Medication Instructions Recorded Confirmed Type Ascorbic Acid TAB* [Vitamin C 500 mg PO QPM 04/26/16 01/05/18 History TAB*] Cholecalciferol TAB* [Vitamin D 5,000 unit PO .TWICE A WEEK 12/07/17 01/05/18 History TAB*] Acetaminophen [Tylenol Extra 1,000 mg PO Q6HR 01/05/18 01/05/18 History Strength] Calcium Carbonate [Calcium] 1,000 mg PO DAILY 01/05/18 01/05/18 History Ciprofloxacin TAB* [Cipro 500 MG 500 mg PO BID 01/05/18 01/05/18 History TAB*] Hydroxychloroquine TAB* [Plaquenil 300 mg PO QAM 01/05/18 01/05/18 History TAB*] Levalbuterol HFA INHALER* [Xopenex 1 puff INH DAILY PRN 01/05/18 01/05/18 History Hfa Inhaler*] Magnesium Oxide TAB* [MagOx 400 400 mg PO DAILY 01/05/18 01/05/18 History TAB*] Montelukast Sodium TAB* [Singulair 10 mg PO QAM 01/05/18 01/05/18 History TAB*] Salsalate TAB* [Disalcid*] 500 mg PO Q6HR 01/05/18 01/05/18 History ceFUROXime TAB(*) [Ceftin TAB 250 500 mg PO BID 01/05/18 01/05/18 History MG(*)] predniSONE TAB* [Deltasone TAB*] 5 mg PO DAILY 01/05/18 01/05/18 History Allergies: Allergies Allergy/AdvReac Type Severity Reaction Status Date / Time neomycin Allergy Severe Eyes Verified 01/05/18 11:44 Itchy/Swollen/Red/Watery NSAIDS (Non-Steroidal Allergy Severe Swelling Verified 01/05/18 11:44 Anti-Inflamma Of Face,Lips,& Throat Sulfa (Sulfonamide Allergy Severe Rash And Verified 01/05/18 11:44 Antibiotics) Itching chloroquine Allergy Intermediate Tinnitus Verified 01/05/18 11:44 leflunomide Allergy Intermediate See Comment Verified 01/05/18 11:44 latex Allergy Mild Rash And Verified 01/05/18 11:44 Itching Ragweed/Environmental Allergy Intermediate Congestion Uncoded 01/05/18 11:44 gentamicin eye drops Allergy Eyes Uncoded 01/05/18 11:44 Itchy/Swollen/Red/Watery tobramycin eye drops Allergy Eyes Uncoded 01/05/18 11:44 Itchy/Swollen/Red/Watery Objective - Vital Signs Vital Signs: Vital Signs 01/15/18 01/15/18 01/15/18 11:11 15:19 20:00 Temperature 98.6 F 98.9 F 98.4 F Pulse Rate 95 92 87 Respiratory 18 18 18 Rate Blood Pressure 175/76 167/82 176/83 (mmHg) O2 Sat by Pulse 98 98 99 Oximetry 01/15/18 01/15/18 01/16/18 20:27 23:22 04:22 Temperature 98.6 F 98.0 F Pulse Rate 81 81 71 Respiratory 17 17 Rate Blood Pressure 173/76 152/62 162/68 (mmHg) O2 Sat by Pulse 98 99 Oximetry - Intake and Output Intake and Output: Intake & Output 01/14/18 01/15/18 01/16/18 01/17/18 06:59 06:59 06:59 06:59 Intake Total 540 2900 2185 Output Total 1850 2750 1900 Balance -1310 150 285 Intake: IV Fluids 20 NS (0.9%) 20 IVPB 65 ABX - CEFEPIME 65 Oral 540 2900 2100 Output: Urine 0 1450 Amezcua 1850 1300 1900 Other: # Bowel Movements 0 0 0 Estimated Stool Amount Small ADLs: Meal Record Start: 01/05/18 16: 33 Freq: DAILY@0900,1400,1800 Status: Active Protocol: Created 01/05/18 16:33 System (Rec: 01/05/18 16:33 System MED-C14) Document 01/05/18 18:00 [id number] (Rec: 01/05/18 20:27 [id number] MED-C07) Document 01/06/18 09:00 [id number] (Rec: 01/06/18 09:44 [id number] MED-C09) Document 01/06/18 14:00 [id number] (Rec: 01/06/18 14:49 [id number] MED-C11) Document 01/07/18 09:00 UJR5301 (Rec: 01/07/18 14:36 [id number] MED-C11) Document 01/07/18 14:00 FXE0473 (Rec: 01/07/18 14:36 [id number] MED-C11) Document 01/07/18 18:00 [id number] (Rec: 01/07/18 18:11 [id number] MED-C11) Document 01/08/18 09:00 [id number] (Rec: 01/08/18 12:28 [id number] MED-C05) Document 01/08/18 14:00 YKM4757 (Rec: 01/08/18 14:36 [id number] MED-C11) Document 01/08/18 18:00 [id number] (Rec: 01/08/18 18:17 [id number] MED-C05) Document 01/09/18 09:00 [id number] (Rec: 01/09/18 09:23 [id number] MED-C09) Document 01/09/18 13:25 [id number] (Rec: 01/09/18 13:26 [id number] MED-C09) Document 01/10/18 09:00 OCE3563 (Rec: 01/10/18 09:42 [id number] MED-C09) Document 01/10/18 14:00 XWC9103 (Rec: 01/10/18 14:36 [id number] MED-C13) Document 01/10/18 18:00 YUD8498 (Rec: 01/10/18 20:25 [id number] MED-C09) Document 01/11/18 09:00 LIK1101 (Rec: 01/11/18 10:06 [id number] MED-C09) Document 01/11/18 14:00 NAP0050 (Rec: 01/11/18 14:45 OVT2888 MED-C13) Document 01/11/18 18:30 EKE4563 (Rec: 01/11/18 18:30 ZFQ3963 MED-C14) Document 01/12/18 12:00 RCO0423 (Rec: 01/12/18 12:52 [id number] MED-M11) Document 01/12/18 14:00 BJI7034 (Rec: 01/12/18 14:43 IZC0873 MED-M02) Document 01/12/18 18:00 [id number] (Rec: 01/12/18 18:22 [id number] MED-C11) Document 01/13/18 09:00 ECI8943 (Rec: 01/13/18 10:47 JJW2145 MED-C14) Document 01/13/18 13:52 UUV7015 (Rec: 01/13/18 14:22 [id number] MED-C09) Document 01/13/18 18:00 YWG4978 (Rec: 01/13/18 18:15 VXJ9416 MED-C12) Document 01/14/18 09:00 ZEQ1152 (Rec: 01/14/18 09:57 [id number] MED-M01) Document 01/14/18 14:00 SLQ3849 (Rec: 01/14/18 17:13 JGN1089 MED-C11) Document 01/14/18 18:00 ZMX6761 (Rec: 01/14/18 20:49 WVC6874 MEDL-C01) Document 01/15/18 09:00 TOS9956 (Rec: 01/15/18 10:05 HFZ9378 MED-C09) Document 01/15/18 14:00 MLZ4039 (Rec: 01/15/18 14:29 [id number] MED-C11) Document 01/15/18 18:00 [id number] (Rec: 01/15/18 18:17 WSL3522 MED-C11) Intake and Output Start: 01/05/18 10: 46 Freq: Status: Active Protocol: Created 01/05/18 10:46 System (Rec: 01/05/18 10:46 System ED-C24) Intake and Output Start: 01/05/18 16: 33 Freq: DAILY@0600,1400,2200 Status: Active Protocol: Created 01/05/18 16:33 System (Rec: 01/05/18 16:33 System MED-C14) Document 01/05/18 21:33 VVH0524 (Rec: 01/05/18 21:34 [id number] MED-C09) Document 01/06/18 14:00 KWM3650 (Rec: 01/06/18 14:49 [id number] MED-C11) Document 01/06/18 18:44 KNQ4525 (Rec: 01/06/18 18:44 [id number] MED-C09) Document 01/06/18 22:00 YHJ4627 (Rec: 01/06/18 22:37 VAW7354 MED-C09) Document 01/07/18 03:15 MNL5092 (Rec: 01/07/18 04:31 [id number] MED-M02) Document 01/07/18 06:00 XXR6597 (Rec: 01/07/18 06:34 [id number] MED-C09) Document 01/07/18 14:00 CHU1927 (Rec: 01/07/18 14:36 [id number] MED-C11) Document 01/07/18 20:52 GLG9550 (Rec: 01/07/18 20:53 [id number] MED-C11) Document 01/08/18 05:05 ITM4519 (Rec: 01/08/18 05:06 PSE2699 MED-C11) Document 01/08/18 12:28 YJJ1058 (Rec: 01/08/18 12:28 BWX7889 MED-C05) Document 01/08/18 21:04 NKH2922 (Rec: 01/08/18 21:04 RHH5809 MED-C11) Document 01/09/18 04:58 VPO9382 (Rec: 01/09/18 05:00 ZME1308 MED-C11) Document 01/09/18 13:25 VYU8001 (Rec: 01/09/18 13:26 [id number] MED-C09) Document 01/09/18 22:00 WUQ0510 (Rec: 01/09/18 22:31 PGX4707 MED-C04) Document 01/10/18 06:00 ZHY7400 (Rec: 01/10/18 06:22 QJZ5993 MED-C42) Document 01/10/18 14:00 MEU0689 (Rec: 01/10/18 14:36 EOO1167 MED-C13) Document 01/10/18 22:00 FID7611 (Rec: 01/10/18 23:06 [id number] MED-C09) Document 01/11/18 00:54 BJP1144 (Rec: 01/11/18 00:54 LYM1237 MED-C42) Document 01/11/18 04:58 MWP7009 (Rec: 01/11/18 04:58 ZZO5055 MED-C42) Document 01/11/18 14:00 DRM4934 (Rec: 01/11/18 14:45 RFO4105 MED-C13) Document 01/11/18 22:00 LZR7357 (Rec: 01/11/18 22:28 MYS7037 MED-C09) Document 01/12/18 05:57 ZGO7562 (Rec: 01/12/18 05:58 LWS4301 MED-C42) Document 01/12/18 14:00 ZUP2465 (Rec: 01/12/18 14:43 LUD9345 MED-M02) Document 01/12/18 22:00 KNL5834 (Rec: 01/12/18 22:15 WJO8722 MED-C11) Document 01/13/18 05:56 NEE0767 (Rec: 01/13/18 05:57 GZM4552 MED-C42) Document 01/13/18 13:52 IGF6403 (Rec: 01/13/18 14:22 CKC3122 MED-C09) Document 01/13/18 21:19 IIT4228 (Rec: 01/13/18 21:19 ILC5344 MED-C11) Document 01/14/18 06:00 SBZ3151 (Rec: 01/14/18 06:22 QYI1488 MED-C09) Document 01/14/18 14:00 PDY3387 (Rec: 01/14/18 17:13 [id number] MED-C11) Document 01/14/18 21:18 KWD2272 (Rec: 01/14/18 21:18 XBF0734 MED-M03) Document 01/14/18 22:00 XCY3051 (Rec: 01/15/18 00:21 XIL9203 MEDL-C01) Document 01/15/18 06:00 WVS4498 (Rec: 01/15/18 06:18 GGJ1631 MEDL-C01) Document 01/15/18 14:00 OOY3594 (Rec: 01/15/18 14:29 SSM4219 MED-C11) Document 01/15/18 20:53 ORH6391 (Rec: 01/15/18 20:53 TKU2523 MED-C26) Document 01/15/18 21:40 IXA6226 (Rec: 01/15/18 21:40 [id number] MED-C26) Document 01/16/18 04:36 [id number] (Rec: 01/16/18 04:37 [id number] MED-C26) - Physical Exam General Physical Exam Comment: No acute distress. Supine. Mild swelling of his knee is present but it is improved overall with unchanged RA joint deformities Eye Exam: bilateral: PERRLA Skin: Abnormal: Pigmentation - venous stasis changes Thyroid Function: Clinically Euthyroid Lungs and Chest: Yes: Chest Expansion Full, Chest Expansion Symetrica, Percussion Note Resonant Heart Rate and Rhythm: Regular JVP: Not Elevated [place] Beat: Non Displaced Additional Cardiovascular: Yes: [place] Beat not Displaced, Normal Heart Sounds Abdominal Exam: Yes: Soft - Rheumotological System Joints: Joint Deformities, Signs of Connective Tissue Disease, Joint Swelling Additional Musculoskeletal: Kyphosis - Extremities Limbs: Normal Power - Neuro Psychiatric: Normal, Affect/Mood Appropriate Speech: Normal Results - Results Lab Results: Laboratory Results - last 24 hr 01/16/18 06:34 C-Reactive Protein 38.72 H Assessment - Problem List Assessment: Patient Problems BPH (benign prostatic hyperplasia) (Acute) DNR (do not resuscitate) (Acute) DVT prophylaxis (Acute) Fever (Acute) Full code status (Acute) Generalized weakness (Acute) Hyponatremia (Acute) Rheumatoid arthritis (Acute) Urinary retention (Acute) Prolonged [place] interval (Acute) Plan: Naveedlisa is an 82 year old man with long standing RA, admitted with protracted fevers after treatment for a UTI. Overall he is clinically improving and there have been no fevers recently. Lungs sound clear today. He will try to be more ambulatory within the confines of his restrictions He is on 20mg daily prednisone, which he is tolerating well; he will need a gradual taper back to his baseline dose over the next month. Overall dyspnea is improved. Blood pressure has been elevated and is being monitored. Followed by urology and infectious disease.
--- NOTE | 2018-01-16 13:27 | PN ---
Subjective Date of Service: 01/16/18 Interval History: Pt is aware of elevated BP, but thinks it may be related to albuterol INH use and is not interested in treating his hypertension today. Feels stronger. No fever x 24H Family History: Unchanged from Admission Social History: Unchanged from Admission Past Medical History: Unchanged from Admission Objective Active Medications: Acetaminophen (Tylenol Tab*) 975 mg PO Q6H PRN PRN Reason: FEVER/PAIN Last Admin: 01/14/18 21:17 Dose: 975 mg Docusate Sodium (Colace Cap*) 100 mg PO BID [facility] Last Admin: 01/16/18 08:10 Dose: 100 mg Heparin Sodium (Porcine) (Heparin Vial(*)) 5,000 units SUBCUT Q8HR [facility] Last Admin: 01/16/18 05:38 Dose: 5,000 units Cefepime HCl (Maxipime 1 Gm In Dextrose Duplex (*)) 1 gm in 50 mls @ 100 mls/ hr IV Q12H [facility] Last Admin: 01/16/18 08:10 Dose: 100 mls/hr Levalbuterol HCl (Xopenex Hfa Inhaler*) 1 puff INH DAILY PRN PRN Reason: SHORTNESS OF BREATH Last Admin: 01/16/18 11:32 Dose: 1 puff Levalbuterol HCl (Xopenex 1.25 Mg/0.5 Ml Neb.Larissa*) 1.25 mg INH Q4H PRN PRN Reason: sob Last Admin: 01/07/18 09:03 Dose: 1.25 mg Magnesium Oxide (Magox 400 Tab*) 400 mg PO DAILY [facility] Last Admin: 01/16/18 08:10 Dose: 400 mg Montelukast Sodium (Singulair Tab*) 10 mg PO QAM [facility] Last Admin: 01/16/18 08:10 Dose: 10 mg Prednisone (Deltasone Tab*) 20 mg PO DAILY [facility] Last Admin: 01/16/18 08:10 Dose: 20 mg Salsalate (Disalcid*) 500 mg PO Q6H [facility] Last Admin: 01/16/18 11:29 Dose: 500 mg Vital Signs - 8 hr 01/16/18 01/16/18 01/16/18 07:45 08:00 11:10 Temperature 98.2 F 98.4 F Pulse Rate 75 87 Respiratory 18 14 19 Rate Blood Pressure 152/67 177/76 (mmHg) O2 Sat by Pulse 98 98 99 Oximetry Oxygen Devices in Use Now: None Appearance: 82 yo M in NAd, AAOx3 Eyes: No Scleral Icterus, PERRLA Ears/Nose/Mouth/Throat: NL Teeth, Lips, Gums, Mucous Membranes Moist Neck: NL Appearance and Movements; NL JVP, Trachea Midline Respiratory: Symmetrical Chest Expansion and Respiratory Effort, - - faint binbasiliar crackles Cardiovascular: NL Sounds; No Murmurs; No JVD, RRR Abdominal: NL Sounds; No Tenderness; No Distention Lymphatic: No Cervical Adenopathy Extremities: No Clubbing, Cyanosis, - - knee edema R>L -unchanged. severe RA changes in b/l hands Skin: No Rash or Ulcers Neurological: Alert and Oriented x 3, NL Muscle Strength and Tone Result Diagrams: 01/12/18 06:17 01/14/18 06:25 Additional Lab and Data: . Microbiology and Other Data: Diagnostic Imagin01/10/18 0800 KNEE LEFT 1-2 VWS IMPRESSION: 1. MILD OSTEOARTHRITIS. 2. LARGE EFFUSION. 3. PERIPHERAL ARTERIAL DISEASE. 4. NO ACUTE OSSEOUS INJURY. IF SYMPTOMS PERSIST, RECOMMEND REPEAT IMAGING EKG Data: . 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 - Patient Problems (1) Fever Comment: - Continued to have intermittent fevers when antibiotics stopped for 2 days. Restarted Cefepime as per ID recommendation on 01/14/18. now afebrile x 24H. CRP improving Pelvis CT showed density adjacent to prostate-likely post op change as d/w Dr. Mak, but per conversation between radiologist and ID it could be early organizing abscess. - UA negative, urine culture no growth - Blood cultures negative. Repeat cultures negative - Lyme titer negative - Right knee aspiration on 01/12/18, culture neg, WBC-100-?pseudogout - TTE with no significant abnormal findings - Ortho consult, input appreciated (2) BPH (benign prostatic hyperplasia) Comment: - s/p TURP 12/14/17, presented with fever and tachycardia, but no leukocytosis - Continue Amezcua for U. retention after TURP (3) Generalized weakness Comment: - Suspect secondary to deconditioning - Continue PT (4) Hyponatremia Comment: - resolved (5) Rheumatoid arthritis Comment: Prednisone at 5mg home dose and Salsalate LUCI. Appreciate Dr. Del Castillo's consult. PT is in RA flare. Prednisone was increased to 20 mg on 01/15/18. Pt feels stronger, joint pain improved. - Hold Plaquenil for now (6) Urinary retention Comment: - Continue urinary catheter - Urology consult, input appreciated (7) Asthma Comment: not in exacerbation, cont Xopenex inhaler prn (8) HTN (hypertension) Comment: Pt refused to be treated with BP meds. (9) DVT prophylaxis Comment: - SQ heparin Status and Disposition: Inpatient .
[2018-01-17] MEDS: Heparin VIAL(*) 5000 UNITS/ML VIAL (FIVE THOUSAND) SUBCUT SCH ×2 (05:07→21:19)
[2018-01-17] MEDS: Salsalate TAB* 500 MG PO SCH ×4 (05:08→23:13)
[2018-01-17] MEDS: Levalbuterol HFA INHALER* 1 PUFF MDI INH PRN (08:35)
[2018-01-17] MEDS: Montelukast Sodium TAB* 10 MG PO SCH (08:39)
[2018-01-17] MEDS: Magnesium Oxide TAB* 400 MG PO SCH (08:40)
[2018-01-17] MEDS: Docusate CAP* 100 MG PO SCH ×2 (08:41→21:19)
[2018-01-17] MEDS: predniSONE TAB* 20 MG PO SCH (08:41)
[2018-01-17] MEDS ORDERED: amLODIPine TAB* 5 MG PO SCH (09:00)
[2018-01-17] MEDS: Lisinopril TAB* 5 MG PO SCH (10:11)
[2018-01-17] MEDS: Cefepime 1 GM in Dextrose(*) 1 GM/50 ML BAG IV SCH ×2 (10:15→21:17)
--- NOTE | 2018-01-17 12:24 | PN ---
Subjective Date of Service: 01/17/18 Interval History: Pt seen and examined. Meds and labs reviewed. Refused to take amplodipine earlier given he mentions his BP only became elevated here in the hospital. He would like to try, however, on low dose ACEI instead. CC: N/A ROS: Denied TA/dizziness, F/C, N/V, CP, SOB, increased cough, sputum production , abd pain, diarrhea, constipation, dysuria, myalgias, arthralgias, throat pain , and new skin lesions. The rest of the 14 point ROS are unremarkable. PHYSICAL EXAM: GEN APPEARANCE: Awake, not in acute distress HEENT: NC/AT, PERRLA, moist oral mucosa, (-) throat erythema NECK: Soft, supple, (-) cervical LAD, (-)JVD HEART: S1S2 WNL, RRR, No MRG CHEST: CTA, BL, GAE, No W/R/R ABD: Soft, ND/NT, NABS 4x Q EXT: No C/C/E, with mild to moderate ulnar deviation of UE digits SKIN: Warm to touch PSYCH: No active psychosis, hallucinations, depression, SI/HI Family History: Unchanged from Admission Social History: Unchanged from Admission Past Medical History: Unchanged from Admission Objective Active Medications: Acetaminophen (Tylenol Tab*) 975 mg PO Q6H PRN PRN Reason: FEVER/PAIN Last Admin: 01/14/18 21:17 Dose: 975 mg Docusate Sodium (Colace Cap*) 100 mg PO BID [facility] Last Admin: 01/17/18 08:41 Dose: 100 mg Heparin Sodium (Porcine) (Heparin Vial(*)) 5,000 units SUBCUT Q12H [facility] Cefepime HCl (Maxipime 1 Gm In Dextrose Duplex (*)) 1 gm in 50 mls @ 100 mls/ hr IV Q12H [facility] Last Admin: 01/17/18 10:15 Dose: 100 mls/hr Levalbuterol HCl (Xopenex 1.25 Mg/0.5 Ml Neb.Larissa*) 1.25 mg INH Q4H PRN PRN Reason: sob Last Admin: 01/07/18 09:03 Dose: 1.25 mg Levalbuterol HCl (Xopenex Hfa Inhaler*) 1 puff INH Q6H PRN PRN Reason: SHORTNESS OF BREATH Lisinopril (Prinivil Tab*) 2.5 mg PO DAILY [facility] Last Admin: 01/17/18 10:11 Dose: 2.5 mg Magnesium Oxide (Magox 400 Tab*) 400 mg PO DAILY [facility] Last Admin: 01/17/18 08:40 Dose: 400 mg Montelukast Sodium (Singulair Tab*) 10 mg PO QAM [facility] Last Admin: 01/17/18 08:39 Dose: 10 mg Prednisone (Deltasone Tab*) 20 mg PO DAILY [facility] Last Admin: 01/17/18 08:41 Dose: 20 mg Salsalate (Disalcid*) 500 mg PO Q6H [facility] Last Admin: 01/17/18 11:59 Dose: 500 mg Vital Signs - 8 hr 01/17/18 01/17/18 01/17/18 07:40 08:00 11:09 Temperature 98.0 F 97.2 F Pulse Rate 82 92 Respiratory 20 20 18 Rate Blood Pressure 164/70 171/74 (mmHg) O2 Sat by Pulse 99 99 99 Oximetry Oxygen Devices in Use Now: None Result Diagrams: 01/12/18 06:17 01/14/18 06:25 Additional Lab and Data: . Microbiology and Other Data: Diagnostic Imagin01/10/18 0800 KNEE LEFT 1-2 VWS IMPRESSION: 1. MILD OSTEOARTHRITIS. 2. LARGE EFFUSION. 3. PERIPHERAL ARTERIAL DISEASE. 4. NO ACUTE OSSEOUS INJURY. IF SYMPTOMS PERSIST, RECOMMEND REPEAT IMAGING EKG Data: . Assess/Plan/Problems-Billing Assessment: Wilmer is an 82 y/o male with PMhx significant for BPH, s/p TURB 3 weeks ago , who presented with fever, weakness and malaise likely secondary to urinary retention. - Patient Problems (1) Fever Current Visit: Yes Status: Acute Code(s): R50.9 - FEVER, UNSPECIFIED SNOMED Code(s): 901235187 Comment: -Has resolved with increase of Prednisone -Could be a due to RA flare given cultures since this admission has been negative including culture post-arthrocentesis -Continued to have intermittent fevers when antibiotics stopped for 2 days. Restarted Cefepime as per ID recommendation on 01/14/18. -Afebrile for the last 3 days -CRP improving -Pelvis CT showed density adjacent to prostate-likely post op change as d/w Dr. Mak, but per conversation between radiologist and ID by Dr. Garibay does not rule out an early organizing abscess. - UA negative, urine culture no growth - Blood cultures negative. Repeat cultures negative - Lyme titer negative - Right knee aspiration on 01/12/18, culture neg, WBC-100-?pseudogout - TTE with no significant abnormal findings - Ortho consult, input appreciated (2) Rheumatoid arthritis Current Visit: Yes Status: Acute Code(s): M06.9 - RHEUMATOID ARTHRITIS, UNSPECIFIED SNOMED Code(s): 25541154 Comment: Prednisone at 5mg home dose and Salsalate LUCI. Appreciate Dr. Del Castillo 's consult. PT is in RA flare. Prednisone was increased to 20 mg on 01/15/18. Pt feels stronger, joint pain improved. - Hold Plaquenil for now (3) BPH (benign prostatic hyperplasia) Current Visit: Yes Status: Acute Code(s): N40.0 - BENIGN PROSTATIC HYPERPLASIA WITHOUT LOWER URINRY TRACT SYMP SNOMED Code(s): 803300648 Comment: - s/p TURP 12/14/17, presented with fever and tachycardia, but no leukocytosis - Continue Amezcua for U. retention after TURP (4) Generalized weakness Current Visit: Yes Status: Acute Code(s): R53.1 - WEAKNESS SNOMED Code(s) : 15885080 Comment: - Suspect secondary to deconditioning - Continue PT (5) Asthma Current Visit: Yes Status: Acute Code(s): J45.909 - UNSPECIFIED ASTHMA, UNCOMPLICATED SNOMED Code(s): 954052404 Comment: not in exacerbation, cont Xopenex inhaler prn (6) HTN (hypertension) Current Visit: Yes Status: Acute Code(s): I10 - ESSENTIAL (PRIMARY) HYPERTENSION SNOMED Code(s): 57425006 Comment: Pt refused to be treated with BP meds. (7) DVT prophylaxis Current Visit: Yes Status: Acute Code(s): UIB8667 - SNOMED Code(s): 396792597 Comment: - SQ heparin Status and Disposition: Inpatient .
--- NOTE | 2018-01-17 15:00 | PN ---
Subjective - Subjective Date of Service: 01/17/18 - chief complaint: fevers, myalgias History: Overall Mr. Guillen is feeling better. His breathing is improved and his joint pain is improved; he is ambulating. His main concern is his blood pressure, which has been elevated, and he has recently added a medication to treat this ( Lisinopril at a low dose as an DEJAH inhibitor) Active Problems: Active Problems Asthma (Acute) J45.909 not in exacerbation, cont Xopenex inhaler prn BPH (benign prostatic hyperplasia) (Acute) N40.0 - s/p TURP 12/14/17, presented with fever and tachycardia, but no leukocytosis - Continue Amezcua for U. retention after TURP DNR (do not resuscitate) (Acute) - Pt wishes to be DNR. MOLST form will be filled and updated DVT prophylaxis (Acute) [id number] - SQ heparin Fever (Acute) R50.9 -Has resolved with increase of Prednisone -Could be a due to RA flare given cultures since this admission has been negative including culture post- arthrocentesis -Continued to have intermittent fevers when antibiotics stopped for 2 days. Restarted Cefepime as per ID recommendation on 01/14/18. -Afebrile for the last 3 days -CRP improving -Pelvis CT showed density adjacent to prostate-likely post op change as d/w Dr. Mak, but per conversation between radiologist and ID by Dr. Garibay does not rule out an early organizing abscess. - UA negative, urine culture no growth - Blood cultures negative. Repeat cultures negative - Lyme titer negative - Right knee aspiration on 01/12/18, culture neg, WBC-100-?pseudogout - TTE with no significant abnormal findings - Ortho consult , input appreciated Full code status (Acute) Z78.9 Generalized weakness (Acute) R53.1 - Suspect secondary to deconditioning - Continue PT HTN (hypertension) (Acute) I10 Pt refused to be treated with BP meds. Hyponatremia (Acute) E87.1 - resolved Rheumatoid arthritis (Acute) M06.9 Prednisone at 5mg home dose and Salsalate LUCI. Appreciate Dr. Del Castillo's consult. PT is in RA flare. Prednisone was increased to 20 mg on 01/15/18. Pt feels stronger, joint pain improved. - Hold Plaquenil for now Urinary retention (Acute) R33.9 - Continue urinary catheter - Urology consult, input appreciated Current Medications: Current Medications Acetaminophen (Tylenol Tab*) 975 mg PO Q6H PRN PRN Reason: FEVER/PAIN Last Admin: 01/14/18 21:17 Dose: 975 mg Docusate Sodium (Colace Cap*) 100 mg PO BID [facility] Last Admin: 01/17/18 08:41 Dose: 100 mg Heparin Sodium (Porcine) (Heparin Vial(*)) 5,000 units SUBCUT Q12H [facility] Cefepime HCl (Maxipime 1 Gm In Dextrose Duplex (*)) 1 gm in 50 mls @ 100 mls/ hr IV Q12H [facility] Last Admin: 01/17/18 10:15 Dose: 100 mls/hr Levalbuterol HCl (Xopenex 1.25 Mg/0.5 Ml Neb.Larissa*) 1.25 mg INH Q4H PRN PRN Reason: sob Last Admin: 01/07/18 09:03 Dose: 1.25 mg Levalbuterol HCl (Xopenex Hfa Inhaler*) 1 puff INH Q6H PRN PRN Reason: SHORTNESS OF BREATH Lisinopril (Prinivil Tab*) 2.5 mg PO DAILY [facility] Last Admin: 01/17/18 10:11 Dose: 2.5 mg Magnesium Oxide (Magox 400 Tab*) 400 mg PO DAILY [facility] Last Admin: 01/17/18 08:40 Dose: 400 mg Montelukast Sodium (Singulair Tab*) 10 mg PO QAM [facility] Last Admin: 01/17/18 08:39 Dose: 10 mg Prednisone (Deltasone Tab*) 20 mg PO DAILY [facility] Last Admin: 01/17/18 08:41 Dose: 20 mg Salsalate (Disalcid*) 500 mg PO Q6H [facility] Last Admin: 01/17/18 11:59 Dose: 500 mg - Review of Systems General Comments: No acute complaints; joint swelling is minimal in the knees and he is ambulating Constitutional Symptoms: No: Weight Gain, Fever, Night Sweats, Unexplained Falls HEENT: Yes Normal Eyes: Positive: Normal Thyroid: Positive: Normal Pulmonary: Positive: Normal Cardiology: Positive: Normal Gastroenterology: Positive: Normal Musculoskeletal: Positive: Joint Stiffness, Arthritis, Joint Deformities Endocrinology: Positive: Normal Neurology: Positive: Normal Psychiatry: Positive: Normal Allergic/Immunologic: Positive: Immunocompromise Home Medications: Home Medications Medication Instructions Recorded Confirmed Type Ascorbic Acid TAB* [Vitamin C 500 mg PO QPM 04/26/16 01/05/18 History TAB*] Cholecalciferol TAB* [Vitamin D 5,000 unit PO .TWICE A WEEK 12/07/17 01/05/18 History TAB*] Acetaminophen [Tylenol Extra 1,000 mg PO Q6HR 01/05/18 01/05/18 History Strength] Calcium Carbonate [Calcium] 1,000 mg PO DAILY 01/05/18 01/05/18 History Ciprofloxacin TAB* [Cipro 500 MG 500 mg PO BID 01/05/18 01/05/18 History TAB*] Hydroxychloroquine TAB* [Plaquenil 300 mg PO QAM 01/05/18 01/05/18 History TAB*] Levalbuterol HFA INHALER* [Xopenex 1 puff INH DAILY PRN 01/05/18 01/05/18 History Hfa Inhaler*] Magnesium Oxide TAB* [MagOx 400 400 mg PO DAILY 01/05/18 01/05/18 History TAB*] Montelukast Sodium TAB* [Singulair 10 mg PO QAM 01/05/18 01/05/18 History TAB*] Salsalate TAB* [Disalcid*] 500 mg PO Q6HR 01/05/18 01/05/18 History ceFUROXime TAB(*) [Ceftin TAB 250 500 mg PO BID 01/05/18 01/05/18 History MG(*)] predniSONE TAB* [Deltasone TAB*] 5 mg PO DAILY 01/05/18 01/05/18 History Allergies: Allergies Allergy/AdvReac Type Severity Reaction Status Date / Time neomycin Allergy Severe Eyes Verified 01/05/18 11:44 Itchy/Swollen/Red/Watery NSAIDS (Non-Steroidal Allergy Severe Swelling Verified 01/05/18 11:44 Anti-Inflamma Of Face,Lips,& Throat Sulfa (Sulfonamide Allergy Severe Rash And Verified 01/05/18 11:44 Antibiotics) Itching chloroquine Allergy Intermediate Tinnitus Verified 01/05/18 11:44 leflunomide Allergy Intermediate See Comment Verified 01/05/18 11:44 latex Allergy Mild Rash And Verified 01/05/18 11:44 Itching Ragweed/Environmental Allergy Intermediate Congestion Uncoded 01/05/18 11:44 gentamicin eye drops Allergy Eyes Uncoded 01/05/18 11:44 Itchy/Swollen/Red/Watery tobramycin eye drops Allergy Eyes Uncoded 01/05/18 11:44 Itchy/Swollen/Red/Watery Objective - Vital Signs Vital Signs: Vital Signs 01/16/18 01/16/18 01/16/18 15:05 19:15 20:00 Temperature 97.5 F 98.2 F Pulse Rate 73 87 Respiratory 20 30 20 Rate Blood Pressure 176/74 169/79 (mmHg) O2 Sat by Pulse 99 98 99 Oximetry 01/16/18 01/17/18 01/17/18 23:28 03:34 07:40 Temperature 98.8 F 98.7 F 98.0 F Pulse Rate 70 71 82 Respiratory 26 28 20 Rate Blood Pressure 181/75 168/76 164/70 (mmHg) O2 Sat by Pulse 98 100 99 Oximetry 01/17/18 01/17/18 08:00 11:09 Temperature 97.2 F Pulse Rate 92 Respiratory 20 18 Rate Blood Pressure 171/74 (mmHg) O2 Sat by Pulse 99 99 Oximetry - Intake and Output Intake and Output: Intake & Output 01/15/18 01/16/18 01/17/18 01/18/18 06:59 06:59 06:59 06:59 Intake Total 2900 2185 1715 360 Output Total 2750 1900 2135 Balance 150 285 -420 360 Intake: IV Fluids 20 65 NS (0.9%) 20 65 IVPB 65 110 ABX - CEFEPIME 65 110 Oral 2900 2100 1540 360 Output: Urine 1450 Amezcua 1300 1900 2135 Other: # Bowel Movements 0 0 0 Estimated Stool Amount Small Medium ADLs: Meal Record Start: 01/05/18 16: 33 Freq: DAILY@0900,1400,1800 Status: Active Protocol: Created 01/05/18 16:33 System (Rec: 01/05/18 16:33 System MED-C14) Document 01/05/18 18:00 [id number] (Rec: 01/05/18 20:27 SKV6380 MED-C07) Document 01/06/18 09:00 QLF7176 (Rec: 01/06/18 09:44 CPD0744 MED-C09) Document 01/06/18 14:00 LAT0263 (Rec: 01/06/18 14:49 [id number] MED-C11) Document 01/07/18 09:00 RWJ4109 (Rec: 01/07/18 14:36 DFN1458 MED-C11) Document 01/07/18 14:00 LMM6025 (Rec: 01/07/18 14:36 HQH9575 MED-C11) Document 01/07/18 18:00 OFW6181 (Rec: 01/07/18 18:11 ZET1695 MED-C11) Document 01/08/18 09:00 JAI7081 (Rec: 01/08/18 12:28 WUP2677 MED-C05) Document 01/08/18 14:00 YPB6128 (Rec: 01/08/18 14:36 JFJ1696 MED-C11) Document 01/08/18 18:00 DFR5728 (Rec: 01/08/18 18:17 [id number] MED-C05) Document 01/09/18 09:00 KBS1182 (Rec: 01/09/18 09:23 HMT4501 MED-C09) Document 01/09/18 13:25 VPE0888 (Rec: 01/09/18 13:26 HDS6645 MED-C09) Document 01/10/18 09:00 UPQ7170 (Rec: 01/10/18 09:42 IPG5696 MED-C09) Document 01/10/18 14:00 GTO7538 (Rec: 01/10/18 14:36 DVM9454 MED-C13) Document 01/10/18 18:00 NPI4592 (Rec: 01/10/18 20:25 YCK0055 MED-C09) Document 01/11/18 09:00 PYD6135 (Rec: 01/11/18 10:06 GMD1319 MED-C09) Document 01/11/18 14:00 OKR5065 (Rec: 01/11/18 14:45 QYS7748 MED-C13) Document 01/11/18 18:30 HXX5353 (Rec: 01/11/18 18:30 RTH9470 MED-C14) Document 01/12/18 12:00 FNI5214 (Rec: 01/12/18 12:52 RMC0331 MED-M11) Document 01/12/18 14:00 ESM9269 (Rec: 01/12/18 14:43 NUM5025 MED-M02) Document 01/12/18 18:00 LOG2146 (Rec: 01/12/18 18:22 JXF8613 MED-C11) Document 01/13/18 09:00 FYQ3617 (Rec: 01/13/18 10:47 IWC6431 MED-C14) Document 01/13/18 13:52 VOA6076 (Rec: 01/13/18 14:22 VFK6984 MED-C09) Document 01/13/18 18:00 LQY2440 (Rec: 01/13/18 18:15 TBB5519 MED-C12) Document 01/14/18 09:00 AOG3122 (Rec: 01/14/18 09:57 DCQ9300 MED-M01) Document 01/14/18 14:00 MAN8295 (Rec: 01/14/18 17:13 AAZ9259 MED-C11) Document 01/14/18 18:00 IQL6340 (Rec: 01/14/18 20:49 KSH2386 MEDL-C01) Document 01/15/18 09:00 ENI6978 (Rec: 01/15/18 10:05 AVB1332 MED-C09) Document 01/15/18 14:00 QBB1763 (Rec: 01/15/18 14:29 VEZ0106 MED-C11) Document 01/15/18 18:00 DIO7622 (Rec: 01/15/18 18:17 KYH3163 MED-C11) Document 01/16/18 09:00 RPE9038 (Rec: 01/16/18 12:23 ATN3772 MED-C11) Document 01/16/18 14:00 FGN1064 (Rec: 01/16/18 14:40 VLG0646 MED-C09) Document 01/16/18 18:00 GTH3951 (Rec: 01/16/18 18:30 WII5252 MED-C09) Document 01/17/18 09:00 KMR2929 (Rec: 01/17/18 11:55 RUA4378 MED-C09) Intake and Output Start: 01/05/18 10: 46 Freq: Status: Active Protocol: Created 01/05/18 10:46 System (Rec: 01/05/18 10:46 System ED-C24) Intake and Output Start: 01/05/18 16: 33 Freq: DAILY@0600,1400,2200 Status: Active Protocol: Created 01/05/18 16:33 System (Rec: 01/05/18 16:33 System MED-C14) Document 01/05/18 21:33 ZCY9370 (Rec: 01/05/18 21:34 YRL5399 MED-C09) Document 01/06/18 14:00 JIO0839 (Rec: 01/06/18 14:49 VIR3902 MED-C11) Document 01/06/18 18:44 EPF2591 (Rec: 01/06/18 18:44 XWC6635 MED-C09) Document 01/06/18 22:00 CQY6331 (Rec: 01/06/18 22:37 JYJ8473 MED-C09) Document 01/07/18 03:15 TUC4370 (Rec: 01/07/18 04:31 JFR4482 MED-M02) Document 01/07/18 06:00 RUJ9321 (Rec: 01/07/18 06:34 UNS4531 MED-C09) Document 01/07/18 14:00 SZM1971 (Rec: 01/07/18 14:36 HTG1183 MED-C11) Document 01/07/18 20:52 UQH7641 (Rec: 01/07/18 20:53 VBT0055 MED-C11) Document 01/08/18 05:05 WNE0014 (Rec: 01/08/18 05:06 VHT2667 MED-C11) Document 01/08/18 12:28 WAA3906 (Rec: 01/08/18 12:28 LKD1871 MED-C05) Document 01/08/18 21:04 EKT1175 (Rec: 01/08/18 21:04 PAE4837 MED-C11) Document 01/09/18 04:58 IWB4483 (Rec: 01/09/18 05:00 ETL0900 MED-C11) Document 01/09/18 13:25 ZVR7187 (Rec: 01/09/18 13:26 NSR0117 MED-C09) Document 01/09/18 22:00 XLK4125 (Rec: 01/09/18 22:31 BWW2031 MED-C04) Document 01/10/18 06:00 KAL2995 (Rec: 01/10/18 06:22 WTR8153 MED-C42) Document 01/10/18 14:00 ENS5181 (Rec: 01/10/18 14:36 IMI4491 MED-C13) Document 01/10/18 22:00 KAB2877 (Rec: 01/10/18 23:06 QOZ3620 MED-C09) Document 01/11/18 00:54 MKY5309 (Rec: 01/11/18 00:54 QEE3009 MED-C42) Document 01/11/18 04:58 KRQ5905 (Rec: 01/11/18 04:58 NLX2553 MED-C42) Document 01/11/18 14:00 AHN6181 (Rec: 01/11/18 14:45 ZBO5618 MED-C13) Document 01/11/18 22:00 EUV2612 (Rec: 01/11/18 22:28 XVD2131 MED-C09) Document 01/12/18 05:57 DZG5670 (Rec: 01/12/18 05:58 WBN5107 MED-C42) Document 01/12/18 14:00 DBK2968 (Rec: 01/12/18 14:43 XLD1958 MED-M02) Document 01/12/18 22:00 EQX0810 (Rec: 01/12/18 22:15 IVP5964 MED-C11) Document 01/13/18 05:56 RLB7185 (Rec: 01/13/18 05:57 GQE9598 MED-C42) Document 01/13/18 13:52 PNP3727 (Rec: 01/13/18 14:22 LNR4299 MED-C09) Document 01/13/18 21:19 PLP6300 (Rec: 01/13/18 21:19 JXK4286 MED-C11) Document 01/14/18 06:00 DJL1108 (Rec: 01/14/18 06:22 GVT6665 MED-C09) Document 01/14/18 14:00 JNM3157 (Rec: 01/14/18 17:13 WCJ9502 MED-C11) Document 01/14/18 21:18 FER1173 (Rec: 01/14/18 21:18 AHQ5926 MED-M03) Document 01/14/18 22:00 ACV8686 (Rec: 01/15/18 00:21 BAM1627 MEDL-C01) Document 01/15/18 06:00 XMQ3072 (Rec: 01/15/18 06:18 MTT9464 MEDL-C01) Document 01/15/18 14:00 DNZ0573 (Rec: 01/15/18 14:29 LSF6267 MED-C11) Document 01/15/18 20:53 DTZ5240 (Rec: 01/15/18 20:53 TBO3854 MED-C26) Document 01/15/18 21:40 SEF4826 (Rec: 01/15/18 21:40 SHJ1425 MED-C26) Document 01/16/18 04:36 MVW2146 (Rec: 01/16/18 04:37 AAW6255 MED-C26) Document 01/16/18 14:00 KLE6181 (Rec: 01/16/18 14:40 BLL8889 MED-C09) Document 01/16/18 21:52 DZK2237 (Rec: 01/16/18 21:53 LOU5524 MEDL-C02) Document 01/16/18 22:32 FEV2695 (Rec: 01/16/18 22:33 NUF2931 MEDL-C02) Document 01/17/18 04:01 FAI7497 (Rec: 01/17/18 04:01 NZB7462 MED-C09) Document 01/17/18 06:00 GSM7217 (Rec: 01/17/18 06:18 SYX8513 MED-C09) - Physical Exam General Physical Exam Comment: No acute distress; conversative Eye Exam: bilateral: EOMI Head: Yes Normocephalic Thyroid Function: Clinically Euthyroid Lungs and Chest: Yes: Chest Expansion Full, Chest Expansion Symetrica, Percussion Note Resonant Heart Rate and Rhythm: Regular JVP: Not Elevated [place] Beat: Non Displaced Additional Cardiovascular: Yes: [place] Beat not Displaced, Normal Heart Sounds Abdominal Exam: Yes: Soft - Rheumotological System Joints: Joint Deformities, Signs of Connective Tissue Disease, Joint Swelling - Improved knee effusion - Extremities Feet Sensation: Abnormal: Sensory Limbs: Normal Power, Normal Tone - Neuro Psychiatric: Normal Speech: Normal Results - Results Lab Results: Laboratory Results - last 24 hr 01/14/18 19:33 Cyclic Citrull Peptide 169.6 H Anti-Nuclear Antibody 1.2 H STEVEN Interpretation See comment Assessment - Problem List Assessment: Patient Problems Asthma (Acute) BPH (benign prostatic hyperplasia) (Acute) DNR (do not resuscitate) (Acute) DVT prophylaxis (Acute) Fever (Acute) Full code status (Acute) Generalized weakness (Acute) HTN (hypertension) (Acute) Hyponatremia (Acute) Rheumatoid arthritis (Acute) Urinary retention (Acute) Prolonged PA interval (Acute) Plan: Overall Mr. Guillen is improved on Prednisone 20mg daily. We will continue to follow and monitor. Agree with rehab and PT. Would gradually taper prednisone over the next month. Monitor for recurrent fevers. Pleural effusions: lungs sound clear today. Elevated CRP: would continue to periodically follow; the levels are improved. Elevated CCP antibody and STEVEN is consistant with his long standing history of RA ; he is at risk for extra articular manifestations. Fevers: improved UTI: improved. Follow up with ID and urology
[2018-01-18] MEDS: Levalbuterol HFA INHALER* 1 PUFF MDI INH PRN ×2 (02:18→17:09)
[2018-01-18] MEDS: Salsalate TAB* 500 MG PO SCH ×3 (05:12→17:06)
[2018-01-18 05:40] LABS: ABS Basophils 0 10^3/ul (0-0.2); ABS Eosinophils 0 10^3/ul (0-0.6); ABS Lymphocytes 1.4 10^3/ul (1.0-4.8); ABS Neutrophils 3.8 10^3/ul (1.5-7.7); ABS Nucleated RBC 0 10^3/ul; Eosinophil % 0.6 % (0-6); Hematocrit 31 % (42-52); Hemoglobin 10.3 g/dl (14.0-18.0); Lymphocyte % 22.7 % (25-47); Mean Corpuscular HGB Conc 34 g/dl (31-36); Mean Corpuscular Hemoglobin 27 pg (27-31); Mean Corpuscular Volume 81 fL (80-94); Mean Platelet Volume 6.1 um3 (7.4-10.4); Nucleated Red Blood Cells % 0.1; Platelet Count 407 10^3/ul (150-450); Red Blood Count 3.76 10^6/ul (4.00-5.40); Red Cell Distribution Width 14 % (10.5-15); White Blood Count 6.3 10^3/ul (3.5-10.8)
[2018-01-18 05:53] LABS: EGFR Non-African American 126.6 (>60)
[2018-01-18] MEDS ORDERED: Magnesium Sulfate 2 GM IV* 2 GM/50 ML BAG IV ONE (07:54)
[2018-01-18] MEDS: Docusate CAP* 100 MG PO SCH (08:44)
[2018-01-18] MEDS: Montelukast Sodium TAB* 10 MG PO SCH (08:44)
[2018-01-18] MEDS: Magnesium Oxide TAB* 400 MG PO SCH (08:44)
[2018-01-18] MEDS: predniSONE TAB* 20 MG PO SCH (08:44)
[2018-01-18] MEDS: Acetaminophen TAB* 325 MG PO PRN (08:44)
[2018-01-18] MEDS: Heparin VIAL(*) 5000 UNITS/ML VIAL (FIVE THOUSAND) SUBCUT SCH (08:44)
[2018-01-18] MEDS: Lisinopril TAB* 5 MG PO SCH (08:45)
[2018-01-18 17:08] VITALS: BP 172/86
--- NOTE | 2018-01-18 18:04 | PN ---
Subjective - Subjective Date of Service: 01/18/18 - Overall feels well; joints are doing better than when he came in Active Problems: Active Problems Asthma (Acute) J45.909 not in exacerbation, cont Xopenex inhaler prn BPH (benign prostatic hyperplasia) (Acute) N40.0 - s/p TURP 12/14/17, presented with fever and tachycardia, but no leukocytosis - Continue Myers for U. retention after TURP DNR (do not resuscitate) (Acute) - Pt wishes to be DNR. MOLST form will be filled and updated DVT prophylaxis (Acute) [id number] - SQ heparin Fever (Acute) R50.9 -Has resolved with increase of Prednisone -Could be a due to RA flare given cultures since this admission has been negative including culture post- arthrocentesis -Continued to have intermittent fevers when antibiotics stopped for 2 days. Restarted Cefepime as per ID recommendation on 01/14/18. -Afebrile for the last 3 days -CRP improving -Pelvis CT showed density adjacent to prostate-likely post op change as d/w Dr. Mak, but per conversation between radiologist and ID by Dr. Garibay does not rule out an early organizing abscess. - UA negative, urine culture no growth - Blood cultures negative. Repeat cultures negative - Lyme titer negative - Right knee aspiration on 01/12/18, culture neg, WBC-100-?pseudogout - TTE with no significant abnormal findings - Ortho consult , input appreciated Fever (Acute) R50.9 Full code status (Acute) Z78.9 Generalized weakness (Acute) R53.1 - Suspect secondary to deconditioning - Continue PT HTN (hypertension) (Acute) I10 Pt refused to be treated with BP meds. Hyponatremia (Acute) E87.1 - resolved Rheumatoid arthritis (Acute) M06.9 Prednisone at 5mg home dose and Salsalate LUCI. Appreciate Dr. Del Castillo's consult. PT is in RA flare. Prednisone was increased to 20 mg on 01/15/18. Pt feels stronger, joint pain improved. - Hold Plaquenil for now Urinary retention (Acute) R33.9 - Continue urinary catheter - Urology consult, input appreciated Current Medications: Current Medications Acetaminophen (Tylenol Tab*) 975 mg PO Q6H PRN PRN Reason: FEVER/PAIN Last Admin: 01/18/18 08:44 Dose: 975 mg Docusate Sodium (Colace Cap*) 100 mg PO BID [facility] Last Admin: 01/18/18 08:44 Dose: 100 mg Heparin Sodium (Porcine) (Heparin Vial(*)) 5,000 units SUBCUT Q12H [facility] Last Admin: 01/18/18 08:44 Dose: 5,000 units Levalbuterol HCl (Xopenex 1.25 Mg/0.5 Ml Neb.Larissa*) 1.25 mg INH Q4H PRN PRN Reason: sob Last Admin: 01/07/18 09:03 Dose: 1.25 mg Levalbuterol HCl (Xopenex Hfa Inhaler*) 1 puff INH Q6H PRN PRN Reason: SHORTNESS OF BREATH Last Admin: 01/18/18 17:09 Dose: 1 puff Lisinopril (Prinivil Tab*) 2.5 mg PO DAILY [facility] Last Admin: 01/18/18 08:45 Dose: 2.5 mg Magnesium Oxide (Magox 400 Tab*) 400 mg PO DAILY [facility] Last Admin: 01/18/18 08:44 Dose: 400 mg Montelukast Sodium (Singulair Tab*) 10 mg PO QAM [facility] Last Admin: 01/18/18 08:44 Dose: 10 mg Prednisone (Deltasone Tab*) 20 mg PO DAILY [facility] Last Admin: 01/18/18 08:44 Dose: 20 mg Salsalate (Disalcid*) 500 mg PO Q6H [facility] Last Admin: 01/18/18 17:06 Dose: 500 mg - Review of Systems General Comments: NO acute complaints; he notes bladder has lost some tone with myers in place; he will follow up with urology Constitutional Symptoms: No: Weight Gain Pulmonary: Positive: Normal Cardiology: Positive: Normal Musculoskeletal: Positive: Arthritis Home Medications: Home Medications Medication Instructions Recorded Confirmed Type Ascorbic Acid TAB* [Vitamin C 500 mg PO QPM 04/26/16 01/05/18 History TAB*] Cholecalciferol TAB* [Vitamin D 5,000 unit PO .TWICE A WEEK 12/07/17 01/05/18 History TAB*] Calcium Carbonate [Calcium] 1,000 mg PO DAILY 01/05/18 01/05/18 History Levalbuterol HFA INHALER* [Xopenex 1 puff INH DAILY PRN 01/05/18 01/05/18 History Hfa Inhaler*] Magnesium Oxide TAB* [MagOx 400 400 mg PO DAILY 01/05/18 01/05/18 History TAB*] Montelukast Sodium TAB* [Singulair 10 mg PO QAM 01/05/18 01/05/18 History 10 MG TAB*] Salsalate TAB* [Disalcid*] 500 mg PO Q6HR 01/05/18 01/05/18 History Acetaminophen [Tylenol Extra 1,000 mg PO Q6HR PRN #0 MDD 4 01/18/18 01/05/18 Rx Strength] Docusate CAP* [Colace Cap*] 100 mg PO BID #60 cap 01/18/18 Rx Lisinopril TAB* [Prinivil TAB 5 2.5 mg PO DAILY #30 tab 01/18/18 Rx MG*] predniSONE TAB* [Deltasone 20 MG 20 mg PO DAILY #30 tab 01/18/18 Rx TAB*] Allergies: Allergies Allergy/AdvReac Type Severity Reaction Status Date / Time neomycin Allergy Severe Eyes Verified 01/05/18 11:44 Itchy/Swollen/Red/Watery NSAIDS (Non-Steroidal Allergy Severe Swelling Verified 01/05/18 11:44 Anti-Inflamma Of Face,Lips,& Throat Sulfa (Sulfonamide Allergy Severe Rash And Verified 01/05/18 11:44 Antibiotics) Itching chloroquine Allergy Intermediate Tinnitus Verified 01/05/18 11:44 leflunomide Allergy Intermediate See Comment Verified 01/05/18 11:44 latex Allergy Mild Rash And Verified 01/05/18 11:44 Itching Ragweed/Environmental Allergy Intermediate Congestion Uncoded 01/05/18 11:44 gentamicin eye drops Allergy Eyes Uncoded 01/05/18 11:44 Itchy/Swollen/Red/Watery tobramycin eye drops Allergy Eyes Uncoded 01/05/18 11:44 Itchy/Swollen/Red/Watery Objective - Vital Signs Vital Signs: Vital Signs 01/17/18 01/17/18 01/17/18 19:07 20:00 22:13 Temperature 97.3 F 98.2 F Pulse Rate 94 89 Respiratory 32 28 28 Rate Blood Pressure 156/71 175/80 (mmHg) O2 Sat by Pulse 98 98 97 Oximetry 01/18/18 01/18/18 01/18/18 03:07 07:47 08:00 Temperature 98.4 F 98.2 F Pulse Rate 84 81 Respiratory 24 18 16 Rate Blood Pressure 159/67 155/72 (mmHg) O2 Sat by Pulse 98 99 99 Oximetry 01/18/18 01/18/18 01/18/18 11:33 15:12 16:30 Temperature 97.6 F 98.4 F Pulse Rate 98 96 Respiratory 16 18 Rate Blood Pressure 149/80 180/89 172/86 (mmHg) O2 Sat by Pulse 95 98 Oximetry - Intake and Output Intake and Output: Intake & Output 01/16/18 01/17/18 01/18/18 01/19/18 06:59 06:59 06:59 06:59 Intake Total 2185 4925 107 7463 Output Total 1900 2135 1825 350 Balance 285 420 -627 865 Intake: IV Fluids 20 65 75 55 ABX - CEFEPIME 50 Mag 55 NS (0.9%) 20 65 25 IVPB 65 110 ABX - CEFEPIME 65 110 Oral 2100 0283 574 6826 Output: Urine 100 Myers 1900 2135 1825 250 Other: # Bowel Movements 0 0 0 0 Estimated Stool Amount Medium Large ADLs: Meal Record Start: 01/05/18 16: 33 Freq: DAILY@0900,1400,1800 Status: Active Protocol: Created 01/05/18 16:33 System (Rec: 01/05/18 16:33 System MED-C14) Document 01/05/18 18:00 [id number] (Rec: 01/05/18 20:27 [id number] MED-C07) Document 01/06/18 09:00 NUA3781 (Rec: 01/06/18 09:44 XHA8014 MED-C09) Document 01/06/18 14:00 IEU7776 (Rec: 01/06/18 14:49 JPW9183 MED-C11) Document 01/07/18 09:00 UPD1221 (Rec: 01/07/18 14:36 CGS2999 MED-C11) Document 01/07/18 14:00 ZPT1672 (Rec: 01/07/18 14:36 JEJ9652 MED-C11) Document 01/07/18 18:00 DEU5279 (Rec: 01/07/18 18:11 VTR5813 MED-C11) Document 01/08/18 09:00 EIX1303 (Rec: 01/08/18 12:28 QRW3907 MED-C05) Document 01/08/18 14:00 EDE0450 (Rec: 01/08/18 14:36 XVS5871 MED-C11) Document 01/08/18 18:00 EJX0706 (Rec: 01/08/18 18:17 VUT5655 MED-C05) Document 01/09/18 09:00 CLJ8852 (Rec: 01/09/18 09:23 IKM1062 MED-C09) Document 01/09/18 13:25 PFH0151 (Rec: 01/09/18 13:26 SLE6820 MED-C09) Document 01/10/18 09:00 QRV7935 (Rec: 01/10/18 09:42 IGS0926 MED-C09) Document 01/10/18 14:00 ELI3728 (Rec: 01/10/18 14:36 IZO0855 MED-C13) Document 01/10/18 18:00 CEC8127 (Rec: 01/10/18 20:25 REP1792 MED-C09) Document 01/11/18 09:00 BIG3267 (Rec: 01/11/18 10:06 JKU2044 MED-C09) Document 01/11/18 14:00 IJP1945 (Rec: 01/11/18 14:45 JJK3273 MED-C13) Document 01/11/18 18:30 DQL9609 (Rec: 01/11/18 18:30 SYS3994 MED-C14) Document 01/12/18 12:00 KAA5092 (Rec: 01/12/18 12:52 JSJ1054 MED-M11) Document 01/12/18 14:00 GWM3941 (Rec: 01/12/18 14:43 OSF6148 MED-M02) Document 01/12/18 18:00 RFG8806 (Rec: 01/12/18 18:22 UYD6851 MED-C11) Document 01/13/18 09:00 CXY3875 (Rec: 01/13/18 10:47 FGW7736 MED-C14) Document 01/13/18 13:52 BUC4855 (Rec: 01/13/18 14:22 EUC1680 MED-C09) Document 01/13/18 18:00 KGR5444 (Rec: 01/13/18 18:15 UEH6041 MED-C12) Document 01/14/18 09:00 XQM4053 (Rec: 01/14/18 09:57 MAF3230 MED-M01) Document 01/14/18 14:00 CLP8820 (Rec: 01/14/18 17:13 KWT2224 MED-C11) Document 01/14/18 18:00 YIH3508 (Rec: 01/14/18 20:49 YNR3490 MEDL-C01) Document 01/15/18 09:00 EXX1229 (Rec: 01/15/18 10:05 LKU6700 MED-C09) Document 01/15/18 14:00 TCF9336 (Rec: 01/15/18 14:29 LDZ1362 MED-C11) Document 01/15/18 18:00 QOK6883 (Rec: 01/15/18 18:17 VZH9217 MED-C11) Document 01/16/18 09:00 ZLD0111 (Rec: 01/16/18 12:23 PCU8956 MED-C11) Document 01/16/18 14:00 BTR5574 (Rec: 01/16/18 14:40 LVT3492 MED-C09) Document 01/16/18 18:00 WDS0717 (Rec: 01/16/18 18:30 ZQC4200 MED-C09) Document 01/17/18 09:00 UZI9954 (Rec: 01/17/18 11:55 HVH3895 MED-C09) Document 01/17/18 14:00 YME0073 (Rec: 01/17/18 15:53 ACD5789 MED-C09) Document 01/17/18 18:00 KXK7762 (Rec: 01/17/18 18:37 BYZ4676 MED-C09) Document 01/18/18 09:00 XBO7518 (Rec: 01/18/18 09:39 PHY5886 MED-C09) Document 01/18/18 14:00 EIX2063 (Rec: 01/18/18 14:10 XDW6887 MED-C09) Intake and Output Start: 01/05/18 10: 46 Freq: Status: Active Protocol: Created 08/14/18 10:46 System (Rec: 01/05/18 10:46 System ED-C24) Intake and Output Start: 01/05/18 16: 33 Freq: DAILY@0600,1400,2200 Status: Active Protocol: Created 01/05/18 16:33 System (Rec: 01/05/18 16:33 System MED-C14) Document 01/05/18 21:33 MQJ8787 (Rec: 01/05/18 21:34 EJB0892 MED-C09) Document 01/06/18 14:00 GEI0063 (Rec: 01/06/18 14:49 OAH4110 MED-C11) Document 01/06/18 18:44 OTY9681 (Rec: 01/06/18 18:44 ITO8802 MED-C09) Document 01/06/18 22:00 NXT5870 (Rec: 01/06/18 22:37 APW3992 MED-C09) Document 01/07/18 03:15 TCS7374 (Rec: 01/07/18 04:31 SWJ5895 MED-M02) Document 01/07/18 06:00 GXG5280 (Rec: 01/07/18 06:34 AEF9277 MED-C09) Document 01/07/18 14:00 YKW4341 (Rec: 01/07/18 14:36 JBH8597 MED-C11) Document 01/07/18 20:52 CFE6586 (Rec: 01/07/18 20:53 WZH6401 MED-C11) Document 01/08/18 05:05 BHF8952 (Rec: 01/08/18 05:06 JSS9963 MED-C11) Document 01/08/18 12:28 DEA4067 (Rec: 01/08/18 12:28 NIA7418 MED-C05) Document 01/08/18 21:04 BOK8202 (Rec: 01/08/18 21:04 HDP9292 MED-C11) Document 01/09/18 04:58 HME5336 (Rec: 01/09/18 05:00 ENK6350 MED-C11) Document 01/09/18 13:25 ZBZ9847 (Rec: 01/09/18 13:26 TSS3786 MED-C09) Document 01/09/18 22:00 UKL6950 (Rec: 01/09/18 22:31 VED8724 MED-C04) Document 01/10/18 06:00 JLB4715 (Rec: 01/10/18 06:22 QXM0545 MED-C42) Document 01/10/18 14:00 BAO3814 (Rec: 01/10/18 14:36 XRJ8835 MED-C13) Document 01/10/18 22:00 HRU6372 (Rec: 01/10/18 23:06 KOS3407 MED-C09) Document 01/11/18 00:54 TCT8548 (Rec: 01/11/18 00:54 RUN0168 MED-C42) Document 01/11/18 04:58 MVS7517 (Rec: 01/11/18 04:58 ZXL7812 MED-C42) Document 01/11/18 14:00 TUE5018 (Rec: 01/11/18 14:45 CYU4551 MED-C13) Document 01/11/18 22:00 OYE7016 (Rec: 01/11/18 22:28 GZP4398 MED-C09) Document 01/12/18 05:57 SCX6976 (Rec: 01/12/18 05:58 XDX4684 MED-C42) Document 01/12/18 14:00 PUF5301 (Rec: 01/12/18 14:43 SEU2814 MED-M02) Document 01/12/18 22:00 DUT9900 (Rec: 01/12/18 22:15 NAI1453 MED-C11) Document 01/13/18 05:56 ZGA8934 (Rec: 01/13/18 05:57 ZVP2772 MED-C42) Document 01/13/18 13:52 VID5846 (Rec: 01/13/18 14:22 FPE0724 MED-C09) Document 01/13/18 21:19 OXH0040 (Rec: 01/13/18 21:19 HYT6999 MED-C11) Document 01/14/18 06:00 YVC7724 (Rec: 01/14/18 06:22 JFW7887 MED-C09) Document 01/14/18 14:00 WON5912 (Rec: 01/14/18 17:13 SWU5876 MED-C11) Document 01/14/18 21:18 EED8930 (Rec: 01/14/18 21:18 NLS3582 MED-M03) Document 01/14/18 22:00 UFC7950 (Rec: 01/15/18 00:21 AUR1159 MEDL-C01) Document 01/15/18 06:00 PEX5048 (Rec: 01/15/18 06:18 WEO9578 MEDL-C01) Document 01/15/18 14:00 BDD7641 (Rec: 01/15/18 14:29 RPS2691 MED-C11) Document 01/15/18 20:53 FVO1917 (Rec: 01/15/18 20:53 WKX0106 MED-C26) Document 01/15/18 21:40 RUI1018 (Rec: 01/15/18 21:40 LPE0671 MED-C26) Document 01/16/18 04:36 RGO0998 (Rec: 01/16/18 04:37 FCT7329 MED-C26) Document 01/16/18 14:00 QXD5406 (Rec: 01/16/18 14:40 ERW9073 MED-C09) Document 01/16/18 21:52 KEM1702 (Rec: 01/16/18 21:53 PWD5209 MEDL-C02) Document 01/16/18 22:32 FLU5127 (Rec: 01/16/18 22:33 UIS5499 MEDL-C02) Document 01/17/18 04:01 WRI3462 (Rec: 01/17/18 04:01 JJY1836 MED-C09) Document 01/17/18 06:00 DJN6153 (Rec: 01/17/18 06:18 QVW9293 MED-C09) Document 01/17/18 14:00 WWP9748 (Rec: 01/17/18 15:53 JEG3999 MED-C09) Document 01/17/18 20:59 JVH9102 (Rec: 01/17/18 20:59 AHD5146 MED-C11) Document 01/18/18 05:30 DHJ8222 (Rec: 01/18/18 05:31 FLU9242 MED-C09) Document 01/18/18 14:00 DUH7751 (Rec: 01/18/18 14:10 JHA8611 MED-C09) - Physical Exam General Physical Exam Comment: No acute distress and is sitting up eating - Rheumotological System Joints: Joint Deformities - no active synovitis - Neuro Psychiatric: Normal Speech: Normal Results - Results Lab Results: Laboratory Results - last 24 hr 01/14/18 01/18/18 01/18/18 06:24 05:08 05:08 WBC 6.3 RBC 3.76 L Hgb 10.3 L Hct 31 L MCV 81 MCH 27 MCHC 34 RDW 14 Plt Count 407 MPV 6.1 L Neut % (Auto) 60.8 Lymph % (Auto) 22.7 L Andrew % (Auto) 15.3 H Eos % (Auto) 0.6 Baso % (Auto) 0.6 Absolute Neuts (auto) 3.8 Absolute Lymphs (auto) 1.4 Absolute Monos (auto) 1.0 H Absolute Eos (auto) 0 Absolute Basos (auto) 0 Absolute Nucleated RBC 0 Nucleated RBC % 0.1 Sodium 137 Potassium 4.1 Chloride 108 Carbon Dioxide 22 Anion Gap 7 BUN 24 Creatinine 0.61 L Est GFR ( Amer) 153.1 Est GFR (Non-Af Amer) 126.6 BUN/Creatinine Ratio 39.3 H Glucose 110 H Calcium 8.5 L Phosphorus 3.7 Magnesium 1.8 L Total Bilirubin 0.30 AST 31 ALT 69 H Alkaline Phosphatase 86 Total Protein 5.9 L Albumin 2.7 L Globulin 3.2 Albumin/Globulin Ratio 0.8 L IgG 883 IgA 359 H IgM 42 Assessment - Problem List Assessment: Patient Problems Asthma (Acute) BPH (benign prostatic hyperplasia) (Acute) DNR (do not resuscitate) (Acute) DVT prophylaxis (Acute) Fever (Acute) Fever (Acute) Full code status (Acute) Generalized weakness (Acute) HTN (hypertension) (Acute) Hyponatremia (Acute) Rheumatoid arthritis (Acute) Urinary retention (Acute) Prolonged LA interval (Acute) Plan: Polyarthritis/ RA flare: improved; continue prednisone. Follow up with rheumatology clinic this week; reviewed with Dr. Guillen
--- NOTE | 2018-01-19 00:07 | DS ---
CC: Dr. Beebe; Dr. Lynn; Dr. Flowers; Dr. Lagunas; Dr. Del Castillo; Dr. Bermudez; Dr. Joon Lombardo * DISCHARGE SUMMARY: DATE OF ADMISSION: DATE OF DISCHARGE: 01/18/18 DISCHARGE DIAGNOSES: As follows: 1. Fever refractory to antibiotic therapy likely secondary to rheumatoid arthritic flare, fever resolved. 2. History of rheumatoid arthritis as discussed. 3. Benign prostatic hypertrophy. 4. General weakness. 5. History of asthma. 6. History of hypertension. DISCHARGE MEDICATIONS: As follows: 1. Levalbuterol one puff inhalation daily. 2. Lisinopril 5 mg p.o. daily. 3. Magnesium oxide 400 mg p.o. daily. 4. Montelukast 10 mg p.o. q.a.m. 5. Prednisone 20 mg p.o. daily. 6. Tylenol 1000 mg p.o. q.6 p.r.n. 7. Ascorbic acid 500 mg p.o. q.p.m. 8. Calcium carbonate 1000 mg p.o. daily. 9. Cholecalciferol 5000 units p.o. twice weekly. 10. Colace 100 mg p.o. b.i.d. 11. Lisinopril 2.5 mg p.o. daily. 12. Salsalate 500 mg p.o. q.6 hours. HISTORY OF PRESENT ILLNESS/HOSPITAL COURSE: The patient is an 82-year-old gentleman with history of hypertension, asthma, and rheumatoid arthritis, who has had recent transurethral resection of the prostate at the end of November and then on 12/31/17 he developed some rigors and fevers. He then subsequently contacted who then obtained urine culture and he was then started on ciprofloxacin and oral cephalosporin. However, he did have persistence of his signs and symptoms and then came to the [facility] ED on 01/05/18. Followup of his cultures revealed pseudomonas that is resistant to ciprofloxacin and a chest x-ray that showed interstitial edema. He did have a transthoracic echocardiogram with an EF of 65 to 70% and an ultrasound showing mid pole left renal cyst. He has had couple of weeks of worsening of the right knee pain and given his fever has not abated after few days in the hospital, diagnostic and therapeutic thoracentesis was done with Dr. Portillo, which was not suggestive of septic knee or crystal deposition disease such as gout or pseudogout. Dr. Del Castillo was then consulted given suspicion of possible rheumatoid arthritis flare, virtually one of the differential at that time yet to be ruled out and he did agree that this was likely due to rheumatoid arthritis flare and recommended that his prednisone be increased to 20 mg p.o. daily and to gradually taper prednisone over the next month. He was advised to monitor for any recurrent fevers. A pelvic CT at that time showed density adjacent to the prostate likely postop, and although initially there was some discussion whether there might be some organizing abscess in this, repeat cultures have consistently shown to be negative during the hospital. More specifically, the blood cultures drawn on 01/05/18 and again on 01/11/18 and urine culture were all found to be negative. Given above, it was thought with the elevation of inflammatory markers that this is likely due to the rheumatoid arthritis flare and improvement of signs and symptoms seems to support that impression along with the data just highlighted. Prior to his discharge, he mentioned he would like to take the myers catheter out given his bladder spasms and was not interested to have any pain meds or any medications added to his regimen that would decrease bladder spasms. He mentions he has done well by himself via straight catheterization post-TURP. Myers was removed and pt was observed and was able to empty at least 1/3rd of his urine after a bladder scan post void. He was advised to F/U with Dr. Bermudez if he encounters any problems with his preferred mode of straight catheterization PRN. He had been advised to follow up with Dr. Del Castillo in about 2 weeks and to call [phone] for an appointment and he was specifically advised that his prednisone will needed to be gradually tapered down in a period of about a month and will defer with Dr. Del Castillo on this note. He was further advised to follow up and/or call his PCP within 3 days post discharge and if he is having any problems or if his symptoms worsen to call his PCP first to see if his concerns can be addressed in a timely manner and if not or if he has been advised to go the ER due to scheduling issues to discuss with his PCP whether [facility] followup is appropriate and to call [facility] if it is deemed so or he is unable to touch base with his PCP. He was advised to call my office regarding any questions, concerns, or further clarifications regarding his discharge plans and/or prescriptions and to take his medications as prescribed. PHYSICAL EXAMINATION: Shows the most recent vital signs of records with temperature of 97.6 degrees Fahrenheit, 98 beats per minute heart rate, 16 per minute respiratory rate, saturating at 95%, blood pressure of 149/80. General Appearance: The patient is awake, alert, and oriented x3 and not in any acute distress. HEENT: Normocephalic, atraumatic. PERRLA. Extraocular muscles intact. Negative for icterus. Moist oral mucosa. Negative throat erythema. Neck is soft, supple with no cervical lymphadenopathy. No JVD. Heart: S1, S2 within normal limits, regular rate and rhythm. No murmurs, rubs, and gallops. Chest: Clear to auscultation bilaterally. Good air entry. No wheezes, rales, or rhonchi. Abdomen is soft, nondistended, nontender. Normoactive bowel sounds x4. Extremities: No cyanosis or clubbing with trace edema in the dependent portions of his ankle. He has friable, thin skin of his lower extremities. Psychiatric: No active psychosis, depression, suicidal nor homicidal ideations. Skin is warm to touch. TIME SPENT: The total time spent evaluating patient, reviewing pertinent data, and appropriate documentation is greater than 30 minutes. [id number] #: [id number] MTDD
== END 2018-01-18 19:30 | disposition home or self-care (01) | DRG 545 ==
LOC: ED 10:38 → MED 15:21
PROVIDERS: ADMIT Internal Medicine; ATTEND Student in an Organized Health Care Education/Training Program
PROC: 0S9C3ZZ Drainage of Right Knee Joint, Percutaneous Approach (ICD-10-PCS; principal; 2018-01-05)
PROC: 0TPBX0Z Removal of Drainage Device from Bladder, External Approach (ICD-10-PCS; 2018-01-05)
DX: M06.9 Rheumatoid arthritis, unspecified (principal); J81.0 Acute pulmonary edema; J90 Pleural effusion, not elsewhere classified; E87.1 Hypo-osmolality and hyponatremia; I10 Essential (primary) hypertension; Z66 Do not resuscitate; J45.909 Unspecified asthma, uncomplicated; I44.0 Atrioventricular block, first degree; Z96.698 Presence of other orthopedic joint implants; G43.109 Migraine with aura, not intractable, without status migrainosus; L30.8 Other specified dermatitis; D64.89 Other specified anemias; M25.461 Effusion, right knee; N28.1 Cyst of kidney, acquired; M25.462 Effusion, left knee; B96.5 Pseudomonas (aeruginosa) (mallei) (pseudomallei) as the cause of diseases classified elsewhere; N30.90 Cystitis, unspecified without hematuria; M40.209 Unspecified kyphosis, site unspecified; Z79.52 Long term (current) use of systemic steroids; Z90.79 Acquired absence of other genital organ(s); Z88.2 Allergy status to sulfonamides; Z88.8 Allergy status to other drugs, medicaments and biological substances; Z88.1 Allergy status to other antibiotic agents; Z91.040 Latex allergy status; Z91.09 Other allergy status, other than to drugs and biological substances; Z86.19 Personal history of other infectious and parasitic diseases; Z98.42 Cataract extraction status, left eye; Z98.41 Cataract extraction status, right eye; Z82.61 Family history of arthritis; N40.1 Benign prostatic hyperplasia with lower urinary tract symptoms; R33.8 Other retention of urine
CPT/HCPCS: 36415; 71045; 72190; 74176; 76705; 76775; 80048; 80053; 80170; 80202; 81003; 82530; 82550; 82728; 82784; 83516; 83605; 83735; 83880; 83930; 83935; 84100; 84145; 84300; 84484; 85025; 85384; 85610; 85652; 85730; 86038; 86140; 86200; 86618; 87040; 87070; 87086; 87205; 87640; 87641; 89051; 89060; 93005; 93306; 94640; 99283; A9270-GY; G8978-GP-CK; G8979-GP-CH; G8979-GP-CI; G8987-GO-CK; G8988-GO-CI; G8989-GO-CI; J0692; J0744; J1580; J1644; J1940; J2543; J3370; J3475; J7512

== ENCOUNTER 2018-02-10 14:20 | Emergency (ER) | payer MEDICARE, OTHER ==
--- OUTSIDE RECORDS SUMMARY | 2018-02-10 14:28 | XMS REPORT ---
:1935 External Reference #:[id number] Author Organization [facility] Address [address] [facility] [place] [address] Phone [phone] Care Team Providers Name Role Phone Joon Lombardo III, MD Primary Care Physician Unavailable Payers Type Date Identification Numbers Payment Provider Subscriber Medicare Primary Effective: Policy Number: Medicare Queenie Hernandez 2000 [id number] PayID: [id number] [address] [place] [address] Medigap Part B Effective: Policy Number: AMA Insurance Queenie Hernandez 2000 [id number] Agency PayID: [id number] [address] [place] [address] Problems Date Description Provider Status Onset: 08/05/2012 Benign essential hypertension Joon Lombardo M.D. Active Onset: 08/05/2012 Pure hypercholesterolemia Joon Lombardo M.D. Active Onset: 08/05/2012 Benign localized hyperplasia of Jono Lombardo M.D. Active prostate Onset: 08/05/2012 Rheumatoid arthritis Joon Lombardo M.D. Active Onset: 08/05/2012 Allergic rhinitis Joon Lombardo M.D. Active Onset: 11/23/2013 Blood chemistry abnormal Walter Ham M.D. Active Onset: 11/23/2013 Taking medication Walter Ham M.D. Active Onset: 11/23/2013 Anemia Walter Ham M.D. Active Onset: 07/10/2014 Leukopenia Walter Ham M.D. Active Onset: 10/04/2015 Benign prostatic hypertrophy without Joon E. Munira, M.D. Active outflow obstruction Onset: 10/07/2016 Mixed [...] Form Strength Qnty SIG Indications Ordering Provider Rituxan 01/28 Active Solution 500mg/50M 2X100 1000 mg M05.79 Zsofia /2018 L 0mg iv every Frank, 2 weeks BARREL HEADER may repeat at 24 weeks Hydroxychloroquine 09/07 Active Tablets 200mg 180ta take one M05.79 Zsofia bs tablet by Frank, mouth BARREL HEADER daily for 1 week then increase to 2 tabs/day Vitamin D 09/07 Active Tablets 1000Unit 90tab by mouth E55.9 Zsofia /2018 s everyday Frank, BARREL HEADER Montelukast Sodium Active Tablets 10mg 30tab 1 by Unknown /0000 s mouth every day Salsalate Active Tablets 500mg 540ta take 1 Z79.899 Zsofia /0000 bs every 6 - Frank, 8 hour BARREL HEADER M05.79 Probiotic Active Capsules 14caps 1 by [...] every 4h as Unknown mg/3 needed ML Prednisone Active Tablets 5mg 1tabxday or Unknown as directed--- 15mg Multi For Him Active Tablets Unknown Flagyl 10/08/2017 - Hx Tablets 500m 3tabs 1 tab by Joon Payne 01/27/2018 g mouth at Munira, 1:00 at M.D. night & 7:00 at night the day before surgery and at 7:00 in the morning the day of surgery Vitamin D3 Ultra 04/30/2017 - Hx Capsules 5000 90caps 1 by mouth E55. Zsofia Strength 09/07/2017 Unit every day 9 RUI Marie M81.0 Xeljanz XR 04/23/2017 - Hx Tablets ER 11mg 30tabs 1 by mouth M05.79 Zsofia 06/01/2017 24HR every day RUI Marie Augmentin 02/20/2017 - Hx Tablets 875-125 20tabs take 1 tab Zsofia 04/23/2017 mg by mouth Frank, twice a BARREL HEADER day for 10 days Ciprofloxacin 02/19/2017 - Hx Tablets 500mg 14tabs take 1 tab Zsofia HCL 02/20/2017 by mouth Frank, twice a BARREL HEADER day for 7 days Vancomycin HCL 06/06/2015 - Hx Capsules 125mg 56caps 1 tab by Zsofia 08/30/2015 mouth Frank, 4x/day for BARREL HEADER 14 days Vitamin C 08/05/2012 - Hx Capsules 1000mg 1 po qd Joon Payne 02/02/2014 Courtney Lombardo/Vitamin E M.DJesus [place] Oil 08/05/2012 - Hx Capsules 4 daily Joon Payne 01/11/2017 unsure of Munira, bharati M.D. Clonidine HCL - Hx Tablets 0.1mg 180tabs 1 poqd Unknown 09/01/2013 Amlodipine - Hx Tablets 5mg 30tabs 1 po qd Unknown Besylate 09/01/2013 Lisinopril - Hx Tablets 10mg 90tabs 1 po qd Unknown 09/01/2013 Lipitor - Hx Tablets 40mg 90tabs one tab by Joon Payne 11/23/2013 thania Lombardo, every M.D. night at bedtime Vitamin B - Hx Tablets 1000mcg 1 po qd Unknown Complex 10/08/2017 Ferrous Sulfate - Hx Tablets 325(65F 30tabs 1 by mouth Unknown 11/23/2013 e) mg every day Leflunomide - Hx Tablets 10mg 30tabs 1 by mouth Unknown 02/02/2014 every day Raymond - Hx Capsules 150mg No longer Unknown 03/09/2014 taking as of 12/02/13. 2 by mouth every day Qvar - Hx Aerosol 2 puffs Unknown 03/08/2015 twice a day Vit B 12 - Hx 1000mcg po qd Unknown 01/27/2018 Augmentin - Hx Tablets 875-125 20tabs one by L03.116 Zsofia 08/30/2015 mg mouth Frank, every 12 BARREL HEADER hours for ten days Norvasc - Hx Tablets 5mg 1 by mouth Unknown 03/12/2016 twice every day Lisinopril - Hx Tablets 5mg 1 by mouth Unknown 10/02/2016 twice daily Atorvastatin - Hx Tablets 20mg 90tabs Take One Joon E. Calcium 10/08/2017 Tablet By Munira Mouth AT M.D. Bedtime Avodart - Hx Capsules 0.5mg 1 by mouth Unknown 01/27/2018 every day Medications Administered in Office Medication Date Status Form Strength Qnty SIG Indications Ordering Provider Influenza Administered Injection Unknown Virus Vaccine 015 Influenza Administered Injection Unknown Virus Vaccine 014 Immunizations CPT Code Status Date Vaccine Lot # [id number] Given 03/08/2017 Influenza Virus Vaccine, Quadrivalent, Split, Preservative Free [id number] Given 03/08/2017 Pneumococcal Conjugate Vaccine 13 Valent For Intramuscular Use 79588 Given 02/23/2016 Influenza Virus Vaccine, Quadrivalent, Split Virus, Im Use 02788 Given 02/02/2014 Pneumococcal Conjugate Vaccine 13 Valent For [id number] Intramuscular Use 54244 Given 2012 Pneumonia Vaccine 11575 Given 05/25/2009 Tdap - Tetanus/Diptheria/Acellular Pertussis Vital Signs Date Vital Result Comment 01/28/2018 Height 71.5 inches 5'11.50" Weight 165.00 lb Heart Rate 99 /min BP Systolic Sitting 140 mmHg BP Diastolic Sitting 82 mmHg Body Temperature 97.1 F O2 % BldC Oximetry 97 % BMI (Body Mass Index) 22.7 kg/m2 12/10/2017 Height 71.5 inches 5'11.50" Weight 178.00 [...] Test Date Test Result H/L Range Note CBC Auto Diff 01/27/2018 White Blood Count 6.2 10^3/uL 3.5-10.8 Red Blood Count 4.73 10^6/uL 4.00-5.40 Hemoglobin 12.8 g/dL Low 14.0-18.0 Hematocrit 39 % Low 42-52 Mean Corpuscular Volume 82 fL 80-94 Mean Corpuscular Hemoglobin 27 pg 27-31 Mean Corpuscular HGB Conc 33 g/dL 31-36 Red Cell Distribution Width 16 % High 10.5-15 Platelet Count 298 10^3/uL 150-450 Mean Platelet Volume 6.4 um3 Low 7.4-10.4 Abs Neutrophils 4.8 10^3/uL 1.5-7.7 Abs Lymphocytes 0.8 10^3/uL Low 1.0-4.8 Abs Monocytes 0.5 10^3/uL 0-0.8 Abs Eosinophils 0 10^3/uL 0-0.6 Abs Basophils 0 10^3/uL 0-0.2 Abs Nucleated RBC 0 10^3/uL Granulocyte % 77.9 % 38-83 Lymphocyte % 13.6 % Low 25-47 Monocyte % 8.1 % High 0-7 Eosinophil % 0.1 % 0-6 Basophil % 0.3 % 0-2 Nucleated Red Blood Cells % 0.1 Comp Metabolic Panel 01/27/2018 Sodium 137 mmol/L 135-145 Potassium 4.8 mmol/L 3.5-5.0 Chloride 106 mmol/L 101-111 Co2 Carbon Dioxide 20 mmol/L Low 22-32 Anion Gap 11 mmol/L 2-11 Glucose 159 mg/dL High 70-100 Blood Urea Nitrogen 41 mg/dL High 6-24 Creatinine 0.84 mg/dL 0.67-1.17 BUN/Creatinine Ratio 48.8 High 8-20 Calcium 9.0 mg/dL 8.6-10.3 Total Protein 6.6 g/dL 6.4-8.9 Albumin 3.7 g/dL 3.2-5.2 Globulin 2.9 g/dL 2-4 Albumin/Globulin Ratio 1.3 1-3 Total Bilirubin 0.40 mg/dL 0.2-1.0 Alkaline Phosphatase 78 U/L 34-104 Alt 19 U/L 7-52 Ast 17 U/L 13-39 Egfr Non- 87.5 >60 Egfr 105.9 >60 1 Laboratory test finding 01/27/2018 C Reactive Protein 1.56 mg/L <8.01 Erythrocyte Sed Rate 28 mm/Hr 0-40 Vitamin D Total 25(Oh) 36.5 ng/mL 20-50 Laboratory test finding 01/05/2018 Lactic Acid 0.9 mmol/L 0.5-2.0 2 Comp Metabolic Panel 12/09/2017 Sodium 139 mmol/L [...] Egfr Non- 136.9 >60 Egfr 165.6 >60 3 Laboratory test finding 12/09/2017 C Reactive Protein [...] Egfr Non- 117.6 >60 Egfr 151.3 >60 4 Laboratory test finding 09/04/2017 C Reactive Protein 4.28 mg/L < 5.00 5 Erythrocyte Sed Rate 22 mm/Hr 0-40 Laboratory test finding 07/23/2017 TSH (Thyroid Stim 0.78 mcIU/mL 0.34- 5.60 6, 7 Horm) Free T4 (Free Thyroxine) 0.74 ng/dL 0.61-1.12 6, 8 Laboratory test finding 07/23/2017 Erythrocyte Sed Rate 18 mm/Hr 0-40 CBC Auto Diff 07/23/2017 White Blood Count [...] Red Blood Cells % 0 Laboratory test finding 07/23/2017 C Reactive Protein 4.33 mg/L < 5.00 9 Comp Metabolic Panel 07/23/2017 Sodium 138 mmol/L [...] Egfr Non- 152.5 >60 Egfr 196.2 >60 10 Laboratory test finding 07/23/2017 Vitamin D Total 25(Oh) 38.0 ng/mL 20- 50 CBC Auto Diff 05/28/2017 White Blood Count [...] Egfr Non- 117.9 >60 Egfr 151.6 >60 11 Laboratory test finding 05/28/2017 Erythrocyte Sed Rate 16 mm/Hr 0-40 C Reactive Protein 1.05 mg/L < 5.00 12 Lipid Profile (Trig/Chol/HDL) 05/28/2017 Triglycerides 243 mg/dL 13 Cholesterol 216 mg/dL 14 HDL Cholesterol 36.4 mg/dL 15 LDL Cholesterol 131 mg/dL 16 Laboratory test finding 05/28/2017 Vitamin D Total 25(Oh) 25.0 ng/mL 20- 50 Quantiferon Gold TB 04/28/2017 M tuberculosis by Negative Negative 17 Quantiferon TB Ag minus Nil Result 0 IU/mL TB Mitogen minus Nil Result 1.01 IU/mL TB Nil Result 0.03 IU/mL 18 Laboratory test finding 04/28/2017 Vitamin D Total 25(Oh) 16.3 ng/mL Low 20-50 Hepatitis B Surface Ag Nonreactive Nonreactive Hepatitis B Core AB Igm Nonreactive Nonreactive Hepatitis A AB Igm Nonreactive Nonreactive Hepatitis C Antibody Nonreactive Nonreactive CBC Auto Diff 04/09/2017 White Blood Count [...] Egfr Non- 146.0 >60 Egfr 187.8 >60 19 Laboratory test finding 04/09/2017 Erythrocyte Sed Rate 25 mm/Hr 0-40 C Reactive Protein 8.09 mg/L High < 5.00 20 CBC No Diff 04/09/2017 White Blood Count [...] Mean Platelet Volume 7 um3 Low 7.4-10.4 Urinalysis Profile 02/27/2017 Urine Color Yellow Urine Appearance Cloudy Urine Specific Frakes 1.017 1.010-1.030 Urine pH 6.0 5-9 Urine [...] Present Absent Urine Amorphous Crystals Present Absent Urine Culture And Sensitivities 02/27/2017 Urine Culture SEE RESULT BELOW 21 Urine Culture And Sensitivities 02/18/2017 Urine Culture SEE RESULT BELOW 22 Laboratory test finding 02/18/2017 Blood Culture SEE RESULT BELOW 23 Urinalysis Profile 02/18/2017 Urine Color Yellow Urine Appearance Turbid Urine Specific Frakes 1.018 1.010-1.030 Urine pH 6.0 5-9 Urine Urobilinogen Negative Negative Urine Ketones Negative Negative Urine Protein 2+(100 mg/dL) Negative Urine Leukocytes 3+ Negative Urine Blood 2+ Negative Urine Nitrite Positive Negative Urine Bilirubin Negative Negative Urine Glucose Negative Negative Urine White Blood Cell 3+(>20/hpf) Absent Urine Red Blood Cell 2+(6-10/hpf) Absent Urine Bacteria Absent Absent CBC Auto Diff 02/16/2017 White Blood Count [...] Blood Cells % 0.1 Laboratory test finding 02/16/2017 C Reactive Protein 65.83 mg/L High < 5.00 24 Comp Metabolic Panel 02/16/2017 Sodium 134 mmol/L [...] Egfr Non- 111.9 >60 Egfr 143.9 >60 25 Manual Differential 02/16/2017 Neutrophil % 49 % 38-83 Lymphocytes % 21 % Low 25-47 Monocytes % 16 % High 0-13 Reactive Lymph % 14 % High 0-6 RBC Morphology Normal Normal Laboratory test finding 02/16/2017 Lyme Disease Serology Negative Negative 26 Laboratory test finding 01/05/2017 Erythrocyte Sed Rate 21 mm/Hr 0-40 C Reactive Protein 3.06 mg/L < 5.00 27 CMP Panel 01/05/2017 Sodium 138 mmol/L 133-145 [...] Egfr Non- 113.8 >60 Egfr 146.4 >60 28 CBC W/Auto Diff 01/05/2017 White Blood Count [...] <0.1 ng/mL PSA Free/Total See Comment ratio 29 CBC No Diff 12/31/2016 White Blood Count [...] Egfr Non- 120.0 >60 Egfr 154.4 >60 30 Lipid Profile (Trig/Chol/HDL) 11/06/2016 Triglycerides 219 mg/dL 31 Cholesterol 167 mg/dL 32 HDL Cholesterol 32.2 mg/dL 33 LDL Cholesterol 91 mg/dL 34 Laboratory test finding 10/07/2016 Hemoglobin A1c 6.3 5-7 Laboratory test finding 09/30/2016 C Reactive Protein 1.13 mg/L < 5.00 35 Erythrocyte Sed Rate 17 mm/Hr 0-40 36 TSH (Thyroid Stim Horm) 0.66 mcIU/mL 0.34-5.60 37 Vitamin D Total 25(Oh) 24.4 ng/mL Low 30-50 38 Comp Metabolic Panel 09/30/2016 Sodium 135 mmol/L [...] Egfr Non- 81.0 >60 Egfr 104.2 >60 39 CBC Auto Diff 09/30/2016 White Blood Count [...] Blood Cells % 0.1 Comp Metabolic Panel 06/16/2016 Sodium 137 mmol/L 133-145 40 Potassium 4.3 mmol/L 3.5-5.0 40 Chloride 107 mmol/L 101-111 40 Co2 Carbon Dioxide 21 mmol/L Low 22-32 40 Anion Gap 9 mmol/L 2-11 40 Glucose 153 mg/dL High 70-100 40 Blood Urea Nitrogen 25 mg/dL High 6-24 40 Creatinine 0.76 mg/dL 0.67-1.17 40 BUN/Creatinine Ratio 32.9 High 8-20 40 Calcium 9.3 mg/dL 8.6-10.3 40 Total Protein 6.7 g/dL 6.4-8.9 40 Albumin 4.0 g/dL 3.2-5.2 40 Globulin 2.7 g/dL 2-4 40 Albumin/Globulin Ratio 1.5 1-3 40 Total Bilirubin 0.50 mg/dL 0.2-1.0 40 Alkaline Phosphatase 67 U/L 34-104 40 Alt 24 U/L 7-52 40 Ast 19 U/L 13-39 40 Egfr Non- 98.7 >60 40 Egfr 126.9 >60 40, 41 Laboratory test finding 06/16/2016 C Reactive Protein < 1.00 mg/L < 5.00 40, 42 Erythrocyte Sed Rate 20 mm/Hr 0-40 40, 43 Iron & Iron Binding Capacity 06/16/2016 Iron 70 g/dL 50-212 Unsaturated Iron Binding 273 g/dL Total Iron Binding Capacity 343 g/dL 250-450 % Iron Saturation 20 % 15-55 Laboratory test finding 06/16/2016 Ferritin 237.3 ng/mL 24-336 Vitamin B12 503 pg/mL 180-914 44 CBC Auto Diff 06/16/2016 White Blood Count 7.0 10^3/uL 3.5-10.8 40 Red Blood Count 4.83 10^6/uL 4.0-5.4 40 Hemoglobin 13.5 g/dL Low 14.0-18.0 40 Hematocrit 40 % Low 42-52 40 Mean Corpuscular Volume 82 fL 80-94 40 Mean Corpuscular Hemoglobin 28 pg 27-31 40 Mean Corpuscular HGB Conc 34 g/dL 31-36 40 Red Cell Distribution Width 15 % 10.5-15 40 Platelet Count 205 10^3/uL 150-450 40 Mean Platelet Volume 7 um3 Low 7.4-10.4 40 Abs Neutrophils 4.4 10^3/uL 1.5-7.7 40 Abs Lymphocytes 1.7 10^3/uL 1.0-4.8 40 Abs Monocytes 0.7 10^3/uL 0-0.8 40 Abs Eosinophils 0 10^3/uL 0-0.6 40 Abs Basophils 0.2 10^3/uL 0-0.2 40 Abs Nucleated RBC 0 10^3/uL 40 Granulocyte % 63.1 % 38-83 40 Lymphocyte % 24.3 % Low 25-47 40 Monocyte % 9.4 % High 1-9 40 Eosinophil % 0.6 % 0-6 40 Basophil % 2.6 % High 0-2 40 Nucleated Red Blood Cells % 0 40 CBC W/Auto Diff 01/07/2016 White Blood Count [...] 0-2 Nucleated Red Blood Cells % 0.9 Laboratory test finding 01/07/2016 C Reactive Protein 2.26 mg/L < 5.00 45 Erythrocyte Sed Rate 18 mm/Hr 0-40 Comp Metabolic Panel 01/07/2016 Sodium 140 mmol/L [...] Egfr Non- 90.4 >60 Egfr 116.3 >60 46 Laboratory test finding 12/04/2015 Erythrocyte Sed Rate 15 mm/Hr 0-40 47 , 48 CBC Auto Diff 12/04/2015 White Blood Count 3.9 10^3/uL 3.5-10.8 47 Red Blood Count 4.76 10^6/uL 4.0-5.4 47 Hemoglobin 13.2 g/dL Low 14.0-18.0 47 Hematocrit 39 % Low 42-52 47 Mean Corpuscular Volume 81 fL 80-94 47 Mean Corpuscular Hemoglobin 28 pg 27-31 47 Mean Corpuscular HGB Conc 34 g/dL 31-36 47 Red Cell Distribution Width 15 % 10.5-15 47 Platelet Count 176 10^3/uL 150-450 47 Mean Platelet Volume 7 um3 Low 7.4-10.4 47 Abs Neutrophils 1.0 10^3/uL Low 1.5-7.7 47 Abs Lymphocytes 2.1 10^3/uL 1.0-4.8 47 Abs Monocytes 0.7 10^3/uL 0-0.8 47 Abs Eosinophils 0.1 10^3/uL 0-0.6 47 Abs Basophils 0 10^3/uL 0-0.2 47 Abs Nucleated RBC 0 10^3/uL 47 Granulocyte % 25.5 % Low 38-83 47 Lymphocyte % 55.0 % High 25-47 47 Monocyte % 17.3 % High 1-9 47 Eosinophil % 1.6 % 0-6 47 Basophil % 0.6 % 0-2 47 Nucleated Red Blood Cells % 0.1 47 Laboratory test finding 12/04/2015 C Reactive Protein < 1.00 mg/L < 5.00 47, 49 Comp Metabolic Panel 12/04/2015 Sodium 138 mmol/L 133-145 47 Potassium 4.1 mmol/L 3.5-5.0 47 Chloride 107 mmol/L 101-111 47 Co2 Carbon Dioxide 24 mmol/L 22-32 47 Anion Gap 7 mmol/L 2-11 47 Glucose 114 mg/dL High 70-100 47 Blood Urea Nitrogen 21 mg/dL 6-24 47 Creatinine 0.75 mg/dL 0.67-1.17 47 BUN/Creatinine Ratio 28.0 High 8-20 47 Calcium 9.1 mg/dL 8.6-10.3 47 Total Protein 6.9 g/dL 6.4-8.9 47 Albumin 3.9 g/dL 3.2-5.2 47 Globulin 3.0 g/dL 2-4 47 Albumin/Globulin Ratio 1.3 1-3 47 Total Bilirubin 0.40 mg/dL 0.2-1.0 47 Alkaline Phosphatase 68 U/L 34-104 47 Alt 23 U/L 7-52 47 Ast 22 U/L 13-39 47 Egfr Non- 100.2 >60 47 Egfr 128.9 >60 47, 50 Lipid Profile (Trig/Chol/HDL) 10/08/2015 Triglycerides 230 mg/dL 51 Cholesterol 239 mg/dL 52 HDL Cholesterol 30.7 mg/dL 53 LDL Cholesterol 162 mg/dL 54 Laboratory test finding 10/08/2015 Hemoglobin A1c (Glyco 6.3 % High Less than 6.0 55 HGB) PSA Diagnostic 2.685 ng/mL 0-4.000 56 CBC Auto Diff 08/23/2015 White Blood Count [...] Blood Cells % 0.1 Comp Metabolic Panel 08/23/2015 Sodium 139 mmol/L [...] Egfr Non- 98.7 >60 Egfr 126.9 >60 57 Laboratory test finding 08/23/2015 C Reactive Protein 3.15 mg/L < 5.00 58 Erythrocyte Sed Rate 17 mm/Hr 0-40 CBC Auto Diff 03/09/2015 White Blood Count [...] 0-2 Nucleated Red Blood Cells % 0.3 Comp Metabolic Panel 03/09/2015 Sodium 139 mmol/L [...] Egfr Non- 98.9 >60 Egfr 127.2 >60 59 Laboratory test finding 03/09/2015 C Reactive Protein 1.01 mg/L < 5.00 60 Erythrocyte Sed Rate 14 mm/Hr 0-40 Cyclic Citrullinated Pep Igg >250.0 U 61 Rheumatoid Factor 36 IU/mL <15 62 CBC W/Auto Diff 10/02/2014 White Blood [...] Red Blood Cells % 0.1 CMP Panel 10/02/2014 Sodium 138 mmol/L 133-145 [...] Egfr Non- 114.4 >60 Egfr 147.2 >60 63 Laboratory test finding 10/02/2014 C Reactive Protein < 1.00 mg/L < 5.00 64 Erythrocyte Sed Rate 16 mm/Hr 0-40 Lipid Profile (Trig/Chol/HDL) 09/21/2014 Triglycerides 336 mg/dL 65 Cholesterol 152 mg/dL 66 HDL Cholesterol 24.5 mg/dL 67 LDL Cholesterol 60 mg/dL 68 Leukemia/Lymphoma Phenot 07/03/2014 Path Interpretation 2-8 Marker TNP Path Interpret 9-15 Marker (SEE NOTE) 69 Path Interpret > 16 Marker TNP Laboratory test finding 07/03/2014 Chromosome Hold See Comment 70 Protein Electrophoresis 06/27/2014 Total Protein(Pep) 7.7 g/dL 6.3 - 7.9 Albumin 3.8 g/dL 3.4-4.7 Alpha-1 Globulin 0.3 g/dL 0.1-0.3 Alpha-2 Globulin 1.0 g/dL 0.6-1.0 Beta Globulin 1.0 g/dL 0.7-1.2 Gamma Globulin 1.5 g/dL 0.6-1.6 Albumin/Globulin Ratio 0.97 Impression See Comment 71 Laboratory test finding 06/27/2014 LDH 166 U/L 140-271 Vitamin B12 573 pg/mL 180-914 72 Immunoglobulin G 1260 mg/dL 767 - 1590 73 Immunoglobulin M 100 mg/dL 37 - 286 74 Immunoglobulin A 355 mg/dL 61 - 356 75 CBC Auto Diff 06/27/2014 White Blood Count [...] Nucleated Red Blood Cells % 0.1 CBC Auto Diff 05/09/2014 White Blood Count [...] Egfr Non- 112.8 >60 Egfr 145.0 >60 76 Laboratory test finding 05/09/2014 Hepatitis B Surface Nonreactive Nonreactive Antigen Hepatitis C Antibody Nonreactive Nonreactive Laboratory test finding 12/07/2013 CRP C-Reactive Protein <pending> Manual Differential 09/01/2013 Neutrophil % 44 % 38-83 77 Lymphocytes % 43 % 25-47 77 Monocytes % 12 % 0-13 77 Eosinophils % 1 % 0-6 77 RBC Morphology Normal Normal 77 Iron & Iron Binding Capacity 09/01/2013 Iron 124 g/dL 50-212 77 Unsaturated Iron Binding 222 g/dL 77 Total Iron Binding Capacity 346 g/dL 250-450 77 % Iron Saturation 36 % 15-55 77 Laboratory test finding 09/01/2013 Ferritin 396.3 ng/mL High 24-336 77, 78 CBC Auto Diff 09/01/2013 White Blood Count 5.2 10^3/uL 4.8-10.8 77 Red Blood Count 5.03 10^6/uL 4.0-5.4 77 Hemoglobin 14.5 g/dL 14.0-18.0 77 Hematocrit 42 % 42-52 77 Mean Corpuscular Volume 84 fL 80-94 77 Mean Corpuscular Hemoglobin 29 pg 27-31 77 Mean Corpuscular HGB Conc 34 g/dL 31-36 77 Red Cell Distribution Width 15 % 10.5-15 77 Platelet Count 182 10^3/uL 150-450 77 Mean Platelet Volume 7 um3 Low 7.4-10.4 77 Abs Neutrophils 1.6 10^3/uL 1.5-7.7 77 Abs Lymphocytes 2.6 10^3/uL 1.0-4.8 77 Abs Monocytes 0.8 10^3/uL 0-0.8 77 Abs Eosinophils 0.1 10^3/uL 0-0.6 77 Abs Basophils 0 10^3/uL 0-0.2 77 Abs Nucleated RBC 0 10^3/uL 77 Lipid Profile (Trig/Chol/HDL) 09/01/2013 Triglycerides 237 mg/dL 77, 79 Cholesterol 164 mg/dL 77, 80 HDL Cholesterol 31.4 mg/dL 77, 81 LDL Cholesterol 85 mg/dL 77, 82 Comp Metabolic Panel 09/01/2013 Sodium 139 mmol/L 133-145 77 Potassium 3.9 mmol/L 3.7-5.6 77 Chloride 106 mmol/L 101-111 77 Co2 Carbon Dioxide 27 mmol/L 22-32 77 Anion Gap 6 mmol/L 2-11 77 Glucose 110 mg/dL High 70-100 77 Blood Urea Nitrogen 13 mg/dL 6-24 77 Creatinine 0.76 mg/dL 0.67-1.17 77 BUN/Creatinine Ratio 17.1 8-20 77 Calcium 9.1 mg/dL 8.6-10.3 77 Total Protein 7.1 g/dL 6.4-8.9 77 Albumin 4.3 g/dL 3.2-5.2 77 Globulin 2.8 g/dL 2-4 77 Albumin/Globulin Ratio 1.5 1-3 77 Total Bilirubin 0.50 mg/dL 0.2-1.0 77 Alkaline Phosphatase 88 U/L 34-104 77 Alt 34 U/L 7-52 77 Ast 31 U/L 13-39 77 Egfr Non- 99.2 >60 77 Egfr 127.6 >60 77, 83 Laboratory test finding 09/01/2013 PSA Diagnostic 5.624 ng/mL High 0- 4.000 77, 84 CBC Auto Diff 08/09/2012 White Blood Count [...] 10^3/uL 0-0.2 Abs Nucleated RBC 0.01 10^3/uL Comp Metabolic Panel 08/09/2012 Sodium 137 mmol/L [...] Egfr Non- 93.7 >60 Egfr 120.6 >60 85 Lipid Profile (Trig/Chol/HDL) 08/09/2012 Triglycerides 108 mg/dL 40-200 Cholesterol 175 mg/dL Less than 200 HDL Cholesterol 34 mg/dL Low 40-60 86 Cholesterol/HDL Ratio 5.2 Average High 1-4.44 LDL Cholesterol 119.4 mg/dL High Less Than 100 87 Laboratory test finding 08/09/2012 TSH (Thyroid Stimulating 1.40 miu/mL 0.34-5.60 88 Horm) Erythrocyte Sed Rate 29 mm/Hr 0-40 89 C Reactive Protein 0.5 mg/dL Less than 0.5 90 PSA Diagnostic 15.1 ng/mL High 0-4.0 91 Manual Differential 08/09/2012 Neutrophil % 49 % 38-83 Band % 1 % 0-8 Lymphocytes % 37 % 25-47 Monocytes % 9 % 0-13 Eosinophils % 3 % 0-6 Reactive Lymph % 1 % 0-6 RBC Morphology Normal Normal Laboratory test finding 08/09/2012 Hemoglobin A1c 6.4 % High Less than 6.0 92 1 Because ethnic data is not always [...] 5 Kidney failure <15 (or dialysis) 2 [facility] Severe Sepsis and Septic Shock Management Bundle Measure requires all lactic acids initially measuring >2.0 mmol/L be repeated. 3 Because ethnic data is not always readily [...] 15-29 5 Kidney failure <15 (or dialysis) 4 Because ethnic data is not always [...] (or dialysis) 5 Acute inflammation: >10.00 6 [facility] 8 [facility] 9 Acute inflammation: >10.00 10 Because ethnic data is not always readily [...] 15-29 5 Kidney failure <15 (or dialysis) 11 Because ethnic data is not always readily [...] 15-29 5 Kidney failure <15 (or dialysis) 12 Acute inflammation: >10.00 13 Desirable: <150 Borderline High: 150-199 High: 200-499 Very High: >500 14 Desirable: <200 Borderline High: 200-239 High: >239 15 Low: <40 Desirable: 40-60 High: >60 16 Desirable: <100 Near Optimal: 100-129 Borderline High: 130-159 High: 160-189 Very High: >189 17 No interferon-gamma response to M. tuberculosis antigens was detected. Infection with M. tuberculosis is unlikely. A negative result alone does not exclude infection with M. tuberculosis. For detailed information regarding test interpretation see: [email or web address] 18 Test Performed by: [facility] [address] [place] [address] 19 Because ethnic data is not always readily [...] 15-29 5 Kidney failure <15 (or dialysis) 20 Acute inflammation: >10.00 21 SEE RESULT BELOW Name: SARAHCHANAQUEENIE : [address]: Peewee Marie NP Acct: [id number] Unit: [id number] AGE: 81 Location: [facility] Re02/27/17 SEX: M Status: REG REF SPEC: [id number] CARLOS: 02/27/[address]: Peewee Marie NP REQ: [id number] RECD: 02/27/17 STATUS: COMP _ SOURCE: URINE SPDESC: ORDERED: Urine Culture Procedure Result Reported Site Urine Culture Final 03/02/17- 45 ML Organism 1 PSEUDOMONAS AERUGINOSA [place] Count >100,000 (Many) CFU/ML 1. PSEUDOMONAS AERUGINOSA [...] antibiotic reporting. * ML - MAIN LAB ([facility]) . END OF REPORT * ML=Testing performed at Main Lab DEPARTMENT OF PATHOLOGY, [address] [place] [address] Ferny Guzman M.D. Director [facility] # [id number] 22 SEE RESULT BELOW Name: QUEENIE HERNANDEZ : [address]: Peewee Marie NP Acct: [id number] Unit: [id number] AGE: 81 Location: [facility] Re02/18/17 SEX: M Status: REG REF SPEC: [id number] CARLOS: 02/18/[address]: Peewee Marie NP REQ: [id number] RECD: 02/18/17 STATUS: COMP _ SOURCE: URINE SPDESC: ORDERED: Urine Culture Procedure Result Reported Site Urine Culture Final 02/20/17- 815 ML Organism 1 ESCHERICHIA COLI [place] Count >100,000 (Many) CFU/ML 1. ESCHERICHIA COLI [...] antibiotic reporting. * ML - MAIN LAB ([facility]) . END OF REPORT * ML=Testing performed at Main Lab DEPARTMENT OF PATHOLOGY, [address] [place] [address] Ferny Guzman M.D. Director [facility] # [id number] 23 SEE RESULT BELOW Name: QUEENIE HERNANDEZ : [address]: Peewee Marie NP Acct: [id number] Unit: [id number] AGE: 81 Location: [facility] Re02/18/17 SEX: M Status: REG REF SPEC: [id number] CARLOS: 02/18/[address]: Peewee Marie NP REQ: [id number] RECD: 02/18/17 STATUS: COMP _ SOURCE: BLOOD,VENO SPDESC: ORDERED: Blood Cult Procedure Result Reported Site Aerobic Culture Bottle Final 02/23/17- 8 ML No Growth Day 5 Anaerobic Culture Bottle Final 02/23/17- 8 ML No Growth Day 5 * ML - MAIN LAB (PSC1) . END OF REPORT * ML=Testing performed at Main Lab DEPARTMENT OF PATHOLOGY, [address] [place] [address] Ferny Guzman M.D. Director [facility] # [id number] 24 Acute inflammation: >10.00 25 Because ethnic data is not always readily [...] 15-29 5 Kidney failure <15 (or dialysis) 26 Serologic response to B. burgdorferi infection is not detected, but cannot rule out early infection during which low or undetectable antibody levels to B. burgdorferi may be present. If clinically indicated, a new serum specimen should be submitted in 7-14 days. Test Performed by: [place] [address] 27 Acute inflammation: >10.00 28 Because ethnic [...] 5 Kidney failure <15 (or dialysis) 29 Ratio was not calculated because free PSA [...] absence of malignant disease. Test Performed by: [address] [address] 30 Because ethnic data is not always readily [...] 15-29 5 Kidney failure <15 (or dialysis) 31 Desirable <150 Borderline high 150-199 High 200-499 Very High >500 32 Desirable <200 Borderline high 200-239 High >239 33 Low <40 Desirable: 40-60 High: >60 34 Desirable: <100 mg/dL Near Optimal: 100-129 mg/dL Borderline High: 130-159 mg/dL High: 160-189 mg/dL Very High: >189 mg/dL 35 Acute inflammation: >10.00 36 standing order 37 standing order 38 standing order 39 Because ethnic data is not always readily [...] 15-29 5 Kidney failure <15 (or dialysis) 40 PRN EXP 07/09/2016 41 Because ethnic data is not always readily [...] 15-29 5 Kidney failure <15 (or dialysis) 42 Acute inflammation: >10.00 43 PRN EXP 07/09/2016 44 Normal Range 180 to 914 Indeterminate Range 145 to 180 Deficient Range <145 45 Acute inflammation: >10.00 46 Because ethnic data is not always readily [...] 15-29 5 Kidney failure <15 (or dialysis) 47 chronic neutropenia. Repeat in 4 week for monitoring 48 REC 05/30/2015 EXP 11/28/2015 49 Acute inflammation: >10.00 50 Because ethnic data is not always readily [...] 15-29 5 Kidney failure <15 (or dialysis) 51 Desirable <150 Borderline high 150-199 High 200-499 Very High >500 52 Desirable <200 Borderline high 200-239 High >239 53 Low <40 Desirable: 40-60 High: >60 54 Desirable: <100 mg/dL Near Optimal: 100-129 mg/dL Borderline High: 130-159 mg/dL High: 160-189 mg/dL Very High: >189 mg/dL 55 Therapeutic target for the treatment of diabetes Mellitus patients is <7% HBA1C, and in selective patients <6.0%.Please refer to [place] [employer] Association Diabetic care guidelines for further information. 56 Serum levels of PSA measured using the Victor M Nighat DXI Hybritech immunoassay should not be interpreted as absolute evidence of the presence or absence of disease. The PSA value should be used in conjunction with other pertinent clinical diagnostic procedures. The values obtained with different assay methods or kits cannot be used interchangeably. 57 Because ethnic data is not always readily [...] 15-29 5 Kidney failure <15 (or dialysis) 58 Acute inflammation: >10.00 59 Because ethnic data is not always readily [...] 15-29 5 Kidney failure <15 (or dialysis) 60 Acute inflammation: >10.00 61 Interpretation: Strong Positive (>=60.0) REFERENCE VALUE <20.0 (Negative) Test Performed by: [place] [address] Rubber Compounder Formulator: Jayson Cormier II, M.D., Ph.D. 62 Test Performed by: [place] [address] Rubber Compounder Formulator: Jayson Cormier II, M.D., Ph.D. 63 Because ethnic data is not always readily [...] 15-29 5 Kidney failure <15 (or dialysis) 64 Acute inflammation: >10.00 65 Desirable <150 Borderline high 150-199 High 200-499 Very High >500 66 Desirable <200 Borderline high 200-239 High >239 67 Low <40 Desirable: 40-60 High: >60 68 Desirable: <100 mg/dL Near Optimal: 100-129 mg/dL Borderline High: 130-159 mg/dL High: 160-189 mg/dL Very High: >189 mg/dL 69 FINAL DIAGNOSIS: Specimen Source: Bone marrow Flow [...] Becca Cavanaugh MD Technical component performed by: [place] [address] Rubber Compounder Formulator: Chucho Davalos III, M.D. 70 This test was canceled by the client laboratory. Cell culture was performed so a processing fee will be charged. 71 RESULT: No apparent monoclonal protein on serum electrophoresis. Test Performed by: [place] [address] Rubber Compounder Formulator: Nam Mayen M.D. 72 Normal Range 180 to 914 Indeterminate Range 145 to 180 Deficient Range <145 73 Test Performed by: [place] [address] Rubber Compounder Formulator: Nam A. Mayen, M.D. 74 Test Performed by: [address] [address] Rubber Compounder Formulator: Nam Mayen M.D. 75 Test Performed by: [place] [address] Rubber Compounder Formulator: Nam Mayen M.D. 76 Because ethnic data is not always readily [...] 15-29 5 Kidney failure <15 (or dialysis) 77 FASTING 78 FASTING 79 Desirable <150 Borderline high 150-199 High 200-499 Very High >500 80 Desirable <200 Borderline high 200-239 High >239 81 Low <40 Desirable: 40-60 High: >60 82 Desirable <100 Near Optimal 100-129 Borderline high 130-159 High 160-189 Very High >189 83 Because ethnic data is not always readily [...] 15-29 5 Kidney failure <15 (or dialysis) 84 Serum levels of PSA measured using the Victor M Freistatt DXI Hybritech immunoassay should not be interpreted as absolute evidence of the presence or absence of disease. The PSA value should be used in conjunction with other pertinent clinical diagnostic procedures. The values obtained with different assay methods or kits cannot be used interchangeably. 85 Because ethnic data is not always readily [...] 15-29 5 Kidney failure <15 (or dialysis) 86 HDL Interpretation: Undesirable: High Risk: Less than 40 MG/DL Desirable: Low Risk: Greater than 60 MG/DL 87 LDL Interpretation: Low Risk Optimal Level: LDL Less than 100 MG/DL Near or Above Optimal: LDL 100-129 MG/DL Borderline High Risk: LDL 130-159 MG/DL High Risk: LDL 160-189 MG/DL Very High Risk: LDL Greater than 189 MG/DL 88 FASTING AOT-HA1C FASTING 89 FASTING 90 FASTING AOT-HA1C FASTING 91 Serum levels of PSA measured using the Victor M Freistatt DXI Hybritech immunoassay should not be interpreted as absolute evidence of the presence or absence of disease. The PSA value should be used in conjunction with other pertinent clinical diagnostic procedures. The values obtained with different assay methods or kits cannot be used interchangeably. 92 Therapeutic target for the treatment of diabetes Mellitus patients is <7% HBA1C, and in selective patients <6.0%.Please refer to [place] [employer] Diabetic care guidelines for further information. Procedures Date CPT Code Description Status 01/11/2018 17860 Inject/Drain Joint/Bursa Major W/O US Completed 01/08/2018 34358 ECHO Transthorasic Realtime 2D W Doppler & Color Flow Completed Hosp 07/21/2016 Bone Mineral Density Test Completed Encounters Type Date Location Provider CPT E/M Dx Office Visit 01/14/2018 [place] Cifuentes [address] R50.82 10:38a Infectious Diseases Candi Black R93.8 Office Visit 01/12/2018 10:12a [place] Cifuentes 73198 M25.561 Infectious Diseases Candi Black M25.461 M06.9 R50.82 Office Visit 01/12/2018 11:07a [facility] 29980 M25.561 C.M.A. M25.562 M25.461 M25.462 Office Visit 01/11/2018 10:01a [facility] [address] M25.561 C.M.A. M25.461 M25.562 M25.462 Office Visit 12/15/2017 11:35a [facility], Melani Garibay, [address] I44.0 Hospitalists M.DJesus Office Visit 12/14/2017 11:35a [facility], Harsh Molina, [address] I44.0 Hospitalists N.P. N40.0 M06.9 E78.5 J45.909 Office Visit 12/10/2017 11:30a [facility] [place], [address]2745 M05.79 [facility] BARREL HEADER E55.9 M81.0 Z79.52 S42.202S Z79.899 Office Visit 09/07/2017 10:30a [facility] [place], 01363 M05.79 [facility] BARREL HEADER M25.559 N40.1 E55.9 M81.0 Z79.52 Z79.899 Office Visit 06/01/2017 11:30a [facility] [place], [address]9875 M05.79 [facility] BARREL HEADER N40.1 N21.9 E55.9 M81.0 Office Visit 04/23/2017 10:00a [facility] [place], 01010 M05.79 [employer] [facility] BARREL HEADER R79.82 N40.1 Z79.52 M81.0 Z79.899 Office Visit 02/17/2017 3:00p [facility] P[place] Marie [address] M01.x59 Of [facility] BARREL HEADER N40.1 R31.9 R79.82 M05.79 M25.551 Office Visit 01/12/2017 9:30a [facility] [place], 63078 M05.79 [employer] [facility] BARREL HEADER N40.1 N21.0 M25.569 Z79.52 Office Visit 10/02/2016 11:00a [facility] [place], 74461 M05.79 [employer] [facility] BARREL HEADER M81.0 Z79.52 Z79.899 R31.9 N42.30 Office Visit 06/19/2016 11:00a [facility] [place], 10521 M05.79 [employer] [facility] BARREL HEADER L23.81 Z79.899 Z79.52 R53.83 Office Visit 03/13/2016 9:00a [facility] [place], 36120 M05.79 [facility] BARREL HEADER D64.9 Z79.899 R60.9 L23.81 Office Visit 12/06/2015 9:30a [facility] [place], 03753 M05.79 [employer] [facility] BARREL HEADER D72.819 L03.116 Z79.899 Office Visit 08/30/2015 10:00a [facility] [place] [address]367 M05.89 [facility] BARREL HEADER L03.116 R21 D72.819 Z79.899 Office Visit 05/30/2015 2:00p Rheumatology Services LORI MckinleyP 19195 M05.89 Of [facility] D72.819 L03.116 Z79.899 Office Visit 03/08/2015 3:00p Rheumatology Services Walter Ham 39555 M05.89 Of Antonio Christopher D72.819 Z79.899 Office Visit 12/04/2014 1:40p Rheumatology Services Walter Ham M.D. 27731 714.0 Of [facility] 288.50 V58.69 Office Visit 07/10/2014 11:20a Rhe[facility]ology Services Walter Ham M.D. 27303 714.0 Of [facility] V58.69 288.50 Office Visit 05/09/2014 11:20a Rheumatology Services Josiah Palomares M.D. 15563 714.0 Of [facility] Office Visit 02/03/2014 1:20p Rheumatology Services Walter Ham M.D. 99178 714.0 Of [facility] V58.69 790.6 Office Visit 02/02/2014 2:20p [facility] Internal Medicine Joon Lombardo, 59571 V72.81 - Alexis Christopher 366.10 714.0 272.0 V03.82 V03.1 Office Visit 11/23/2013 11:00a Rhe[facility]ology Services Walter Ham M.D. 00989 714.0 Of [facility] V58.69 790.6 285.9 Office Visit 08/05/2012 2:00p [facility] Internal Medicine Joon Lombardo, 22950 V70.0 - Alexis Christopher 401.1 272.0 600.20 714.0 477.9 Plan of Care Future Appointment(s):03/30/2018 11:40 am - Junito Del Castillo M.D. at [facility]03/11/2018 11:00 am - RUI cMkinley at [facility]35/06/2018 - LORI MckinleyPM05.79 Rheu arthritis w rheu factor mult site w/o org/sys involvNew Medication:Rituxan 500 mg/ 50MLFollow up:[address] Almaguer81.0 Age-related osteoporosis w/o current pathological fractureComments:For your osteoporosis: Take a Calcium supplement 500 mg, with Vit D 400 iu. one twice daily. It would be recommend for you to take Fosamax alsoD64.9 Anemia, leeszuyezqyD49.09 Other abnormal sevdohkO75.52 half-way (current) use of systemic steroidsComments:Try to reduce carb intake while on bzevhngwtvU20.899 Other detention (current) drug therapy
--- OUTSIDE RECORDS SUMMARY | 2018-02-10 14:29 | XMS REPORT ---
:1935 External Reference #:[id number] Author Organization [facility] Address [address], [address] [place] [address] Phone [phone] Care Team Providers Name Role Phone Joon Lombardo III, MD Care Team Information Supervisor Webbing Unavailable Peewee Marie FNP Primary Care Physician Unavailable Payers Type Date Identification Numbers Payment Provider Subscriber Medicare Primary Policy Number: [id number] Medicare Jose Guillen PayID: [id number] [address] [place] [address] [facility] Policy Number: [id number] A Ins Agency Jose Guillen PayID: [id number] [address] [place] [address] Problems Date Description Provider Status Onset: 05/21/2013 Dyspnea Sharita Gee, ANP Active Onset: 05/21/2013 Syncope and collapse Sharita Gee, ANP Active Onset: 05/21/2013 Benign essential hypertension Sharita Gee., ANP Active Onset: 03/10/2014 Mixed hyperlipidemia Sharita Gee., ANP Active Onset: 03/10/2014 Heart block Sharita Gee, ANP Active Onset: 06/17/2016 Palpitations Holly Nayak, KANDICE, Active [employer] PI DEVELOPER Onset: 12/18/2016 Essential hypertension Patricio Villafuerte M.D., Active FACC Onset: 10/22/2017 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, Active 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 M.DJesus injury Onset: 10/22/2017 Closed fracture of upper end of Julio Cesar RoweJesus, Active humerus M.DJesus Onset: 10/22/2017 Exposure to other specified Julio Cesar RoweJesus Active factors, sequela MMemo Family History Date Family Member(s) Problem(s) Comments [...] Qnty SIG Indications Ordering Provider Vitamin D Active Capsules 5000Unit 2 time a Unknown /0000 week Singulair Active Tablets 10mg 90tab 1 by mouth Unknown /0000 s every day Tylenol Active Tablets 1000mg as needed Unknown /0000 Salsalate Active Tablets 500mg 1 every 6 Unknown /0000 hours as needed Vitamin B-12 Active Tablets 1000mcg 1 by mouth Unknown /0000 Sub every day Vitamin C Active Capsules 500mg 30cap 1 by mouth Unknown /0000 s every day Allergy Shots Active every 2 Unknown /0000 weeks Calcium Active Chewtabs 500mg 2 tab by Unknown /0000 mouth every day Prednisone Active Tablets 20mg 1 tablet Unknown /0000 daily in am Xopenex HFA Active Aerosol 45mcg/Act inhale two Unknown /0000 puffs by mouth every 6 hours as needed for trouble breathing Lisinopril Active Tablets 5mg 1 by mouth Unknown /0000 every day Magnesium Oxide Active Capsules 500mg 2 capsules Unknown (Antacid) /0000 daily Clonidine HCL Hx Tablets 0.1mg 30tab 1 po bid / s Amlodipine Besylate Hx Tablets 5mg 30tab 1 po qd Unknown / s Lisinopril Hx Tablets 10mg 90tab 1 po qd Unknown / s Lipitor Hx Tablets 20mg 90tab tab po qd Unknown s - 10/15 Vitamin B Complex Hx Tablets 1 po qd Unknown Leflunomide Hx Tablets 10mg po qd Unknown Plainwell Hx Capsules 150mg 2 caps po Unknown qd Qvar Hx Aerosol 80mcg/Act 2 puff twice a day prn Krill Oil Hx Capsules 1000mg 4 tabs Unknown daily Breo Ellipta Hx Aerosol 100-25mcg take 1 /Inh puff once daily. rinse mouth with water after use. Ventolin HFA Hx Aerosol 108(90Bas 1-2 puffs e) every 4-6 mcg/Act hours as needed Dulera Hx Aerosol 200-5mcg/ take 1 Unknown Act puff twice daily. rinse mouth after use. Prednisone Hx Tablets 5mg 1 by mouth Unknown every day Hydroxychloroquine Hx Tablets 300mg Once Daily Unknown Cefdinir Hx Capsules 300mg 1 tab by Unknown / mouth twice a day Flagyl Hx Tablets 500mg one by Unknown /0000 mouth - twice a 11/04 day x days Vital Signs Date Vital Result Comment 01/20/2018 BP Systolic Sitting Left Arm 155 mmHg BP Diastolic Sitting Left Arm 70 mmHg Heart Rate 101 /min Respiratory Rate 22 /min Height 70.5 inches 5'10.50" Weight 169.00 lb BMI (Body Mass Index) 23.9 kg/m2 BSA (Body Surface Area) 1.95 m2 [place] body weight in kilograms 77 O2 % BldC Oximetry 98 % 12/17/2017 BP Systolic Sitting Right Arm 114 mmHg BP Diastolic Sitting Right Arm 73 mmHg Body Temperature 97.6 F Heart Rate 100 /min Height 70.5 inches 5'10.50" Weight 176.00 lb BMI (Body Mass Index) 24.9 kg/m2 BSA (Body Surface Area) 1.99 m2 [place] body weight in kilograms 77 O2 % BldC Oximetry 96 % 11/19/2017 BP Systolic 124 mmHg BP Diastolic 78 mmHg Body Temperature 96.9 F Heart Rate 103 /min Height 70.5 inches 5'10.50" Weight 172.00 lb BMI (Body Mass Index) 24.3 kg/m2 BSA (Body Surface Area) 1.97 m2 [place] body weight in kilograms 77 O2 % BldC Oximetry 96 % room air Pain Level 0 11/06/2017 BP Systolic Sitting Left Arm 136 mmHg BP Diastolic Sitting Left Arm 79 mmHg Body Temperature 97.6 F Heart Rate 86 /min Height 71 inches 5'11" verbal Weight 174.00 lb BMI (Body Mass Index) 24.3 kg/m2 BSA (Body Surface Area) 1.99 m2 [place] body weight in kilograms 78 O2 % BldC Oximetry 98 % 11/04/2017 BP Systolic 139 mmHg BP Diastolic 77 mmHg Heart Rate 95 /min Respiratory Rate 16 /min Height 71 inches 5'11" verbal Weight 174.00 lb BMI (Body Mass Index) 24.3 kg/m2 BSA (Body Surface Area) 1.99 m2 [place] body weight in kilograms 78 O2 % BldC Oximetry 97 % 10/30/2017 BP Systolic Sitting Right Arm 134 mmHg BP Diastolic Sitting Right Arm 72 mmHg Body Temperature 96.1 F Heart Rate 98 /min Respiratory Rate 19 /min Height 71 inches 5'11" verbal Weight 167.00 lb BMI (Body Mass Index) 23.3 kg/m2 BSA (Body Surface Area) 1.95 m2 [place] body weight in kilograms 78 O2 % BldC Oximetry 96 % 10/23/2017 BP Systolic 128 mmHg BP Diastolic 74 mmHg Body Temperature 97.3 F Heart Rate 102 /min Respiratory Rate 15 /min Height 71 inches 5'11" Weight 177.00 lb BMI (Body Mass Index) 24.7 kg/m2 BSA (Body Surface Area) 2.00 m2 [place] body weight in kilograms 78 O2 % BldC Oximetry 100 % room air Pain Level 2 10/22/2017 BP Systolic 127 mmHg BP Diastolic 70 mmHg Body Temperature 96.5 F Heart Rate 101 /min Respiratory Rate 17 /min Height 71 inches 5'11" Weight 177.00 lb BMI (Body Mass Index) 24.7 kg/m2 BSA (Body Surface Area) 2.00 m2 [place] body weight in kilograms 78 O2 % BldC Oximetry 97 % 10/15/2017 BP Systolic 148 mmHg BP Diastolic 84 mmHg Height 71 inches 5'11" Weight 176.00 lb BMI (Body Mass Index) 24.5 kg/m2 BSA (Body Surface Area) 2.00 m2 [place] body weight in kilograms 78 12/18/2016 BP Systolic Sitting Right Arm 142 mmHg BP Diastolic Sitting Right Arm 76 mmHg Heart Rate 89 /min Respiratory Rate 16 /min Height 71 inches 5'11" Weight 203.00 lb BMI (Body Mass Index) 28.3 kg/m2 BSA (Body Surface Area) 2.12 m2 [place] body weight in kilograms 78 06/17/2016 BP [...] mg/dL 3 LDL Cholesterol 60 mg/dL 4 Laboratory test finding 06/27/2014 LDH 166 U/L [...] Albumin/Globulin Ratio 0.97 Impression See Comment 9 CBC Auto Diff 06/27/2014 White Blood Count [...] 0-2 Nucleated Red Blood Cells % 0.1 Comprehensive Metabolic Panel 03/10/2014 Glucose 113 mg/dL High 74-106 BUN 18 mg/dL 7-18 Creatinine 0.9 mg/dL 0.6-1.3 Glom Filtration Rate, Estimate >60 mL/min >60 If >60 mL/min >60 10 BUN/Creat 20.0 ratio Sodium 141 mmol/L 136-145 [...] 39 mg/dL 13 LDL-Cholesterol 116 mg/dL 14 Liver Function Tests 03/10/2014 Total Protein 7.6 g/dL 6.4-8.2 Albumin 3.8 g/dL 3.4-5.0 Globulin 3.8 g/dL 1.9-4.3 Alb/Glob 1.0 ratio Bilirubin,Total 0.4 mg/dL 0.2-1.0 Bilirubin,Direct 0.1 mg/dL 0.0-0.2 Bilirubin,Indirect 0.3 mg/dL 0.0-0.9 Sgot/Ast 28 U/L 15-37 SGPT/Alt 44 U/L 12-78 Alkaline Phosphatase 103 U/L 45-117 Laboratory test finding 03/10/2014 Magnesium 1.9 mg/dL 1.8-2.4 Thyroid Stim Hormone 1.43 uIU/mL 0.36-3.74 Glycohemoglobin A1c 03/10/2014 Glycohemoglobin (A1c) 6.3 % 4.2-6.3 15 eAG 134 mg/dL 1 Desirable <150 Borderline high 150-199 High 200-499 Very High >500 2 Desirable <200 Borderline high 200-239 High >239 3 Low <40 Desirable: 40-60 High: >60 4 Desirable: <100 mg/dL Near Optimal: 100-129 mg/dL Borderline High: 130-159 mg/dL High: 160-189 mg/dL Very High: >189 mg/dL 5 Normal Range 180 to 914 Indeterminate Range 145 to 180 Deficient Range <145 6 Test Performed by: [place] [address] Microbiology Laboratory Manager: Nam Mayen M.D. 7 Test Performed by: [place] [address] Microbiology Laboratory Manager: Nam Mayen M.D. 8 Test Performed by: [place] [address] Microbiology Laboratory Manager: Nam Mayen M.D. 9 RESULT: No apparent monoclonal protein on serum electrophoresis. Test Performed by: [place] [address] Microbiology Laboratory Manager: Nam Mayen M.D. 10 Note: Persistent reduction for 3 months or more in an eGFR <60 mL/min/1.73 m2 defines CKD. Patients with eGFR values >/=60 mL/min/1.73 m2 may also have CKD if evidence of persistent proteinuria is present. The original MDRD equation for estimated GFR is not valid for patients less than 18 years of age. Additional information may be found at www.kdoqi.org. 11 Reference Guidelines*: Desirable: ........... < 200 [...] Source: National Cholesterol Education Program (NCEP) 15 Elevated levels of HbA1c suggest the need for more aggressive treatment of glycemia. The [place] Diabetes Association recommends that a primary goal of therapy should be a HbA1c of <7% and that physicians should re-evaluate the treatment regimen in patients with HbA1c values consistently >8%. Procedures Date CPT Code Description Status 01/20/2018 60332 EKG-Tracing And Report Completed 12/17/2017 09400 Radiology,Humerus, Min. Two Views Completed 12/17/2017 93802 Radiology,Humerus, Min. Two Views Completed 11/19/2017 24248 Radiology,Humerus, Min. Two Views Completed 11/06/2017 20839 Radiology,Humerus, Min. Two Views Completed 10/30/2017 61921 Radiology,Humerus, Min. Two Views Completed 10/23/2017 73794 Humerus Fracture closed w/o manipulation Completed 12/18/2016 65189 EKG-Tracing And Report Completed 07/31/2015 14280 EKG-Tracing And Report Completed 07/28/2014 34786 EKG-Tracing And Report Completed 03/10/2014 33601 EKG-Tracing And Report Completed 04/13/2013 04288 Echocardiogram Complete Completed 04/13/2013 51714 Holter Monitor 24HR Inter/Report Completed 04/13/2013 38252 Stress Test Interpre And Report Only Completed 04/13/2013 24164 Stress Test Physician Super Only Completed 04/13/2013 03152 Stress Test Physician Super Only Completed 04/01/2013 18832 EKG-Tracing And Report Completed Encounters Type Date Location Provider CPT E/M Dx Office Visit 01/20/2018 2:20p [place] [address] I44.0 I10 R06.02 Office Visit 11/04/2017 9:15a Surgical Office Julio Cesar Rowe 17081 S81.811S Candi Cole Office Visit 10/22/2017 9:30a Surgical Office [place] Rowe 52720 S81.811S Candi Cole X58.xxxS Office Visit 12/18/2016 8:40a Cardiology Office Patricio Villafuerte M.D., 23606 I10 [facility] I45.5 E78.2 R06.02 R00.2 Office Visit 06/17/2016 9:20a Cardiology Office Patricio Villafuerte, 28226 R00.2 Candi, [facility] R55 Office Visit 07/31/2015 9:00a [place] [address] R55 R00.2 Office Visit 07/28/2014 1:00p [place] [address] 780.2 401.1 426.6 272.2 Office Visit 03/10/2014 10:30a Cardiology [place], ANP 48[address] 780.2 786.05 401.1 272.2 426.6 Office Visit 08/15/2013 2:10p [place] [address] 780.2 786.05 401.1 Office Visit 05/13/2013 3:10p Cardiology Office Sharita Gee, ANP 12479 786.05 780.2 401.1 Office Visit 04/01/2013 1:30p [place] [address] 780.2 401.1 786.05 Plan of Care Future Appointment(s):02/18/2018 10:00 am - Odessa Jensen, [facility] at [facility] Jgignx0701/20/2018 - Chirag Skelton, PAI44.0 Atrioventricular block, first degreeNew Orders:48 Hour Holter MonitorComments:Will assess for higher degree AVB with 48 hour HM.I10 Essential (primary) hypertensionComments: Continue to monitor BP's at home. BP goal is <140/90 mmHg.R06.02 Shortness of breathNew Orders:EchocardiogramComments:Will repeat echo to assess LVF.AllFollow up:After testing
[2018-02-10] MEDS ORDERED: Mupirocin 2% OINT* TUBE TOPICAL ONE (15:10)
--- NOTE | 2018-02-10 15:11 | UC ---
Head Injury HPI - HPI Summary HPI Summary: 82-year-old man who comes to clinic today after falling forward and sustaining a laceration to the top of his head. No loss of consciousness. The patient is not on blood thinners. No neck pain. The fall was due to being off balance. No complaint of head pain. There was quite a bit of bleeding which was stopped with direct compression. He has a skin tear on his right forearm that is not bleeding. - History Of Current Complaint Chief Complaint: UCLaceration Stated Complaint: HEAD LACERATION Time Seen by Provider: 02/10/18 14:40 Pain Intensity: 4 - Allergies/Home Medications Allergies/Adverse Reactions: Allergies Allergy/AdvReac Type Severity Reaction Status Date / Time neomycin Allergy Severe Eyes Verified 02/10/18 14:37 Itchy/Swollen/Red/Watery NSAIDS (Non-Steroidal Allergy Severe Swelling Verified 02/10/18 14:37 Anti-Inflamma Of Face,Lips,& Throat Sulfa (Sulfonamide Allergy Severe Rash And Verified 02/10/18 14:37 Antibiotics) Itching chloroquine Allergy Intermediate Tinnitus Verified 02/10/18 14:37 leflunomide Allergy Intermediate See Comment Verified 02/10/18 14:37 latex Allergy Mild Rash And Verified 02/10/18 14:37 Itching Ragweed/Environmental Allergy Intermediate Congestion Uncoded 02/10/18 14:37 gentamicin eye drops Allergy Eyes Uncoded 02/10/18 14:37 Itchy/Swollen/Red/Watery tobramycin eye drops Allergy Eyes Uncoded 02/10/18 14:37 Itchy/Swollen/Red/Watery Home Medications: Home Medications predniSONE TAB* [Deltasone 20 MG TAB*] 15 mg PO DAILY 02/10/18 [History Confirmed 02/10/18] PMH/Surg Hx/FS Hx/Imm Hx Previously Healthy: No - rheumatoid arthritis,BPH - Surgical History Surgical History: Yes Surgery Procedure, Year, and Place: BILATERAL HAND JOINT REPLACEMENT,. RT KNEE EXPLORATORY SURGERY RHEUMATOID NODULE REMOVED. CATARACT SURGERY 2014 - Family History Known Family History: Positive: Other - non contributing - Social History Alcohol Use: Rare Substance Use Type: None Smoking Status (MU): Never Smoked Tobacco - Immunization History Most Recent Influenza Vaccination: 2016 Most Recent Pneumonia Vaccination: pt stated within the last two years Review of Systems Constitutional: Negative Skin: Other - Scalp laceration Eyes: Negative ENT: Negative Respiratory: Negative Cardiovascular: Negative Gastrointestinal: Negative Genitourinary: Negative Motor: Negative Neurovascular: Negative Musculoskeletal: Negative Neurological: Negative Psychological: Negative Is Patient Immunocompromised?: Yes All Other Systems Reviewed And Are Negative: Yes Physical Exam Triage Information Reviewed: Yes Appearance: Well-Appearing, No Pain Distress, Well-Nourished Vital Signs: Initial Vital Signs Temp 97.2 F 02/10/18 14:26 Pulse 111 02/10/18 14:26 Resp 28 02/10/18 14:26 BP 175/94 02/10/18 14:26 Pulse Ox 100 02/10/18 14:26 Vital Signs Reviewed: Yes Eye Exam: Normal ENT Exam: Normal Neck exam: Normal Neck: Positive: Supple, Nontender Respiratory Exam: Normal Respiratory: Positive: Lungs clear, Normal breath sounds, No respiratory distress, No accessory muscle use Cardiovascular: Positive: RRR Abdominal Exam: Normal Musculoskeletal Exam: Normal Neurological Exam: Normal Psychological Exam: Normal Skin Exam: Normal Procedures - Laceration/Wound Repair 1 Location: head - 5CM SCALP Description: Linear Length, Depth and Shape: SC Betadine Prep?: No - SHURCLENS AND STERILE SALINE Laceration/Wound Explored: clean Closure: [place] #__ - 7 Debridement: NONE Layer Closure?: No Sterile Dressing Applied?: Yes Head Injury Course/Dx - Course Course Of Treatment: No loss of consciousness. Patient is not on a blood thinner. We discussed getting a head CT at this time. AT THIS TIME DECIDED against IT. Patient declined lidocaine. Yobani out in 7-10 days. Follow up with his primary care doctor recheck sooner if worse go to the emergency department IF WORSE. - Differential Dx/Diagnosis Provider Diagnoses: SCALP LACERATION. HEAD INJURY. SKIN TEAR RT FOREARM Discharge - Sign-Out/Discharge Documenting (check all that apply): Patient Departure All imaging exams completed and their final reports reviewed: No Studies - Discharge Plan Condition: Stable Disposition: HOME Prescriptions: Mupirocin 1 applic TOPICAL TID #[id number] Patient Education Materials: Laceration (ED), Head Injury (ED), Staple Care (ED ), Skin Tear (ED) Referrals: Peewee Marie NP [Primary Care Provider] - Additional Instructions: FOLLOW UP WITH YOUR DOCTOR. YOBANI OUT IN 7-10 DAYS. GET RECHECKED FOR ANY WORSENING OF YOUR CONDITION OR QUESTIONS OR CONCERNS. - Billing Disposition and Condition Condition: STABLE Disposition: Home - Attestation Statements Document Initiated by Scribe: No
[2018-02-10 15:56] VITALS: BP 176/94
== END 2018-02-10 15:30 | disposition home or self-care (01) ==
LOC: UCCORT 14:20
DX: S01.01XA Laceration without foreign body of scalp, initial encounter (principal); S09.90XA Unspecified injury of head, initial encounter; S51.811A Laceration without foreign body of right forearm, initial encounter; W19.XXXA Unspecified fall, initial encounter; Y93.9 Activity, unspecified; Y92.9 Unspecified place or not applicable; Z88.1 Allergy status to other antibiotic agents; Z88.4 Allergy status to anesthetic agent
CPT/HCPCS: 12002; 99213; G0463

== ENCOUNTER 2018-02-17 14:03 | Emergency (ER) | payer MEDICARE, OTHER ==
[2018-02-17 14:54] VITALS: BP 155/72
--- NOTE | 2018-02-17 15:35 | UC ---
Skin Complaint HPI - HPI Summary HPI Summary: Patient states that he had rene placed in his head and is here for removal today. He states that replaced 7 days ago. He states that he leaned forward causing him to fall forward and cut his head. He denies any issues such as headache visual change neck or back pain from this fall. - History of Current Complaint Chief Complaint: UCGeneralIllness Time Seen by Provider: 02/17/18 15:27 Stated Complaint: STAPLE REMOVAL - DONE HERE Hx Obtained From: Patient Pain Intensity: 0 Aggravating Factor(s): Nothing Alleviating Factor(s): Nothing Associated Signs & Symptoms: Negative: Rash, Red Streaks - Allergy/Home Medications Allergies/Adverse Reactions: Allergies Allergy/AdvReac Type Severity Reaction Status Date / Time neomycin Allergy Severe Eyes Verified 02/17/18 14:54 Itchy/Swollen/Red/Watery NSAIDS (Non-Steroidal Allergy Severe Swelling Verified 02/17/18 14:54 Anti-Inflamma Of Face,Lips,& Throat Sulfa (Sulfonamide Allergy Severe Rash And Verified 02/17/18 14:54 Antibiotics) Itching chloroquine Allergy Intermediate Tinnitus Verified 02/17/18 14:54 leflunomide Allergy Intermediate See Comment Verified 02/17/18 14:54 latex Allergy Mild Rash And Verified 02/17/18 14:54 Itching Ragweed/Environmental Allergy Intermediate Congestion Uncoded 02/17/18 14:54 gentamicin eye drops Allergy Eyes Uncoded 02/17/18 14:54 Itchy/Swollen/Red/Watery tobramycin eye drops Allergy Eyes Uncoded 02/17/18 14:54 Itchy/Swollen/Red/Watery Review of Systems Constitutional: Negative Skin: Negative Eyes: Negative ENT: Negative Respiratory: Negative Cardiovascular: Negative Gastrointestinal: Negative Genitourinary: Negative Motor: Negative Neurovascular: Negative Musculoskeletal: Arthralgia - from RA Neurological: Negative Psychological: Negative All Other Systems Reviewed And Are Negative: Yes PMH/Surg Hx/FS Hx/Imm Hx - Additional Past Medical History Additional PMH: RA Cardiovascular History: Hypertension Respiratory History: Asthma - Surgical History Surgical History: Yes Surgery Procedure, Year, and Place: BILATERAL HAND JOINT REPLACEMENT,. RT KNEE EXPLORATORY SURGERY RHEUMATOID NODULE REMOVED. CATARACT SURGERY 2014 - Family History Known Family History: Positive: Other - non contributing - Social History Lives: With Family Alcohol Use: None Substance Use Type: None Smoking Status (MU): Never Smoked Tobacco - Immunization History Most Recent Influenza Vaccination: 2015 Most Recent Pneumonia Vaccination: pt stated within the last two years Vaccination Up to Date: Yes Physical Exam Triage Information Reviewed: Yes Appearance: Well-Appearing Vital Signs: Initial Vital Signs Temp 98.5 F 02/17/18 14:50 Pulse 95 02/17/18 14:50 Resp 18 02/17/18 14:50 BP 155/72 02/17/18 14:50 Pulse Ox 99 02/17/18 14:50 Vital Signs Reviewed: Yes Eyes: Positive: Conjunctiva Clear ENT: Positive: Normal ENT inspection Neck: Positive: Supple, Nontender Respiratory: Positive: Lungs clear, Normal breath sounds Cardiovascular: Positive: RRR, No Murmur Abdomen Description: Positive: Nontender, No Organomegaly, Soft Bowel Sounds: Positive: Present Musculoskeletal: Positive: ROM Intact, Other: - deformity c/w RA Neurological: Positive: Alert Psychological: Positive: Age Appropriate Behavior Skin Exam: Normal, Other - 7 rene top of head. well healed laceration with no sweeling or erythema. Course/Dx - Course Course Of Treatment: 7 rene removed, pt tolerated well. - Diagnoses Provider Diagnoses: staple removal. Discharge - Sign-Out/Discharge Documenting (check all that apply): Patient Departure All imaging exams completed and their final reports reviewed: No Studies - Discharge Plan Condition: Stable Disposition: HOME Patient Education Materials: Stitches Removal (ED) Referrals: Peewee Marie NP [Primary Care Provider] - If Needed Additional Instructions: DIAGNOSIS: STAPLE REMOVAL - Billing Disposition and Condition Condition: STABLE Disposition: Home
== END 2018-02-17 15:39 | disposition home or self-care (01) ==
LOC: UCCORT 14:03
DX: Z48.02 Encounter for removal of sutures (principal); I10 Essential (primary) hypertension; M06.9 Rheumatoid arthritis, unspecified; J45.909 Unspecified asthma, uncomplicated; Z88.1 Allergy status to other antibiotic agents; Z88.2 Allergy status to sulfonamides; Z88.8 Allergy status to other drugs, medicaments and biological substances; Z96.698 Presence of other orthopedic joint implants
CPT/HCPCS: 99212; G0463